=== PATIENT | female | born 1960 | race Caucasian/White ===

== ENCOUNTER 2019-04-12 11:59 | Emergency (ER) | payer OTHER, SELFPAY ==
[2019-04-12 13:04] VITALS: BP 133/75; PULSE 109; RESP 20; TEMP 37.8; O2SAT 96
--- NOTE | 2019-04-12 13:27 | ED.GENADULT ---
HPI - General Adult General Chief complaint: Upper Respiratory Infection Stated complaint: Sore throat/Sinus/Wheezing/Cough Time Seen by Provider: 04/12/19 13:27 Source: patient and RN notes reviewed Mode of arrival: ambulatory Limitations: no limitations History of Present Illness HPI narrative: This patient said a 2-day history of purulent rhinorrhea with postnasal drip and a cough productive of white phlegm. She has not been aware of had any fever at home. She has not had any chest pain or shortness of breath but has had a faint wheezing where she lies down at night. She does have a history of asthma. She is currently on Symbicort and on 80 mg of prednisone per day. 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 She is going to be taking a 6-week course of the prednisone. She has not had any vision changes now. She has had no new symptoms except as noted above. Has had a slight sore throat not severe. She not had any ear pain or drainage from the ears. She has not had any rashes. There is been no nausea, no vomiting, no diarrhea. She has had no hematuria, no dysuria, no pyuria. She has not been traveling. She said no known exposure to anyone with strep throat, mono, influenza, bronchitis, pneumonia that she is aware of. Related Data Home Medications Medication Instructions Recorded Confirmed budesonide-formoterol [Symbicort] 2 puff INHALATION Q12H 01/12/19 04/12/19 prednisone 80 mg PO DAILY 04/12/19 04/12/19 Allergies Allergy/AdvReac Type Severity Reaction Status Date / Time clavulanic acid Allergy Intermediate hives Verified 04/12/19 13:11 amoxicillin Allergy Unknown Hives Verified 04/12/19 13:11 Review of Systems Review of Systems: Narrative: CONSTITUTIONAL: Denies fever, chills, or sweats. Noncontributory except as pertains to the past medical history and the history of present illness. EYES: Denies visual changes, redness, or discharge. ENT: Denies rhinorrhea, congestion, sore throat, or otalgia. CARDIOVASCULAR: Denies chest pain, palpitations, or edema. RESPIRATORY: Denies cough or dyspnea. GASTROINTESTINAL: Denies abdominal pain, nausea, vomiting, or diarrhea. GENITOURINARY: Denies dysuria or hematuria. SKIN: Denies rash or itching. MUSCULOSKELETAL: Denies back pain, joint pain, or myalgia. NEUROLOGIC: Denies headache, numbness, or weakness. PSYCHIATRIC: Denies anxiety or depression. [facility] Past Medical History Medical History (Updated 04/12/19 @ 13:31 by Noman Davis MD) Retinal artery branch occlusion Sinus abscess Vasculitis Surgical History Surgical History H/O section History of lumpectomy of left breast History of Aguila fundoplication History of tonsillectomy Social History Social History Smoking status: Current every day smoker Second hand tobacco smoke exposure: Yes Alcohol intake: current Comments At time of signature, I have reviewed and agree with nursing past medical, surgical, social, and family history.Please see nursing chart for further information. There is no relevant family history pertinent to the presenting complaint. Exam Narrative: Exam Narrative: GENERAL: Well-appearing, well-nourished, and in no acute distress. HEAD: Normocephalic, atraumatic. There is no palpation tenderness over the frontal, maxillary, mastoid sinus areas. EYES: PERRLA and EOMI. EARS: TM's clear bilaterally and the canals are clear. NOSE: Nares have edematous nasal mucosa with purulent rhinorrhea postnasal drip. THROAT:Mucous membranes moist.Oropharynx Normal NECK: Supple. No adenopathy of the neck, supraclavicular, axillary, or inguinal areas. RESPIRATORY: No respiratory distress. Airway patent. Respirations non-labored. The patient has a loose wet cough during the exam. She has rhonch
== END 2019-04-12 13:39 | disposition home or self-care (01) ==
PROVIDERS: Emergency Provider Family Medicine; PCP Family Medicine
DX: J40 Bronchitis, not specified as acute or chronic (principal); J01.10 Acute frontal sinusitis, unspecified; F17.200 Nicotine dependence, unspecified, uncomplicated; J45.909 Unspecified asthma, uncomplicated; E78.00 Pure hypercholesterolemia, unspecified; I10 Essential (primary) hypertension; K21.9 Gastro-esophageal reflux disease without esophagitis; E03.9 Hypothyroidism, unspecified; F41.9 Anxiety disorder, unspecified; Z85.3 Personal history of malignant neoplasm of breast
CPT/HCPCS: 99213; G0463

== ENCOUNTER 2019-04-23 10:22 | Outpatient (CLI) | payer OTHER, SELFPAY ==
--- NOTE | ~2019-04-23 | XR_ITS ---
EXAMINATION: XR chest 2V EXAM DATE: 04/23/2019 10:32 INDICATION: Shortness of breath. TECHNIQUE: Frontal and lateral projections of the chest obtained and reviewed. Comparison is made to prior examination from 01/17/2019. FINDINGS: The lungs are clear. There are no pleural effusions. The cardiomediastinal silhouette is within normal limits. There is no pneumothorax suspected. The bones and soft tissues are unremarkab le. IMPRESSION: No acute cardiopulmonary findings. Reviewed, dictated and finalized at location B. 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
== END 2019-04-23 10:23 | disposition home or self-care (01) ==
PROVIDERS: PCP Family Medicine; Visit Provider Nurse Practitioner Family
DX: R06.02 Shortness of breath (principal)
CPT/HCPCS: 71046

== ENCOUNTER 2019-09-08 14:14 | Outpatient (CLI) | payer OTHER, SELFPAY ==
--- NOTE | ~2019-09-08 | CT_ITS ---
EXAMINATION: CT chest high resolution wo co DATE: 09/08/2019 16:04 INDICATION: R91.1 Solitary pulmonary nodule TECHNIQUE: Computed tomography (CT) of the chest was performed without intravenous contrast. Addition al 3D reconstructions utilizing coronal maximum intensity projection (MIP) were performed. Automated exposure control and iterative reconstruction technique were employed. The dose-length product was 20 8.98 mGy-cm. COMPARISON: 10/07/2018 FINDINGS: Mild emphysema. 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 Also without significant interval c hange are innumerable scattered 2-3 mm nodules throughout both lungs with upper lung predominance whe re a slightly larger 4 mm nodule in the right lower lobe. No pneumonia, pulmonary edema or pleural ef fusion. Heart size is normal. Atherosclerotic coronary artery calcifications. No pericardial effusion . No pathologically enlarged thoracic lymphadenopathy. Small calcified gallstone in the normal-appear ing decompressed gallbladder. Visual is upper abdomen is unremarkable. Mild thoracic spondylosis. IMPRESSION: 1. 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 2. Mild emphysema. 3. No interval change in innumerable clearly benign 4 mm or smaller pulmonary nodules which are likel y sequela of old granulomatous disease. Reviewed, dictated and finalized at location A. IMPRESSION: 1. No significant interval change in a 4.7 x 2.0 cm pleural-based nodule at the periphery of the right lower lobe with prior biopsy demonstrating solitary fib tang tumor of the visceral pleura. 2. Mild emphysema. 3. No interval change in innumerable clearly benign 4 mm or smaller pulmonary n odules which are likely sequela of old granulomatous disease.
== END 2019-09-08 14:15 | disposition home or self-care (01) ==
LOC: ANHIMG 14:18
PROVIDERS: PCP Family Medicine; Visit Provider Nurse Practitioner Family
DX: R91.1 Solitary pulmonary nodule (principal); J43.9 Emphysema, unspecified
CPT/HCPCS: 71250

== ENCOUNTER → 2019-10-22 08:23 | Outpatient (CLI) | payer OTHER, SELFPAY ==
--- NOTE | ~2019-10-22 | XR_ITS ---
EXAMINATION: XR foot LT 2V DATE: 10/22/2019 08:39 INDICATION: Left foot pain. TECHNIQUE: 2 views of left foot were obtained. COMPARISON: None. FINDINGS: Bone alignment is normal. No fracture. There is mild osteoarthritis of first metatarsophala ngeal joint. IMPRESSION: 1. Mild osteoarthritis of first metatarsophalangeal joint. Reviewed, dictated and finalized at location B.
== END ==
PROVIDERS: PCP Family Medicine; Visit Provider Family Medicine
DX: M19.072 Primary osteoarthritis, left ankle and foot (principal)
CPT/HCPCS: 73620

== ENCOUNTER 2020-02-19 11:21 | Outpatient (CLI) | payer OTHER, SELFPAY ==
[2020-02-19 17:16] LABS: Basophils Absolute Auto 0.1 K/mm3 (0.0-0.1); Basophils Percent Auto 0.5 % (0.2-1.2); Eosinophils Absolute Auto 0.2 K/mm3 (0-0.3); Eosinophils Percent Auto 1.5 % (0-4.4); Hematocrit 50.7 % (37.0-47.0); Hemoglobin 16.9 g/dL (12.0-15.0); Immature Granulocyte Absolute 0.06 K/mm3 (0.00-0.031); Immature Granulocyte Percent A 0.5 % (0-0.5); Lymphocytes Absolute Auto 3.57 K/mm3 (0.9-3.2); Lymphocytes Percent Auto 27.7 % (18.3-44.2); Mean Corpuscular HGB Conc 33.3 g/dl (32-36); Mean Corpuscular Hemoglobin 31.7 pg (26-34); Mean Corpuscular Volume 95.1 fl (80-100); Mean Platelet Volume 11.1 fl (7.4-10.4); Monocytes Absolute Auto 0.9 K/mm3 (0.1-0.6); Monocytes Percent Auto 7.3 % (2.6-8.5); Neutrophils Absolute Auto 8.1 K/mm3 (1.3-6.7); Neutrophils Percent Auto 62.5 % (45.5-73.1); Platelet Count Result 278 k/mm3 (150-375); Red Blood Count 5.33 M/mm3 (4.2-5.4); Red Cell Distribution Width 12.9 % (11.5-14.5); White Blood Count 12.9 K/mm3 (4.5-10.0)
[2020-02-19 17:17] LABS: Add Urine Microscopic? NO; Appearance Urine Clear (Clear); Bilirubin Urine Negative (Negative); Blood Urine Negative (Negative); Color Urine Yellow (Yellow); Glucose Urine UA Negative (Negative); Ketones Urine Negative (Negative); Leukocyte Esterase Ur Negative LEU/UL (Negative); Nitrate Urine Negative (Negative); Protein Urine Negative (Negative); Urobilinogen Urine Negative mg/dL (<2.0)
[2020-02-19 17:24] LABS: Alanine Aminotransferase 48 U/L (4-35); Albumin Level 4.4 g/dL (3.5-5.1); Alkaline Phosphatase 65 U/L (38-126); Anion Gap 8 mmol/L (8-16); Aspartate Amino Transferase 34 U/L (14-36); Bilirubin,Total 0.9 mg/dL (0.2-1.3); Blood Urea Nitrogen 16 mg/dL (7-17); CRP 0.7 mg/dL (<1.0); Calcium 9.7 mg/dL (8.4-10.2); Carbon Dioxide 27 mmol/L (22-30); Chloride 105 mmol/L (98-107); Estimated Glomerular Filt Rate > 60; Glucose 138 mg/dL (65-105); Potassium 4.3 mmol/L (3.4-5.0); Sodium 140 mmol/L (137-145)
[2020-02-19 17:38] LABS: Vitamin D 25 Hydroxy 56.8 ng/mL
[2020-02-19 17:41] LABS: Hemoglobin A1C 7.1 % (<5.7)
[2020-02-19 17:53] LABS: Thyroid Stimulating Hormone 0.811 uIU/mL (0.465-4.680)
[2020-02-19 18:27] LABS: Folic Acid 7.6 ng/mL (2.76->20)
== END 2020-02-19 11:22 | disposition home or self-care (01) ==
LOC: ANHBWCLAB 11:23
PROVIDERS: PCP Family Medicine; Visit Provider Family Medicine
DX: K52.1 Toxic gastroenteritis and colitis (principal); R53.83 Other fatigue; R79.89 Other specified abnormal findings of blood chemistry; Z79.899 Other long term (current) drug therapy; T36.95XA Adverse effect of unspecified systemic antibiotic, initial encounter
CPT/HCPCS: 36415; 80053; 81003; 82306; 82607; 82746; 83036; 84443; 85025; 86140

== ENCOUNTER 2020-04-11 11:46 | Emergency (ER) | payer OTHER, SELFPAY ==
[2020-04-11 12:05] VITALS: BP 182/95; PULSE 99; RESP 18; O2SAT 95
--- NOTE | 2020-04-11 12:21 | ED.SKABFB ---
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 She has an appointment at site Sunday for surgery on the right breast as this is recurrent problem of right nipple/milk duct obstruction. Patient states there is green drainage from nipple this morning and that the pain is 9 out of 10 , Related Data Home Medications Medication Instructions Recorded Confirmed budesonide-formoterol [Symbicort] 2 puff INHALATION Q12H 01/12/19 04/11/20 calcium carbonate-vitamin D3 600 1 tablet PO DAILY 04/23/19 04/11/20 mg (1,500 mg)-800 unit tablet clopidogrel 75 mg tablet 75 mg PO DAILY 04/23/19 04/11/20 vitamin B complex 1 tablet PO DAILY 04/23/19 04/11/20 tocilizumab 162 mg/0.9 mL 162 mg SUB-Q .q2w ml 06/27/19 04/11/20 subcutaneous pen injector prednisone 5 mg tablet 10 mg PO DAILY tablet 02/19/20 04/11/20 Allergies Allergy/AdvReac Type Severity Reaction Status Date / Time clavulanic acid Allergy Intermediate hives Verified 04/11/20 12:17 amoxicillin Allergy Unknown Hives Verified 04/11/20 12:17 Review of Systems Review of Systems: Narrative: CONSTITUTIONAL: Denies fever, chills, sweats. EYES: Denies visual changes, redness, discharge. ENT: Denies rhinorrhea, congestion, sore throat, otalgia. CARDIOVASCULAR: Denies chest pain, palpitations, edema. RESPIRATORY: Denies dyspnea, wheezing, cough GASTROINTESTINAL: Denies abdominal pain, nausea, vomiting, diarrhea. GENITOURINARY: Denies dysuria, hematuria, abnormal discharge SKIN: Denies rash or itching. Right nipple pain and swelling NEUROLOGIC: Denies numbness, or focal weakness. PSYCHIATRIC: Denies anxiety or depression. [facility] Past Medical History Medical History (Updated 04/11/20 @ 12:32 by Sheyla Lopez CNP) Bronchitis, not specified as acute or chronic Infection of right breast Retinal artery branch occlusion Sinus abscess Vasculitis Surgical History Surgical History H/O section History of lumpectomy of left breast History of Aguila fundoplication History of tonsillectomy Family History Family History Father Diabetes mellitus Family history of Alzheimer's disease Mother Diabetes mellitus Hypertension Family history of arthritis Family history of malignant neoplasm of breast in first degree relative Family history of chronic obstructive pulmonary disease Family history of malignant neoplasm of breast Grandparent Family history of lung cancer Sibling Family history of hypothyroidism Other Family history of cardiovascular disease Family history of malignant neoplasm Social History Social History Years smoked: 35 Smoking status: Current every day smoker Second hand tobacco smoke exposure: Yes Alcohol intake: current Comments At time of signature, I agree with nursing past medical, surgical, social and family history. There is no relevant family history pertinent to the presenting complaint. Exam Narrative: Exam Narrative: GENERAL: This is a well-nourished, well-developed patient, in moderate distress. HEAD: normocephalic, atraumatic. EYES: Sclera clear/white. Vision is grossly intact. EARS: External ears normal, Hearing grossly intact. NOSE: External nose normal without nasal discharge, nares without redness, no rhinorrhea. THROAT: Mucous membranes moist, NECK: Neck supple, CARDIOVASCULAR:Tachycardic rate an
== END 2020-04-11 12:50 | disposition home or self-care (01) ==
PROVIDERS: Emergency Provider Nurse Practitioner; PCP Family Medicine
DX: N61.0 Mastitis without abscess (principal); F17.200 Nicotine dependence, unspecified, uncomplicated; I10 Essential (primary) hypertension; J44.9 Chronic obstructive pulmonary disease, unspecified; E78.00 Pure hypercholesterolemia, unspecified; M81.0 Age-related osteoporosis without current pathological fracture
CPT/HCPCS: 99213; G0463

== ENCOUNTER 2020-04-29 08:25 | Emergency (ER) | payer OTHER, SELFPAY ==
--- NOTE | ~2020-04-29 | XR_ITS ---
XR lumbar spine 2-3V DATE: 04/29/2020 09:00 INDICATION: Low back pain since shoveling snow 2 days ago TECHNIQUE: AP, lateral and coned lateral lumbosacral views COMPARISON: None FINDINGS: No fracture or bone destruction. The lumbar pedicles are intact. Lumbar and lumbosacral int erspaces are relatively well preserved. There is minimal degenerative spurring of the lumbar spine. T he sacroiliac joints are normal. There is calcification of the abdominal aorta and common iliac arteries. IMPRESSION: Minimal degenerative change; no fracture Reviewed, dictated and finalized at location B. 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
[2020-04-29 08:40] VITALS: BP 178/78; PULSE 105; RESP 20; TEMP 36.6; O2SAT 98
--- NOTE | 2020-04-29 08:43 | ED.BACK ---
HPI - Back Pain/Injury General Chief Complaint: Back Pain/Injury Stated Complaint: Low Back Pain Source: patient Mode of arrival: ambulatory Limitations: no limitations History of Present Illness HPI Narrative: Patient is a 59-year-old female who presents with complaints of lower back pain x2 days. She reports she was shoveling snow on Sunday and reports feeling some pain, however, pain is increased over the past day since shoveling. She reports pain to right lower back that radiates to thoracic spine. She denies numbness and tingling. She denies urinary complaints. She denies chest pain. She reports using olco-cax-mhlfqal medications, heating pad and ice pack without relief. MD elicited complaint: back pain Related Data Home Medications Medication Instructions Recorded Confirmed budesonide-formoterol [Symbicort] 2 puff INHALATION Q12H 01/12/19 04/29/20 calcium carbonate-vitamin D3 600 1 tablet PO DAILY 04/23/19 04/29/20 mg (1,500 mg)-800 unit tablet clopidogrel 75 mg tablet 75 mg PO DAILY 04/23/19 04/29/20 vitamin B complex 1 tablet PO DAILY 04/23/19 04/29/20 tocilizumab 162 mg/0.9 mL 162 mg SUB-Q .q2w ml 06/27/19 04/29/20 subcutaneous pen injector prednisone 5 mg tablet 10 mg PO DAILY tablet 02/19/20 04/29/20 Allergies Allergy/AdvReac Type Severity Reaction Status Date / Time clavulanic acid Allergy Intermediate hives Verified 04/11/20 12:17 amoxicillin Allergy Unknown Hives Verified 04/11/20 12:17 Review of Systems Review of Systems: Narrative: CONSTITUTIONAL: Denies fever, chills, or sweats. EYES: Denies visual changes, redness, or discharge. ENT: Denies rhinorrhea, congestion, sore throat, or otalgia. CARDIOVASCULAR: Denies chest pain, palpitations, or edema. RESPIRATORY: Denies cough or dyspnea. GASTROINTESTINAL: Denies abdominal pain, nausea, vomiting, or diarrhea. GENITOURINARY: Denies dysuria or hematuria. SKIN: Denies rash or itching. MUSCULOSKELETAL: Reports lower back pain NEUROLOGIC: Denies headache, numbness, dizziness, or weakness. PSYCHIATRIC: Denies anxiety or depression. [facility] Past Medical History Medical History Bronchitis, not specified as acute or chronic Infection of right breast Retinal artery branch occlusion Sinus abscess Vasculitis Surgical History Surgical History H/O section History of lumpectomy of left breast History of Aguila fundoplication History of tonsillectomy Family History Family History Father Diabetes mellitus Family history of Alzheimer's disease Mother Diabetes mellitus Hypertension Family history of arthritis Family history of malignant neoplasm of breast in first degree relative Family history of chronic obstructive pulmonary disease Family history of malignant neoplasm of breast Grandparent Family history of lung cancer Sibling Family history of hypothyroidism Other Family history of cardiovascular disease Family history of malignant neoplasm Social History Social History Years smoked: 35 Smoking status: Current every day smoker Second hand tobacco smoke exposure: Yes Alcohol intake: current Comments At the time of signature, I have reviewed and agree with nursing past medical, surgical, social, and family history unless otherwise noted. Please see nursing chart for further information. There is no relevant family history pertinent to the presenting complaint. Exam Narrative: Exam Narrative: GENERAL: Well-appearing, well-nourished, and in no acute distress. HEAD: Normocephalic, atraumatic. EYES: No redness or drainage. ENT: Mucous membranes pink and moist. CHEST: No respiratory distress. Clear to auscultation. HEART: Regular rate and rhythm. GI: Soft, nontender without rebound, or guardin
[2020-04-29 08:52] VITALS: BP 178/78; PULSE 105; RESP 20; TEMP 36.6; O2SAT 98
== END 2020-04-29 09:30 | disposition home or self-care (01) ==
PROVIDERS: Emergency Provider Nurse Practitioner; PCP Family Medicine
DX: S39.012A Strain of muscle, fascia and tendon of lower back, initial encounter (principal); X50.3XXA Overexertion from repetitive movements, initial encounter; Y93.H1 Activity, digging, shoveling and raking; F17.200 Nicotine dependence, unspecified, uncomplicated
CPT/HCPCS: 72100; 81003; 99213; G0463

== ENCOUNTER 2020-05-28 10:47 | Outpatient (CLI) | payer OTHER, SELFPAY ==
[2020-05-28 19:13] LABS: CRP < 0.5 mg/dL (<1.0)
[2020-05-28 19:19] LABS: Erythrocyte Sedimentation Rate 4 mm/hr (0-20)
== END 2020-05-28 10:48 | disposition home or self-care (01) ==
LOC: ANHBWCLAB 10:49
PROVIDERS: PCP Family Medicine; Visit Provider Family Medicine
DX: K13.79 Other lesions of oral mucosa (principal); R51.9 Headache, unspecified
CPT/HCPCS: 36415; 85652; 86140; 86695; 86696

== ENCOUNTER 2020-06-07 15:18 | Outpatient (CLI) | payer OTHER, SELFPAY ==
--- NOTE | ~2020-06-07 | XR_ITS ---
EXAMINATION: XR elbow RT min 3V DATE: 06/07/2020 15:40 INDICATION: Right elbow pain. TECHNIQUE: 4 views of right elbow were obtained. COMPARISON: None. FINDINGS: Bone alignment is normal. No fracture. There is mild elbow joint osteoarthritis. No elbow j oint effusion. IMPRESSION: 1. Mild elbow joint osteoarthritis. Reviewed, dictated and finalized at location A.
== END 2020-06-07 15:19 | disposition home or self-care (01) ==
LOC: ANHBWCIMG 15:20
PROVIDERS: PCP Family Medicine; Visit Provider Family Medicine
DX: M19.021 Primary osteoarthritis, right elbow (principal)
CPT/HCPCS: 73080

== ENCOUNTER 2020-11-06 10:19 | Emergency (ER) | payer OTHER, SELFPAY ==
[2020-11-06 10:24] VITALS: BP 154/76; PULSE 102; RESP 16; TEMP 36.4; O2SAT 97
--- NOTE | 2020-11-06 10:53 | ED.SKABFB ---
HPI - Skin/Abscess/Foreign Bdy General Chief complaint: Skin/Abscess/Foreign Body Stated complaint: poison reagan or oak Time Seen by Provider: 11/06/20 10:55 Source: patient and RN notes reviewed Mode of arrival: ambulatory Limitations: no limitations History of Present Illness HPI narrative: 60-year-old female presents with concern for rash. She reports rash on bilateral legs that are spreading up to her legs. Reports rash on both arms. Reports she got this rash after pulling weeds last week. Reports she has tried several [id number]-hwbnlih remedies without relief. Reports the rash continues to spread. She denies any swollen lips, swollen tongue, trouble breathing, nausea, vomiting, diarrhea, fever. MD complaint: rash Related Data Home Medications Medication Instructions Recorded Confirmed calcium carbonate-vitamin D3 600 1 tablet PO DAILY 04/23/19 11/06/20 mg (1,500 mg)-800 unit tablet vitamin B complex 1 tablet PO DAILY 04/23/19 11/06/20 tocilizumab 162 mg/0.9 mL 162 mg SUB-Q .q2w ml 06/27/19 11/06/20 subcutaneous pen injector prednisone 5 mg tablet 3 mg PO DAILY tablet 07/20/20 11/06/20 Allergies Allergy/AdvReac Type Severity Reaction Status Date / Time clavulanic acid Allergy Intermediate hives Verified 11/06/20 10:38 amoxicillin Allergy Unknown Hives Verified 11/06/20 10:38 Review of Systems Review of Systems: CONSTITUTIONAL: Denies malaise, chills, sweats, or fever. EYES: Denies visual changes, rash to the eyes ENT: Denies swollen lips, swollen tongue CARDIOVASCULAR: Denies chest pain, palpitations, or edema. RESPIRATORY: Denies cough or dyspnea. GASTROINTESTINAL: Denies abdominal pain, nausea, vomiting, diarrhea SKIN: Reports itchy rash on bilateral arms and legs All systems reviewed & are unremarkable except as noted in HPI and below PMFSH Past Medical History Medical History Bronchitis, not specified as acute or chronic Diabetes type 2, controlled Essential hypertension HX: breast cancer Infection of right breast Retinal artery branch occlusion Sinus abscess Temporal arteritis Vasculitis Surgical History Surgical History H/O section History of lumpectomy of left breast History of Aguila fundoplication History of tonsillectomy Family History Family History Father Diabetes mellitus Family history of Alzheimer's disease Mother Diabetes mellitus Hypertension Family history of arthritis Family history of malignant neoplasm of breast in first degree relative Family history of chronic obstructive pulmonary disease Family history of malignant neoplasm of breast Grandparent Family history of lung cancer Sibling Family history of hypothyroidism Other Family history of cardiovascular disease Family history of malignant neoplasm Social History Social History (Updated 08/19/20 @ 10:41 by Ashley Parsons [facility]) Smoking packs per day: 15 Smoking cigarettes per day: 300.0 Years smoked: 35 Smoking pack-years: 525.00 Smoking status: Current every day smoker Second hand tobacco smoke exposure: Yes Alcohol intake: current Substance use: never Comments At time of signature, agree with nursing past medical, surgical, social and family history. There is no relevant family history pertinent to the presenting complaint Exam Narrative: GENERAL: Well-appearing, well-nourished, and in no acute distress. HEAD: Normocephalic, atraumatic. EYES: PERRLA, conjunctivae clear, and EOMI. ENT: Mucous membranes moist. Oropharynx without edema, erythema or lesions. NECK: Supple. No lymphadenopathy CHEST: Clear to auscultation. No respiratory distress. HEART: Regular rate and rhythm. SKIN: Warm, dry. Papular vesicular rash noted in patches on the bilateral arms and legs consistent with poison reagan contact dermatiti
== END 2020-11-06 11:08 | disposition home or self-care (01) ==
PROVIDERS: Emergency Provider Nurse Practitioner; PCP Radiology Diagnostic Radiology
DX: L24.7 Irritant contact dermatitis due to plants, except food (principal); F17.210 Nicotine dependence, cigarettes, uncomplicated; E11.9 Type 2 diabetes mellitus without complications; Z85.3 Personal history of malignant neoplasm of breast
CPT/HCPCS: 99213; G0463

== ENCOUNTER 2021-01-03 10:17 | Outpatient (CLI) | payer OTHER, SELFPAY ==
--- NOTE | ~2021-01-03 | US_ITS ---
EXAMINATION: US venous doppler [facility] DATE: 01/03/2021 10:58 INDICATION: Left lower limb pain. TECHNIQUE: Grayscale ultrasound images without and with compression and Doppler ultrasound images of the left lower extremity veins were obtained. COMPARISON: None. FINDINGS: The visualized portions of left common femoral vein, profunda (deep) femoral vein, femoral vein, popl iteal vein, peroneal veins, posterior tibial veins, and greater saphenous vein outflow are patent. IMPRESSION: 1. No deep venous thrombosis. Reviewed, dictated and finalized at location A.
== END 2021-01-03 10:18 | disposition home or self-care (01) ==
LOC: ANHIMG 10:19
PROVIDERS: PCP Family Medicine; Visit Provider Family Medicine
DX: M79.662 Pain in left lower leg (principal)
CPT/HCPCS: 93971

== ENCOUNTER 2021-03-25 13:24 | Emergency (ER) | payer OTHER, SELFPAY ==
[2021-03-25 13:33] VITALS: BP 130/83; PULSE 88; RESP 16; TEMP 36.8; O2SAT 98
--- NOTE | 2021-03-25 13:37 | ED.URI ---
HPI - URI/Sore Throat General Chief Complaint: Ear Stated Complaint: Ear pain Time Seen by Provider: 03/25/21 13:37 Source: patient, RN notes reviewed and old records reviewed Mode of arrival: ambulatory Limitations: no limitations History of Present Illness HPI Narrative: 60-year-old female presents to the [facility] with complaints of sinus issues, sinus pain and pressure along with ear fullness. States it started at the end of February when she was diagnosed with COVID. Appointment had a cough that was productive, green spoke with her doctor who prescribed an antibiotic Feb tested positive for covid 2 Mar was prescribed a zpac. Related Data Home Medications Medication Instructions Recorded Confirmed calcium carbonate 600 mg-vitamin 1 tablet PO DAILY 04/23/19 03/25/21 D3 20 mcg (800 unit) tablet vitamin B complex 1 tablet PO DAILY 04/23/19 03/25/21 tocilizumab 162 mg/0.9 mL 162 mg SUB-Q .q2w ml 06/27/19 03/25/21 subcutaneous pen injector prednisone 35 mg PO DAILY 03/25/21 03/25/21 Allergies Allergy/AdvReac Type Severity Reaction Status Date / Time clavulanic acid Allergy Intermediate hives Verified 03/25/21 13:38 amoxicillin Allergy Unknown Hives Verified 03/25/21 13:38 Review of Systems Review of Systems: All systems reviewed & are unremarkable except as noted in HPI and below Constitutional: Constitutional: Reports no additional constitutional complaints, Denies chills and Denies fever(s) Eyes: Eyes: Reports no additional eye complaints ENT: Reports as per HPI and Reports nasal congestion Cardiovascular: Cardiovascular: Reports no additional cardiovascular complaints and Denies chest pain Respiratory: Respiratory: Reports no additional respiratory complaints, Denies cough, Denies dyspnea and Denies wheezing Gastrointestinal: Gastrointestinal: Reports no additional gastrointestinal complaints, Denies abdominal pain, Denies diarrhea, Denies nausea and Denies vomiting Musculoskeletal: Musculoskeletal: Reports no additional musculoskeletal complaints and Denies back pain Integumentary/Breasts: Skin/Breast: Reports system reviewed and no additional complaints, except as docu Neurologic: Reports as per HPI and Reports headache(s) (Frontal) Psychiatric: Psychiatric: Reports no additional psychiatric complaints Allergic/Immunologic: Allergic/Immunologic: Reports no additional allergic/immunologic complaints PMFSH Past Medical History Medical History Bronchitis, not specified as acute or chronic Diabetes type 2, controlled Essential hypertension HX: breast cancer Infection of right breast Mastitis Retinal artery branch occlusion Sinus abscess Temporal arteritis Vasculitis Surgical History Surgical History H/O section History of incision and drainage History of lumpectomy of left breast History of Aguila fundoplication History of tonsillectomy Family History Family History Father Diabetes mellitus Family history of Alzheimer's disease Mother Diabetes mellitus Hypertension Family history of arthritis Family history of malignant neoplasm of breast in first degree relative Family history of chronic obstructive pulmonary disease Family history of malignant neoplasm of breast Grandparent Family history of lung cancer Sibling Family history of hypothyroidism Other Family history of cardiovascular disease Family history of malignant neoplasm Social History Social History Smoking packs per day: 15 Smoking cigarettes per day: 300.0 Years smoked: 35 Smoking pack-years: 525.00 Smoking status: Current every day smoker Second hand tobacco smoke exposure: Yes Alcohol intake: current Substance use: never Comments At the time of my signature, I reviewed and
== END 2021-03-25 13:56 | disposition home or self-care (01) ==
PROVIDERS: Emergency Provider Nurse Practitioner; PCP Family Medicine
DX: J32.9 Chronic sinusitis, unspecified (principal); H65.03 Acute serous otitis media, bilateral; F17.210 Nicotine dependence, cigarettes, uncomplicated; E11.9 Type 2 diabetes mellitus without complications; I10 Essential (primary) hypertension; Z85.3 Personal history of malignant neoplasm of breast
CPT/HCPCS: 99213; G0463

== ENCOUNTER 2021-05-25 16:28 | Outpatient (CLI) | payer OTHER, SELFPAY ==
--- NOTE | ~2021-05-25 | CT_ITS ---
EXAMINATION:CT diagnostic chest wo con DATE: 05/25/2021 17:04 INDICATION: Solitary pulmonary nodule. TECHNIQUE: Computed tomography (CT) of the chest was performed without intravenous contrast. Automate d exposure control and iterative reconstruction technique were employed. The dose-length product (DLP ) was 69.23 mGy-cm. COMPARISON: Chest CT 09/08/2019 FINDINGS: There is mild emphysema. Again seen are innumerable scattered nodules in the lungs measurin g up to 4 mm, likely benign. There is a 5.2 x 2.0 x 3.8 cm pleural-based mass in posterior right lowe r lobe that measured 4.8 x 2.1 x 3.0 cm on 09/08/19. No pleural effusion. The heart size is normal. Th ere are coronary artery calcifications. No pericardial effusion. There is mild thoracic spondylosis. There is mild chronic anterior wedging of multiple vertebral bodies. IMPRESSION: 1. Stable pleural-based mass in right lung lower lobe. 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 2. Mild emphysema. Reviewed, dictated and finalized at location A. IMPRESSION: 1. Stable pleural-based mass in right lung lower lobe. Biopsy on 04/01/2018 demo nstrated solitary fibrous tumor. 2. Mild emphysema.
== END 2021-05-25 16:29 | disposition home or self-care (01) ==
LOC: ANHIMG 16:31
PROVIDERS: PCP Family Medicine; Visit Provider Nurse Practitioner Family
DX: R91.1 Solitary pulmonary nodule (principal); J43.9 Emphysema, unspecified
CPT/HCPCS: 71250

== ENCOUNTER 2021-05-27 10:33 | Outpatient (CLI) | payer OTHER, SELFPAY ==
[2021-05-27 18:53] LABS: Cholesterol 246 mg/dL (0-200); HDL Direct 66 mg/dL; Triglycerides 243 mg/dL (<150)
[2021-05-27 18:57] LABS: Hemoglobin A1C 7.1 % (<5.7)
[2021-05-27 19:05] LABS: LDL Cholesterol Direct 140 mg/dL
== END 2021-05-27 10:34 | disposition home or self-care (01) ==
PROVIDERS: PCP Family Medicine; Visit Provider Family Medicine
DX: R53.83 Other fatigue (principal); M25.521 Pain in right elbow; J44.9 Chronic obstructive pulmonary disease, unspecified; E78.5 Hyperlipidemia, unspecified; F17.210 Nicotine dependence, cigarettes, uncomplicated; Z00.00 Encounter for general adult medical examination without abnormal findings; E11.9 Type 2 diabetes mellitus without complications; I10 Essential (primary) hypertension; M31.6 Other giant cell arteritis
CPT/HCPCS: 36415; 80061; 83036; 84443

== ENCOUNTER 2021-08-03 11:59 | Outpatient (CLI) | payer OTHER, SELFPAY ==
[2021-08-03 19:01] LABS: Basophils Absolute Auto 0.1 K/mm3 (0.0-0.1); Basophils Percent Auto 0.4 % (0.2-1.2); Eosinophils Absolute Auto 0.1 K/mm3 (0-0.3); Eosinophils Percent Auto 0.7 % (0-4.4); Hematocrit 48.3 % (37.0-47.0); Hemoglobin 16.1 g/dL (12.0-15.0); Immature Granulocyte Absolute 0.09 K/mm3 (0.00-0.031); Immature Granulocyte Percent A 0.7 % (0-0.5); Lymphocytes Absolute Auto 1.43 K/mm3 (0.9-3.2); Lymphocytes Percent Auto 10.6 % (18.3-44.2); Mean Corpuscular HGB Conc 33.3 g/dl (32-36); Mean Corpuscular Hemoglobin 32.6 pg (26-34); Mean Corpuscular Volume 97.8 fl (80-100); Mean Platelet Volume 10.8 fl (7.4-10.4); Monocytes Absolute Auto 0.4 K/mm3 (0.1-0.6); Neutrophils Absolute Auto 11.4 K/mm3 (1.3-6.7); Neutrophils Percent Auto 84.6 % (45.5-73.1); Platelet Count Result 310 k/mm3 (150-375); Red Blood Count 4.94 M/mm3 (4.2-5.4); Red Cell Distribution Width 12.6 % (11.5-14.5); White Blood Count 13.5 K/mm3 (4.5-10.0)
[2021-08-03 19:25] LABS: Alanine Aminotransferase 19 U/L (6-35); Albumin Level 4.3 g/dL (3.5-5.1); Alkaline Phosphatase 65 U/L (38-126); Anion Gap 9 mmol/L (8-16); Aspartate Amino Transferase 20 U/L (14-36); Bilirubin,Total 0.9 mg/dL (0.2-1.3); Blood Urea Nitrogen 17 mg/dL (7-17); Calcium 10.1 mg/dL (8.4-10.2); Carbon Dioxide 22 mmol/L (22-30); Chloride 107 mmol/L (98-107); Estimated Glomerular Filt Rate > 60; Glucose 139 mg/dL (65-110); Potassium 4.4 mmol/L (3.4-5.0); Sodium 138 mmol/L (137-145)
[2021-08-03 19:27] LABS: Cholesterol 221 mg/dL (0-200); HDL Direct 67 mg/dL; Triglycerides 224 mg/dL (<150)
[2021-08-03 19:33] LABS: Troponin I < 0.012 ng/mL (0.000-0.034)
[2021-08-03 19:38] LABS: LDL Cholesterol Direct 111 mg/dL
[2021-08-03 19:52] LABS: Thyroid Stimulating Hormone 0.489 uIU/mL (0.465-4.680)
[2021-08-03 20:19] LABS: Hemoglobin A1C 6.6 % (<5.7)
== END 2021-08-03 12:00 | disposition home or self-care (01) ==
PROVIDERS: PCP Family Medicine; Visit Provider Family Medicine
DX: R53.83 Other fatigue (principal); M79.662 Pain in left lower leg; R07.9 Chest pain, unspecified; E11.9 Type 2 diabetes mellitus without complications; E78.5 Hyperlipidemia, unspecified
CPT/HCPCS: 36415; 80053; 80061; 83036; 84443; 84484; 85025

== ENCOUNTER 2021-12-30 08:19 | Outpatient (CLI) | payer OTHER, SELFPAY ==
[2021-12-30 19:37] LABS: Alanine Aminotransferase 22 U/L (6-35); Albumin Level 4.4 g/dL (3.5-5.1); Alkaline Phosphatase 62 U/L (38-126); Anion Gap 11 mmol/L (8-16); Aspartate Amino Transferase 99 U/L (14-36); Blood Urea Nitrogen 21 mg/dL (7-17); Calcium 8.9 mg/dL (8.4-10.2); Carbon Dioxide 24 mmol/L (22-30); Chloride 102 mmol/L (98-107); Cholesterol 257 mg/dL (0-200); Estimated Glomerular Filt Rate > 60; Glucose 104 mg/dL (65-110); HDL Direct 53 mg/dL; Potassium 3.8 mmol/L (3.4-5.0); Sodium 137 mmol/L (137-145); Triglycerides 224 mg/dL (<150)
[2021-12-30 19:48] LABS: LDL Cholesterol Direct 155 mg/dL
[2021-12-30 20:21] LABS: Creatinine Urine 109.4 mg/dL
[2021-12-30 20:24] LABS: Hemoglobin A1C 7.9 % (<5.7)
[2021-12-30 20:25] LABS: MALB Creatinine Ratio 6.7 mg/g (0-30); Microalbumin Urine Random 7.3 mg/L (0-16.7)
== END 2021-12-30 08:20 | disposition home or self-care (01) ==
LOC: ANHBWCLAB 08:19
PROVIDERS: PCP Family Medicine; Visit Provider Family Medicine
DX: M79.10 Myalgia, unspecified site (principal); E03.9 Hypothyroidism, unspecified; E11.9 Type 2 diabetes mellitus without complications
CPT/HCPCS: 36415; 80053; 80061; 82043; 83036; 84443

== ENCOUNTER 2022-05-01 07:26 | Outpatient (CLI) | payer OTHER, SELFPAY ==
[2022-05-01 18:34] LABS: Basophils Absolute Auto 0.1 K/mm3 (0.0-0.1); Basophils Percent Auto 0.6 % (0.2-1.2); Eosinophils Absolute Auto 0.2 K/mm3 (0-0.3); Hematocrit 52.9 % (37.0-47.0); Hemoglobin 17.2 g/dL (12.0-15.0); Immature Granulocyte Absolute 0.13 K/mm3 (0.00-0.031); Immature Granulocyte Percent A 0.8 % (0-0.5); Lymphocytes Absolute Auto 4.23 K/mm3 (0.9-3.2); Lymphocytes Percent Auto 27.3 % (18.3-44.2); Mean Corpuscular HGB Conc 32.5 g/dl (32-36); Mean Corpuscular Volume 98.3 fl (80-100); Monocytes Absolute Auto 1.1 K/mm3 (0.1-0.6); Monocytes Percent Auto 7.3 % (2.6-8.5); Neutrophils Absolute Auto 9.7 K/mm3 (1.3-6.7); Platelet Count Result 313 k/mm3 (150-375); Red Blood Count 5.38 M/mm3 (4.2-5.4); Red Cell Distribution Width 14.2 % (11.5-14.5); White Blood Count 15.5 K/mm3 (4.5-10.0)
[2022-05-01 19:11] LABS: MALB Creatinine Ratio 8.1 mg/g (0-30); Microalbumin Urine Random 6.8 mg/L (0-16.7)
[2022-05-01 19:44] LABS: Alanine Aminotransferase 23 U/L (6-35); Albumin Level 4.7 g/dL (3.5-5.1); Alkaline Phosphatase 61 U/L (38-126); Anion Gap 4 mmol/L (8-16); Aspartate Amino Transferase 81 U/L (14-36); Bilirubin,Total 0.9 mg/dL (0.2-1.3); Blood Urea Nitrogen 23 mg/dL (7-17); Calcium 9.1 mg/dL (8.4-10.2); Carbon Dioxide 29 mmol/L (22-30); Chloride 101 mmol/L (98-107); Cholesterol 201 mg/dL (0-200); Estimated Glomerular Filt Rate > 60; Glucose 79 mg/dL (65-110); HDL Direct 55 mg/dL; Potassium 3.4 mmol/L (3.4-5.0); Sodium 134 mmol/L (137-145); Triglycerides 230 mg/dL (<150)
[2022-05-01 19:55] LABS: LDL Cholesterol Direct 94 mg/dL
[2022-05-01 19:57] LABS: Anion Gap 6 mmol/L (8-16); Blood Urea Nitrogen 23 mg/dL (7-17); Carbon Dioxide 28 mmol/L (22-30); Chloride 101 mmol/L (98-107); Estimated Glomerular Filt Rate > 60; Glucose 82 mg/dL (65-110); Potassium 3.4 mmol/L (3.4-5.0); Sodium 135 mmol/L (137-145)
[2022-05-01 21:44] LABS: Hemoglobin A1C 7.1 % (<5.7)
[2022-05-08 00:17] LABS: ALT 14 U/L (6-29); Alpha-2-Macroglobulin 230 mg/dL (106-279); Apolipoprotein A1 196 mg/dL (101-198); Fibrosis Score 0.18; Fibrosis Stage F0; GGT 47 U/L (3-65); Haptoglobin 268 mg/dL (43-212); Necroinflammat Act Grade A0; Total Bilirubin 0.7 mg/dL (0.2-1.2)
== END 2022-05-01 07:27 | disposition home or self-care (01) ==
PROVIDERS: PCP Family Medicine; Visit Provider Internal Medicine Rheumatology
DX: Z51.81 Encounter for therapeutic drug level monitoring (principal); E03.9 Hypothyroidism, unspecified; D89.89 Other specified disorders involving the immune mechanism, not elsewhere classified; E11.9 Type 2 diabetes mellitus without complications; R53.83 Other fatigue
CPT/HCPCS: 36415; 80048; 80053; 80061; 81596; 82043; 83036; 84443; 85025

== ENCOUNTER 2022-05-29 12:29 | Outpatient (CLI) | payer OTHER, SELFPAY ==
--- NOTE | ~2022-05-29 | CT_ITS ---
CT Scan of the Chest without Contrast: Clinical Indication: Lung cancer screening, current smoker Technique: Contiguous sections were acquired throughout the chest without intravenous contrast. Dose reduction technique was used on this scan by utilizing automated exposure control and iterative recon struction technique. The dose-length product (DLP) was 81.31 mGy-cm. COMPARISON: 05/25/2021, 09/08/2019, 10/07/2018 Findings: There is no evidence of any significant mediastinal, hilar or axillary lymphadenopathy. Coronary linsey ry calcium cages are present. There are atherosclerotic calcifications of the aorta. . There is no evidence of pleural or pericardial effusion. Numerous scattered tiny subcentimeter, predominantly peripheral pulmonary nodules are stable from winnie or exam. Pleural-based lentiform soft tissue mass at the posterior right lung base is unchanged from prior exam, measuring approximately 4.7 x 1.8 cm (axial image 94). Images through the upper abdomen reveal no abnormalities. Impression: Lung-RADS 2: Benign appearance. [address] advised. Stable pleural-based mass at the posterior right lung base. This has reportedly previously been biops ied and shown to be solitary fibrous tumor. Additional numerous scattered tiny subcentimeter pulmonary nodules, predominantly peripherally, are s table from prior exams, benign. Reviewed, dictated and finalized at location M. Impression: Lung-RADS 2: Benign appearance. [address] advised. Stable pleural-based mass at the posterior right lung base. This has reportedly previously been biopsied and shown to be solitary fibrous tumor. Additional numerous scattered tiny subcentimeter pulmonary nodules, predominant ly peripherally, are stable from prior exams, benign.
== END 2022-05-29 12:30 | disposition home or self-care (01) ==
LOC: ANHIMG 12:32
PROVIDERS: PCP Family Medicine; Visit Provider Physician Assistant
DX: Z12.2 Encounter for screening for malignant neoplasm of respiratory organs (principal); F17.210 Nicotine dependence, cigarettes, uncomplicated
CPT/HCPCS: 71271

== ENCOUNTER 2022-07-31 08:30 | Outpatient (CLI) | payer OTHER, SELFPAY ==
[2022-07-31 18:36] LABS: Alanine Aminotransferase 37 U/L (6-35); Albumin Level 4.2 g/dL (3.5-5.1); Alkaline Phosphatase 64 U/L (38-126); Anion Gap 1 mmol/L (8-16); Aspartate Amino Transferase 87 U/L (14-36); Bilirubin,Total 0.6 mg/dL (0.2-1.3); Blood Urea Nitrogen 14 mg/dL (7-17); Calcium 8.7 mg/dL (8.4-10.2); Carbon Dioxide 33 mmol/L (22-30); Chloride 104 mmol/L (98-107); Estimated Glomerular Filt Rate > 60; Glucose 96 mg/dL (65-110); Potassium 3.9 mmol/L (3.4-5.0); Sodium 138 mmol/L (137-145)
[2022-07-31 18:44] LABS: Basophils Absolute Auto 0.1 K/mm3 (0.0-0.1); Basophils Percent Auto 0.5 % (0.2-1.2); Eosinophils Absolute Auto 0.2 K/mm3 (0-0.3); Eosinophils Percent Auto 1.7 % (0-4.4); Hematocrit 48.9 % (37.0-47.0); Hemoglobin 15.8 g/dL (12.0-15.0); Immature Granulocyte Absolute 0.11 K/mm3 (0.00-0.031); Lymphocytes Absolute Auto 3.63 K/mm3 (0.9-3.2); Mean Corpuscular HGB Conc 32.3 g/dl (32-36); Mean Corpuscular Hemoglobin 32.3 pg (26-34); Mean Platelet Volume 9.9 fl (7.4-10.4); Monocytes Absolute Auto 0.9 K/mm3 (0.1-0.6); Monocytes Percent Auto 7.8 % (2.6-8.5); Neutrophils Absolute Auto 6.5 K/mm3 (1.3-6.7); Platelet Count Result 284 k/mm3 (150-375); Red Blood Count 4.89 M/mm3 (4.2-5.4); Red Cell Distribution Width 15.6 % (11.5-14.5); White Blood Count 11.3 K/mm3 (4.5-10.0)
[2022-07-31 18:54] LABS: Alanine Aminotransferase 36 U/L (6-35); Albumin Level 4.1 g/dL (3.5-5.1); Alkaline Phosphatase 58 U/L (38-126); Aspartate Amino Transferase 85 U/L (14-36); Bilirubin,Total 0.6 mg/dL (0.2-1.3)
[2022-07-31 20:06] LABS: Creatinine Urine 62.8 mg/dL
[2022-07-31 20:18] LABS: MALB Creatinine Ratio < 9.6 mg/g (0-30); Microalbumin Urine Random < 6.0 mg/L (0-16.7)
[2022-07-31 20:19] LABS: Hemoglobin A1C 6.6 % (<5.7)
== END 2022-07-31 08:31 | disposition home or self-care (01) ==
PROVIDERS: PCP Family Medicine; Visit Provider Internal Medicine Rheumatology
DX: Z51.81 Encounter for therapeutic drug level monitoring (principal); E11.9 Type 2 diabetes mellitus without complications; D75.1 Secondary polycythemia
CPT/HCPCS: 36415; 80053; 80076; 82043; 83036; 85025

== ENCOUNTER 2022-08-31 12:49 | Outpatient (CLI) | payer OTHER, SELFPAY ==
[2022-08-31 13:31] LABS: Basophils Absolute Auto 0.1 K/mm3 (0.0-0.1); Basophils Percent Auto 0.4 % (0.2-1.2); Hematocrit 49.3 % (37.0-47.0); Hemoglobin 16.5 g/dL (12.0-15.0); Immature Granulocyte Absolute 0.12 K/mm3 (0.00-0.031); Immature Granulocyte Percent A 0.9 % (0-0.5); Lymphocytes Absolute Auto 1.25 K/mm3 (0.9-3.2); Lymphocytes Percent Auto 9.3 % (18.3-44.2); Mean Corpuscular HGB Conc 33.5 g/dl (32-36); Mean Corpuscular Hemoglobin 31.9 pg (26-34); Mean Corpuscular Volume 95.2 fl (80-100); Mean Platelet Volume 10.4 fl (7.4-10.4); Monocytes Absolute Auto 0.3 K/mm3 (0.1-0.6); Monocytes Percent Auto 1.9 % (2.6-8.5); Neutrophils Absolute Auto 11.7 K/mm3 (1.3-6.7); Neutrophils Percent Auto 87.5 % (45.5-73.1); Platelet Count Result 296 k/mm3 (150-375); Red Blood Count 5.18 M/mm3 (4.2-5.4); Red Cell Distribution Width 13.8 % (11.5-14.5); White Blood Count 13.4 K/mm3 (4.5-10.0)
[2022-08-31 13:43] LABS: Alanine Aminotransferase 33 U/L (6-35); Albumin Level 4.4 g/dL (3.5-5.1); Alkaline Phosphatase 59 U/L (38-126); Anion Gap 9 mmol/L (8-16); Aspartate Amino Transferase 31 U/L (14-36); Bilirubin,Total 0.7 mg/dL (0.2-1.3); Blood Urea Nitrogen 20 mg/dL (7-17); Calcium 9.6 mg/dL (8.4-10.2); Carbon Dioxide 24 mmol/L (22-30); Chloride 104 mmol/L (98-107); Estimated Glomerular Filt Rate > 60; Glucose 140 mg/dL (65-110); Potassium 4.7 mmol/L (3.4-5.0); Sodium 137 mmol/L (137-145)
== END 2022-08-31 12:50 | disposition home or self-care (01) ==
PROVIDERS: PCP Family Medicine; Visit Provider Internal Medicine Rheumatology
DX: Z51.81 Encounter for therapeutic drug level monitoring (principal); Z79.899 Other long term (current) drug therapy
CPT/HCPCS: 36415; 80048; 80076; 85025

== ENCOUNTER 2022-08-31 13:51 | Outpatient (CLI) | payer OTHER, SELFPAY ==
--- NOTE | ~2022-08-31 | US_ITS ---
US abdomen limited INDICATION: Epigastric pain PROCEDURE: Realtime right upper abdominal ultrasound. COMPARISON: No prior studies for comparison. FINDINGS: The pancreas is normal without focal mass or pancreatic ductal dilation. Liver echotexture is diffusely increased, consistent with fatty infiltration. There is normal directional flow in the portal vein. There is gallbladder sludge. No definite shadowing stones are seen. Common bile duct measures 8 mm. No sonographic Truong's sign. IMPRESSION: 1: Gallbladder sludge. Mildly dilated common bile duct measuring 8 mm. 2: Hepatic steatosis. Reviewed, dictated and finalized at location L.
== END 2022-08-31 13:52 | disposition home or self-care (01) ==
PROVIDERS: PCP Family Medicine; Visit Provider Nurse Practitioner
DX: R10.13 Epigastric pain (principal); K76.0 Fatty (change of) liver, not elsewhere classified
CPT/HCPCS: 76705

== ENCOUNTER 2022-10-09 07:59 | Outpatient (CLI) | payer OTHER, SELFPAY ==
[2022-10-09 19:08] LABS: Basophils Absolute Auto 0.1 K/mm3 (0.0-0.1); Basophils Percent Auto 0.4 % (0.2-1.2); Eosinophils Absolute Auto 0.2 K/mm3 (0-0.3); Eosinophils Percent Auto 1.5 % (0-4.4); Hematocrit 52.6 % (37.0-47.0); Hemoglobin 17.2 g/dL (12.0-15.0); Immature Granulocyte Absolute 0.14 K/mm3 (0.00-0.031); Immature Granulocyte Percent A 1.2 % (0-0.5); Lymphocytes Absolute Auto 3.56 K/mm3 (0.9-3.2); Lymphocytes Percent Auto 29.3 % (18.3-44.2); Mean Corpuscular HGB Conc 32.7 g/dl (32-36); Mean Corpuscular Hemoglobin 31.7 pg (26-34); Mean Corpuscular Volume 96.9 fl (80-100); Mean Platelet Volume 10.5 fl (7.4-10.4); Monocytes Absolute Auto 0.9 K/mm3 (0.1-0.6); Monocytes Percent Auto 7.4 % (2.6-8.5); Neutrophils Absolute Auto 7.3 K/mm3 (1.3-6.7); Neutrophils Percent Auto 60.2 % (45.5-73.1); Platelet Count Result 289 k/mm3 (150-375); Red Blood Count 5.43 M/mm3 (4.2-5.4); Red Cell Distribution Width 13.5 % (11.5-14.5); White Blood Count 12.2 K/mm3 (4.5-10.0)
[2022-10-09 19:28] LABS: Cholesterol 237 mg/dL (0-200); HDL Direct 53 mg/dL; Triglycerides 240 mg/dL (<150)
[2022-10-09 19:29] LABS: Alanine Aminotransferase 37 U/L (6-35); Albumin Level 4.2 g/dL (3.5-5.1); Alkaline Phosphatase 59 U/L (38-126); Anion Gap 2 mmol/L (8-16); Aspartate Amino Transferase 71 U/L (14-36); Bilirubin,Total 0.8 mg/dL (0.2-1.3); Blood Urea Nitrogen 18 mg/dL (7-17); Calcium 9.3 mg/dL (8.4-10.2); Carbon Dioxide 31 mmol/L (22-30); Chloride 102 mmol/L (98-107); Estimated Glomerular Filt Rate > 60; Glucose 106 mg/dL (65-110); Potassium 3.7 mmol/L (3.4-5.0); Sodium 135 mmol/L (137-145)
[2022-10-09 19:39] LABS: LDL Cholesterol Direct 137 mg/dL
== END 2022-10-09 08:00 | disposition home or self-care (01) ==
PROVIDERS: PCP Family Medicine; Visit Provider Internal Medicine Rheumatology
DX: E78.5 Hyperlipidemia, unspecified (principal)
CPT/HCPCS: 36415; 80048; 80061; 80076; 85025

== ENCOUNTER 2022-10-19 08:02 | Outpatient (CLI) | payer OTHER, SELFPAY ==
--- NOTE | ~2022-10-19 | NM_ITS ---
EXAMINATION: NM hepatobiliary wo pharm DATE: 10/19/2022 11:16 INDICATION: Abnormal findings on diagnostic imaging. Dilated common duct. COMPARISON: Ultrasound 08/31/2022 TECHNIQUE: 4.8 mCi Tc-99m mebrofenin (Choletec) was administered intravenously. Scintigraphic images of the abdomen were obtained for one hour. Then, the patient drank 8 oz Ensure, and imaging was cont inued for 60 minutes. FINDINGS: There is normal clearance of radiotracer from the blood pool. There is homogeneous tracer u ptake by the liver. Activity progresses to the bowel and gallbladder. Gallbladder ejection fraction (GBEF) was 44%. Note that with this technique, normal GBEF >= 33%. IMPRESSION: 1. Normal hepatobiliary scintigraphy. Reviewed, dictated and finalized at location A.
== END 2022-10-19 08:03 | disposition home or self-care (01) ==
PROVIDERS: PCP Family Medicine; Visit Provider Nurse Practitioner Adult Health
DX: R93.89 Abnormal findings on diagnostic imaging of other specified body structures (principal)
CPT/HCPCS: 78226; A9537

== ENCOUNTER 2022-10-27 09:54 | Outpatient (CLI) | payer OTHER, SELFPAY ==
[2022-10-27 19:02] LABS: Appearance Urine Clear (Clear); Bacteria Urine None Seen /hpf; Bilirubin Urine Negative (Negative); Blood Urine Negative (Negative); Color Urine Yellow (Yellow); Glucose Urine UA 3+ mg/dL (Negative); Ketones Urine Negative (Negative); Leukocyte Esterase Ur Trace LEU/UL (NEGATIVE); Nitrate Urine Negative (Negative); Non Pathogenic Casts 0-2; Protein Urine Negative (Negative); RBC Urine 0-2 /hpf (0-2); Specific Grav Ur 1.014 (1.001-1.035); Squamous Epithelial Cell Urine None seen /hpf (Few); Urobilinogen Urine 0.2 mg/dL (<2.0); WBC Urine 0-5 /hpf (0-3); pH Urine 6.5 (5.0-9.0)
[2022-10-27 19:06] LABS: Add Urine Microscopic? YES
== END 2022-10-27 09:55 | disposition home or self-care (01) ==
PROVIDERS: PCP Family Medicine; Visit Provider Family Medicine
DX: R30.0 Dysuria (principal)
CPT/HCPCS: 81001; 87086; 87088

== ENCOUNTER 2022-10-31 07:26 | Outpatient (RCR) | payer OTHER, SELFPAY ==
[2022-10-31 19:05] LABS: Basophils Percent Auto 0.3 % (0.2-1.2); Eosinophils Absolute Auto 0.1 K/mm3 (0-0.3); Eosinophils Percent Auto 0.9 % (0-4.4); Hemoglobin 15.7 g/dL (12.0-15.0); Immature Granulocyte Absolute 0.18 K/mm3 (0.00-0.031); Immature Granulocyte Percent A 1.5 % (0-0.5); Lymphocytes Absolute Auto 3.16 K/mm3 (0.9-3.2); Lymphocytes Percent Auto 25.8 % (18.3-44.2); Mean Corpuscular HGB Conc 31.4 g/dl (32-36); Mean Corpuscular Volume 98.6 fl (80-100); Mean Platelet Volume 10.8 fl (7.4-10.4); Monocytes Absolute Auto 0.9 K/mm3 (0.1-0.6); Neutrophils Absolute Auto 7.9 K/mm3 (1.3-6.7); Neutrophils Percent Auto 64.5 % (45.5-73.1); Platelet Count Result 276 k/mm3 (150-375); Red Blood Count 5.07 M/mm3 (4.2-5.4); White Blood Count 12.2 K/mm3 (4.5-10.0)
[2022-10-31 19:41] LABS: Alanine Aminotransferase 48 U/L (6-35); Albumin Level 3.9 g/dL (3.5-5.1); Alkaline Phosphatase 62 U/L (38-126); Anion Gap 4 mmol/L (8-16); Aspartate Amino Transferase 70 U/L (14-36); Bilirubin,Total 1.1 mg/dL (0.2-1.3); Blood Urea Nitrogen 19 mg/dL (7-17); Carbon Dioxide 24 mmol/L (22-30); Chloride 102 mmol/L (98-107); Estimated Glomerular Filt Rate > 60; Glucose 125 mg/dL (65-110); Potassium 3.5 mmol/L (3.4-5.0); Sodium 130 mmol/L (137-145)
== END 2023-01-29 23:59 | disposition home or self-care (01) ==
LOC: ANHBWCLAB 07:26
PROVIDERS: PCP Family Medicine; Visit Provider Internal Medicine Rheumatology
DX: Z51.81 Encounter for therapeutic drug level monitoring (principal); Z79.899 Other long term (current) drug therapy
CPT/HCPCS: 36415; 80048; 80076; 85025

== ENCOUNTER 2022-12-12 08:47 | Outpatient (CLI) | payer OTHER, SELFPAY ==
[2022-12-12 18:19] LABS: Basophils Absolute Auto 0.1 K/mm3 (0.0-0.1); Basophils Percent Auto 0.5 % (0.2-1.2); Eosinophils Absolute Auto 0.1 K/mm3 (0-0.3); Eosinophils Percent Auto 0.5 % (0-4.4); Hematocrit 47.5 % (37.0-47.0); Hemoglobin 15.5 g/dL (12.0-15.0); Immature Granulocyte Absolute 0.12 K/mm3 (0.00-0.031); Immature Granulocyte Percent A 0.9 % (0-0.5); Lymphocytes Absolute Auto 3.08 K/mm3 (0.9-3.2); Lymphocytes Percent Auto 23.9 % (18.3-44.2); Mean Corpuscular HGB Conc 32.6 g/dl (32-36); Mean Corpuscular Hemoglobin 30.9 pg (26-34); Mean Corpuscular Volume 94.6 fl (80-100); Mean Platelet Volume 11.1 fl (7.4-10.4); Monocytes Percent Auto 8.1 % (2.6-8.5); Neutrophils Absolute Auto 8.5 K/mm3 (1.3-6.7); Neutrophils Percent Auto 66.1 % (45.5-73.1); Platelet Count Result 259 k/mm3 (150-375); Red Blood Count 5.02 M/mm3 (4.2-5.4); Red Cell Distribution Width 13.9 % (11.5-14.5); White Blood Count 12.9 K/mm3 (4.5-10.0)
[2022-12-12 19:01] LABS: Free T4 Free Thyroxine 1.12 ng/mL (0.78-2.19)
[2022-12-12 19:38] LABS: Alanine Aminotransferase 40 U/L (6-35); Albumin Level 4.2 g/dL (3.5-5.1); Alkaline Phosphatase 56 U/L (38-126); Anion Gap 5 mmol/L (8-16); Aspartate Amino Transferase 68 U/L (14-36); Blood Urea Nitrogen 17 mg/dL (7-17); Calcium 9.7 mg/dL (8.4-10.2); Carbon Dioxide 33 mmol/L (22-30); Chloride 102 mmol/L (98-107); Cholesterol 125 mg/dL (0-200); Estimated Glomerular Filt Rate > 60; Glucose 121 mg/dL (65-110); HDL Direct 49 mg/dL; Potassium 3.9 mmol/L (3.4-5.0); Sodium 140 mmol/L (137-145); Triglycerides 179 mg/dL (<150)
[2022-12-12 19:49] LABS: LDL Cholesterol Direct 54 mg/dL
[2022-12-12 20:03] LABS: Thyroid Stimulating Hormone 0.087 uIU/mL (0.465-4.680)
[2022-12-16 07:50] LABS: Triiodothyronine T3 Free 3.6 pg/mL (2.3-4.2)
[2022-12-19 21:19] LABS: ALT 30 U/L (6-29); Alpha-2-Macroglobulin 239 mg/dL (106-279); Apolipoprotein A1 152 mg/dL (101-198); Fibrosis Score 0.31; Fibrosis Stage F1-F2; GGT 126 U/L (3-65); Haptoglobin 367 mg/dL (43-212); Necroinflammat Act Grade A0; Total Bilirubin 0.6 mg/dL (0.2-1.2)
== END 2022-12-12 08:48 | disposition home or self-care (01) ==
PROVIDERS: PCP Family Medicine; Referring Provider Internal Medicine Rheumatology; Visit Provider Internal Medicine Cardiovascular Disease
DX: E03.9 Hypothyroidism, unspecified (principal); E11.9 Type 2 diabetes mellitus without complications; F17.210 Nicotine dependence, cigarettes, uncomplicated; G47.33 Obstructive sleep apnea (adult) (pediatric); I10 Essential (primary) hypertension; I77.6 Arteritis, unspecified; J44.9 Chronic obstructive pulmonary disease, unspecified; R53.83 Other fatigue; E78.5 Hyperlipidemia, unspecified; M54.50 Low back pain, unspecified
CPT/HCPCS: 36415; 80053; 80061; 81596; 84439; 84443; 84481; 85025

== ENCOUNTER 2023-01-23 08:40 | Outpatient (CLI) | payer OTHER, SELFPAY ==
[2023-01-23 21:28] LABS: Thyroid Stimulating Hormone 0.168 uIU/mL (0.465-4.680)
== END 2023-01-23 08:41 | disposition home or self-care (01) ==
LOC: ANHBWCLAB 08:41
PROVIDERS: PCP Nurse Practitioner Adult Health; Visit Provider Family Medicine
DX: E03.9 Hypothyroidism, unspecified (principal)
CPT/HCPCS: 36415; 84443

== ENCOUNTER 2023-01-24 11:01 | Outpatient (CLI) | payer OTHER, SELFPAY ==
[2023-02-07 19:01] LABS: TPMT Activity 8
== END 2023-01-24 11:02 | disposition home or self-care (01) ==
PROVIDERS: PCP Nurse Practitioner Adult Health; Visit Provider Internal Medicine
DX: M31.6 Other giant cell arteritis (principal); L40.59 Other psoriatic arthropathy; Z79.899 Other long term (current) drug therapy
CPT/HCPCS: 36415; 82657

== ENCOUNTER 2023-03-21 07:38 | Outpatient (CLI) | payer OTHER, SELFPAY | END 2023-03-21 07:39 | disposition home or self-care (01) | LOC: ANHBWCLAB 07:39 | PROVIDERS: PCP Nurse Practitioner Adult Health; Visit Provider Nurse Practitioner Adult Health | DX: E03.9 Hypothyroidism, unspecified (principal) | CPT/HCPCS: 36415; 84443 ==

== ENCOUNTER 2023-04-03 08:34 | Outpatient (CLI) | payer OTHER, SELFPAY ==
--- NOTE | 2023-04-03 08:42 | ECHO_ITS ---
Patient Info Name: Ivonne Bacon Age: 62 years : 1960 Gender: Female Ht: 67 in Wt: 182 lbs BSA: 2.00 m2 HR: 71 bpm BP: 123 / 92 mmHg Technical Quality: Good Exam Date: 04/03/2023 8:57 AM Exam Location: Echo Lab Patient Status: Outpatient Admit Date: 04/03/2023 Staff Ordering Physician: Brielle Mendoza PA-C Attending Provider: Brielle Mendoza PA-C Exam Type: CA echo doppler color flow Study Info Indications R60.9 - Edema, unspecified Complete two-dimensional, color flow and Doppler transthoracic echocardiogram is performed. Summary 1. Complete two-dimensional, color flow and Doppler transthoracic echocardiogram is performed. 2. Left ventricular chamber dimension is normal. 3. Left ventricular systolic function is normal, estimated at 60-65%. 4. There is mild concentric increased left ventricular wall thickness. 5. The left ventricular diastolic function is grade I diastolic dysfunction. 6. E/e' 11 is mildly elevated. 7. There is mild aortic valve sclerosis. 8. The mitral valve has mildly calcified annulus. 9. There is trace mitral valve regurgitation. 10. There is trace pulmonic regurgitation. Left Ventricle E/e' 11 is mildly elevated. Left ventricular chamber dimension is normal. Left ventricular systolic function is normal, estimated at 60-65%. There is mild concentric increased left ventricular wall thickness. The left ventricular diastolic function is grade I diastolic dysfunction. Right Ventricle Right ventricular systolic function is normal and with normal TAPSE 2.1 cm. Right ventricular chamber dimension is normal. Left Atria Left atrial chamber dimension is normal. Right Atria Right atrial chamber dimension is normal. Aortic Valve The aortic valve is trileaflet. There is mild aortic valve sclerosis. There is no aortic valve stenosis. There is no aortic valve regurgitation. Pulmonic Valve There is trace pulmonic regurgitation. Mitral Valve The mitral valve has mildly calcified annulus. There is no mitral valve stenosis. There is trace mitral valve regurgitation. Tricuspid Valve There is no tricuspid valve regurgitation. Pericardium/Pleural There is no pericardial effusion. Inferior Vena Cava Normal inferior vena cava with >50% collapse upon inspiration consistent with normal right atrial pressure, 5 mmHg. Aorta The aortic root size at the sinus of Valsalva is normal. Left Ventricular Outflow Tract Name Value Normal LVOT 2D LVOT Diameter 2.1 cm LVOT Doppler LVOT Peak Gradient 4 mmHg LVOT Mean Gradient 2 mmHg LVOT VTI 20 cm LVOT VTI/AV VTI Ratio 0.6 LVOT Stroke Volume 66 ml LVOT CO 4.6 l/min LVOT CI 2.3 l/min/m2 Pulmonic Valve Name Value Normal PV Doppler PV Peak Gradient
== END 2023-04-03 08:35 | disposition home or self-care (01) ==
PROVIDERS: PCP Nurse Practitioner Adult Health; Visit Provider Physician Assistant
DX: R60.9 Edema, unspecified (principal)
CPT/HCPCS: 93306

== ENCOUNTER 2023-04-09 10:56 | Outpatient (CLI) | payer OTHER, SELFPAY ==
[2023-04-14 20:17] LABS: G-6-PD, RBC 13.6 U/g Hgb (7.0-20.5)
== END 2023-04-09 10:57 | disposition home or self-care (01) ==
LOC: ANHBWCLAB 10:57
PROVIDERS: PCP Nurse Practitioner Adult Health; Visit Provider Internal Medicine
DX: M05.89 Other rheumatoid arthritis with rheumatoid factor of multiple sites (principal); Z79.899 Other long term (current) drug therapy
CPT/HCPCS: 36415; 82955

== ENCOUNTER 2023-06-11 08:16 | Outpatient (CLI) | payer OTHER, SELFPAY ==
--- NOTE | ~2023-06-11 | US_ITS ---
EXAMINATION: US carotid duplex BI DATE: 06/11/2023 09:41 INDICATION: Right-sided pulsatile tinnitus. TECHNIQUE: Grayscale, color Doppler, and pulsed Doppler images of the cervical carotid arteries were obtained. The degree of vessel stenosis is placed in one of the following categories: normal, <50%, 5 0-69%, >=70% but less than near-occlusion, near-occlusion, or total occlusion. Note that percent sten osis relative to normal distal artery lumen diameter is indirectly measured from velocity measurement s as described by Viraj, et al. Radiology 2003; 229:340-346. COMPARISON: None. FINDINGS: RIGHT: The right common carotid artery (CCA) peak systolic velocity (PSV) is 63 cm/s. The right internal car otid artery (ICA) PSV is 76 cm/s. The right ICA end-diastolic velocity (EDV) is 31 cm/s. The right IC A/CCA PSV ratio is 1.2. Grayscale and color Doppler images yield an estimate of <50% diameter reducti on from plaque in the ICA. There is antegrade flow in the right vertebral artery. LEFT: The left CCA PSV is 81 cm/s. The left ICA PSV is 82 cm/s. The left ICA EDV is 33 cm/s. The left ICA/C CA PSV ratio is 1.0. Grayscale and color Doppler images yield an estimate of <50% diameter reduction from plaque in the ICA. There is antegrade flow in the left vertebral artery. IMPRESSION: 1. <50% stenosis in the right internal carotid artery. 2. <50% stenosis in the left internal carotid artery. Reviewed, dictated and finalized at location A.
== END 2023-06-11 08:17 ==
PROVIDERS: PCP Nurse Practitioner Adult Health; Visit Provider Nurse Practitioner Adult Health
DX: H93.A1 Pulsatile tinnitus, right ear (principal); I65.23 Occlusion and stenosis of bilateral carotid arteries
CPT/HCPCS: 93880

== ENCOUNTER 2023-07-09 15:59 | Outpatient (CLI) | payer OTHER, SELFPAY ==
--- NOTE | ~2023-07-09 | CT_ITS ---
EXAMINATION: CT IAC/mastoids BI wo con DATE: 07/09/2023 16:14 INDICATION: Chronic maxillary sinusitis. Tinnitus. Right ear pressure and fullness. TECHNIQUE: Computed tomography (CT) of the temporal bones was performed without intravenous contrast. Automated exposure control and iterative reconstruction technique were employed. The dose-length pro duct was 403.39 mGy-cm. COMPARISON: None FINDINGS: RIGHT TEMPORAL BONE: The internal auditory canal, cochlea, vestibule, semicircular canals, vestibular aqueduct, carotid ca nal, jugular bulb, facial nerve course, ossicles, tympanic membrane, Prussak space, scutum, mastoid a ir cells, and external auditory canal are normal. LEFT TEMPORAL BONE: The internal auditory canal, cochlea, vestibule, semicircular canals, vestibular aqueduct, facial ner ve course, carotid canal, jugular bulb, ossicles, tympanic membrane, Prussak space, scutum, mastoid a ir cells, and external artery canal are normal. IMPRESSION: 1. Normal temporal bones. Reviewed, dictated and finalized at location A. IMPRESSION: 1. Normal temporal bones.
== END 2023-07-09 16:00 ==
PROVIDERS: PCP Nurse Practitioner Adult Health; Visit Provider Otolaryngology
DX: J32.0 Chronic maxillary sinusitis (principal); H70.11 Chronic mastoiditis, right ear; H93.A1 Pulsatile tinnitus, right ear
CPT/HCPCS: 70480

== ENCOUNTER 2023-07-17 07:54 | Outpatient (CLI) | payer OTHER, SELFPAY | END 2023-07-17 07:55 | disposition home or self-care (01) | LOC: ANHBWCAUD 07:55 | PROVIDERS: PCP Nurse Practitioner Adult Health; Visit Provider Otolaryngology | DX: H70.11 Chronic mastoiditis, right ear (principal); H93.A1 Pulsatile tinnitus, right ear; J32.0 Chronic maxillary sinusitis | CPT/HCPCS: 92557; 92567 ==

== ENCOUNTER 2023-07-30 10:29 | Outpatient (CLI) | payer OTHER, SELFPAY ==
--- NOTE | ~2023-07-30 | XR_ITS ---
XR lumbar spine 2-3V DATE: 07/30/2023 10:40 INDICATION: Low back pain TECHNIQUE: AP, lateral, cone-down lateral lumbosacral views COMPARISON: None FINDINGS: There is diffuse osteopenia. Normal alignment of the lumbar vertebrae. The included lower thoracic and lumbar pedicles are intact. No fracture or bone destruction or spondylolisthesis. There is minimal degenerative spurring of the lumbar spine. Lumbar and lumbosacral screws appear relatively well preserved. Sacroiliac joints are intact. There is extensive calcification of abdominal aorta and common iliac arteries, no evidence of abdomin al aortic aneurysm. IMPRESSION: Osteopenia Reviewed, dictated and finalized at location B. IMPRESSION: Osteopenia
== END 2023-07-30 10:30 | disposition home or self-care (01) ==
LOC: ANHBWCIMG 10:30
PROVIDERS: PCP Nurse Practitioner Adult Health; Visit Provider Nurse Practitioner Adult Health
DX: M85.88 Other specified disorders of bone density and structure, other site (principal)
CPT/HCPCS: 72100

== ENCOUNTER 2023-11-08 10:33 | Outpatient (CLI) | payer OTHER, SELFPAY ==
[2023-11-08 19:33] LABS: Cholesterol 219 mg/dL (0-200); Estimated Glomerular Filt Rate > 60; HDL Direct 38 mg/dL; Triglycerides 195 mg/dL (<150)
[2023-11-08 19:42] LABS: Creatinine Urine 160.5 mg/dL; Hemoglobin A1C 8.4 % (<5.7)
[2023-11-08 19:44] LABS: LDL Cholesterol Direct 144 mg/dL; Microalbumin Urine Random 9.6 mg/L (0-16.7)
[2023-11-08 20:01] LABS: Thyroid Stimulating Hormone 0.158 uIU/mL (0.465-4.680)
== END 2023-11-08 10:34 | disposition home or self-care (01) ==
LOC: ANHBWCLAB 10:34
PROVIDERS: PCP Nurse Practitioner Adult Health; Visit Provider Nurse Practitioner Adult Health
DX: E53.8 Deficiency of other specified B group vitamins (principal); E78.5 Hyperlipidemia, unspecified; E03.9 Hypothyroidism, unspecified; E11.9 Type 2 diabetes mellitus without complications
CPT/HCPCS: 36415; 80061; 82043; 82565; 82607; 83036; 84439; 84443

== ENCOUNTER 2023-11-15 08:22 | Outpatient (CLI) | payer OTHER, SELFPAY ==
--- NOTE | ~2023-11-15 | US_ITS ---
Abdominal Sonogram: Real-time sonographic imaging of the abdomen was performed. Clinical History: Atherosclerosis of aorta Findings: The liver appears echogenic, with no evidence of mass lesion or bile duct dilatation. Main portal vein demonstrates normal direction of flow. The spleen is normal in size without evidence of focal lesion. The gallbladder is well distended, and contains small gallstones. No gallbladder wall thickening. The common bile duct measures 8 mm, questionable tiny echogenic focus within it. The vis ualized pancreas, aorta, and IVC are unremarkable. The right kidney measures 12.9 cm in length and t he left kidney measures 11.8 cm. There is no hydronephrosis or renal calculus. Impression: Diffuse fatty infiltration of the liver. Cholelithiasis. Mildly dilated common bile duct, with questionable tiny common duct stone. Consider MRCP as indicated . Reviewed, dictated and finalized at [facility]. Impression: Diffuse fatty infiltration of the liver. Cholelithiasis. Mildly dilated common bile duct, with questionable tiny common duct stone. Cons ider MRCP as indicated.
== END 2023-11-15 08:23 | disposition home or self-care (01) ==
LOC: MICIMG 08:23
PROVIDERS: PCP Nurse Practitioner Adult Health; Visit Provider Nurse Practitioner Adult Health
DX: I70.0 Atherosclerosis of aorta (principal); K80.20 Calculus of gallbladder without cholecystitis without obstruction; K76.0 Fatty (change of) liver, not elsewhere classified
CPT/HCPCS: 76700

== ENCOUNTER 2023-11-21 09:20 | Outpatient (CLI) | payer OTHER, SELFPAY ==
--- NOTE | ~2023-11-21 | US_ITS ---
EXAMINATION: US art doppler w press LE BI DATE: 11/21/2023 10:34 INDICATION: Claudication lower limb pain TECHNIQUE: Segmental pressures and plethysmographic and Doppler waveforms of the brachial and lower e xtremity arteries were obtained. COMPARISON: None. FINDINGS: Right and left brachial artery pressures of 137 mm Hg and 144 mm Hg, respectively, are concordant (no rmal difference <= 30 mmHg). The right and left high-thigh pressure indices are unable to be obtained due to inability to occlude the vessels at either high thigh (normal > 1.2). The right ankle-brachial index (JOSEPH) is 1.09 (normal >= 0.9-1). The right great toe-brachial index (T BI) is 1.26 (normal >= 0.6-0.8). The right lower extremity segmental pressure gradients are increased between the right [id number] popliteal artery and the right dorsalis pedis artery (normal gradie nts <= 20-30 mmHg between adjacent levels on the same leg or the same levels on the two legs). Arteri al waveforms are biphasic with brisk systolic upstrokes throughout the arteries of the right lower li mb. The left JOSEPH is 1.07. The left TBI is 0.95. The left lower extremity segmental pressure gradients are increased between the left [id number] popliteal artery and the left dorsalis pedis artery. Arter ial waveforms are biphasic with brisk systolic upstrokes arteries of the left lower limb. IMPRESSION: 1. No significant arterial occlusive disease to either lower limb with normal bilateral ABIs and TBIs . Reviewed, dictated and finalized at location B. IMPRESSION: 1. No significant arterial occlusive disease to either lower limb with normal b ilateral ABIs and TBIs.
== END 2023-11-21 09:21 | disposition home or self-care (01) ==
LOC: ANHIMG 09:21
PROVIDERS: PCP Nurse Practitioner Adult Health; Visit Provider Internal Medicine Cardiovascular Disease
DX: M79.606 Pain in leg, unspecified (principal)
CPT/HCPCS: 93923

== ENCOUNTER 2023-12-07 12:59 | Outpatient (CLI) | payer OTHER, SELFPAY ==
--- NOTE | 2023-12-07 12:30 | ECG_ITS ---
Test Date: 2023-12-07 13:06:55 Measurements Intervals [place] Rate: 77 P: 17 WA: 148 QRS: 34 QRSD: 111 T: 53 QT: 358 QTc: 407 Interpretive Statements SINUS RHYTHM INCOMPLETE LEFT BUNDLE BRANCH BLOCK BASELINE ARTIFACT- II, III, V1-V6 ABNORMAL ECG No previous ECG available for comparison Electronically Signed On 12-07-2023 13:28:12 CDT by Adan Hernandez D.O.
== END 2023-12-07 13:00 | disposition home or self-care (01) ==
LOC: ANHSURGERY 13:02
PROVIDERS: PCP Nurse Practitioner Adult Health; Visit Provider Surgery
DX: Z01.818 Encounter for other preprocedural examination (principal); I10 Essential (primary) hypertension; I45.10 Unspecified right bundle-branch block; R94.31 Abnormal electrocardiogram [ECG] [EKG]
CPT/HCPCS: 93005

== ENCOUNTER 2023-12-08 15:55 | Inpatient (IN) | payer OTHER, SELFPAY ==
[2023-12-08 16:17] VITALS: BP 125/55; PULSE 89; RESP 18; TEMP 36.8; O2SAT 100
[2023-12-08 18:26] VITALS: BP 143/68; PULSE 93; RESP 18; TEMP 36.7; O2SAT 95
[2023-12-08 20:30] VITALS: BP 144/72; PULSE 75; RESP 16; TEMP 37.2; O2SAT 98
--- NOTE | 2023-12-08 21:34 | ED.SKABFB ---
HPI - Skin/Abscess/Foreign Bdy General Chief complaint: Skin/Abscess/Foreign Body Stated complaint: INCREASED PAIN AND REDNESS R/T MASTITIS Time Seen by Provider: 12/08/23 20:58 History of Present Illness HPI narrative: 63-year-old female with a past medical history significant for mastitis recurrent on the right breast as well as a history of left-sided breast cancer status post multiple surgeries. She was seen by her breast surgeon several days prior and has completed 9 days of clindamycin, switched to Bactrim for last several days with only worsening redness, irritation, but new pustule formation around the right areola but no drainage or weepage. Endorses significant pain. Is scheduled for an operation with an incision and drainage under anesthesia in the operating room on Sunday this week which is in 2 days. States that the pain got worse today and she had a high fever of 101? F at home prompting her to seek evaluation. She has been taking [place] at home without any symptom control. Denies any chills, rigors, nausea, vomiting, diaphoresis, abdominal pain, back pain. No chest pain shortness a breath. Related Data Home Medications Medication Instructions Recorded Confirmed calcium carbonate 600 mg-vitamin 1 tablet PO DAILY 04/23/19 12/09/23 D3 20 mcg (800 unit) tablet (Caltrate with Vitamin D3) alendronate 70 mg tablet 70 mg PO WEEKLY 09/08/22 12/09/23 prednisone 10 mg tablet 20 mg PO DAILY 10/03/23 12/09/23 vonoprazan 10 mg tablet (Voquezna) 10 mg PO DAILY 10/03/23 12/09/23 secukinumab 150 mg/mL subcutaneous 150 mg subcut MONTHLY 12/07/23 12/09/23 pen injector (Cosentyx Pen) clopidogrel 75 mg tablet 75 mg PO DAILY 12/09/23 12/09/23 levothyroxine 100 mcg tablet 100 mcg PO QAM 12/09/23 12/09/23 liothyronine 5 mcg tablet 5 mcg PO BID 12/09/23 12/09/23 lisinopril 20 mg tablet 20 mg PO DAILY 12/09/23 12/09/23 montelukast 10 mg tablet 10 mg PO QPM 12/09/23 12/09/23 Allergies Allergy/AdvReac Type Severity Reaction Status Date / Time clavulanic acid Allergy Intermediate hives Verified 12/09/23 07:08 amoxicillin Allergy Unknown Hives Verified 12/09/23 07:08 Review of Systems Review of Systems: As reviewed above in [facility] Past Medical History Medical History Bronchitis, not specified as acute or chronic Diabetes type 2, controlled Essential hypertension HX: breast cancer Infection of right breast Lung tumor (benign) Mastitis Retinal artery branch occlusion Sinus abscess Temporal arteritis Vasculitis Surgical History Surgical History H/O section History of incision and drainage History of lumpectomy of left breast History of [place] fundoplication History of tonsillectomy Family History Family History Father Diabetes mellitus Family history of Alzheimer's disease Mother Diabetes mellitus Hypertension Family history of arthritis Family history of malignant neoplasm of breast in first degree relative Family history of chronic obstructive pulmonary disease Family history of malignant neoplasm of breast Grandparent Family history of lung cancer Sibling Family history of hypothyroidism Other Family history of cardiovascular disease Family history of malignant neoplasm Social History Social History Smoking packs per day: 0.75 Smoking cigarettes per day: 15.0 Years smoked: 46 Smoking pack-years: 34.50 Smoking status: Current every day smoker Tobacco type: cigarettes Second hand tobacco smoke exposure: Yes Alcohol intake: never Substance use: never Substance use type: does not use Do You Feel Safe in your Home?: Yes Lack of Transportation: No Lack of Food: Never True Current Housing: I Have Housing Concerned About F
[2023-12-08 22:25] LABS: Basophils Absolute Auto 0.1 K/mm3 (0.0-0.1); Basophils Percent Auto 0.4 % (0.2-1.2); Eosinophils Percent Auto 0.1 % (0-4.4); Hematocrit 46.3 % (37.0-47.0); Hemoglobin 15.7 g/dL (12.0-15.0); Immature Granulocyte Absolute 0.15 K/mm3 (0.00-0.031); Immature Granulocyte Percent A 1.3 % (0-0.5); Lymphocytes Absolute Auto 1.13 K/mm3 (0.9-3.2); Lymphocytes Percent Auto 9.5 % (18.3-44.2); Mean Corpuscular HGB Conc 33.9 g/dl (32-36); Mean Corpuscular Hemoglobin 30.4 pg (26-34); Mean Corpuscular Volume 89.6 fl (80-100); Mean Platelet Volume 10.2 fl (7.4-10.4); Monocytes Absolute Auto 0.4 K/mm3 (0.1-0.6); Monocytes Percent Auto 3.3 % (2.6-8.5); Neutrophils Absolute Auto 10.2 K/mm3 (1.3-6.7); Neutrophils Percent Auto 85.4 % (45.5-73.1); Platelet Count Result 338 k/mm3 (150-375); Red Blood Count 5.17 M/mm3 (4.2-5.4); Red Cell Distribution Width 13.7 % (11.5-14.5); White Blood Count 11.9 K/mm3 (4.5-10.0)
[2023-12-08] MEDS: MORPHINE SULFATE (*CRX) 4 MG/ML INJ IV PUSH (22:28)
[2023-12-08] MEDS: LACTATED RINGERS 1,000 ML 999 ML IV CONT (22:32)
[2023-12-08 22:35] LABS: Anion Gap 9 mmol/L (4-12); Blood Urea Nitrogen 11 mg/dL (7-17); Calcium 9.4 mg/dL (8.4-10.2); Carbon Dioxide 21 mmol/L (22-30); Chloride 104 mmol/L (98-107); Estimated CRCL calculation 64 ml/min; Estimated Glomerular Filt Rate > 60; Glucose 185 mg/dL (65-110); Magnesium 2.2 mg/dL (1.6-2.3); Potassium 4.8 mmol/L (3.4-5.0); Sodium 134 mmol/L (137-145)
[2023-12-08 22:38] LABS: Prothrombin Time 13.3 Seconds (11.1-14.7)
[2023-12-08 22:39] LABS: Partial Thromboplastin Time 24.9 Seconds (22.3-36.8)
[2023-12-08] MEDS: VANCOMYCIN 1,500 MG/NS 500 ML 1,500 MG/500 ML BAG 250 MG IVPB (23:16)
[2023-12-08 23:28] VITALS: BP 141/65; PULSE 77; RESP 18; TEMP 37.1; O2SAT 96
[2023-12-09] VITALS (26 sets, daily range): BP systolic 118–174; BP diastolic 56–79; PULSE 66–84; RESP 11–74; TEMP 36.1–36.4; O2SAT 92–100; BMI 28.8
--- NOTE | 2023-12-09 01:24 | PC.NURSE ---
This RN assumed care of pt @[id number] 12/07
[2023-12-09] MEDS: HYDROmorphone HCL INJ (*CRX) 1 MG/ML SYR 0.5 MG IV PUSH ×6 (01:26→09:39)
--- NOTE | 2023-12-09 07:07 | ADMGEN ---
This patient, Ivonne Bacon, was admitted to [facility] Surg Room 309-01. Patient/family oriented to hospital policies and general routines including ID bracelet, bed and alarms, visiting hours, pain management, procedures, bathroom and other care routines, personal items, smoking policy, room service/diet, and visiting hours. Information on how to activate the Rapid Response Team has been discussed. Patient/Family are encouraged to report perceived risks to care and to ask questions if they do not understand what they are told or what they should do.
[2023-12-09] MEDS: PIPERACILLIN/TAZ 4.5G/NS 100ML 4.5 GM/100 ML BAG IVPB (07:31)
[2023-12-09] MEDS: LACTATED RINGERS 1,000 ML 125 ML IV CONT (07:32)
--- NOTE | 2023-12-09 07:47 | PM.IMHP ---
H&P: HPI History of Present Illness Date/Time: 12/09/23 07:47 Chief Complaint: Skin/Abscess/Foreign Body Narrative: 63-year-old female with a past medical history significant for mastitis recurrent on the right breast as well as a history of left-sided breast cancer status post multiple surgeries. She was seen by her breast surgeon several days prior and has completed 9 days of clindamycin, switched to Bactrim for last several days with only worsening redness, irritation, but new pustule formation around the right areola but no drainage or weepage. Endorses significant pain. Is scheduled for an operation with an incision and drainage under anesthesia in the operating room on Sunday this week which is in 2 days. States that the pain got worse today and she had a high fever of 101? F at home prompting her to seek evaluation. She has been taking [place] at home without any symptom control. Denies any chills, rigors, nausea, vomiting, diaphoresis, abdominal pain, back pain. No chest pain shortness a breath. WBC shows 11.9, sodium 134, creatinine 0.8, glucose 185, TSH 0.158, free T4 0.9, no significant findings in urinalysis, blood culture and urine culture pending. Patient was started on vancomycin. Dr. Roa is her surgeon a performed incision and drainage today and added Zosyn for the broad coverage. Tomorrow likely deescalate antibiotic with regards to her hemodynamic status. Patient has a remote history of GCA for which she is taking prednisone 22.5 mg p.o. q.d. 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 Mastitis started from the year of 2012, 2020, 11/23/2023. In all 3 occasions patient required incision and drainage PMFSH Past Medical History Medical History Bronchitis, not specified as acute or chronic Diabetes type 2, controlled Essential hypertension HX: breast cancer Infection of right breast Lung tumor (benign) Mastitis Retinal artery branch occlusion Sinus abscess Temporal arteritis Vasculitis Surgical History Surgical History H/O section History of incision and drainage History of lumpectomy of left breast History of [place] fundoplication History of tonsillectomy Family History Family History Father Diabetes mellitus Family history of Alzheimer's disease Mother Diabetes mellitus Hypertension Family history of arthritis Family history of malignant neoplasm of breast in first degree relative Family history of chronic obstructive pulmonary disease Family history of malignant neoplasm of breast Grandparent Family history of lung cancer Sibling Family history of hypothyroidism Other Family history of cardiovascular disease Family history of malignant neoplasm Social History Social History Smoking packs per day: 0.75 Smoking cigarettes per day: 15.0 Years smoked: 46 Smoking pack-years: 34.50 Smoking status: Current every day smoker Tobacco type: cigarettes Second hand tobacco smoke exposure: Yes Alcohol intake: never Substance use: never Substance use type: does not use Do You Feel Safe in your Home?: Yes Lack of Transportation: No Lack of Food: Never True Current Housing: I Have Housing Concerned About Future Housing: No Difficulty Paying Gas/Electric Bills: No Difficulty Paying for Meds: No Currently Unemployed: No Education: Don't Know Difficulty w/ Childcare or Family Care: No Living arrangements: with family Spiritual care concerns: No Meds Home Medications and Allergies Home Medications Medication Instructions Recorded Confirmed Type calcium carbonate 600 mg-vitamin 1 tablet PO DAILY 04/23/19 12/09/23 History D3 20 mcg (800 unit) tablet (
[2023-12-09 07:51] LABS: Estimated CRCL calculation 95 ml/min; Estimated Glomerular Filt Rate > 60
--- NOTE | 2023-12-09 08:06 | PM.IMHP ---
H&P: HPI History of Present Illness Date/Time: 12/09/23 08:06 Chief Complaint: 63 year old female with previous history history of recurrent right breast abscesses, who was seen in clinic and was supposed to go to OR tomorrow for I&D, pending insurance pre-authorization. Patient started spiking fevers overnight, and came to ER for further evaluation. Reports pain worsened since , despite broad spectrum antibiotics. Fever of 101 yesterday. Has been NPO since midnight. Please refer to previous office note for further details below. Previous HPI: Details: 63 y/o female eval abscess of the right breast and nipple. Referred by Dr. Soco Shrestha. 63-year-old female with a previous history of left breast invasive lobular carcinoma in 2013 status post a left lumpectomy with adjuvant radiation and endocrine therapy who now presents with recurrent right breast subareolar abscess. Patient 1st underwent a right breast total duct excision in 2013 at the same time of the left breast biopsy for a right subareolar breast abscess. She then had a recurrence in 2020 and underwent an incision and drainage of right subareolar abscess at site min. She now reports 1st noticing this episode starting 2 weeks ago. She was initially started on clindamycin which did not seem to improve her symptoms. The pain continued to progress and she was referred here for further evaluation. She denies any fevers or chills currently but reports significant pain and swelling over the right nipple-areolar complex area. Denies noticing any drainage from the previous incision site or nipple discharge. Age of menarche was 15 years old, age of menopause was 53 and patient did not receive any hormone replacement therapy. Age of 1st live was 27 and patient did not breastfeed for longer than 6 months. As previously noted her breast surgeries or biopsies notable for multiple right breast subareolar abscess incision and drainage as well as duct excision. The left breast lumpectomy in 2013 for invasive lobular carcinoma. She does have a history of radiation to the chest for the adjuvant treatment for the left breast cancer. She currently smokes 3/4 of a pack per day for the past 50 years. She does also have a strong family history of breast cancer her mother had bilateral breast cancer 1st age 68 and then a 72 and shortly after. She was also diagnosed with ovarian cancer in her 40s. She had a maternal aunt who had left breast cancer in her 60s. Patient has never been tested for genetic predisposition to breast cancer. Family history is otherwise noncontributory. Off note, patient states she had a screening mammogram performed in [place] in July 2023. Review of Systems Review of Systems: All systems reviewed & are unremarkable except as noted in HPI and below PMFSH Past Medical History Medical History Bronchitis, not specified as acute or chronic Diabetes type 2, controlled Essential hypertension HX: breast cancer Infection of right breast Lung tumor (benign) Mastitis Retinal artery branch occlusion Sinus abscess Temporal arteritis Vasculitis Surgical History Surgical History H/O section History of incision and drainage History of lumpectomy of left breast History of Aguila fundoplication History of tonsillectomy Family History Family History Father Diabetes mellitus Family history of Alzheimer's disease Mother Diabetes mellitus Hypertension Family history of arthritis Family history of malignant neoplasm of breast in first degree relative Family history of chronic obstructive pulmonary disease Family history of malignant neoplasm of breast Grandparent Family history of lung cancer Sibling Family history of hypothyroidism Other Family his
--- NOTE | 2023-12-09 08:22 | WPDANESEPPF ---
Anes - Initial Pre Proc Eval Procedure: Operation Date: 12/09/23 08:30 Proposed Procedures p I&D Breast Hematoma(Right) - Kate Roa MD Date/Time: 12/09/23 08:22 Surgeon: Kate Roa MD Pre Op Diagnosis: Right Sided Breast Abscess Patient Data Age: 63 Gender: F Height: 1.73 m Weight: 86.1 kg Last Vital Signs Temp 36.3 C L 12/09/23 07:13 Pulse 75 12/09/23 07:13 Resp 19 12/09/23 07:13 BP 134/56 L 12/09/23 07:13 Pulse Ox 98 12/09/23 07:13 O2 Del Method Room Air 12/08/23 16:17 Allergies Allergy/AdvReac Type Severity Reaction Status Date / Time clavulanic acid Allergy Intermediate hives Verified 12/09/23 07:08 amoxicillin Allergy Unknown Hives Verified 12/09/23 07:08 Home Medications Medication Instructions Recorded Confirmed Type calcium carbonate 600 mg-vitamin 1 tablet PO DAILY 04/23/19 12/09/23 History D3 20 mcg (800 unit) tablet (Caltrate with Vitamin D3) albuterol sulfate 90 mcg/actuation 1 - 2 puff inhalation Q4-6H PRN 07/20/21 12/09/23 Rx aerosol inhaler shortness of breath or wheezing #8.5 grams alendronate 70 mg tablet 70 mg PO WEEKLY 09/08/22 12/09/23 History insulin glargine 100 unit/mL (3 12 unit (0.12 mL) subcut QPM #15 mL 02/19/23 12/09/23 Rx mL) subcutaneous pen (Lantus Solostar U-100 Insulin) trazodone 50 mg tablet 50 mg PO QHS PRN insomnia #30 tabs 03/14/23 12/09/23 Rx fluticasone 250 mcg-salmeterol 50 1 inh inhalation BID #60 ea 03/23/23 12/09/23 Rx mcg/dose blistr powdr for inhalation (Wixela Inhub) metformin 1,000 mg tablet 1,000 mg PO BID #180 tabs 07/05/23 12/09/23 Rx semaglutide 0.25 mg or 0.5 mg (2 0.5 mg (0.736 mL) subcut WEEKLY #3 07/16/23 12/09/23 Rx mg/3 mL) subcutaneous pen injector mL (Ozempic) metoprolol succinate 50 mg 50 mg PO DAILY #90 tabs 07/18/23 12/09/23 Rx tablet,extended release 24 hr prednisone 10 mg tablet 20 mg PO DAILY 10/03/23 12/09/23 History vonoprazan 10 mg tablet (Voquezna) 10 mg PO DAILY 10/03/23 12/09/23 History sulfamethoxazole 800 1 tablet PO Q12H #20 tabs 12/06/23 12/09/23 Rx mg-trimethoprim 160 mg tablet hydrocodone 5 mg-acetaminophen 325 1 tablet PO Q6H PRN pain #12 tabs 12/07/23 12/09/23 Rx mg tablet secukinumab 150 mg/mL subcutaneous 150 mg subcut MONTHLY 12/07/23 12/09/23 History pen injector (Cosentyx Pen) clopidogrel 75 mg tablet 75 mg PO DAILY 12/09/23 12/09/23 History levothyroxine 100 mcg tablet 100 mcg PO QAM 12/09/23 12/09/23 History liothyronine 5 mcg tablet 5 mcg PO BID 12/09/23 12/09/23 History lisinopril 20 mg tablet 20 mg PO DAILY 12/09/23 12/09/23 History montelukast 10 mg tablet 10 mg PO QPM 12/09/23 12/09/23 History Laboratory Tests 12/08/23 12/09/23 22:17 07:37 WBC 11.9 H K/mm3 (4.5-10.0) RBC 5.17 M/mm3 (4.2-5.4) Hgb 15.7 H g/dL (12.0-15.0) Hct 46.3 % (37.0-47.0) MCV 89.6 fl (80-100) MCH 30.4 pg (26-34) MCHC 33.9 g/dl (32-36) RDW 13.7 % (11.5-14.5) Plt Count 338 k/mm3 (150-375) MPV 10.2 fl (7.4-10.4) Immature Gran % (Auto) 1.3 H % (0-0.5) Neut % (Auto) 85.4 H % (45.5-73.1) Lymph % (Auto) 9.5 L % (18.3-44.2) Isabela % (Auto) 3.3 % (2.6-8.5) Eos % (Auto) 0.1 % (0-4.4) Baso % (Auto) 0.4 % (0.2-1.2) Lymph # (Auto) 1.13 K/mm3 (0.9-3.2) Isabela # (Auto) 0.4 K/mm3 (0.1-0.6) Eos # (Auto) 0.0 K/mm3 (0-0.3) Baso # (Auto) 0.1 K/mm3 (0.0-0.1) Abs Immat Gran (auto) 0.15 H K/mm3 (0.00-0.031) Absolute Neuts (auto) 10.2 H K/mm3 (1.3-6.7) Absolute Nucleated RBC 0.000 K/mm3 (0.0-0.012) Nucleated RBC % 0.0 % (0.0-0.2) PT 13.3 Seconds (11.1-14.7) INR 1.0 APTT 24.9 Seconds (22.3-36.8) Sodium 134 L mmol/L (137-145) Potassium 4.8 mmol/L (3.4-5.0) Chloride 104 mmol/L (98-107) Carbon Dioxide 21
--- NOTE | 2023-12-09 08:45 | SUR.OPER ---
30cm of 1 Iodoform packed into Right Breast
[2023-12-09] MEDS: LACTATED RINGERS 1,000 ML 30 ML IV CONT (08:54)
--- NOTE | 2023-12-09 09:01 | W.PM.PROC2 ---
Procedure Note - Detailed Date of Procedure 12/09/23 Pre-op Diagnosis Right Sided Breast Abscess Post-op Diagnosis Same Procedure Performed Incision and drainage of right breast subareolar abscess (5cm x 4cm) Surgeon Kate Roa MD Anesthesia General Description of Procedure Patient was identified in the pre-op area and brought to the OR suite. She was laid supine in the OR table, and sequential compression devices were applied. General anesthesia was induced without difficulty. The right chest area was prepped and draped in a sterile fashion. A superior periareolar incision was made at the site of greatest fluctuance with immediate evacuation of significant amount of purulent fluid which was sent for culture and Gram stain. The cavity was explored and loculations were broken up with blunt dissection. The abscess cavity measured approximately 5 cm x 4 cm. This was irrigated with saline hemostasis was assured. One inch iodoform packing tape was used to pack the abscess cavity followed by gauze and ABD pads. Patient was awoken from anesthesia and taken to the recovery area in stable condition. All needles, instruments, and sponge counts were correct as reported by the operating room staff. Patient tolerated procedure well with no immediate complications. Estimated Blood Loss 5 Packing Yes (1 iodoform packing tape) Pathology None sent Condition Stable Disposition PACU [facility] Billing Surgery - Charge Forward: Surgery Billing (CPT 82045)
[2023-12-09 09:15] LABS: Glucose Point of Care 139 mg/dl (65-105)
--- NOTE | 2023-12-09 10:15 | PC.NURSE ---
Returned from OR per bed. Report received from August.
[2023-12-09] MEDS: PIPERACILLN/TAZ 3.375GM/NS50ML 3.375 GM/50 ML BAG IVPB ×3 (10:54→22:06)
[2023-12-09] MEDS: LIOTHYRONINE SODIUM 5 MCG TABLET PO (10:54)
[2023-12-09] MEDS: NICOTINE (*PBKC) 7 MG PATCH 1 PATCH TRANSDERM (10:54)
[2023-12-09] MEDS: METOPROLOL SUCCINATE EXT REL 50 MG TABCR PO (10:55)
[2023-12-09] MEDS: lisinopriL 20 MG TABLET PO (10:55)
[2023-12-09] MEDS: CALCIUM/VITAMIN D 500 MG/5 MCG (200 I.U.) TABLET PO (10:55)
[2023-12-09] MEDS: LEVOTHYROXINE SODIUM 100 MCG TABLET PO (10:55)
[2023-12-09] MEDS: DOCUSATE SODIUM 100 MG CAPSULE PO ×2 (10:55→16:00)
[2023-12-09] MEDS: VANCOMYCIN 1,500 MG/NS 500 ML 1,500 MG/500 ML BAG 250 MG IVPB ×2 (11:37→22:36)
[2023-12-09 11:48] LABS: Glucose Point of Care 218 mg/dl (65-105)
[2023-12-09] MEDS: INSULIN ASPART (*BKC) 100 UNITS/ML SUB-Q ×2 (12:23→16:55)
[2023-12-09] MEDS: predniSONE 2.5 MG TABLET PO (12:26)
[2023-12-09] MEDS: predniSONE 20 MG TABLET PO (12:26)
[2023-12-09 16:39] LABS: Glucose Point of Care 305 mg/dl (65-105)
[2023-12-09] MEDS: HYDROcodone/acetaminophen (*CRX) 5-325 MG TABLET 1 TAB PO (16:53)
[2023-12-09] MEDS: INSULIN GLARGINE (*BKC) 100 UNITS/ML 12 UNITS SUB-Q (17:00)
[2023-12-09] MEDS: MONTELUKAST SODIUM 10 MG TABLET PO (17:02)
[2023-12-09] MEDS: LIOTHYRONINE SODIUM 5 MCG TABLET 10 MCG PO (17:04)
--- NOTE | 2023-12-09 19:01 | PC.NURSE ---
I have personally reviewed all documentation and med administration performed by Kayce Garrido LPN
[2023-12-09] MEDS: HYDROmorphone HCL INJ (*CRX) 1 MG/ML SYR IV PUSH (20:10)
[2023-12-09] MEDS: FLUTICASONE/SALMETEROL 115-21 MCG INHALER 1 PUFF 2 PUFF INHALATION (20:13)
[2023-12-09 21:02] LABS: Glucose Point of Care 211 mg/dl (65-105)
[2023-12-10] VITALS: BP 124/69; PULSE 69; RESP 18; TEMP 36.2; O2SAT 98
[2023-12-10 03:15] VITALS: BP 129/61; PULSE 76; RESP 18; TEMP 36.3; O2SAT 98
[2023-12-10] MEDS: PIPERACILLN/TAZ 3.375GM/NS50ML 3.375 GM/50 ML BAG IVPB ×2 (04:22→09:34)
[2023-12-10] MEDS: HYDROcodone/acetaminophen (*CRX) 5-325 MG TABLET 1 TAB PO (05:21)
[2023-12-10 06:25] VITALS: PULSE 73; RESP 17
[2023-12-10] MEDS: LEVOTHYROXINE SODIUM 100 MCG TABLET PO (06:25)
[2023-12-10] MEDS: FLUTICASONE/SALMETEROL 115-21 MCG INHALER 1 PUFF 2 PUFF INHALATION (06:26)
[2023-12-10 06:27] LABS: Hematocrit 40.2 % (37.0-47.0); Hemoglobin 13.2 g/dL (12.0-15.0); Mean Corpuscular HGB Conc 32.8 g/dl (32-36); Mean Corpuscular Hemoglobin 29.6 pg (26-34); Mean Corpuscular Volume 90.1 fl (80-100); Mean Platelet Volume 10.5 fl (7.4-10.4); Platelet Count Result 322 k/mm3 (150-375); Red Blood Count 4.46 M/mm3 (4.2-5.4); Red Cell Distribution Width 13.6 % (11.5-14.5); White Blood Count 13.6 K/mm3 (4.5-10.0)
[2023-12-10 06:39] LABS: Alanine Aminotransferase 21 U/L (6-35); Albumin Level 3.8 g/dL (3.5-5.1); Alkaline Phosphatase 55 U/L (38-126); Anion Gap 4 mmol/L (4-12); Aspartate Amino Transferase 19 U/L (14-36); Bilirubin,Total 0.7 mg/dL (0.2-1.3); Blood Urea Nitrogen 14 mg/dL (7-17); Calcium 8.6 mg/dL (8.4-10.2); Carbon Dioxide 24 mmol/L (22-30); Chloride 107 mmol/L (98-107); Estimated CRCL calculation 82 ml/min; Estimated Glomerular Filt Rate > 60; Glucose 147 mg/dL (65-110); Potassium 3.9 mmol/L (3.4-5.0); Sodium 135 mmol/L (137-145)
--- NOTE | 2023-12-10 07:29 | WPDANESPN ---
Anes - Prog Note Post-Op Date/Time: 12/10/23 07:29 Cardiovascular status: normal Respiratory status: normal Airway patency: baseline Mental status: baseline Post-Op hydration status: normal Vital Signs: Last Vital Signs Temp 97.4 F L 12/10/23 03:15 Pulse 73 12/10/23 06:25 Resp 17 12/10/23 06:25 BP 129/61 12/10/23 03:15 Pulse Ox 98 12/10/23 03:15 O2 Del Method Room Air 12/09/23 20:00 O2 Flow Rate 8 12/09/23 09:20 Pain Score (VAS): 0/10 I/O: Intake & Output 12/09/23 12/09/23 12/10/23 15:59 23:59 07:59 Intake Total 187 038 5435 Balance 121 479 2401 Laboratory Tests 12/10/23 05:58 12/10/23 05:58 12/09/23 12/09/23 12/09/23 07:37 08:58 11:44 WBC RBC Hgb Hct MCV MCH MCHC RDW Plt Count MPV Sodium Potassium Chloride Carbon Dioxide Anion Gap BUN Creatinine 0.60 L Estim Creat Clear Calc 95 Estimated GFR > 60 Glucose POC Capillary Glucose 139 H 218 H Calcium Total Bilirubin AST ALT Alkaline Phosphatase Total Protein Albumin 12/09/23 12/09/23 12/10/23 16:35 20:42 05:58 WBC 13.6 H RBC 4.46 Hgb 13.2 Hct 40.2 MCV 90.1 MCH 29.6 MCHC 32.8 RDW 13.6 Plt Count 322 MPV 10.5 H Sodium 135 L Potassium 3.9 Chloride 107 Carbon Dioxide 24 Anion Gap 4 BUN 14 Creatinine 0.70 Estim Creat Clear Calc 82 Estimated GFR > 60 Glucose 147 H POC Capillary Glucose 305 H 211 H Calcium 8.6 Total Bilirubin 0.7 AST 19 ALT 21 Alkaline Phosphatase 55 Total Protein 6.0 L Albumin 3.8 Microbiology 12/08/23 22:44 Blood Blood Culture - Preliminary 12/08/23 22:44 Blood Blood Culture - Preliminary Post-procedural complaints: none Patient Feedback: Patient satisfied with anesthetic care.
[2023-12-10 07:39] LABS: Glucose Point of Care 126 mg/dl (65-105)
[2023-12-10] MEDS: HYDROcodone/acetaminophen (*CRX) 7.5-325 MG TABLET 1 TAB PO (07:49)
[2023-12-10 08:00] VITALS: BP 151/72; PULSE 70; RESP 18; TEMP 35.8; O2SAT 99
--- NOTE | 2023-12-10 08:51 | PM.DS ---
DS: Admitting Diagnosis Discharge Date 12/10/2023 Admitting Diagnosis Right breast abscess DS: Discharge Diagnosis Discharge Diagnosis Plan Right breast abscess: Incision and drainage on 12/09/2023 DS: Summary Hospital Course Reason for hospitalization: observation after I&D of right breast asbcess and IV antibiotics after patient failed outpatient PO antibiotics Hospital Course: She was admitted after presenting to ER on Sunday morning for worsening right breast pain, swelling, fevers and chills. Patient had failed outpatient PO antibiotics, and she was taken to OR on 12/08 for incision and drainage of right breast abscess. Post-op she was admitted for IV antibiotics. She underwent a dressing change at bedside today, and tolerated it well. Her wound was clean and she has been afebrile overnight. She was deemed ready for discharge on POD1. Time spent discussing smoking cessation with patient: 3 to 10 minutes Status at Discharge Functional status at discharge: independent ambulation Overall status at discharge: patient is back to baseline Time Spent with Patient Time attestation: Total time spent providing and/or coordinating discharge services: Time spent: Less than 30 minutes Exam Const: General: comfortable and no acute distress HENMT: Mouth: Yes moist mucous membranes Eyes: General: appearance normal, both eyes and all related structures Resp: Effort & Inspection: normal respiratory effort Cardio: Rate: regular rate Skin: General skin exam: normal color Other: right breast wound packing changed today. Wound was clean, with no foul odor or purulent fluid noted. Repacked with 1/4 inch iodoform packing take. Erythema and induration significantly improved from yesterday. Extrem: General: normal to inspection Psych: Mental Status: mental status grossly normal DS: Data Data Completed and Pending Labs on day of discharge: Labs from last 24 hours 12/10/23 12/10/23 12/09/23 07:36 05:58 20:42 WBC 13.6 H RBC 4.46 Hgb 13.2 Hct 40.2 MCV 90.1 MCH 29.6 MCHC 32.8 RDW 13.6 Plt Count 322 MPV 10.5 H Sodium 135 L Potassium 3.9 Chloride 107 Carbon Dioxide 24 Anion Gap 4 BUN 14 Creatinine 0.70 Estim Creat Clear Calc 82 Estimated GFR > 60 Glucose 147 H POC Capillary Glucose 126 H 211 H Calcium 8.6 Total Bilirubin 0.7 AST 19 ALT 21 Alkaline Phosphatase 55 Total Protein 6.0 L Albumin 3.8 12/09/23 12/09/23 12/09/23 16:35 11:44 08:58 WBC RBC Hgb Hct MCV MCH MCHC RDW Plt Count MPV Sodium Potassium Chloride Carbon Dioxide Anion Gap BUN Creatinine Estim Creat Clear Calc Estimated GFR Glucose POC Capillary Glucose 305 H 218 H 139 H Calcium Total Bilirubin AST ALT Alkaline Phosphatase Total Protein Albumin Preliminary micro results at discharge 12/08/23 22:44 Blood Culture - Preliminary Blood 12/08/23 22:44 Blood Culture - Preliminary Blood Discharge Plan Discharge Attending physician on discharge: Kate Roa Consulting providers: Yi Givens Discharging Clinician: Kate Roa Patient Disposition: Home, Self-Care Activity: may shower and other - see discharge instructions Diet: as tolerated and diabetic Discharge Instructions: daily dressing changes to right breast wound: Remove outer dressing and in the shower, let the water run over the packing strip. Once moist, remove packing strip and repack wound after shower. No need to pack wound tight, just enough packing strip to keep wound open until it fully heals. Patient Instructions: Antibiotic Form Stand Alone Forms: General Discharge Information Follow-up/Referrals: Kate Roa MD [Physician] - (in 1 week for wound follow up) Discharge Medications: Continued albuterol sulfate 90 mcg/actuat
[2023-12-10] MEDS: DOCUSATE SODIUM 100 MG CAPSULE PO (09:32)
[2023-12-10] MEDS: LIOTHYRONINE SODIUM 5 MCG TABLET 10 MCG PO (09:32)
[2023-12-10 09:33] VITALS: PULSE 80
[2023-12-10] MEDS: METOPROLOL SUCCINATE EXT REL 50 MG TABCR PO (09:33)
[2023-12-10] MEDS: CALCIUM/VITAMIN D 500 MG/5 MCG (200 I.U.) TABLET PO (09:33)
[2023-12-10] MEDS: predniSONE 20 MG TABLET PO (09:33)
[2023-12-10] MEDS: lisinopriL 20 MG TABLET PO (09:33)
[2023-12-10] MEDS: predniSONE 2.5 MG TABLET PO (09:33)
[2023-12-10] MEDS: NICOTINE (*PBKC) 7 MG PATCH 1 PATCH TRANSDERM (09:34)
--- NOTE | 2023-12-10 09:51 | PM.IMPN ---
Progress Note: A&P Assessment and Plan (1) Abscess of breast, right: Code(s): N61.1 - Abscess of the breast and nipple Status: Acute Assessment and Plan: #Suppurative Cellulitis S/P incision and drainage for definitive source control Continue vancomycin and Zosyn treatment failure with clindamycin and Bactrim Mastitis started from the year of 2012, 2020, 11/23/2023. In all 3 occasions patient required incision and drainage (2) Giant cell arteritis: Code(s): M31.6 - Other giant cell arteritis Status: Acute Assessment and Plan: Continue prednisone 22.5 mg p.o. q.d. 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 (3) COPD with asthma: Code(s): J44.9 - Chronic obstructive pulmonary disease, unspecified Status: Acute Assessment and Plan: Continue albuterol Continue montelukast (4) Diabetes type 2, controlled: Code(s): E11.9 - Type 2 diabetes mellitus without complications Status: Acute Assessment and Plan: Continue Lantus 12 units Insulin sliding scale Hypoglycemic protocol Subjective Date/time seen: 12/10/23 09:51 Interval history: Patient has been cleared to discharge by breast surgeon. The patient will continue with cephalexin as an outpatient Review of Systems Review of Systems: As reviewed above in HPI All systems reviewed & are unremarkable except as noted in HPI and below Exam Narrative: GENERAL: [Well-appearing, well-nourished, and in no acute distress.] HEAD: [Normocephalic, atraumatic.] EYES: [PERRLA and EOMI.] ENT: Nares clear, no rhinorrhea or epistaxis. Mucous membranes moist. NECK: Supple. CHEST: [Clear to auscultation. No respiratory distress.] The right breast appears indurated with some dimpling of the areola. There is several pinpoint pustule like lesions without any purulent drainage. Significant tenderness to palpation, erythema is localized around the areola, does not go underneath the breast tissue or spread to the axilla. HEART: [Regular rate and rhythm]. No murmur heard. [Normal peripheral pulses.] ABDOMEN: [Soft, nondistended], [nontender], [No rigidity or guarding] EXTREMITIES: Normal range of motion. [No edema.] SKIN: Warm, dry, no rash. NEURO: [No focal deficits]. Alert and oriented [x3.] PSYCH: [Normal mood and affect.] Const: General: comfortable and no acute distress HENMT: Mouth: Yes moist mucous membranes Eyes: General: appearance normal, both eyes and all related structures Neck: Neck: supple Resp: Effort & Inspection: normal respiratory effort Cardio: Rate: regular rate Skin: General skin exam: normal color Other: right breast wound packing changed today. Wound was clean, with no foul odor or purulent fluid noted. Repacked with 1/4 inch iodoform packing take. Erythema and induration significantly improved from yesterday. Neuro: General: gait normal Extrem: General: normal to inspection Psych: Mental Status: mental status grossly normal Objective Data Vital Signs Vital Signs: Vital Signs - 24 hr 12/09/23 10:05 12/09/23 10:55 12/09/23 10:25 Temperature 97.1 F L Pulse Rate 71 70 77 Respiratory Rate 14 18 Blood Pressure 169/71 H 158/79 H Pulse Oximetry 94 92 Oxygen Delivery Room Air 12/09/23 10:40 12/09/23 11:10 12/09/23 12:10 Temperature 97.3 F L 97.4 F L 97.1 F L Pulse Rate 69 74 71 Respiratory Rate 16 14 16 Blood Pressure 146/79 H 134/72 125/67 Pulse Oximetry 93 93 96 Oxygen Delivery 12/09/23 16:00 12/09/23 20:14 12/09/23 20:00 Temperature 96.9 F L Pulse Rate 74 84 Respiratory Rate 16 17 Blood Pressure 140/64 Pulse Oximetry 97 Oxygen Delivery Room Air 12/09/23 20:00 12/10/23 00:00 12/10/23 03:15 Temperature 97.0 F L 97.1 F L 97.4 F L Pulse Rate 70 69 76 Respiratory Rate 18 18 18 Blood Pressure 133/59 L 124/69 129/61 Pulse Oximetry 96 98 98 Oxygen Delivery
== END 2023-12-10 11:05 | disposition home or self-care (01) | DRG 585 ==
LOC: ANHED 21:03 → ANH3MEDSUR 12-09 07:15
PROVIDERS: General Practice; Admitting Provider Surgery; Emergency Provider Student in an Organized Health Care Education/Training Program; PCP Nurse Practitioner Adult Health; Visit Provider Surgery
PROC: 0H9T0ZZ Drainage of Right Breast, Open Approach (ICD-10-PCS; principal; 2023-12-09 08:30)
DX: N61.1 Abscess of the breast and nipple (principal); M31.6 Other giant cell arteritis; E11.9 Type 2 diabetes mellitus without complications; F17.210 Nicotine dependence, cigarettes, uncomplicated; I10 Essential (primary) hypertension; Z85.3 Personal history of malignant neoplasm of breast; Z79.85 Long-term (current) use of injectable non-insulin antidiabetic drugs; Z79.02 Long term (current) use of antithrombotics/antiplatelets; Z79.4 Long term (current) use of insulin; Z79.84 Long term (current) use of oral hypoglycemic drugs; Z92.3 Personal history of irradiation
CPT/HCPCS: 36415; 80048; 80053; 82565; 82948; 83735; 85025; 85027; 85610; 85730; 86850; 86900; 86901; 87040; 87070; 87075; 87205; 94640; 96365; 96374; 96375; 99285; A9270; J1100; J1170; J1815; J2250; J2270; J2405; J2543; J2704; J3010; J3370; J7120; J7512

== ENCOUNTER 2024-01-03 08:57 | Outpatient (CLI) | payer OTHER, SELFPAY ==
[2024-01-03 20:29] LABS: Thyroid Stimulating Hormone 0.276 uIU/mL (0.465-4.680)
== END 2024-01-03 08:58 | disposition home or self-care (01) ==
LOC: ANHBWCLAB 08:58
PROVIDERS: PCP Nurse Practitioner Adult Health; Visit Provider Nurse Practitioner Adult Health
DX: E03.9 Hypothyroidism, unspecified (principal)
CPT/HCPCS: 36415; 84443

== ENCOUNTER 2024-02-26 09:11 | Outpatient (CLI) | payer OTHER, SELFPAY | END 2024-02-26 09:12 | disposition home or self-care (01) | LOC: ANHBWCLAB 09:12 | PROVIDERS: PCP Nurse Practitioner Adult Health; Visit Provider Nurse Practitioner Adult Health | DX: E03.9 Hypothyroidism, unspecified (principal) | CPT/HCPCS: 36415; 84443 ==

== ENCOUNTER 2024-04-10 09:13 | Outpatient (CLI) | payer OTHER, SELFPAY ==
--- OUTSIDE RECORDS SUMMARY | 2024-04-10 09:35 | XMS_ITS | Encounter Summary ---
Author Organization [facility] Address [address] [place] [address] Phone Care Team Providers Care [employer] Consulting Architect Name Role Phone Aft, Suzie Dumont MD PhD Unavailable [phone] Tarik Escalera MD Primary Care Provider [phone] Araceli Pagan MD Unavailable [phone] Soco Shrestha NP Primary Care Provider [phone] Encounter Details Date Type Department Care Team (Late st Contact Info) Description 09/14/2018 Ophth Exam [facility] [address] [place] [address] [address] [place] [address] Mame Venegas MD [address] [place] [address] Social History Tobacco Use Types Packs/Day Years Used Date Smoking Tobacco: Every Day Cigarettes Smokeless Tobacco: Never Comments:Trying to quit Alcohol Use Standard Drinks/Week Comments Yes 0 (1 standard drink = 0.6 oz pur e alcohol) Comments No Sex and Gender Information Value Date Recorded Sex Assigned at Not on file Legal Sex Female 1:45 AM JACKAROO Gender Identity Female 11/16/2018 3:35 PM CDT Sexual Orientation Straight 11/16/2018 3: 35 PM CDT Occupation Industry Job Start Date Job End Date [employer] Not on file Not on file Not on file documented as of this encounter Plan of Treatment Upcoming Encounters Date Type Department Care Team (Late st Contact Info) Description 08/26/2024 9:45 AM CDT Hospital Encounter [facility] [address] [place] [address] [place] [address] [id number] 08/26/2024 9:45 AM CDT - 08/26/2024 10:45 AM CDT Surgery [facility] [address] [place] [address] [place] [address] [address] COLONOSCOPY Scheduled Procedures Name Priority Associated Diagnoses Date/Ti me COLONOSCOPY Personal history of colon polyps, unspecified 08/26/2024 9:45 AM CDT documented as of this encounter Visit Diagnoses Not on filedocumented in this encounter Additional Health Concerns Infection Onset Date Last Indicated Resolved Time COVID: Suspected 09/12/2021 09/12/2021 09/12/2021 3:23 PM CDT documented as of this encounter Eye Exam Visual Acuity (Near Card) Right eye Left eye Near cc 20/20-1 NLP Tonometry (Tonopen) Right eye Left eye Pressure 11 17 Pupils Dark Light Shape React APD Right eye 5 3 Round Brisk None Left eye 5 +3 Visual Espinoza Right eye Left eye Restrictions Total superior nasal deficiency Total superior temporal, inferior temporal, superior nasal, inferior nasal deficiencies Extraocular Movement Right eye Left eye Full Full Neuro/Psych Oriented x3: Yes Mood/Affect: Normal Dilation Both eyes: 1.0% Mydriacyl, 1 .0% Cyclogyl External Exam Right eye Left eye External Normal Normal Slit Lamp Exam Right eye Left eye Lids/Lashes Small marginal cyst on lateral u pper lid Normal Conjunctiva/Sclera White and quiet White and ale et Cornea Clear Clear Anterior Chamber Deep and quiet Deep and quiet Iris Round and reactive Round and luis ctive Lens Clear Clear Vitreous Normal Normal Fundus Exam Right eye Left eye Disc Normal, no edema Nerve pallor C/D Ratio 0.7 0.8 Macula Normal, no heme or NV Flat, no h maryanne or NV Vessels Normal, no plaques or emboli Att enuated, no plaques or emboli Periphery Normal Far peripheral p igmentary changes inferotemporally Care Teams [employer] Architect Relationship Specialty Start Date End Date Tarik Escalera MD [address] [place] [address] PCP - General Family Practice 07/28/21 01/23/24 Soco Shrestha NP [address] [place] [id number] PCP - General Nurse Practitioner 01/24/24 Aft, Suzie Dumont MD PhD [address] [place] [address] Surgeon Surgical Oncology 04/23/20 Araceli Pagan MD [address] [place] [address] Rescue Instructor Obstetrics and Gynecology 07/31/22 Troy Rico MD Consulting Physician Rheumatology 08/12/19 documented as of this encounter
--- OUTSIDE RECORDS SUMMARY | 2024-04-10 09:35 | XMS_ITS | Encounter Summary ---
Author Organization [facility] Address [address] [place] [address] Phone Care Team Providers Care Neurosurgery Physician Name Role Phone Carlyle Hurtado DO Primary Care Provider Unavail Kin Lawton DO Primary Care Provider [phone] Tarik Escalera MD Primary Care Provider [phone] Soco Shrestha APRN Primary Care Provider [phone] Reason for Visit * Reason Comments Medication Refill Encounter Details Date Type Department Care Team (Late st Contact Info) Description 05/17/2019 Refill [facility] - Family Medicine [facility] [address] [place] [address] Huber Fatima MD [address] [place] [id number] Medication Refill Social History Tobacco Use Types Packs/Day Years Used Date Smoking Tobacco: Every Day Cigarettes Smokeless Tobacco: Never Alcohol Use Standard Drinks/Week Comments Yes 0 (1 standard drink = 0.6 oz pur e alcohol) Comments No Sex and Gender Information Value Date Recorded Sex Assigned at Female 02/19/2023 9:38 AM DIRECTOR OF PEOPLE Legal Sex Female 11:27 PM CDT Gender Identity Female 02/19/2023 9:38 AM DIRECTOR OF PEOPLE Sexual Orientation Straight 02/19/2023 9: 38 AM DIRECTOR OF PEOPLE documented as of this encounter Plan of Treatment Not on file documented as of this encounter Visit Diagnoses Not on filedocumented in this encounter Additional Health Concerns Infection Onset Date Last Indicated Resolved Time COVID - 19 03/13/2021 03/13/2021 04/02/2021 12:1 6 AM DIRECTOR OF PEOPLE COVID - 19 Confirmed 03/13/2021 03/13/2021 022 12:16 AM DIRECTOR OF PEOPLE COVID - 19 08/16/2021 08/16/2021 08/26/2021 12:1 6 AM CDT Assessment Noted Time PHQ-9 Depression Total Score: 0 01/05/20 17 1:00 PM CDT documented as of this encounter Care Teams Neurosurgery Physician Relationship Specialty Start Date End Date Carlyle Hurtado DO PCP - General Family Medicine 12/19/14 10/28/19 Kin Jason DO [address] [place] [address] PCP - General Family Medicine 10/29/19 12/19/20 Tarik Escalera MD [address] [place] [address] PCP - General Family Medicine 12/20/20 05/16/23 Soco Shrestha APRN [address] [place] [address] PCP - General Advanced Practice Nurse 05/17/23 documented as of this encounter
--- OUTSIDE RECORDS SUMMARY | 2024-04-10 09:35 | XMS_ITS | Referral Summary ---
Author Organization [facility] Address [address] [place] [address] Care Team Providers Care Production Analyst Name Role Phone ToddtriceKin aguirre Primary Care Provider Source Comments [facility],non-owned Affiliates and Associated Physician Practices is amultiple site organization consisting of ambulatory clinics and hospital sitesin [place], [place]. This disclosure is being madepursuant to the Care Everywhere program and may not contain all information available regarding this patient. Last updated 17.[facility] Allergies Active Allergy Reactions Criticality Noted Date Comments Amoxicillin-Pot Clavulanate Rash Medium 05/22/19 Medications * Be aware that medications may not be up to date on this document. Alwaysverify current medications with the patient. Medication Sig Dispensed Refills Start Date End Date Status amLODIPine (NORVASC) 5 MG tablet Take 5 mg by mouth 03/16/2017 Active atorvastatin (LIPITOR) 40 MG tablet Take 40 mg by mouth once daily 2 06/20/2017 Active aspirin (ASPIRIN) 81 MG tablet Take 81 mg by mouth once daily 05/23/2017 Active Cholecalciferol (VITAMIN D-3) 1000 UNITS Take 4,000 Units by mouth once daily Active clopidogrel (PLAVIX) 75 MG tablet Take 75 mg by mouth once daily 1 06/20/2017 Active fenofibrate (FENOGLIDE) 120 MG Take 120 mg by mouth once daily 1 05/23/2017 Active levothyroxine (SYNTHROID) 150 MCG tablet Take 150 mcg by mouth once daily 2 06/12/2017 Active liothyronine (CYTOMEL) 5 MCG tablet Take 5 mcg by mouth once daily 2 06/12/2017 Active predniSONE (DELTASONE) 20 MG tablet Take 40 mg by mouth once daily 0 05/27/2017 Active cyanocobalamin (VITAMIN B-12) 1000 MCG tablet Take 1 tablet by mouth once daily 0 06/25/2017 Active levothyroxine (SYNTHROID) 200 MCG tablet Take 200 mcg by mouth Active citalopram (CELEXA) 20 MG tablet Take 20 mg by mouth Active buPROPion SR 12hr (ZYBAN) 150 MG tablet 1 06/25/2017 Act tristan cyclobenzaprine (FLEXERIL) 10 MG tablet 05/26/2017 Active HYDROcodone-acetaminop hen (NORCO) 5-325 MG tablet 06/22/2017 Active olopatadine (PATANOL) 0.1 % ophthalmic solution INT ONE DROP AEY BID PRF ALLERGIES. 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 (AF LURIA, FLUZONE TRIVALENT; 6MO+) (IIV3) 12/10/2014 INFLUENZA VACCINE 01/04/2017 PNEUMOCOCCAL PPSV23 03/20/2016 TDAP (7yrs+) 08/11/2015 TETANUS 03/12/2011 Social History Tobacco Use Types Packs/Day Years Used Date Smoking Tobacco: Every Day Cigarettes 0.8 30 Smokeless Tobacco: Never Tobacco Cessation:Ready to Q uit: Yes; Counseling Given: Yes Alcohol Use Standard Drinks/Week Comments No 0 (1 standard drink = 0.6 oz pur e alcohol) Sex and Gender Information Value Date Recorded Sex Assigned at Not on file Gender Identity Not on file Sexual Orientation Not on file Plan of Treatment Not on file Procedures Procedure Name Priority Date/Time Associated Diagnosis Comments CYTOLOGY SMEAR PAP TIMOTHY 05/05/1998 10 :56 AM ENTRY LEVEL BUYER from Last 3 Months or Most Recently Relevant to Health Maintenance Results * CYTOLOGY SMEAR PAP (05/05/1998 10:56 AM ENTRY LEVEL BUYER) Result CASE NUMBER [id number] Comment: ORDERING PHYSICIAN ??MARK ANDRADE SPECIMEN TYPE ?PAP Smear Date ? 05/05/1998 Procedure ?Cervical/Endocervical, 1 smear received Specimen Adequacy ?Satisfactory for Evaluation Categorization ? Benign Cellular Changes Comment ?Predominance of Coccobacilli Consistent with Shift in Vaginal Ree. Snomed. ?05/13/1998 1434 <1> Transit Vehicle Inspector ? Lindsey Ayala(ASCP) PAP Footnote ? The PAP smear is only a screening procedure to aid in the detection of cervical cancer and its precursors. ??It is not a diagnostic procedure and should not be used as the sole means to detect cervical cancer. ??Both false negative and false positive results have been experienced. MISCELLANEOUS SAMPLES / Unknown 05/05/1998 10:56 AM ENTRY LEVEL BUYER 05/11/1998 10:56 AM ENTRY LEVEL BUYER Historical Provider LAB - PATHOLOGY/C YTOLOGY ORDERABLES from Last 3 Months or Most Recently Relevant to Health Maintenance Care Teams Production Analyst Relationship Specialty Start Date End Date Kin Jason DO [address] [place] [address] PCP - General 06/25/17
--- OUTSIDE RECORDS SUMMARY | 2024-04-10 09:35 | XMS_ITS | Encounter Summary ---
Author Organization [facility] Address [address] [place] [address] Phone Care Team Providers Care Director Of Assessment Name Role Phone Aft, Suzie Dumont MD PhD Unavailable [phone] Tarik Escalera MD Primary Care Provider [phone] Araceli Pagan MD Unavailable Soco Shrestha NP Primary Care Provider [phone] Encounter Details Date Type Department Care Team (Late st Contact Info) Description 09/14/2018 Ophth Exam [facility] Ophthalmology [address] [place] [address] [address] [place] [address] Aiyana Mendoza MD PhD [address] [place] [address] Social History Tobacco Use Types Packs/Day Years Used Date Smoking Tobacco: Every Day Cigarettes Smokeless Tobacco: Never Comments:Trying to quit Alcohol Use Standard Drinks/Week Comments Yes 0 (1 standard drink = 0.6 oz pur e alcohol) Comments No Sex and Gender Information Value Date Recorded Sex Assigned at Not on file 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 Gender Identity Female 11/16/2018 3:35 PM CDT Sexual Orientation Straight 11/16/2018 3: 35 PM CDT 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 Not on file Not on file documented as of this encounter Plan of Treatment Upcoming Encounters Date Type Department Care Team (Late st Contact Info) Description 08/26/2024 9:45 AM CDT Hospital Encounter [facility] [address] [place] [address] [place] [id number] [address] 08/26/2024 9:45 AM CDT - 08/26/2024 10:45 AM CDT Surgery [facility] [address] [place], [place] [id number] [place] [address] [address] COLONOSCOPY Scheduled Procedures Name Priority Associated Diagnoses Date/Ti me COLONOSCOPY Personal history of colon polyps, unspecified 08/26/2024 9:45 AM CDT documented as of this encounter Visit Diagnoses Not on filedocumented in this encounter Additional Health Concerns Infection Onset Date Last Indicated Resolved Time COVID: Suspected 09/12/2021 09/12/2021 09/12/2021 3:23 PM CDT documented as of this encounter Eye Exam Visual Acuity (near card) Right eye Left eye Near sc 20/20- NLP Tonometry (Tonopen, 2:03 PM) Right eye Left eye Pressure 11 17 Pupils Dark Light Shape React APD Right eye 5 3 Round Brisk Left eye 5 NR +++ Visual Espinoza Right eye Left eye Restrictions Total superior nasal deficiency Total superior temporal, inferior temporal, superior nasal, inferior nasal deficiencies Extraocular Movement Right eye Left eye Full Full Neuro/Psych Oriented x3: Yes Mood/Affect: Normal Dilation Both eyes: 2.5% Phenylephrin e, 1% Tropicamide @ 2:00 PM External Exam Right eye Left eye External Normal Normal Slit Lamp Exam Right eye Left eye Lids/Lashes Normal Normal Conjunctiva/Sclera White and quiet White and ale et Cornea Clear Clear Anterior Chamber Deep and quiet Deep and quiet Iris Round and reactive Round and luis ctive Lens Clear Clear Vitreous Normal Normal Care Teams Director Of Assessment Relationship Specialty Start Date End Date Tarik Escalera MD [address] [place] [address] PCP - General Family Practice 07/28/21 01/23/24 Soco Shrestha NP [address] [place] [address] PCP - General Nurse Practitioner 01/24/24 Aft, Suzie Dumont MD PhD [address] [place] [address] Surgeon Surgical Oncology 04/23/20 Araceli Pagan MD [address] [place] [address] Therapy Aide Obstetrics and Gynecology 07/31/22 Troy Rico MD Consulting Physician Rheumatology 08/12/19 documented as of this encounter
--- OUTSIDE RECORDS SUMMARY | 2024-04-10 09:35 | XMS_ITS | Encounter Summary ---
Author Organization [facility] Address [address] [place] [address] Phone Care Team Providers Care Human Services Assistant Name Role Phone Aft, Suzie Dumont MD PhD Unavailable [phone] Tarik Escalera MD Primary Care Provider [phone] Araceli Pagan MD Unavailable [phone] Soco Shrestha NP Primary Care Provider [phone] Encounter Details Date Type Department Care Team (Late st Contact Info) Description 07/10/2023 Orders Only [facility] Scanning, Provider Social History Tobacco Use Types Packs/Day Years Used Date Smoking Tobacco: Every Day Cigarettes Smokeless Tobacco: Never Comments:Trying to quit Alcohol Use Standard Drinks/Week Comments Not Currently 0 (1 standard drink = 0.6 oz pur e alcohol) PHQ-2 Answer Date Recorded PHQ-2 Score 0 11/02/2018 Personal Safety Answer Date Recorded Have you ever been in or are you currently in a harmful physical or emotional relationship or is someone making you feel afraid or unsafe? 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 [address] [place] [address] [place] [address] [address] 08/26/2024 9:45 AM CDT - 08/26/2024 10:45 AM CDT Surgery [facility] [address] [place] [address] [place] [address] [id number] COLONOSCOPY Scheduled Procedures Name Priority Associated Diagnoses Date/Ti me COLONOSCOPY Personal history of colon polyps, unspecified 08/26/2024 9:45 AM CDT documented as of this encounter Procedures Procedure Name Priority Date/Time Associated Diagnosis Comments SCAN - LABS 07/10/2023 documented in this encounter Results * SCAN - LABS (07/10/2023) Provider Scanning Final Result documented in this encounter Visit Diagnoses Not on filedocumented in this encounter Care Teams Human Services Assistant Relationship Specialty Start Date End Date Tarik Escalera MD [address] [place] [address] PCP - General Family Practice 07/28/21 01/23/24 Soco Shrestha NP [address] [place] [address] PCP - General Nurse Practitioner 01/24/24 Suzie Evans MD PhD [address] [place] [address] Surgeon Surgical Oncology 04/23/20 Araceli Pagan MD [address] [place] [address] Tank Truck Operator Obstetrics and Gynecology 07/31/22 Troy Rico MD Consulting Physician Rheumatology 08/12/19 documented as of this encounter
--- OUTSIDE RECORDS SUMMARY | 2024-04-10 09:35 | XMS_ITS | Referral Summary ---
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 Lot Number and Expiration Date 120 11/09/2026. Notes Consented patient for FA OU, transit OD - MW No macular edema. No disc hyperfluorescence. No NV.. us Franc Ulloa MD OPHTH PHOTOGRAPHY Final Re sult * [place] Visual Field - OD - Right Eye (02/21/2024 11:53 AM GRAPHITE GRINDER) Anatomical Region Laterality Modality Head Other Narrative 02/21/2024 12:31 PM GRAPHITE GRINDER Fixation was good. Cooperation was good. Reliability was good. Progression has been stable. Foveal threshold was normal. Notes Superior altitudinal defect OD, stable.- no changes from 10/2022 Franc Ulloa MD OPHTH VISUAL FIELD Final R esult * Fluorescein Angiography, OU Transit OD (02/20/2024 11:05 AM GRAPHITE GRINDER) Anatomical Region Laterality Modality Head Fundus Photograp hy Narrative 02/20/2024 11:05 AM GRAPHITE GRINDER Time Out Informed consent was obtained after all risks, benefits and alternatives were explained to the patient. The patient understood, agreed and wished to proceed. Timeout was completed verifying the patient, procedure, laterality and allergies. Right Eye Quality was good. Progression has been stable. Left Eye Quality was good. Progression has been stable. FA - Lot Number and Expiration Date 12m10 11/09/2026. Notes Consented patient for FA OU, transit ??OD - MW A few microaneurysms seen in the far periphery in both eyes, fortunately there was no evidence for vascular occlusion or vasculitis in either eye. ?? There was no evidence for choroidal non perfusion either. Franc Ulloa MD OPH PHOTOGRAPHY Final Re sult * OCT, Retina - OU - Both Eyes (02/20/2024 11:04 AM GRAPHITE GRINDER) Anatomical Region Laterality Modality Head Optical Coherenc e Tomography Narrative 02/20/2024 11:04 AM GRAPHITE GRINDER Right Eye Quality was good. Scan locations included subfoveal. Progression has been stable. Findings include normal foveal contour. Left Eye Quality was good. Scan locations included subfoveal. Progression has been stable. Findings include abnormal foveal contour. Notes Normal macular thickness OD, stable. ?? Severe inner retinal thinning OS, stable. Franc Ulloa MD OPHTH TOMOGRAPHY Final Res ult * MRI Abdomen MRCP W WO Contrast (02/04/2024 12:48 PM GRAPHITE GRINDER) Anatomical Region Laterality Modality Body N/A Magnetic Resonan ce 02/04/2024 1:33 PM GRAPHITE GRINDER Impressions 02/04/2024 1:33 PM GRAPHITE GRINDER 1. ??No suspicious liver lesions. 2. 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 3. 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 Electronically signed by: Madhav Chavez M.D. Narrative 02/04/2024 1:33 PM GRAPHITE GRINDER EXAMINATION: 1. MAGNETIC RESONANCE IMAGING OF THE ABDOMEN WITH AND WITHOUT CONTRAST 2. 2. THREE DIMENSIONAL RECONSTRUCTION OF THE BILIARY TREE AND PANCREATIC DUCT HISTORY: Left breast cancer, right lower lobe pleural mass, evaluate pancreas and liver lesions TECHNIQUE: Magnetic resonance imaging of the abdomen was performed prior to and following the uneventful administration of intravenous Gadolinium contrast. The raw data was processed on the scanner by the technologist for 3 dimensional reconstructions of the intrahepatic ducts, extrahepatics ducts, and pancreatic duct. Protocol: Liver MRCP Contrast: Contrast: gadoterate 17 mL COMPARISON: No prior magnetic resonance imaging is available for comparison. FINDINGS: Liver: No steatosis. ??No cirrhosis. - Bile ducts: No intrahepatic or extrahepatic bile duct dilatation. - Focal liver lesions: T2 hyperintense lesions in segment 6 and segment 2/3 (series 26, image 17, image 20) in keeping with hemangiomas. ??No suspicious liver lesions. - Vasculature: Hepatic veins portal veins and superior mesenteric vein are patent. ??Conventional hepatic arterial anatomy. Gallbladder: No stones without evidence of cholecystitis. Pancreas: Pancreatic duct is normal. ??No pancreatic parenchymal lesions. ??Unchanged tiny sidebranch cystic lesions measuring up to 5 mm in the tail (series 26 image 20), likely IPMNs. Spleen: Normal Adrenals: Normal Kidneys: Normal Other Findings: Unchanged right lower lobe pleural associated lesion measuring 1 cm (series 43 image 15). ??This was seen in 2015 and has been slowly growing in size. Procedure Note Madhav Chavez MD PhD - 02/04/2024 EXAMINATION: 1. MAGNETIC RESONANCE IMAGING OF THE ABDOMEN WITH AND WITHOUT CONTRAST 2. 2. THREE DIMENSIONAL RECONSTRUCTION OF THE BILIARY TREE AND PANCREATIC DUCT HISTORY: Left breast cancer, right lower lobe pleural mass, evaluate pancreas and liver lesions TECHNIQUE: Magnetic resonance imaging of the abdomen was performed prior to and following the uneventful administration of intravenous Gadolinium contrast. The raw data was processed on the scanner by the technologist for 3 dimensional reconstructions of the intrahepatic ducts, extrahepatics ducts, and pancreatic duct. Protocol: Liver MRCP Contrast: Contrast: gadoterate 17 mL COMPARISON: No prior magnetic resonance imaging is available for comparison. FINDINGS: Liver: No steatosis. No cirrhosis. - Bile ducts: No intrahepatic or extrahepatic bile duct dilatation. - Focal liver lesions: T2 hyperintense lesions in segment 6 and segment 2/3 (series 26, image 17, image 20) in keeping with hemangiomas. No suspicious liver lesions. - Vasculature: Hepatic veins portal veins and superior mesenteric vein are patent. Conventional hepatic arterial anatomy. Gallbladder: No stones without evidence of cholecystitis. Pancreas: Pancreatic duct is normal. No pancreatic parenchymal lesions. Unchanged tiny sidebranch cystic lesions measuring up to 5 mm in the tail (series 26 image 20), likely IPMNs. Spleen: Normal Adrenals: Normal Kidneys: Normal Other Findings: Unchanged right lower lobe pleural associated lesion measuring 1 cm (series 43 image 15). This was seen in 2015 and has been slowly growing in size. IMPRESSION: 1. No suspicious liver lesions. 2. 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 3. 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 Electronically signed by: Madhav Chavez M.D. us Zena Gonzalez MD IMG MRI PROCEDURES Final Re sult * eGFR (10/22/2023 2:11 PM CDT) eGFR >90 >=60 mL/min/1. 73 m2 Comment: Interpretive Data Reference Interval Normal ?>/= 90 mL/min/1.73m2 Mildly decreased* ? 60 - 89 mL/min/1.73m2 Mildly to moderately decreased ?45 - 59 mL/min/1.73m2 Moderately to severely decreased ??30 - 44 mL/min/1.73m2 Severely decreased ?15 - 29 mL/min/1.73m2 Kidney Failure ?< 15 ??mL/min/1.73m2 *Relative to young adult level Estimated glomerular filtration rate is determined by the 2020 CKD-EPI equation recommended by the National Kidney Foundation (A Unifying Approach to GFR Estimation: Recommendations of the NKF-ASK Task Force on Reassessing the Inclusion of Race in Diagnosing Kidney Disease, JASN 202). The CKD-EPI equation should not be used for patients with unstable renal function and has not been validated in children and those over 70. Current interpretive data was last reviewed 2021. Blood 10/22/2023 2:11 PM CDT 10/22/2023 2:28 PM CDT us Noman Salgado MD PhD LAB BLOOD ORDERABLES Fin al Result [facility] [id number] [facility] Department of Laboratories [place] [id number] * Colonoscopy (08/21/2023 10:10 AM CDT) Anatomical Region Laterality Modality Other Narrative Procedure Note Zena Gonzalez MD - 08/21/2023 10:10 AM CDT [facility] Patient Name: Ivonne Bacon Procedure Date: 08/21/2023 10:10 AM Date of : 1960 Admit Type: Outpatient Age: 63 Gender: Female Note Status: Finalized Attending MD: Zena oGnzalez M.D. Procedure Date: 08/21/2023 Procedure: Colonoscopy Indications: High risk colon cancer surveillance: Personalhistory of colonic polyps Providers: Zena Gonzalez M.D., Ana Maria Rutherford CRNA (Anesthesia Staff), Izzy Pete RN, Justin Salamanca, Welfare Administrator Referring MD: Tarik Escalera M.D. Medicines: Monitored Anesthesia Care Complications: No immediate complications. Estimated Blood Loss: Estimated blood loss was minimal. Procedure: Pre-Anesthesia Assessment: - Prior to the procedure, a History and Physicalwas performed, and patient medications and allergieswere reviewed. The patient's tolerance of previous anesthesia was also reviewed. The risks andbenefits of the procedure and the sedation options and risks were discussed with the patient. All questions were answered, and informed consent was obtained. Prior Anticoagulants: The patient has taken noanticoagulant or antiplatelet agents. ASA Grade Assessment: III -A patient with severe systemic disease. Afterreviewing the risks and benefits, the patient was deemed in satisfactory condition to undergo the procedure. - Prior to the procedure, a History and Physicalwas performed, and patient medications, allergies and sensitivities were reviewed. The patient'stolerance of previous anesthesia was reviewed. - The risks and benefits of the procedure and the sedation options and risks were discussed with the patient. All questions were answered and informed consent was obtained. After I obtained informed consent, the scope was passed under direct vision. Throughout theprocedure, the patient's blood pressure, pulse, and oxygen saturations were monitored continuously. The scopewas passed under direct vision. The Colonoscope was introduced through the anus and advanced to the the terminal ileum - first 2 cm of. The patienttolerated the procedure well. The quality of the bowel preparation was evaluated using the BBPS (BostonBowel Preparation Scale) with scores of: Right Colon = 2 (minor amount of residual staining, small fragmentsof stool and/or opaque liquid, but mucosa seen well), Transverse Colon = 2 (minor amount of residual staining, small fragments of stool and/or opaque liquid, but mucosa seen well) and Left Colon = 2 (minor amount of residual staining, small fragmentsof stool and/or opaque liquid, but mucosa seen well).The total BBPS score equals 6. The colonoscopy was performed with difficulty due to colon spasms and residual stool. The terminal ileum, ileocecalvalve, appendiceal orifice, and rectum were photographed.The quality of the bowel preparation was adequate to identify polyps 6 mm and larger in size. The bowel preparation used was GoLYTELY via extended prepwith split dose instruction. Findings: The terminal ileum appeared normal. Only 2 cm examined. A moderate amount of liquid semi-solid stool was found in the entire colon, interfering with visualization. Lavage of the area wasperformed using greater than 500 mL, resulting in clearance with fair visualization. A 4 mm polyp was found in the transverse colon. The polyp wassessile. The polyp was removed with a cold snare. Resection was complete, butthe polyp tissue was not retrieved. Two sessile polyps were found in the descending colon. The polypswere 2 to 3 mm in size. These polyps were removed with a cold biopsyforceps. Resection and retrieval were complete. Many hyperplastic polyps were found in the recto-sigmoid colon and sigmoid colon. The polyps were 1 to 10 mm in size. The largest ofthese polyps were removed with a cold snare. Resection and retrieval of the largest polyps were complete. Non-bleeding external and internal hemorrhoids were found during retroflexion and during perianal exam. The hemorrhoids weremoderate. The perianal exam findings include skin lesions. Impression: - The examined portion of the ileum was normal. - Stool was found in the entire colon, interfering with visualization. Lavage of the area wasperformed using greater than 500 mL, resulting in clearancewith fair visualization. - One 4 mm polyp in the transverse colon, removedwith a cold snare. Complete resection. Polyp tissue not retrieved. - Two 2 to 3 mm polyps in the descending colon, removed with a cold biopsy forceps. Resected and retrieved. - Many 1 to 10 mm polyps at the recto-sigmoid colon and in the sigmoid colon. The largest were removed with a cold snare. These were resected andretrieved. - Non-bleeding external and internal hemorrhoids. - Skin lesions found on perianal exam. Recommendation: - Patient has a contact number available for emergencies. The signs and symptoms of potential delayed complications were discussed with thepatient. Return to normal activities tomorrow. Written discharge instructions were provided to thepatient. - Resume previous diet. - Continue present medications. - Await pathology results. - Repeat colonoscopy date to be determined after pending pathology results are reviewed for surveillance. - Concern for underlying serrated polyposissyndrome. Likely will recommend colonoscopy in 1-2 years - Refer to golf ball molder to evaluate perianal skin lesions. Procedure Code(s): --- Professional --- 14107, Colonoscopy, flexible; with removal of tumor(s), polyp(s), or other lesion(s) by snare technique [id number], 59, Colonoscopy, flexible; with biopsy,single or multiple Diagnosis Code(s): --- Professional --- Z86.010, Personal history of colonic polyps K64.8, Other hemorrhoids D12.3, Benign neoplasm of transverse colon (hepatic flexure or splenic flexure) D12.4, Benign neoplasm of descending colon D12.7, Benign neoplasm of rectosigmoid junction D12.5, Benign neoplasm of sigmoid colon CPT copyright 2020 [employer]. All rights reserved. The codes documented in this report are preliminary and upon chief communications officer reviewmay be revised to meet current compliance requirements. Dr. Zena Gonzalez MD [facility] Zena Gonzalez M.D. 08/21/2023 12:14:49 PM Number of Addenda: 0 Note Initiated On: 08/21/2023 10:10 AM us Zena Gonzalez MD ENDOSCOPY PROCEDURES Final Result * Screening Mammogram Bilateral W Fred (07/24/2023 9:16 AM CDT) Anatomical Region Laterality Modality Breast Bilateral Mammography 07/25/2023 8:05 AM CDT Impressions 07/25/2023 8:05 AM CDT There is no mammographic evidence of malignancy. A 1 year screening mammogram is recommended. BI-RADS: 1 - Negative. The patient has been or will be contacted. The patient will be entered into a reminder system with a target due date of 1 year for her next mammogram. Electronically signed by: Tasha Hyde M.D. Narrative 07/25/2023 8:05 AM CDT EXAMINATION: SCREENING MAMMOGRAM BILATERAL W FRED ORDERING HEALTHCARE PROVIDER: YELITZA GAITAN HISTORY: Routine screening mammography. COMPARISON: ??07/13/2022, 06/23/2020, 01/27/2020 TECHNIQUE: CC and MLO views of the bilateral breasts were obtained with digital technique using breast tomosynthesis with C view. Computer aided detection was utilized. FINDINGS: DENSITY: There are scattered fibroglandular elements in the bilateral breasts. BREASTS: There are no suspicious masses, suspicious calcifications, or other suspicious findings in either breast. There has been no suspicious interval change. Yelitza Gaitan MD IMG MAMMO PROCEDURES Final Result * Hepatitis C antibody Blood (04/23/2023 12:50 PM GRAPHITE GRINDER) Hep C Ab Nonreactive Nonreactive [facility] Comment: Interpretive Data Nonreactive: Antibodies to HCV not detected. Does NOT exclude the possibility of recent exposure to HCV. Equivocal: Equivocal for HCV antibodies. Supplemental molecular testing will be automatically performed to determine infection status in accordance with current CDC screening recommendations. ?? Reactive: Positive for HCV antibodies. ??This may represent current or past HCV infection. Supplemental molecular testing will be automatically performed to determine ??current infection status in accordance with current CDC screening recommendations. Interpretive data was last revised on 2019. Blood 04/23/2023 12:5 0 PM GRAPHITE GRINDER 04/23/2023 6:15 PM GRAPHITE GRINDER Zena Gonzalez MD LAB MICROBIOLOGY - GENERAL ORDERABLES Final Result [facility] [address] [address] Department [place] [address] * Pap with reflex to High Risk HPV (03/19/2020 9:32 AM GRAPHITE GRINDER) 03/19/2020 9:32 AM GRAPHITE GRINDER 03/19/2020 9:32 AM GRAPHITE GRINDER Narrative [facility] PATHOLOGY LAB - 03/23/2020 2:40 PM GRAPHITE GRINDER [facility] Department of Pathology [address] [place], [place] [id number] Final Report with Addendum Patient Name: ??IVONNE BACON Address: ??[address] [place] [address], ?? [place], [place] ??[address] Gender: ??F : ??1960 (Age: 59) Service: ??Laboratory Location: ??Lab Hospital #: ??[id number] Patient Type: ?? Ref Lab Taken: ??03/19/2020 Received: ??03/19/2020 Accessioned:: ??03/22/2020 Reported: ??03/23/2020 Physician(s): MD Yelitza Lee MD Diagnosis: Source of Specimen: ? Imaged Thinprep Pap Test plus HPV - Shirring Machine Operator Automatic Cytologic Material Specimen Adequacy: ?- Specimen satisfactory for interpretation; endocervical/transformation zone component absent or ?insufficient General Category: ?- Negative for intraepithelial lesion or malignancy ?? ELAYNE Wilson(ASCP) Report Electronically Reviewed and Signed Out By ??ELAYNE Wilson(ASCP) ??03/23/2020 14:40:29 ??Addenda: HPV Test Interpretation NEGATIVE for types 16, 18, 31, 33, 35, 39, 45, 51, 52, 56, 58, 59, 66 and 68. Test performed utilizing Gen-Probe Aptima assay. ?? ELAYNE Mitchell(ASCP) ??Report Electronically Reviewed and Signed Out By ??ELAYNE Mitchell(ASCP) ??03/22/2020 14:54:10 ? Specimen(s) Received: A: Imaged Thinprep Pap Test plus HPV - Shirring Machine Operator Automatic Cytologic Material Clinical History: Menstrual History: Post-menopausal Previous Negative Pap The Pap test is a screening test used to aid in the detection of cervical cancer and its precursors. ??It should not be the sole means by which malignant and premalignant lesions are diagnosed. ??Both false negative and false positive results may occur. ?? It also has poor sensitivity for the detection of endometrial lesions and should not be used to evaluate suspected endometrial abnormalities. ??For these reasons it is most important to obtain Pap tests at regular intervals. The performance characteristics of some immunohistochemical stains, fluorescence in-situ hybridization tests and immunophenotyping by flow cytometry cited in this report (if any) were determined by the Surgical Pathology Department at [facility] as part of an ongoing quality improvement consultant program and in compliance with federally mandated regulations drawn from the Clinical Laboratory Improvement Act of 1988 (CLIA '88). ??Some of these tests rely on the use of analyte specific reagents and are subject to specific labeling requirements by the US Food and Drug Administration. ??Such diagnostic tests may only be performed in a facility that is certified by the Department of Health and Human Services as a high complexity laboratory under CLIA '88. The FDA has determined that such clearance or approval is not necessary. ??This test is used for clinical purposes. ??It should not be regarded as investigational or for research. ??Nevertheless, federal rules concerning the medical use of analyte specific reagents require that the following disclaimer be attached to the report: This test was developed and its performance characteristics determined by the Surgical Pathology Department [facility]. ??It has not been cleared or approved by the U. S. Food and Drug Administration. Yelitza Gaitan MD LAB CYTOLOGY ORDERABL ES Final Result [facility] LAB [address] [facility] [address] [place] [address] * (ABNORMAL) Hemoglobin A1c (09/15/2018 3:35 AM CDT) Hgb A1C 8.4(H) 4.0 - 5.6 % [facility] Estimated Average Glucose 194 mg/dL [facility] Comment: The ADA recommends reporting an estimated Average Glucose (eAG) with all Hemoglobin A1c results using the equation derived from a study of 507 normal and diabetic adults. ??Minority populations were underrepresented and children were not included. ?? (Diabetes Care 31:8757-4797, 2008). ??The eAG is not equivalent to a fasting glucose. Blood specimen (specimen) 09/15/2018 3:35 AM CDT 09/15/2018 4:09 AM CDT us Jairo Red MD LAB BLOOD ORDERABLES Final Result [facility] Department [place] [address] * (ABNORMAL) Lipid panel (09/15/2018 3:35 AM CDT) Cholesterol 197 30 - 199 mg/dL [facility] Comment: Interpretive Data Ages < or = 19 years ??Acceptable: ? <170 mg/dL ??Borderline high: ??170-199 mg/dL ??High: ? >or= 200 mg/dL Ages > or = 20 years ??Desirable: ?<200 mg/dL ??Borderline high: ??200-239 mg/dL ??High: ? >or= 240 mg/dL Literature References: 1. Expert Panel on Integrated Guidelines for Cardiovascular Health and Risk Reduction in Children and Adolescents. Pediatrics 2011;128:S213 2. NCEP Expert Panel. Circulation 2004;110:227 Current Interpretive Data was last revised on 2017. Triglycerides 275(H) <=149 mg/dL [facility] Comment: Interpretive Data Ages < or = 9 years ??Acceptable: ? <75 mg/dL ??Borderline high: ??75-99 mg/dL ??High: ? >or= 100 mg/dL Ages 10 to 20 years ??Acceptable: ? <90 mg/dL ??Borderline high: ??90-129 mg/dL ??High: ? >or= 130 mg/dL Ages > or = 20 years ??Desirable: ?<150 mg/dL ??Borderline high: ??150-199 mg/dL ??High: ? 200-499 mg/dL ?Very high: ?? >or= 499 mg/dL Literature References: 1. Expert Panel on Integrated Guidelines for Cardiovascular Health and Risk Reduction in Children and Adolescents. Pediatrics 2011;128:S213 2. NCEP Expert Panel. Circulation 2004;110:227 Current Interpretive Data was last revised on 2017. HDL 33(L) >=40 mg/dL [facility] Comment: Interpretive Data Ages < or = 19 years ??Acceptable: ? >45 mg/dL ??Borderline low: ?? 40-45 mg/dL ??Low: ? <40 mg/dL Ages > or = 20 years ??Desirable: ?>or= 60 mg/dL ??Low: ? <40 mg/dL Literature References: 1. Expert Panel on Integrated Guidelines for Cardiovascular Health and Risk Reduction in Children and Adolescents. Pediatrics 2011;128:S213 2. NCEP Expert Panel. Circulation 2004;110:227 Current Interpretive Data was last revised on 2017. LDL, calculated 109 <=129 mg/dL [facility] Comment: Interpretive Data Ages < or = 19 years ??Acceptable: ? <110 mg/dL ??Borderline high: ??110-129 mg/dL ??High: ?>or= 130 mg/dL Ages > or = 20 years ??Optimal: ? <100 mg/dL ??Near optimal: ?100-129 mg/dL ??Borderline high: ?? 130-159 mg/dL ??High: ?>160 mg/dL Literature References: 1. Expert Panel on Integrated Guidelines for Cardiovascular Health and Risk Reduction in Children and Adolescents. Pediatrics 2011;128:S213 2. NCEP Expert Panel. Circulation 2004;110:227 Current Interpretive Data was last revised on 2017. Non-HDL Cholesterol 164 mg/dL [facility] Comment: Interpretive Data Ages < or = 19 years ??Acceptable: ?<120 mg/dL ??Borderline high: ??120-144 mg/dL ??High: ?>145 mg/dL Ages > or = 20 years ??When triglycerides are >200 mg/dL, Non-HDL cholesterol is a secondary target of ? therapy with treatment goals that are 30 mg/dL greater than the LDL cholesterol target. ? Literature References: 1. Expert Panel on Integrated Guidelines for Cardiovascular Health and Risk Reduction in Children and Adolescents. Pediatrics 2011;128:S213 2. NCEP Expert Panel. Circulation 2004;110:227 Current Interpretive Data was last revised on 2017. Chol/HDL ratio 6 NITA ARRIAGA Blood specimen (specimen) 09/15/2018 3:35 AM CDT 09/15/2018 4:07 AM CDT us Jairo Red MD LAB BLOOD ORDERABLES Final Result Performing Organization Address City/State/[facility] Co de Phone Number [facility] Department [place] [address] from Last 3 Months or Most Recently Relevant to Health Maintenance Insurance [employer] [facility] [id number] [facility] [id number] Advance Directives For more information, please contact: [phone] * Full Code (Latest Code Status on File) Date Activated Date Inactivated Comments 09/14/2018 10:08 PM 09/15/2018 9:15 PM Care Teams Doll Wig Maker Rooted Hair Relationship Specialty Start Date End Date Soco Shrestha NP [address] [place] [address] PCP - General Nurse Practitioner 01/24/24 Aft, Suzie Dumont MD PhD [address] [place] [address] Surgeon Surgical Oncology 04/23/20 Yelitza Gaitan MD [address] [place] [address] Brokerage Office Manager Obstetrics and Gynecology 07/31/22 Troy Rico MD Consulting Physician Rheumatology 08/12/19
--- OUTSIDE RECORDS SUMMARY | 2024-04-10 09:35 | XMS_ITS | Patient Health Summary ---
Author Organization [facility] [employer] Address [address] 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 This disclosure is being madepursuant to the Care Everywhere program and may not contain all information available regarding this patient. Last updated 17.[facility] [employer] Allergies * Amoxicillin-Pot Clavulanate(Rash) -Medium Criticality Medications * Be aware that medications may not be up to date on this document. Alwaysverify current medications with the patient. * amLODIPine (NORVASC) 5 MG tablet(Started 03/16/2017) Take 5 mg by mouth * atorvastatin (LIPITOR) 40 MG tablet(Started 06/20/2017) Take 40 mg by mouth once daily 2 refills left * aspirin (ASPIRIN) 81 MG tablet(Started 05/23/2017) Take 81 mg by mouth once daily * Cholecalciferol (VITAMIN D-3) 1000 UNITS Take 4,000 Units by mouth once daily * clopidogrel (PLAVIX) 75 MG tablet(Started 06/20/2017) Take 75 mg by mouth once daily 1 refill left * fenofibrate (FENOGLIDE) 120 MG(Started 05/23/2017) Take 120 mg by mouth once daily 1 refill left * levothyroxine (SYNTHROID) 150 MCG tablet(Started 06/12/2017) Take 150 mcg by mouth once daily 2 refills left * liothyronine (CYTOMEL) 5 MCG tablet(Started 06/12/2017) Take 5 mcg by mouth once daily 2 refills left * predniSONE (DELTASONE) 20 MG tablet(Started 05/27/2017) Take 40 mg by mouth once daily * cyanocobalamin (VITAMIN B-12) 1000 MCG tablet(Started 06/25/2017) Take 1 tablet by mouth once daily * levothyroxine (SYNTHROID) 200 MCG tablet Take 200 mcg by mouth * citalopram (CELEXA) 20 MG tablet Take 20 mg by mouth * buPROPion SR 12hr (ZYBAN) 150 MG tablet(Started 06/25/2017) 1 refill left * cyclobenzaprine (FLEXERIL) 10 MG tablet(Started 05/26/2017) * HYDROcodone-acetaminophen (NORCO) 5-325 MG tablet(Started 06/22/2017) * olopatadine (PATANOL) 0.1 % ophthalmic solution(Started 01/29/2017) INT ONE DROP AEY BID PRF ALLERGIES. 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 (AFLURIA, FLUZONE TRIVALENT; 6MO+) (IIV3)(Given 12/10/2014) * INFLUENZA VACCINE(Given 01/04/2017) * PNEUMOCOCCAL PPSV23(Given 03/20/2016) * TDAP (7yrs+)(Given 08/11/2015) * TETANUS(Given 03/12/2011) Social History Tobacco Use Types Packs/Day Years [...] on file Sexual Orientation Not on file Procedures * PROTEIN C FUNCTIONAL(Performed 06/29/2017) Performed for Branch retinal artery occlusion of right eye * LUPUS ANTICOAGULANT PANEL(Performed 06/29/2017) Performed for Branch retinal artery occlusion of right eye * PROTEIN S ANTIGEN(Performed 06/29/2017) Performed for Branch retinal artery occlusion of right eye * CARDIOLIPIN ANTIBODY IGM(Performed 06/29/2017) Performed for Branch retinal artery occlusion of right eye * CARDIOLIPIN ANTIBODY IGG(Performed 06/29/2017) Performed for Branch retinal artery occlusion of right eye * FACTOR V LEIDEN MUTATION PANEL(Performed 06/29/2017) Performed for Branch retinal artery occlusion of right eye * MTHFR MUTATION ANALYSIS(Performed 06/29/2017) Performed for Branch retinal artery occlusion of right eye * HOMOCYSTEINE BLOOD QUANTITATIVE(Performed 06/29/2017) Performed for Branch retinal artery occlusion of right eye * OPH COLOR FUNDUS PHOTOGRAPHY SLU(Performed 06/25/2017) Performed for Change in vision * OPH OCT TEST SLU(Performed 06/25/2017) Performed for Change in vision * OPH VISUAL FIELD TEST SLU(Performed 06/25/2017) Performed for Change in vision * CYTOLOGY SMEAR PAP(Performed 05/05/1998) Results * (ABNORMAL) PROTEIN C FUNCTIONAL (06/29/2017 2:58 PM CDT) [facility] APTT 24.8 23.0 - 38.4 Seconds 07/03/2017 10:59 AM CDT [facility] LABORATORY [facility] PT 12.9 12.1 - 14.8 Seconds 07/03/2017 10:59 AM CDT [facility] Protein C Activity 149(H) 70 - 130 U/dL 07/03/2017 10:59 AM CDT [facility] INR 1.0 07/03/2017 10:59 AM CDT [facility] Blood BLOOD SPECIMEN / Unknown Lab Venipuncture / Unknown 06/29/2017 2:58 PM CDT 06/29/2017 2:59 PM CDT Lupe Hansen MD LAB - CHEMISTRY NATHAN JURADO [address] [phone] * LUPUS ANTICOAGULANT PANEL (06/29/2017 1:04 PM CDT) Pathologist [facility] Buffer 36.7 Seconds 018 11:14 AM CDT [facility] Phospholipid 36.1 Seconds 07/03/2017 11:14 AM CDT [facility]-LA Delta 0.6 <8.0 Seconds 07/03/2017 11:14 AM CDT [facility] Interpretation [facility] Negative Negative 07/03/2017 11:14 AM CDT [facility] Comment:Up to 15-20% of ilene ents with lupus anticoagulant associated with antiphospholipid antibody syndrome (APAS) will have negative STACLOT-LA results. For these patients we recommend additional testing to include the Dilute Paresh Viper Venom Time (DRVVT) test. Immunoassay measurements of anti-cardiolipin and anti-beta-2 glycoprotein 1 are recommended if the DRVVT, and STACLOT-LA tests are negative and there is clinical suspicion of APAS. Blood BLOOD SPECIMEN / Unknown Lab Venipuncture / Unknown 06/29/2017 1:04 PM CDT 06/29/2017 1:32 PM CDT Lupe Hansen MD LAB - HEMATOLOGY ORD ERABLES [address] [phone] * (ABNORMAL) MTHFR MUTATION ANALYSIS (06/29/2017 1:04 PM CDT) Specimen MTHFR PCR Whole Blood 07/06/2017 5:[address] [facility]) C677T Mutation Heteroz ygous(A ) 07/06/2017 5:[address] [facility]) MTHFR [id number] Mutation Heteroz ygous(A ) 07/06/2017 5:45 AM CDT [facility] ([facility]) Interpretation MTHFR See Note 07/06/2017 5:45 AM CDT [facility] ([facility]) Comment: ? Indication for testing: Determine genetic contribution to early-onset arteriosclerotic vascular disease or venous thrombosis and/or assess tolerance to antifolate medications. ? Compound Heterozygous MTHFR c.665C>T/c.1286A>C: One copy of each of the two MTHFR gene variants tested c.665C>T (previously designated C677T) and c.1286A>C (previously designated Y3964X) were detected. Although this genotype has been associated with a reduction in enzyme activity, it is not causative for an increase in plasma homocysteine levels, or an increased risk for arteriosclerotic coronary disease or venous thrombosis. Dose requirements for medications affecting folate metabolism may be lower. This result has been reviewed and approved by Nancy Becerra M.D. Background Information: Methylenetetrahydrofolate ?Reductase (MTHFR) 2 Variants Characteristics: Variants in the MTHFR gene (c.665C>T and c.1286A>C) correlate with reduced enzyme activity; however, only homozygotes for the c.665C>T variant have been significantly associated with elevated plasma homocysteine levels and with an increased risk for premature cardiovascular disease. These individuals may also show toxicity from medications (ie, methotrexate) that affect folate metabolism. ?? Incidence: The allele frequency of c.665C>T is 0.35 in Caucasians and 0.12 in Americans. The allele frequency of c.1286A>C is 0.31 in Caucasians and 0.15 in Americans. Inheritance: Autosomal recessive. Cause: Homozygosity for MTHFR gene mutation c.665C>T. Mutations Tested: c.665C>T (previously designated C677T); p.Vzh181Ftz and c.1286A>C (previously designated J3444N); p.Cza074Gjp. Clinical Sensitivity: Undefined. Sensitivity is dependent upon multiple contributing factors. Methodology: Polymerase chain reaction followed by high resolution melt analysis. Analytical Sensitivity and Specificity: 99 percent. Limitations: Only the two MTHFR gene mutations (c.665C>T and c.1286A>C) will be targeted. Diagnostic errors can occur due to rare sequence variations. See Compliance Statement C: [email or web address] Performed by [email or web address], [address] [place] [id number] [email or web address], Jm Hurley MD, Lab. Director Blood BLOOD SPECIMEN / Unknown Lab Venipuncture / Unknown 06/29/2017 1:04 PM CDT 06/29/2017 1:33 PM CDT Lupe Hansen MD LAB - CHEMISTRY NATHAN JURADO [employer] ([facility]) [address] * PROTEIN S ANTIGEN (06/29/2017 1:04 PM CDT) Pathologist [facility] Protein S Antigen Total 80 60 - 150 % 07/01/2017 12:07 PM CDT [facility] ([facility]) Comment: This test was developed and its performance characteristics determined by [facility]. It has not been cleared or approved by the Food and Drug Administration. Protein S Free 93 57 - 157 % 07/01/2017 12:07 PM CDT [facility] ([facility]) Comment: This test was developed and its performance characteristics determined by [facility]. It has not been cleared or approved by the Food and Drug Administration. Blood BLOOD SPECIMEN / Unknown Lab Venipuncture / Unknown 06/29/2017 1:04 PM CDT 06/29/2017 1:31 PM CDT Narrative [facility] ([facility]) - 07/01/2017 12:07 PM CDT Performed at: ??[address] - [address] ??[id number] Elevator Operator Freight: Perry Saha MD, Phone: ??[phone] Lupe Hansen MD LAB - COAGULATION OR DERABLES [facility] ([facility]) [address] [place] [address], [facility] * FACTOR V LEIDEN MUTATION PANEL (06/29/2017 1:04 PM CDT) [facility] Factor V Genotype -/- (Normal) -/- (Normal) 07/04/2017 3:26 PM CDT [facility] Factor V Interpretation 07/04/2017 3:26 PM CDT [facility] Comment: From this analysis, the patient has only wild-type (-) alleles of Factor V at U3914G. ??The patient lacks the J7531X mutation of Facor V; and is, therefore homozygous wild-type (negative). DNA was isolated from the specimen and analyzed by real-time PCR in an allele specific amplification protocol to detect the thrombophilia associated Y4172J mutation of Factor V (Factor V Leiden) that confers resistance to proteolytic cleavage by Activated Protein C (Brody Cisse et all (1994) Nature 369, 644- 647; Tmi Mariano, et jerald (1997) Hemostasis Thrombosis 78, 960-961; Hya Farias et al, (2001) Clin Chem 47:333-335). ??Only wild type (normal) sequences were detected. This test was developed and its performance characteristics determined by the [facility]. ??It has not been cleared or approved by the U.S. Food and Drug Administration. ??The FDA has determined that such clearance or approval is not necessary. ??This test is used for clinical purposes. ??It should not be regarded as investigational or for research. ??This laboratory is certified under the Clinical Laboratory Improvement Amendments of 1988(CLIA-88) as qualified to perform high complexity clinical laboratory testing. Blood BLOOD SPECIMEN / Unknown Lab Venipuncture / Unknown 06/29/2017 1:04 PM CDT 06/29/2017 1:32 PM CDT Lupe Hansen MD LAB - COAGULATION OR DERABLES Performing Organization Address City/[facility]/ZIP Co de Phone Number [facility] [address] [phone] * CARDIOLIPIN ANTIBODY IGM (06/29/2017 1:04 PM CDT) Anticardiolipin Antibody IgM <15.0 <15.0 MPL 07/03/2017 11:51 AM CDT [facility] Blood BLOOD SPECIMEN / Unknown Lab Venipuncture / Unknown 06/29/2017 1:04 PM CDT 06/29/2017 1:32 PM CDT Lupe Hansen MD LAB - SEROLOGY ORDER DARY Performing Organization Address City/[facility]/ZIP Co de Phone Number [facility] [address] [phone] * CARDIOLIPIN ANTIBODY IGG (06/29/2017 1:04 PM CDT) Anticardiolipin Antibody IgG <15.0 <15.0 GPL 07/03/2017 11:50 AM CDT [facility] Blood BLOOD SPECIMEN / Unknown Lab Venipuncture / Unknown 06/29/2017 1:04 PM CDT 06/29/2017 1:32 PM CDT Lupe Hansen MD LAB - SEROLOGY ORDER DARY [address] [phone] * HOMOCYSTEINE BLOOD QUANTITATIVE (06/29/2017 1:04 PM CDT) Homocysteine 10.5 4.4 - 16.2 umol/L 06/29/2017 2:26 PM CDT [facility] Blood BLOOD SPECIMEN / Unknown Lab Venipuncture / Unknown 06/29/2017 1:04 PM CDT 06/29/2017 1:33 PM CDT Lupe Hansen MD LAB - CHEMISTRY ORDE RABLES [address] [phone] * OPH COLOR FUNDUS PHOTOGRAPHY U (06/25/2017 4:00 PM CDT) Anatomical Region Laterality Modality Other 06/25/2017 4:00 PM CDT Lupe Hansen MD OPHTHALMOLOGY SERVIC ES ORDERABLES * OCT (06/25/2017 10:58 AM CDT) Anatomical Region Laterality Modality Other 06/25/2017 10:5 8 AM CDT Aron Odom MD OPHTHALMOLOGY SERVIC ES ORDERABLES * Visual Espinoza (06/25/2017 7:52 AM CDT) Anatomical Region Laterality Modality Other 06/25/2017 7:52 AM CDT Aron Odom MD OPHTHALMOLOGY SERVIC ES ORDERABLES * CYTOLOGY SMEAR PAP (05/05/1998 10:56 AM QUALITY IMPROVEMENT SPECIALIST) Result CASE NUMBER [id number] Comment: ORDERING PHYSICIAN ??MARK ANDRADE SPECIMEN TYPE ?PAP Smear Date ? 05/05/1998 Procedure ?Cervical/Endocervical, 1 smear received Specimen Adequacy ?Satisfactory for Evaluation Categorization ? Benign Cellular Changes Comment ?Predominance of Coccobacilli Consistent with Shift in Vaginal Ree. Snomed. ?05/13/1998 1434 <1> Lay Out Carpenter ? Lindsey Ayala(ASCP) PAP Footnote ? The PAP smear is only a screening procedure to aid in the detection of cervical cancer and its precursors. ??It is not a diagnostic procedure and should not be used as the sole means to detect cervical cancer. ??Both false negative and false positive results have been experienced. 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
--- OUTSIDE RECORDS SUMMARY | 2024-04-10 09:35 | XMS_ITS | Continuity of Care Document ---
Author Organization [facility] Address [address] [place] [address] Phone Care Team Providers Care Alarm Field Technician Name Role Phone Noman Allen MD, MD Unavailable Unavailab le Allergies, Adverse Reactions, Alerts Substance Reaction Status Criticality No Known Allergies Active No Inform ation Medications Medication Instructions Dosage Effective Dates (start - stop) Status Comments Norvasc 5 mg tablet take 1 tablet by oral route every day 5 MG - Active AUGMENTIN (unknown strength) take 20 milliliter by oral route every 8 hours Not Available - Active Tessalon Perles 100 mg capsule take 1 capsule by oral route 3 times every day - Active levothyroxine (unknown strength) Not Available - Active Celexa (unknown strength) Not Available - Active Vitamin D (unknown strength) Not Available - Active Procedures Procedure Date OFFICE/OUTPATIENT VISIT, EST OFFICE/OUTPATIENT VISIT, EST SUBSEQUENT HOSPITAL CARE DILATED EXAM RIGHT EYE DILATED EXAM LEFT EYE Advance Directives Directive Yes / No Effective Date File Name No Information Encounters Encounter Description Practice Location Reason(s) For Visit Diagnoses Date Provider Providers Copied on Encounter OFFICE/OUTPA TIENT VISIT, EST [facility], [address], [place], [place], [id number], [place] tel:[phone] OPH CONSULT [facility] 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 [address], [address], [place], [place], [id number] , . tel:[phone] Referring Provider: Noman Moise, [address], [place], [place], [id number]. tel:[phone] OFFICE/OUTPA TIENT VISIT, [facility], [address] [place] [address], [id number], tel:[phone] OPH CONSULT [facility] (chief complaint) Cortical age-related cataract, bilateralIrid ocyclitisOpti c atrophy 8 Tiffany Tineo. [address], [id number] , [place]. tel:[phone] Referring Provider: Noman Moise, [address], [id number]. tel:[phone] [facility], [address] [place] [address], [id number], tel:[phone] Oph Consult [facility] Office blurry vision (chief complaint) Cortical age-related cataract, bilateralOpti c atrophyMigrai ne w/ aura, not intractable, w/o status migrainosus 7 Tiffany Tineo. [address], [id number] , [place]. [phone] Referring Provider: Noman Moise, [address], [place], [place], [id number]. tel:[phone] Family History Family Member Type Diagnosis Age At Onset No Information Payers Payer name Insurance type Covered alliance party ID Yasir vaz(s) [employer] PPO CI [id number] Social History Type Description Quantity Date Captured Comments Alcohol Use Details Unknown Caffeine Use Details Unknown Tobacco Use Status No Information Smoking Status Never smoker Non-Smoking Tobacco Use Details : No Details Available : No Details Available Sex Female Chief Complaint And Reason For Visit From encounter dated '04/18/2017 07:15'. iridocyclitis follow up (chief complaint). Description: The 56 year old female presents for evaluation of iridocyclitis follow up in the right eye. It started about 1 month(s) ago. The symptom is constant. The condition is improving. Pt reports OD was improving while taking Prednisolone, but OD started to get painful again 2 days ago. Pt stopped prednisolone 9 days ago. Plan Of Treatment Date Type Action Status No Information History Of Present Illness Encounter Date Complaint History Of Prese nt Illness iridocyclitis follow up The 56 y ear old female presents for evaluation of iridocyclitis follow up in the right eye. It started about 1 month(s) ago. The symptom is constant. The condition is improving. Pt reports OD was improving while taking Prednisolone, but OD started to get painful again 2 days ago. Pt stopped prednisolone 9 days ago. pain The 56 year old female presents for evaluation of pain in the right eye. It started about 7 week(s) ago. The symptom is constant. The condition is significant. Pt states pain intensity worsens as the day goes on. Eye gets very red. Photophobia has improved. Vision unaffected per pt. Takes Ibuprofen for some relief. When pt turns OD to the right or down there's extreme pain. Pt took Ciprofloxacin starting Jan 17 QID x10 days with mild improvement. Pt took Olopatadine with NI. blurry vision The 56 year old female presents for evaluation of blurry vision in the right eye. It started about 1.5 month(s) ago. Started with working on computer - saw 3 shooting starts followed by L boot shape that was greyed out and lasted 30-45 min then gone. Since then, describes VA as isabelle splatter and bright metallic color in vision. Symptoms only in OD. Patient had stroke 2003. CRVO/BRVO? OS - cannot see out of OS. Patient is followed by Doc in [place]. Patient saw an Charge Entry at [place] 2 weeks ago and states does not believe it was stroke related, states was migraine related. Instructions Date Instruction Additional Infor carolina Impression/Plan - Di scussed diagnosis in detail with patient. Discussed treatment options with patient. Advised patient of condition. No cell or flare seen upon exam today. Do not recommend restarting steroid. Advised patient to use rtifical tears TID-QID OD. Explained to the patient if she develops any pain/light sensitivity to call the office. Related to Iridocyclitis Impression/Plan - Stable Related to Optic atrophy Follow up - RTO 1 year annual MP D Impression/Plan - No treatment at this time. 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 Discussed treatment options with patient. 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 The patient will monitor vision changes and contact us with any decrease in vision. 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 Related to Optic atrophy Impression/Plan - Di scussed diagnosis in detail with patient. No treatment is required at this time. Advised patient of condition. 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 If MRI scan of brain is normal it strongly supports Dx. RTO 1 yr Complete Exam with MPD Related to Migraine w/ aura, not intractable, w/o status migrainosus Assessments Type Assessment Date assessment Iridocyclitis impression Iridocyclitis: H20.9. OD. Quiet. impression Optic atrophy: H47.20 OS. assessment Optic atrophy
--- OUTSIDE RECORDS SUMMARY | 2024-04-10 09:35 | XMS_ITS | Encounter Summary ---
Author Organization [facility] Address [address] [place] [address] Phone Care Team Providers Care Economics Department Chair Name Role Phone Aft, Suzie Dumont MD PhD Unavailable [phone] Tarik Escalera MD Primary Care Provider [phone] Araceli Pagan MD Unavailable [phone] Soco Shrestha NP Primary Care Provider [phone] Encounter Details Date Type Department Care Team (Late Contact Info) Description 04/22/2018 Ophth Exam [facility] Ophthalmology [address] [place] [address] 1st [place] [address] Aby Vera MD [address] [place] [address] Social History Tobacco Use Types Packs/Day Years Used Date Smoking Tobacco: Every Day Cigarettes Smokeless Tobacco: Never Comments:Trying to quit Alcohol Use Standard Drinks/Week Comments Yes 0 (1 standard drink = 0.6 oz pur e alcohol) Comments No Sex and Gender Information Value Date Recorded Sex Assigned at Not on file Legal Sex Female 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 Gender Identity Female 11/16/2018 3:35 PM CDT Sexual Orientation Straight 11/16/2018 3: 35 PM CDT documented as of this encounter Plan of Treatment Upcoming Encounters Date Type Department Care Team (Late st Contact Info) Description 08/26/2024 9:45 AM CDT Hospital Encounter [facility] GI Lab [address] [place] [address] [place] [address] [address] 08/26/2024 9:45 AM CDT - 08/26/2024 10:45 AM CDT Surgery [facility] [address] [place] [address] [place] [address] [address] COLONOSCOPY Scheduled Procedures Name Priority Associated Diagnoses Date/Ti me COLONOSCOPY Personal history of colon polyps, unspecified 08/26/2024 9:45 AM CDT documented as of this encounter Visit Diagnoses Not on filedocumented in this encounter Additional Health Concerns Infection Onset Date Last Indicated Resolved Time COVID: Suspected 09/12/2021 09/12/2021 09/12/2021 3:23 PM CDT documented as of this encounter Eye Exam Visual Acuity Right eye Left eye Near sc 20/30 ph 20/20 NLP Tonometry (Tonopen, 12:05 PM) Right eye Left eye Pressure 15 23 Pupils Dark Light Shape React APD Right eye 5 3 Round Brisk None Left eye 5 5 Round NR 3+ Visual Espinoza Right eye Left eye Restrictions Total superior nasal deficiency Total superior temporal, inferior temporal, superior nasal, inferior nasal deficiencies Extraocular Movement Right eye Left eye Full Hypotropia, XT Dilation Both eyes: 1.0% Mydriacyl, 2 .5% Phenylephrine @ 12:10 PM External Exam Right eye Left eye External Normal Normal Slit Lamp Exam Right eye Left eye Lids/Lashes Normal Ptosis, hypoglob us Conjunctiva/Sclera White and quiet White and ale et Cornea Clear Clear Anterior Chamber Deep and quiet Deep and quiet Iris Round and reactive Round and luis ctive Lens 1+ NS 1+ NS Vitreous Normal Normal Fundus Exam Right eye Left eye Disc Normal Pallor C/D Ratio 0.4 0.95 Macula Normal Normal Vessels Normal Normal Periphery Normal Normal Care Teams Economics Department Chair Relationship Specialty Start Date End Date Tarik Escalera MD [address] [place] [address] PCP - General Family Practice 07/28/21 01/23/24 Soco Shrestha NP [address] [place] [address] PCP - General Nurse Practitioner 01/24/24 Aft, Suzie Dumont MD PhD [address] [place] [address] Surgeon Surgical Oncology 04/23/20 Araceli Pagan MD [address] [place] [address] Run Lead Obstetrics and Gynecology 07/31/22 Troy Rico MD Consulting Physician Rheumatology 08/12/19 documented as of this encounter
--- OUTSIDE RECORDS SUMMARY | 2024-04-10 09:35 | XMS_ITS | Clinical Summary ---
Author Organization [facility] Address [address] [address] Phone Care Team Providers Care Preparation Supervisor Canning Name Role Phone Soco Shrestha Kelsey ABBASI Primary Care Provider [phone] Allergies Active Allergy Reactions Criticality Noted Date Comments Amoxicillin-Pot Clavulanate Rash 12/21/19 21 Medications citalopram (CELEXA) 20 MG Tablet Take 20 mg by mouth daily. 6 5 Active vitamin D (CHOLECALCIFERO L) 1000 UNIT Tablet Take 2,000 Units by mouth daily. Active metoprolol tartrate (LOPRESSOR) 100 MG Tablet TAKE 1 TABLET BY MOUTH TWICE DAILY 60 Tab 11 7 Active clopidogrel (PLAVIX) 75 MG Tablet Take 1 Tab by mouth daily. 90 Tab 3 7 Active apixaban (ELIQUIS) 2.5 MG Tablet Take 1 Tab by mouth 2 times daily. 60 Tab 1 7 Active Additional Information Patient not taking.Reported on 01/29/2017 amLODIPine (NORVASC) 5 MG Tablet TK 1 T PO QD 1 7 Active olopatadine (PATANOL) 0.1 % Solution Place 1 Drop in affected eye(s) 2 times daily as needed for Allergies. 5 mL 3 7 Active levothyroxine (SYNTHROID) 200 MCG Tablet TAKE 1 TABLET BY MOUTH EVERY NIGHT AT BEDTIME 90 Tab 3 7 Active clopidogrel (PLAVIX) 75 MG Tablet TAKE 1 TABLET BY MOUTH DAILY 90 Tab 3 0 Active naproxen (NAPROSYN) 500 MG Tablet Take 1 Tablet by mouth 2 times daily (with meals). 30 Tablet 1 Active Additional Information Patient not taking.Reported on 12/18/2021 albuterol 108 (90 Base) MCG/ACT Aerosol Solution INHALE 1 TO 2 PUFFS BY MOUTH EVERY 4 TO 6 HOURS NEEDED FOR SHORTNESS OF BREATH OR WHEEZING 2 Active albuterol (ACCUNEB) 0.63 MG/3ML Nebulizer Soln VVN Q 4 TO 6 H PRF BRONCHOSPASM 0 Active alendronate (FOSAMAX) 70 MG Tablet TAKE ONE TABLET BY MOUTH ONCE WEEKLY 2 Active atorvastatin (LIPITOR) 80 MG Tablet Take 80 mg by mouth. 9 Active Empagliflozin (JARDIANCE) 10 MG Tablet TK 1 T PO D 0 Active liothyronine (CYTOMEL) 5 MCG Tablet TAKE 2 TABLETS BY MOUTH TWICE DAILY 2 Active predniSONE (DELTASONE) 10 MG Tablet TAKE 3 TABLETS BY MOUTH EVERY MORNING 2 Active metFORMIN (GLUCOPHAGE-XR) 500 MG TABLET SR 24 HR 1,000 mg. 0 Active levothyroxine (SYNTHROID) 125 MCG Tablet TK 1 T PO QD 9 Active Cholecalciferol 2000 UNIT Capsule Take 2,000 Units by mouth. 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 12/04/2016 Thrush 12/10/2015 Hypothyroid CVA (cerebral infarction) Immunizations Immunization Administration Dates Next Due Influenza Vaccine greater than 3 yrs 12/10/2014 Influenza Vaccine, Quadrivalent, PF 01/04/2017 PNEUMONIA ADULT IM PPSV23 03/20/2016 TD VACCINE 08/11/2015 Tetanus Toxoid, Unspecified Formulation 03/12/19 12 Family History Medical History Relation Name Comments Diabetes Father Congestive Heart Failure Mother Diabetes Mother Osteoporosis Mother Relation Name Status Comments Father Mother Social History Tobacco Use Types Packs/Day Years Used Date Smoking Tobacco: Every Day Cigarettes Smokeless Tobacco: Never Tobacco Cessation:Ready to Q uit: No; Counseling Given: Yes Comments:less than a pack a day Alcohol Use Standard Drinks/Week Comments Yes 0 (1 standard drink = 0.6 oz pur e alcohol) once every few weeks Comments No Sex and Gender Information Value Date Recorded Sex Assigned at Female 02/19/2023 9:38 AM CERTIFIED PHARMACIST ASSISTANT Legal Sex Female 11:27 PM CDT Gender Identity Female 02/19/2023 9:38 AM CERTIFIED PHARMACIST ASSISTANT Sexual Orientation Straight 02/19/2023 9: 38 AM CERTIFIED PHARMACIST ASSISTANT Last Filed Vital Signs Vital Sign Reading Time Taken Comments Blood Pressure 116/69 05/17/2023 4:30 PM CERTIFIED PHARMACIST ASSISTANT Pulse 104 05/17/2023 4:30 PM CERTIFIED PHARMACIST ASSISTANT Temperature 36.3 ??C (97.3 ??F) 05/17/2023 1:04 PM CS T Respiratory Rate 17 05/17/2023 1:04 PM CERTIFIED PHARMACIST ASSISTANT Oxygen Saturation 92% 05/17/2023 4:30 PM CERTIFIED PHARMACIST ASSISTANT Inhaled Oxygen Concentration - - Weight 80.7 kg (178 lb) 05/17/2023 1:04 PM CERTIFIED PHARMACIST ASSISTANT Height 172.7 cm (5' 8 ) 05/17/2023 1:04 PM CERTIFIED PHARMACIST ASSISTANT Body Mass Index 27.06 05/17/2023 1:04 PM CERTIFIED PHARMACIST ASSISTANT Plan of Treatment Health Maintenance Due Date Last Done Comments HPV/Cotest 1991 Cologuard 2011 Immunochemical Fecal Occult Blood 2011 Zoster Immunization (1 of 2) 2011 Pneumococcal Immunization (50+ years) (2 of 2 - PCV) 03/20/2017 03/20/2016 Cervical Cancer Screening (CCS) 12/13/2018 Pap Smear 12/13/2018 12/14/2015 Respiratory Syncytial Virus (RSV) Immunization (Adult) (1 - Risk 60-74 years 1-dose series) 2021 Influenza Immunization (#1) 2023 11/0 11/2022, 02/07/2022, 12/27/2019, Additional history exists SARS-COV-2 Immunization ( season) 2023 11/10/2022, 12/05/2021, 12/07/2020, Additional history exists Mammogram 07/13/2024 07/13/2022, 01/10, 06/18/2017, Additional history exists Colonoscopy 06/06/2033 06/07/2023, 01/18/2016 Colorectal Cancer Screening 06/06/2033 06/07/2023, 01/18/2016 TdaP Immunization Completed 12/13/2015, 08/11/2015 Pneumococcal Immunization Combined Discontinued 03/20/2016 Hepatitis C Virus (HCV) Screening Completed 03/25/2019, 03/25/2019 Hepatitis B Immunization Aged Out No longer eligible based on patient's age to complete this topic Meningococcal Immunization (ACWY) Aged Out No longer eligible based on patient's age to complete this topic Rotavirus Immunization Aged Out No lo nger eligible based on patient's age to complete this topic Procedures Procedure Name Priority Date/Time Associated Diagnosis Comments FLAQUITA MRI BREAST W/WO CONTRAST,BILATERAL Routine 03/09/2016 HM COLONOSCOPY Routine 01/18/2016 PATHOLOGY CYTOLOGY FIRESTOPPER INSTALLER Routine 12/14/2015 from Last 3 Months or Most Recently Relevant to Health Maintenance Results * FLAQUITA MRI BREAST W/WO CONTRAST,BILATERAL (03/09/2016) Anatomical Region Laterality Modality breast Bilateral Other Historical Provider IMHay MR ORDERABLES Final R esult * HM COLONOSCOPY (01/18/2016) Kin Yeboah MD PROCEDURE/MINOR SURGICAL ORDER DARY Final Result * PATHOLOGY CYTOLOGY FIRESTOPPER INSTALLER (12/14/2015) Specimen of unknown material (specimen) Unknown Provider PATHOLOGY/CYTOLOGY ORDERABLES F inal Result from Last 3 Months or Most Recently Relevant to Health Maintenance Insurance [facility] OAP Care Teams Preparation Supervisor Canning Relationship Specialty Start Date End Date Soco Shrestha APRN PCP - General Advanced Practice Nurse 05/17/23
--- OUTSIDE RECORDS SUMMARY | 2024-04-10 09:35 | XMS_ITS | Clinical Summary ---
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 Active Cholecalciferol , Vitamin D3, (VITAMIN D3) 2,000 unit Capsule Take by mouth. Active citalopram (CeleXA) 20 mg tablet Take 20 mg by mouth daily at bedtime. Active clopidogrel (PLAVIX) 75 mg Tablet Take 1 Tablet (75 mg) by mouth daily. 30 Tablet 1 01/10/2017 Active olopatadine (PATANOL) 0.1 % solution INT ONE DROP AEY BID PRF ALLERGIES. 3 01/29/2017 Active amLODIPine (NORVASC) 5 mg tabletIndicatio ns:HTN (hypertension), benign Take 1 Tablet (5 mg) by mouth daily. 30 Tablet 2 03/16/2017 Active aspirin (ECOTRIN EC) 81 mg Tablet, Delayed Release (E.C.) Take 1 Tablet (81 mg) by mouth daily. 05/23/2017 Active atorvastatin (LIPITOR) 40 mg tablet Take 1 tablet by mouth daily. 30 Tablet 2 05/22/2017 4:44 PM CDT 05/23/2017 Active fenofibrate (FENOGLIDE) 120 mg Tablet Take 1 Tablet (120 mg) by mouth daily. 60 Tablet 1 05/22/2017 Active predniSONE (DELTASONE) 20 mg tablet Take 3 Tablets (60 mg) by mouth daily with breakfast. 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 12/04/2016 Amaurosis fugax of right eye Vision loss of right eye Resolved Problems Problem Noted Date Diagnosed Date Resolved Date Major depression 01/08/2017 01/08/2017 Immunizations Immunization Administration Dates Next Due Adacel Vaccine > 7 Yo IM 08/11/2015 INFLUENZA VACCINE QUADRIVALENT 6 MOS UP PF IM Influenza Vaccine Tri Split 4+ Im 12/10/2014 Pneumococcal Polysaccharide Vacc 23-tristan IM SCHIP 03/20/2016 Tetanus Vaccine IM 03/12/2011 Family History Medical History Relation Name Comments Diabetes Father Breast Cancer Mother Diabetes Mother Heart Disease Mother Other Mother migraines Relation Name Status Comments Father Mother Social History Tobacco Use Types Packs/Day Years Used Date Smoking Tobacco: Every Day Cigarettes 0.8 35 Smokeless Tobacco: Never Alcohol Use Standard Drinks/Week Comments Yes 0 (1 standard drink = 0.6 oz pur e alcohol) Comments No Sex and Gender Information Value Date Recorded Sex Assigned at Not on file Legal Sex Female 5:28 PM CDT Gender Identity Not on file Sexual Orientation Not on file Last Filed Vital Signs Vital Sign Reading Time Taken Comments Blood Pressure 163/81 05/22/2017 4:37 PM CDT Pulse 81 05/22/2017 4:37 PM CDT Temperature 36.6 ??C (97.8 ??F) 05/22/2017 4:37 PM CD T Respiratory Rate 16 05/22/2017 4:37 PM CDT Oxygen Saturation 96% 05/22/2017 4:37 PM CDT Inhaled Oxygen Concentration - - Weight 92.9 kg (204 lb 12.9 oz) 018 12:06 AM CDT Height 172.7 cm (5' 8 ) 05/22/2017 12:0 6 AM CDT Body Mass Index 31.14 05/22/2017 12:06 AM CDT Plan of Treatment Health Maintenance Due Date Last Done Comments CERVICAL CANCER SCREENING 1991 COLORECTAL SCREENING 2006 Colorectal Cancer Screening 2006 FIT-DNA Q 3 years 2006 FIT/FOBT Q 1 year 2006 Flex Sig/CT Colonography Q 5 years 2006 ZOSTER VACCINE (1 of 2) 2011 BREAST CANCER SCREENING 03/09/2017 03/09/20 16 (Previously completed), 11/04/2015 (Previously completed) INFLUENZA VACCINE (#1) 2023 3, 01/04/2017, 01/18/2015, Additional history exists DTAP/TDAP/TD VACCINES (2 - T d or Tdap) 08/10/2025 08/11/2015 RSV VACCINE (60+ or ) (1 - 1-dose 75+ series) 2036 Insurance besomebody. O OPEN ACCESS RX [facility] [employer] Advance Directives For more information, please contact: [phone] * Full Code (Latest Code Status on File) Date Activated Date Inactivated Comments 05/21/2017 12:25 PM 05/22/2017 11:07 PM * Full Code Date Activated Date Inactivated Comments 01/08/2017 10:41 PM 01/10/2017 5:35 PM Care Teams Tunnel Form Placing Supervisor Relationship Specialty Start Date End Date Kin Jason DO NO ADDRESS ON FILE PCP - General Family Practice 05/21/17
--- OUTSIDE RECORDS SUMMARY | 2024-04-10 09:35 | XMS_ITS | Encounter Summary ---
Author Organization [facility] Address [address] [facility] [address] [place] [address] Phone Care Team Providers Care City Bailiff Name Role Phone Aft, Suzie Dumont MD PhD Unavailable [phone] Tarik Escalera MD Primary Care Provider [phone] Araceli Pagan MD Unavailable [phone] Soco Shrestha NP Primary Care Provider [phone] Reason for Referral * Diagnostic Imaging (Routine) - Closed Specialty Diagnoses / Procedures Referred By Mar t Referred To Contact Diagnoses Optic atrophy of both eyes Central retinal artery occlusion, left Lesion of right eyelid Ischemic optic neuropathy, right Pseudopapilledema of optic disc, 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 Branch retinal artery occlusion, right eye Vasculitis (CMS/HCC) (HCC) Procedures OCT, Retina - OU - Both Eyes Nicholas Orellana MD [address] [facility] [address] [place] [address] Phone: tel: fax: [facility] (All Locations) Referral ID Status Reason Start Date Expiration Date Visits Re quested Visits Authorized [id number] Closed 04/18/2023 05/17/2024 1 1 P SHOOTER * Diagnostic Imaging (Routine) - Closed Specialty Diagnoses / Procedures Referred By Contac t Referred To Contact Diagnoses Optic atrophy of both eyes Central retinal artery occlusion, left Lesion of right eyelid Ischemic optic neuropathy, right Pseudopapilledema of optic disc, 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 Branch retinal artery occlusion, right eye Vasculitis (CMS/HCC) (HCC) Procedures OCT, Optic Nerve - [place] [address] [place] [address] Phone: tel: fax: [facility] (All Locations) Referral ID Status Reason Start Date Expiration Date Visits Re quested Visits Authorized [id number] Closed 04/18/2023 05/17/2024 1 1 P SHOOTER * Diagnostic Imaging (Routine) - Closed Specialty Diagnoses / Procedures Referred By Mar mooney Referred To Contact Diagnoses Optic atrophy of both eyes Central retinal artery occlusion, left Lesion of right eyelid Ischemic optic neuropathy, right Pseudopapilledema of optic disc, 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 Branch retinal artery occlusion, right eye Vasculitis (CMS/HCC) ([facility]) Procedures Zuluaga Visual Field - OU - Both Eyes Nicholas Orellana MD [address] [place] [address] Phone: tel: fax: [facility] (All Locations) Referral ID Status Reason Start Date Expiration Date Visits Re quested Visits Authorized [id number] Closed 04/18/2023 05/17/2024 1 1 P SHOOTER Encounter Details Date Type Department Care Team (Late st Contact Info) Description 04/18/2023 Orders Only [facility] Ophthalmology [address] [place] [address] Health 6th [place] [id number] Nicholas Orellana MD [address] [place] [address] Optic atrophy of both eyes (Primary Dx); Central retinal artery occlusion, left; Lesion of right eyelid; Ischemic optic neuropathy, right; Pseudopapilledema of optic disc, unspecified laterality; Blindness of left eye with low vision in contralateral eye; Branch retinal artery occlusion, right eye; Vasculitis (CMS/HCC) (HCC) Social History Tobacco Use Types Packs/Day Years Used Date Smoking Tobacco: Every Day Cigarettes Smokeless Tobacco: Never Comments:Trying to quit Alcohol Use Standard Drinks/Week Comments Not Currently 0 (1 standard drink = 0.6 oz pur e alcohol) PHQ-2 Answer Date Recorded PHQ-2 Score 0 11/02/2018 Personal Safety Answer Date Recorded Getting School Help Needed Denies 04/18 Comments No Sex and Gender Information Value Date Recorded Sex Assigned at Not on file Legal Sex Female 1:45 AM STUMP SHOOTER Gender Identity Female 11/16/2018 3:35 PM CDT [...] [facility] [address] [place] [address] [place] [address] [address] 08/26/2024 9:45 AM CDT - 08/26/2024 10:45 AM CDT Surgery [facility] [address] [place] [address] [place] [address] [address] COLONOSCOPY Scheduled Procedures Name Priority Associated Diagnoses Date/Ti me COLONOSCOPY Personal history of colon polyps, unspecified 08/26/2024 9:45 AM CDT documented as of this encounter Procedures Procedure Name Priority Date/Time Associated Diagnosis Comments ZULUAGA VISUAL FIELD - OU - BOTH EYES Routine 08/13/2023 1:55 PM CDT Optic atrophy of both eyes Central retinal artery occlusion, left Lesion of right eyelid Ischemic optic neuropathy, right Pseudopapilledema of optic disc, 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 Branch retinal artery occlusion, right eye Vasculitis (CMS/HCC) (HCC) documented in this encounter Results * OCT, Retina - OU - Both Eyes (08/13/2023 1:57 PM CDT) Central Macular Thickness OD 255 micrometers CONTINUUM Anatomical Region Laterality Modality Head Other Narrative 08/14/2023 10:09 AM CDT Right Eye Quality was good. Scan locations included subfoveal. Findings include normal foveal contour. Macular thickness was 255 micrometers. Left Eye Quality was poor. Scan locations included subfoveal. Findings include normal foveal contour. Notes OD: 72 OS: Normal macular and ganglion cell layer (GCL) thickness OD with focal inferior ganglion cell layer thinning OD. ??Stable. ?? No reliable images for the left eye. Nicholas Orellana MD OPHTH TOMOGRAPHY Fin al Result * OCT, Optic Nerve - OU - Both Eyes (08/13/2023 1:56 PM CDT) RNFL OD 72 micrometers CONTINUUM Anatomical Region Laterality Modality Head Other Narrative 08/14/2023 10:08 AM CDT Right Eye Reliability was good. Average RNFL thickness 72 micrometers. Left Eye Reliability was poor. Notes Mild, diffuse retinal nerve fiber layer thinning OD with focal inferior thinning. ??Stable. ?? No reliable images for the left eye. Nicholas Orellana MD OPHTH TOMOGRAPHY Fin al Result * Zuluaga Visual Field - OU - Both Eyes (08/13/2023 1:55 PM CDT) Pattern Deviation OD 16.80 db CONTINUUM Mean Deviation OD -11.11 db CONTINUUM Anatomical Region Laterality Modality Head Other Narrative 08/14/2023 10:07 AM CDT Right Eye Fixation was good. Cooperation was good. Reliability was good. Progression has been stable. Foveal threshold was normal. Mean Deviation was -11.11 db. Pattern Deviation was 16.80 db. Notes Dense superior altitudinal defect OD. ??Mildly worsened compared to prior visual field but unchanged compared to Zuluaga visual field performed 09/2022. Nicholas Orellana MD OPHTH VISUAL FIELD F inal Result documented in this encounter Visit Diagnoses Diagnosis Optic atrophy of both eyes- Primary Unspecified optic atrophy Central retinal artery occlusion, left Lesion of right eyelid Ischemic optic neuropathy, right Pseudopapilledema of optic disc, 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 Branch retinal artery occlusion, right eye Arterial branch occlusion of retina Vasculitis (CMS/HCC) (HCC) Unspecified arteritis Optic atrophy of both eyes Unspecified optic atrophy Central retinal artery occlusion, left Ischemic optic neuropathy, 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 Branch retinal artery occlusion, right eye Arterial branch occlusion of retina Vasculitis (CMS/HCC) (HCC) Unspecified arteritis Personal history of colon polyps, unspecified documented in this encounter Care Teams City Bailiff Relationship Specialty Start Date End Date Tarik Escalera MD [address] [place] [address] PCP - General Family Practice 07/28/21 01/23/24 Soco Shrestha NP [address] [place] [address] PCP - General Nurse Practitioner 01/24/24 MedardotSuzie MD PhD [address] [place] [address] Surgeon Surgical Oncology 04/23/20 Araceli Pagan MD [address] [place] [address] Compressor Mechanic Bus Obstetrics and Gynecology 07/31/22 Troy Rico MD Consulting Physician Rheumatology 08/12/19 documented as of this encounter
--- OUTSIDE RECORDS SUMMARY | 2024-04-10 09:35 | XMS_ITS | Encounter Summary ---
Author Organization [facility] - [facility] Address [address] [place] [address] [place] [address] Care Team Providers Care New Car Make Ready Worker Name Role Phone Kin Jason DO Primary Care Provider [phone] Non-Staff, Provider Primary Care Provider Aviva Koenig MD Primary Care Provider [phone] Encounter Details Date Type Department Care Team (Late st Contact Info) Description 08/17/2018 Abstract [facility] CONVERSION [address] [place] [address] , Generic Conversion, Social History Tobacco Use Types Packs/Day Years Used Date Smoking Tobacco: Every Day Cigarettes 0.3 30 Smokeless Tobacco: Never Alcohol Use Standard Drinks/Week Comments No 0 (1 standard drink = 0.6 oz pur e alcohol) Comments No Sex and Gender Information Value Date Recorded Sex Assigned at Female 09/03/2023 3:10 PM CDT Legal Sex Female 11:22 AM CDT Gender Identity Female 05/01/2022 8:57 AM [employer]ORD MAKER Sexual Orientation Straight 05/01/2022 8: 57 AM [employer]ORD MAKER documented as of this encounter Plan of Treatment Not on file documented as of this encounter Visit Diagnoses Not on filedocumented in this encounter Care Teams New Car Make Ready Worker Relationship Specialty Start Date End Date Kin Jason DO PCP - General FAMILY PRACTICE 4/1/18 3/8/22 Non-Staff, Provider PCP - General 05/18/21 10/10/22 Aviva Rico MD [address] [place] [id number] PCP - General RHEUMATOLOGY 10/11/22 documented as of this encounter
--- OUTSIDE RECORDS SUMMARY | 2024-04-10 09:35 | XMS_ITS | Clinical Summary ---
Author Organization [facility] Address [address] [place] [address] Care Team Providers Care Software Test Engineer Name Role Phone ToddtriceKin aguirre Primary Care Provider [phone] Source Comments [facility],non-owned Affiliates and Associated Physician Practices is amultiple site organization consisting of ambulatory clinics and hospital sitesin [place], [place], [place] and [place]. This disclosure is being madepursuant to the Care Everywhere program and may not contain all information available regarding this patient. Last updated 17.[facility] Allergies Active Allergy Reactions Criticality Noted Date [...] PPSV23 03/20/2016 TDAP (7yrs+) 08/11/2015 TETANUS 03/12/2011 Family History Medical History Relation Name Comments Alzheimer's Disease Father Diabetes - Type 2 Father CAD (Coronary Artery Disease) Mother Diabetes - Type 2 Mother Hypertension Mother Migraine Mother Migraine Sister Thyroid Disease Sister Hypothyroid Relation Name Status Comments Father Mother Sister Social History Tobacco Use Types Packs/Day Years [...] Orientation Not on file Plan of Treatment Health Maintenance Due Date Last Done Comments LEXIE (AGES 45-75) - COLON CA SCREENING [address] COLONOGRAPHY - COLON CA SCREENING 1961 FIT - COLON CA SCREENING 1961 FLEX SIG - COLON CA SCREENING 1961 HIV SCREENING 1976 HEPATITIS C SCREENING 05/03/1979 PAP SMEAR 05/05/2001 05/05/1998 ZOSTER VACCINE (1 of 2) 2011 PNEUMOCOCCAL VACCINE 50+ (2 of 2 - PCV) 03/20/2017 03/20/2016 PNEUMOCOCCAL VACCINE (2 of 2 - PCV) 03/20/2017 03/20/2016 COVID-19 VACCINE (1 - 2023- season) 2023 INFLUENZA VACCINE (#1) 2023 2, 12/27/2019, 02/10/2018, Additional history exists DEPRESSION SCREENING 03/12/2024 MAMMOGRAM 07/23/2025 07/24/2023, 07/24/2023 DTAP/TDAP/TD VACCINES (3 - Td or Tdap) 08/10/2025 08/11/2015, 03/12/2011 COLONOSCOPY - COLON CA SCREENING 06/06/2033 06/07/2023 Colorectal Cancer Screening 06/06/2033 Respiratory Syncytial Virus (RSV) Vaccine Pt: or over 60 yrs (1 - 1-dose 75+ series) 2036 HEPATITIS B VACCINE Aged Out No longe r eligible based on patient's age to complete this topic HIB VACCINE Aged Out No longer eligi ble based on patient's age to complete this topic HPV VACCINE Aged Out No longer eligi ble based on patient's age to complete this topic MENINGOCOCCAL (Group B) VACCINE Aged Out No longer eligible based on patient's age to complete this topic MENINGOCOCCAL VACCINE Aged Out No cindy erica eligible based on patient's age to complete this topic Procedures Procedure Name Priority Date/Time Associated Diagnosis Comments CYTOLOGY SMEAR PAP TIMOTHY 05/05/1998 10 :56 AM HOB GRINDER from Last 3 Months or Most Recently Relevant to Health Maintenance Results * CYTOLOGY SMEAR PAP (05/05/1998 10:56 AM HOB GRINDER) Result CASE NUMBER [id number] Comment: ORDERING PHYSICIAN ??MARK ANDRADE SPECIMEN TYPE ?PAP Smear Date ? 05/05/1998 Procedure ?Cervical/Endocervical, 1 smear received Specimen Adequacy ?Satisfactory for Evaluation Categorization ? Benign Cellular Changes Comment ?Predominance of Coccobacilli Consistent with Shift in Vaginal Ree. Snomed. ?05/13/1998 1434 <1> Salvage Winder ? Lindsey Ayala(ASCP) PAP Footnote ? The PAP smear is only a screening procedure to aid in the detection of cervical cancer and its precursors. ??It is not a diagnostic procedure and should not be used as the sole means to detect cervical cancer. ??Both false negative and false positive results have been experienced. MISCELLANEOUS SAMPLES / Unknown 05/05/1998 10:56 AM HOB GRINDER 05/11/1998 10:56 AM HOB GRINDER Historical Provider LAB - PATHOLOGY/C YTOLOGY ORDERABLES from Last 3 Months or Most Recently Relevant to Health Maintenance Care Teams Software Test Engineer Relationship Specialty Start Date End Date Kin Jason DO [address] [place] [address] PCP - General 06/25/17
--- OUTSIDE RECORDS SUMMARY | 2024-04-10 09:35 | XMS_ITS | Clinical Summary ---
Author Organization [facility] Address [address] [place] [address] Care Team Providers Care Advanced Practice Professional Name Role Phone Aft, Suzie Dumont MD PhD Unavailable [phone] Yelitza Gaitan MD Unavailable Soco Shrestha NP Primary Care Provider Allergies Active Allergy Reactions Criticality Noted Date [...] MOUTH AND SPIT AFTER EACH USE 04/05/19 Active insulin glargine (LANTUS) 100 unit/mL (3 mL) pen for injection Inject 12 Units under the skin 03/12/19 Active BD Ultra-Fine Mini Pen Needle 31 gauge x 3/16 needle USE DIRECTED PABLO ESPINOSA IN THE EVENING 03/02/20 23 Active traZODone (DESYREL) 50 mg tablet TAKE 1 TABLET BY MOUTH EVERY DAY AT BEDTIME NEEDED FOR INSOMNIA 03/14/19 24 Active levothyroxine (SYNTHROID) 112 mcg tablet Take 1 tablet (112 mcg total) by mouth rehabilitation services counselor before breakfast 04/17/19 24 Active lisinopriL (PRINIVIL,ZESTR [...] predniSONE (DELTASONE) 10 mg tabletIndicatio ns:Vasculitis (CMS/HCC) (HCC) Take 2 tabs daily with one 5mg [...] 30 tablet 3 12/04/19 24 025 Discontinued(R eoemirer) secukinumab (Cosentyx Pen) pen injectorIndicat ions:Vasculitis (CMS/HCC) [...] 08/16/2023 Assessment & Plan (04/03/2024 10:59 AM BUTTON TUFTING MACHINE OPERATOR): FA repeated today. No signs of macular edema or NV. No vasculitis. Is coming off of p.o. prednisone for her giant cell arteritis. As I see no evidence for recurrent vasculitis, I think it is safe to continue weaning her from this medication. I have asked her to return to see us in roughly 8 weeks' time Assessment & Plan (03/19/2024 9:02 AM BUTTON TUFTING MACHINE OPERATOR): Follows w/ Dr. Ulloa Keep appt 04/03 Assessment & Plan (02/21/2024 12:32 PM BUTTON TUFTING MACHINE OPERATOR): Vitreal field was performed today, it is [...] time. Assessment & Plan (02/20/2024 11:10 AM BUTTON TUFTING MACHINE OPERATOR): History of giant cell arteritis, is using [...] - she is seeing the doctors at [facility]. Personal history of colonic polyps 06/14/2023 Esophagitis [...] - Monitor; repeat examination 4 months Vasculitis (CMS/HCC) 07/31/2019 Overview (07/31/2019): See detailed ophthalmic history in Dr. Santy Verma's [facility] notes dated 03/14/19 and 05/14/19, viewable in [facility] under Encounters and scanned under Media Assessment & Plan (11/18/2019 1:28 PM CDT): Patient was seen at [facility] by neuro-purchasing department clerk Dr. Santy Verma on 03/14/19 and 05/14/19. Per review of these notes (viewable in Encounters in [facility] and scanned into Media ), Dr. Verma [...] taper schedule and followed up with her braider operator Dr. Rico, who started Actemra on 06/20/19. [...] PM CDT): - Patient was seen at [facility] by neuro-purchasing department clerk Dr. Santy Verma on 03/14/19 and 05/14/19. Per review of these notes (viewable in Encounters in [facility] and scanned into Media ), Dr. Verma [...] (see HPI) and followed up with her braider operator Dr. Rico, who started Actemra on 06/20/19. [...] recommend that the patient establish with Neuro- purchasing department clerk Dr. Nicolette Mcnally for long-term follow-up. She wishes to transition care back here to [place], since it is impractical for her to follow regularly with Dr. Verma at [place]. - Discussed strict return precautions, including worsening vision, TVOs, pain. Gave patient near card and Amsler grid so that she can check her vision at home. 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 BCVA 20/30 [...] up. Assessment & Plan (05/08/2018 10:20 AM BUTTON TUFTING MACHINE OPERATOR): Degree of vision loss and optic nerve [...] Hypothyroidism Hypercholesterolemia Overview (08/21/2019): High cholesterol Hypertension Encounters Date Type Department Care Team Description 04/03/2024 10:00 AM BUTTON TUFTING MACHINE OPERATOR Office Visit [facility] Ophthalmology [address] [place] [phone] Franc Ulloa MD Type 2 diabetes mellitus with right eye affected by mild nonproliferative retinopathy without macular edema, with long-term current use of insulin (HCC) (Primary Dx) 03/24/2024 Telephone [facility] Gastroenterology at [address] [place] [address] Zena Gonzalez MD 03/19/2024 8:30 AM BUTTON TUFTING MACHINE OPERATOR Office Visit [facility] Ophthalmology [address] [place] [address], [address] [place] [address] Kaylee Clement, OD Mixed type age-related cataract, both eyes (Primary Dx); Type 2 diabetes mellitus with right eye affected by mild nonproliferative retinopathy without macular edema, with long-term current use of insulin (HCC) 02/29/2024 Telephone [facility] Ophthalmology [address] [place] [phone] Nicholas Orellana MD 02/21/2024 3:30 PM BUTTON TUFTING MACHINE OPERATOR Office Visit [facility] Ophthalmology [address] [place] [phone] Franc Ulloa MD Type 2 diabetes mellitus with right eye affected by mild nonproliferative retinopathy without macular edema, with long-term current use of insulin (HCC) (Primary Dx) 02/21/2024 12:00 PM BUTTON TUFTING MACHINE OPERATOR Imaging Exam [facility] Ophthalmology [address] [place] [phone] 02/21/2024 11:00 AM BUTTON TUFTING MACHINE OPERATOR Office Visit [facility] [address] [facility] Advanced Medicine 11th [place] [address] [place] [phone] Craig Arroyo MD Dysphonia (Primary Dx); Chronic fungal laryngitis; Sicca laryngitis 02/20/2024 9:00 AM BUTTON TUFTING MACHINE OPERATOR Office Visit [facility] Internal Medicine [address] [place] [phone] Noman Salgado MD PhD Type 2 diabetes mellitus with other specified complication, with long-term current use of insulin (HCC) (Primary Dx) 02/20/2024 8:40 AM BUTTON TUFTING MACHINE OPERATOR Office Visit [facility] Ophthalmology [address] [facility] 6th [place] [phone] Franc Ulloa MD Type 2 diabetes mellitus with right eye affected by mild nonproliferative retinopathy without macular edema, with long-term current use of insulin (HCC) (Primary Dx) 02/12/2024 Telephone [facility] Ophthalmology [address] [place] [address] Nicholas Orellana MD Return Call/Update 02/12/2024 Telephone [facility] Gastroenterology at [facility] [address] [facility] [address] [place] [address] Zena Gonzalez MD 02/04/2024 11:07 AM BUTTON TUFTING MACHINE OPERATOR - 02/04/2024 11:59 PM BUTTON TUFTING MACHINE OPERATOR Hospital Encounter [facility] Imaging and Radiology [address] [place], [place] [phone] Zena Gonzalez MD Liver lesion; Lesion of pancreas Discharge Disposition: Discharge to home or self care 01/31/2024 11:20 AM BUTTON TUFTING MACHINE OPERATOR Office Visit [facility] ([facility]) - [facility] ENT [address] [facility] Advanced Medicine [address]th [place] [address] [place] [phone] Craig Arroyo MD Dysphonia (Primary Dx); Laryngeal edema; Laryngitis; Chronic fungal laryngitis from Last 3 Months Immunizations Name Administration Dates Next Due Influenza, Quadrivalent, Kristen l Culture-based MDCK, Antibiotic Free, Intramuscular 02/10/2018 Influenza, Quadrivalent, Rec ombinant, Egg Free, Preservative Free, Intramuscular 02/07/2022 Influenza, Quadrivalent, Spl it, Preservative Free, Intramuscular 12/27/2019,01/04/2017 Influenza, Trivalent, IM (MDV) 12/10/2014,2012 Influenza, Trivalent, Preser vative Free, Intramuscular 01/18/2015 Pneumococcal Polysaccharide PPV23 03/20/2016 Td, adsorbed 08/11/2015,03/12/2011,03/12/2011 Tdap 12/13/2015,08/11/2015 Tetanus Toxoid, Unspecified 03/12/2011 Surgical History Surgery Date Site/Laterality Comments OTHER SURGICAL HISTORY 03/12/1997 - 03/11/1998 Hiatal hernia: Aguila fundoplication OTHER SURGICAL HISTORY 03/12/1971 - 03/11/1972 Tonsillitis: T&A OTHER SURGICAL HISTORY 03/12/2001 - 03/11/2002 Sterilization and miscarriage: BTL and D&C OTHER SURGICAL HISTORY 03/12/2009 - 03/11/2010 Menorrhagia: endometrial ablation: NovaSure OTHER SURGICAL HISTORY 03/12/1995 - 03/11/1996 Miscarriage: D&C OTHER SURGICAL HISTORY 03/12/2012 - 03/11/2013 Atypical lobular breast hyperplasia, and ruptured cysts: excision; followed by Dr. Angulo OTHER SURGICAL HISTORY 03/12/2010 - 03/11/2011 KRIS I on biopsy: HPV (-) pap 2010 OTHER SURGICAL HISTORY KRIS I on biopsy: following paps closely OTHER SURGICAL HISTORY 03/12/2014 - 03/11/2015 Breast cancer: lumpectomy,and other f/u surgeries US UNLISTED PROCEDURE LYMPH SYSTEM 02/20/2014 N/A SECTION Medical History Medical History Date Comments Cerebrovascular accident (CVA) (HCC) 2004 Stroke Hypercholesterolemia High choles terol Hx Other Medical 1997 Hiatal hernia Tonsillitis 1972 Tonsillitis Hx Other Medical 2011 Hypothyroidism, primary Hx Other Medical 2001 Sterilization a nd miscarriage Hx Other Medical 2009 Menorrhagia; Ou tcome: successful Hx Other Medical 1995 Miscarriage Hx Other Medical 2012 Atypical lobula r breast hyperplasia, and ruptured Hx Other Medical 2009 KRIS I on biopsy ; Outcome: normal paps since then Hx Other Medical 2012 KRIS I on biopsy Hx Other Medical 2013 Breast cancer Central retinal artery occlusion, left 8 Branch retinal artery occlus ion, right eye 08/15/2017 Amaurosis fugax of right eye 06/05/2018 Blindness of left eye 01/08/2017 Conjunctivitis of both eyes 01/19/2017 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 12/04/2016 Visual disturbance 01/08/2017 Hypertension Thyroid disease 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 Hypothyroidism 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 Cancer (CMS/HCC) (HCC) breast ca ncer with lumpectomy L side Family History Medical History Relation Name Comments Diabetes Father Diabetes; Hyperlipidemia Father Hyperlipidemi a; Breast cancer Mother Cancer, breast ; COPD Mother COPD; Coronary artery disease Mother Marylou nary artery disease; Diabetes Mother Heart failure Mother Osteoporosis Mother Hypertension Mother's Brother Hypertensio n; Hypertension Mother's Sister 1 Hypertensi on; Heart attack Mother's Sister 2 Myocardial infarction; Breast cancer Mother's Sister 3 Cancer, b reast; Heart attack Sister Myocardial infa rction; Relation Name Status Comments Father Mother Mother's Brother Mother's Sister 1 Mother's Sister 2 Mother's Sister 3 Sister Social History Tobacco Use Types Packs/Day [...] on file Legal Sex Female 1:45 AM BUTTON TUFTING MACHINE OPERATOR Gender Identity Female 11/16/2018 3:35 PM CDT Sexual Orientation Straight 11/16/2018 3: 35 PM CDT Occupation Industry Job Start Date Job End Date Not on file Not on file Not on file Not on file Obstetrics History Para Term AB IAB SAB Ectopic Multiple Livin g Live Births 4 1 1 0 3 1 Date Outcome GA Total Labor Labor/2nd/3rd Weight Sex Type Anes PTL Nakita A1 A5 Name Clin Term AB AB AB Last Filed Vital Signs Vital Sign Reading Time Taken Comments Blood Pressure 142/67 02/20/2024 8:25 AM BUTTON TUFTING MACHINE OPERATOR Pulse 86 02/20/2024 8:25 AM BUTTON TUFTING MACHINE OPERATOR Temperature 36.7 ??C (98 ??F) 10/07/2023 1:41 PM CDT Respiratory Rate 17 10/07/2023 4:48 PM CDT Oxygen Saturation 98% 10/07/2023 6:30 PM CDT Inhaled Oxygen Concentration - - Weight 83.5 kg (184 lb) 02/21/2024 10:58 AM BUTTON TUFTING MACHINE OPERATOR Height 170.2 cm (5' 7 ) 02/21/2024 10:58 AM BUTTON TUFTING MACHINE OPERATOR Body Mass Index 28.82 02/21/2024 10:58 AM BUTTON TUFTING MACHINE OPERATOR Plan of Treatment Upcoming Encounters Date Type Department Care Team (Late st Contact Info) Description 08/26/2024 9:45 AM CDT Hospital Encounter [facility] GI Lab [address] [place] [address] [place] [id number] [phone] 08/26/2024 9:45 AM CDT - 08/26/2024 10:45 AM CDT Surgery [facility] [address] [place] [address] [place] [id number] [address] COLONOSCOPY Scheduled Procedures Name Priority Associated Diagnoses Date/Ti me COLONOSCOPY Personal history of colon polyps, unspecified 08/26/2024 9:45 AM CDT Health Maintenance Due Date Last Done Comments Albumin Creatinine Ratio, Urine 1960 Foot Exam 1960 Zoster Vaccine (1 of 2) 2011 Pneumococcal vaccine <65 (2 of 2 - PCV) 03/20/2017 03/20/2016 Hemoglobin A1C 03/18/2019 09/15/2018 Depression Screening 09/15/2019 09/14/2018, 09/15/19 19 Lipid Panel 09/16/2019 09/15/2018, 05/10, 01/09/2017 Cervical Cancer Screening 03/19/20212020, 12/14/2015, 12/14/2015, Additional history exists Covid-19 Vaccine (2023-2 5 season) 2023 11/10/2022, 12/05/2021, 12/07/2020, Additional history exists Influenza Vaccine (#1) 2023 , 12/27/2019, 02/10/2018, Additional history exists Regular Well Visit/Exam 18-64 07/18/2024, 07/13/2022, 03/18/2020, Additional history exists Breast Cancer Screening-Mammogram 07/23/2024 07/24/2023, 07/13/2022, 07/13/2022, Additional history exists eGFR 10/21/2024 10/22/2023, 0308/2023, 04/23/2023, Additional history exists Dilated Eye Exam 04/03/2025 04/03/2024, 01/2024, 08/16/2023, Additional history exists DTaP/Tdap/Td Vaccine (3 - Td or Tdap) 12/12/2025 12/13/2015, 08/11/2015, 08/11/2015, Additional history exists Colon Cancer Screening-Colonoscopy 08/20/2033 08/21/2023, 06/07/2023, 01/18/2016, Additional history exists Hepatitis B Screening Completed 04/23/2023 Hepatitis C Screening Completed 04/23/2023 Colon Cancer Screening-CT Colonography Discontinued 08/21/2023, 06/07/2023, 01/18/2016, Additional history exists Colon Cancer Screening-DNA Stool Discontinued 08/21/2023, 06/07/2023, 01/18/2016, Additional history exists Colon Cancer Screening-FIT Discontinued 08/20, 06/07/2023, 01/18/2016, Additional history exists Colon Cancer Screening-Sigmoidoscopy Discontinued 08/21/2023, 06/07/2023, 01/18/2016, Additional history exists Procedures Procedure Name Priority Date/Time Associated Diagnosis Comments FLUORESCEIN ANGIOGRAPHY, OU TRANSIT OD - OU - BOTH EYES Routine 04/03/2024 10:59 AM BUTTON TUFTING MACHINE OPERATOR Type 2 diabetes mellitus with right eye affected by mild nonproliferative retinopathy without macular edema, with long-term current use of insulin (HCC) ZULUAGA VISUAL FIELD - OD - RIGHT EYE Routine 02/21/2024 11:53 AM BUTTON TUFTING MACHINE OPERATOR Optic atrophy of both eyes FLUORESCEIN ANGIOGRAPHY, OU TRANSIT OD - OU - BOTH EYES Routine 02/20/2024 11:05 AM BUTTON TUFTING MACHINE OPERATOR Type 2 diabetes mellitus with right eye affected by mild nonproliferative retinopathy without macular edema, with long-term current use of insulin (HCC) OCT, RETINA - OU - BOTH EYES Routine 02/20/2024 11:04 AM BUTTON TUFTING MACHINE OPERATOR Type 2 diabetes mellitus with right eye affected by mild nonproliferative retinopathy without macular edema, with long-term current use of insulin (HCC) MRI ABDOMEN MRCP W WO CONTRAST Routine 02/04/2024 12:48 PM BUTTON TUFTING MACHINE OPERATOR Liver lesion Lesion of pancreas EGFR Routine 10/22/2023 2:11 PM CDT Vasculitis (CMS/HCC) (HCC) Psoriatic arthritis (HCC) COLONOSCOPY 08/21/2023 10:10 AM CDT SCREENING MAMMOGRAM BILATERAL W FRED Schedule Routine, Read Routine (OP Routine) 07/24/2023 9:16 AM CDT History of breast cancer Encounter for screening mammogram for breast cancer HEPATITIS C ANTIBODY Routine 04/23/2023 12:50 PM BUTTON TUFTING MACHINE OPERATOR Elevated liver enzymes PAP WITH REFLEX TO HIGH RISK HPV Routine 03/19/2020 9:32 AM BUTTON TUFTING MACHINE OPERATOR HEMOGLOBIN A1C Routine 09/15/2018 3:35 AM CDT LIPID PANEL Routine 09/15/2018 3:35 AM CDT from Last 3 Months or Most Recently Relevant to Health Maintenance Results * Fluorescein Angiography, OU Transit OD (04/03/2024 10:59 AM BUTTON TUFTING MACHINE OPERATOR) Anatomical Region Laterality Modality Head Fundus Photograp hy Narrative 04/03/2024 10:59 AM BUTTON TUFTING MACHINE OPERATOR Time Out Informed consent was obtained after [...] macular edema. No disc hyperfluorescence. No NV.. Result [facility] Franc Ulloa MD OPH PHOTOGRAPHY Final Re sult * Zuluaga Visual Field - OD - Right Eye (02/21/2024 11:53 AM BUTTON TUFTING MACHINE OPERATOR) Anatomical Region Laterality Modality Head Other Narrative 02/21/2024 12:31 PM BUTTON TUFTING MACHINE OPERATOR Fixation was good. Cooperation was good. Reliability was good. Progression has been stable. Foveal threshold was normal. Notes Superior altitudinal defect OD, stable.- no changes from 10/2022 Result [facility] Franc Ulloa MD OPH VISUAL FIELD Final R esult * Fluorescein Angiography, OU Transit OD (02/20/2024 11:05 AM BUTTON TUFTING MACHINE OPERATOR) Anatomical Region Laterality Modality Head Fundus Photograp hy Narrative 02/20/2024 11:05 AM BUTTON TUFTING MACHINE OPERATOR Time Out Informed consent was obtained after [...] choroidal non perfusion either. Franc Ulloa MD OPHTH PHOTOGRAPHY Final Re sult * OCT, Retina - OU - Both Eyes (02/20/2024 11:04 AM BUTTON TUFTING MACHINE OPERATOR) Anatomical Region Laterality Modality Head Optical Coherenc e Tomography Narrative 02/20/2024 11:04 AM BUTTON TUFTING MACHINE OPERATOR Right Eye Quality was good. Scan locations included subfoveal. Progression has been stable. Findings include normal foveal contour. Left Eye Quality was good. Scan locations included subfoveal. Progression has been stable. Findings include abnormal foveal contour. Notes Normal macular thickness OD, stable. ?? Severe inner retinal thinning OS, stable. us Franc Ulloa MD OPHTH TOMOGRAPHY Final Res ult * MRI Abdomen MRCP W WO Contrast (02/04/2024 12:48 PM BUTTON TUFTING MACHINE OPERATOR) Anatomical Region Laterality Modality Body N/A Magnetic Resonan ce 02/04/2024 1:33 PM BUTTON TUFTING MACHINE OPERATOR Impressions 02/04/2024 1:33 PM BUTTON TUFTING MACHINE OPERATOR 1. ??No suspicious liver lesions. 2. 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 3. 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 Electronically signed by: Madhav Chavez M.D. Narrative 02/04/2024 1:33 PM BUTTON TUFTING MACHINE OPERATOR EXAMINATION: 1. MAGNETIC RESONANCE IMAGING OF THE [...] 43 image 15). ??This was seen in 2014 and has been slowly growing in size. [...] 43 image 15). This was seen in 2014 and has been slowly growing in size. [...] of Race in Diagnosing Kidney Disease, JASN 2020). The CKD-EPI equation should not be used for patients with unstable renal function and has not been validated in children and those over 70. Current interpretive data was last reviewed 2021. Blood 10/22/2023 2:11 PM CDT 10/22/2023 2:28 PM CDT us Noman Salgado MD PhD LAB [place]LOOD [place] [address] [address]as Department [place] [address] * Colonoscopy (08/21/2023 10:10 AM CDT) Anatomical Region Laterality Modality Other Narrative Procedure Note Zena Gonzalez MD - 08/21/2023 10:10 AM CDT [facility] Endoscopy Lab Patient Name: Ivonne Bacon Procedure Date: 08/21/2023 10:10 AM Date of : 1960 Admit Type: Outpatient Age: 63 Gender: Female Note Status: Finalized Attending MD: Zena Gonzalez M.D. Procedure Date: 08/21/2023 Procedure: Colonoscopy Indications: High risk colon cancer surveillance: Personalhistory of colonic polyps Providers: Zena Gonzalez M.D., Ana Maria Rutherford, NELI (Anesthesia Staff), Izzy Pete RN, Justin Salamanca, Network And Threat Support Specialist Referring MD: Tarik Escalera M.D. Medicines: Monitored [...] colonoscopy in 1-2 years - Refer to emergency medcl emt to evaluate perianal skin lesions. Procedure Code(s): --- Professional --- 91035, Colonoscopy, flexible; with removal of tumor(s), polyp(s), or other lesion(s) by snare technique 95738, 59, Colonoscopy, flexible; with biopsy,single or multiple Diagnosis Code(s): --- Professional --- Z86.010, Personal history of colonic polyps K64.8, Other hemorrhoids D12.3, Benign neoplasm of transverse colon (hepatic flexure or splenic flexure) D12.4, Benign neoplasm of descending colon D12.7, Benign neoplasm of rectosigmoid junction D12.5, Benign neoplasm of sigmoid colon CPT copyright 2020 [employer]. All rights reserved. The codes documented in this report are preliminary and upon computer language coder reviewmay be revised to meet current compliance requirements. Dr. Zena Gonzalez MD MSC Zena Gonzalez M.D. 08/21/2023 12:14:49 PM Number of Addenda: 0 Note Initiated On: 08/21/2023 10:10 AM Zena Gonzalez MD ENDOSCOPY PROCEDURES Final Result [...] There has been no suspicious interval change. us Yelitza Gaitan MD IMG MAMMO PROCEDURES Final Result * Hepatitis C antibody Blood (04/23/2023 12:50 PM BUTTON TUFTING MACHINE OPERATOR) Hep C Ab Nonreactive Nonreactive [facility] [...] on 2019. Blood 04/23/2023 12:5 0 PM BUTTON TUFTING MACHINE OPERATOR 04/23/2023 6:15 PM BUTTON TUFTING MACHINE OPERATOR us Zena Gonzalez MD LAB MICROBIOLOGY - GENERAL ORDERABLES Final Result [facility] [address] [place] [address] * Pap with reflex to High Risk HPV (03/19/2020 9:32 AM BUTTON TUFTING MACHINE OPERATOR) 03/19/2020 9:32 AM BUTTON TUFTING MACHINE OPERATOR 03/19/2020 9:32 AM BUTTON TUFTING MACHINE OPERATOR Narrative [facility] - 03/23/2020 2:40 PM BUTTON TUFTING MACHINE OPERATOR [facility] Department of Pathology [address] [place] [address] Final Report with Addendum Patient Name: ??IVONNE BACON Address: ??[address] [place] [address], ?? [place], [place] ??[address] Gender: ??F : ??1960 (Age: 59) Service: ??Laboratory Location: ??Lab Hospital #: ??[id number] Patient Type: ?? Ref Lab Taken: ??03/19/2020 Received: ??03/19/2020 Accessioned:: ??03/22/2020 Reported: ??03/23/2020 Physician(s): MD Yelitza Lee MD Diagnosis: Source of Specimen: ? Imaged Thinprep Pap Test plus HPV - Fence Rider Cytologic Material Specimen Adequacy: ?- Specimen satisfactory for interpretation; endocervical/transformation zone component absent or ?insufficient General Category: ?- Negative for intraepithelial lesion or malignancy ?? ELAYNE Wislon(ASCP) Report Electronically Reviewed and Signed Out By ??ELAYNE Wilson(ASCP) ??03/23/2020 14:40:29 ??Addenda: HPV Test Interpretation NEGATIVE for types 16, 18, 31, 33, 35, 39, 45, 51, 52, 56, 58, 59, 66 and 68. Test performed utilizing Gen-Mersive Aptima assay. ?? ELAYNE Mitchell(ASCP) ??Report Electronically Reviewed and Signed Out By ??ELAYNE Mitchell(ASCP) ??03/22/2020 14:54:10 ? Specimen(s) Received: A: Imaged Thinprep Pap Test plus HPV - Fence Rider Cytologic Material Clinical History: Menstrual History: Post-menopausal [...] determined by the Surgical Pathology Department at [facility] as part of an ongoing quality control scientist program and in compliance with federally mandated [...] characteristics determined by the Surgical Pathology Department [facility]. ??It has not been cleared or approved by the U. S. Food and Drug Administration. Yelitza Gaitan MD LAB CYTOLOGY ORDERABL ES Final Result Performing Organization Address [facility] de Phone Number [facility] [address] [facility] [place] [address] [place] [address] * (ABNORMAL) Hemoglobin A1c (09/15/2018 3:35 AM CDT) Hgb A1C 8.4(H) 4.0 - 5.6 % [facility] Estimated Average Glucose 194 mg/dL [facility] Comment: The ADA recommends reporting an estimated Average Glucose (eAG) with all Hemoglobin A1c results using the equation derived from a study of 507 normal and diabetic adults. ??Minority populations were underrepresented and children were not included. ?? (Diabetes Care 31:6487-6795, 2008). ??The eAG is not equivalent to a fasting glucose. Blood specimen (specimen) 09/15/2018 3:35 AM CDT 09/15/2018 4:09 AM CDT us Jairo Red MD LAB BLOOD ORDERABLES Final Result Performing Organization Address [facility] de Phone Number [facility] Department [place] [address] * (ABNORMAL) Lipid panel (09/15/2018 3:35 AM CDT) Cholesterol 197 30 - 199 mg/dL [facility] Comment: Interpretive Data Ages < or = [...] on 2017. Triglycerides 275(H) <=149 mg/dL [facility] Comment: Interpretive Data Ages < or = [...] on 2017. HDL 33(L) >=40 mg/dL [facility] Comment: Interpretive Data Ages < or = [...] on 2017. LDL, calculated 109 <=129 mg/dL [facility] Comment: Interpretive Data Ages < or [...] revised on 2017. Non-HDL Cholesterol 164 mg/dL [facility] Comment: Interpretive Data Ages < or [...] last revised on 2017. Chol/HDL ratio 6 [facility] Blood specimen (specimen) 09/15/2018 3:35 AM CDT 09/15/2018 4:07 AM CDT us Jairo Red MD LAB BLOOD ORDERABLES Final Result Performing Organization Address City/State/[facility] Co de Phone Number [facility] Department [place] [address] from Last 3 Months or Most Recently Relevant to Health Maintenance Insurance [facility] [id number] [facility] [id number] Advance Directives For more information, please contact: [phone] * Full Code (Latest Code Status on File) Date Activated Date Inactivated Comments 09/14/2018 10:08 PM 09/15/2018 9:15 PM Care Teams Advanced Practice Professional Relationship Specialty Start Date End Date Soco Shrestha NP [address] [place] [id number] PCP - General Nurse Practitioner 01/24/24 MedardotSuzie MD PhD [address] [place] [address] Surgeon Surgical Oncology 04/23/20 Yelitza Gaitan MD [address] [place] [address] [employer] Hanger Obstetrics and Gynecology 07/31/22 Troy Rico MD Consulting Physician Rheumatology 08/12/19
--- OUTSIDE RECORDS SUMMARY | 2024-04-10 09:35 | XMS_ITS | Clinical Summary ---
Author Organization [facility] / [facility] Address [address] [place] [address] [place] [address] Care Team Providers Care Street Roller Engineer Name Role Phone Aviva Rico MD Primary Care Provider [phone] Allergies Active Allergy Reactions Criticality Noted Date Comments Amoxicillin-Pot Clavulanate Hives Low 05/22/19 18 Medications Cholecalciferol (VITAMIN D) 1000 UNIT tablet Take 1 tablet by mouth daily. Active clopidogrel 75 MG tablet Take 75 mg by mouth daily. 12/25/2016 Active amlodipine 5 MG tablet Take 1 tablet by mouth daily. 01/10/2017 Active aspirin EC 81 MG EC tablet Take 81 mg by mouth daily. 05/23/2017 Active Fenofibrate 120 MG Tab Take 120 mg by mouth daily. 05/22/2017 Active atorvastatin 40 MG tablet Take 40 mg by mouth daily. 05/23/2017 Active levothyroxine 150 MCG tablet Take 1 tablet by mouth daily. 2 06/12/2017 Active liothyronine 5 MCG Tab Take 1 tablet by mouth daily. 2 06/12/2017 Active predniSONE 20 MG tablet Take 40 mg by mouth daily. 0 05/27/2017 Active vitamin B-12 100 MCG tablet Take 50 mcg by mouth daily. Active hydrocodone-acet aminophen 5-325 MG tablet Take 1 tablet by mouth every 6 (six) hours as needed. 10 tablet 06/22/2017 Active Active Problems Problem Noted Date Diagnosed Date Carotid stenosis, bilateral 06/28/2017 Chronic headache 06/22/2017 Family History Medical History Relation Comments Diabetes Father alzheimer's Disease Father Breast Cancer Mother Diabetes Mother Hypertension Mother Relation Status Comments Father (Age 78) Mother Alive Social History Tobacco Use Types Packs/Day Years [...] CDT Gender Identity Female 05/01/2022 8:57 AM CERTIFIED GENETIC COUNSELOR Sexual Orientation Straight 05/01/2022 8: 57 AM CERTIFIED GENETIC COUNSELOR Last Filed Vital Signs Vital Sign Reading Time Taken Comments Blood Pressure 117/74 06/22/2017 4:25 PM CDT Pulse 86 06/22/2017 4:25 PM CDT Temperature 36.9 ??C (98.4 ??F) 06/22/2017 4:25 PM CD T Respiratory Rate 18 06/22/2017 4:25 PM CDT Oxygen Saturation 95% 06/22/2017 4:25 PM CDT Inhaled Oxygen Concentration - - Weight 91.1 kg (200 lb 13.4 oz) 018 11:33 AM CDT Height 172.7 cm (5' 8 ) 06/21/2017 12:0 1 AM CDT Body Mass Index 30.54 06/21/2017 12:01 AM CDT Plan of Treatment Health Maintenance Due Date Last Done Comments Cervical Cancer Screening Pap Smear (Age 30 to 64) Every 3 Years 1961 Colorectal Cancer Screening Colonoscopy (10 Years) 1961 Annual Physical 1964 Cervical Cancer Screening Pap with HPV Testing (Age 30 to 64) Every 5 Years 1991 Cervical Cancer Screening with HPV 1991 Mammogram Screening 2001 Zoster Vaccines (1 of 2) 2011 Pneumococcal Vaccine: Pediatrics (0 to 5 Years) and At-Risk Patients (6 to 64 Years) (2 of 2 - PCV) 03/20/2017 03/20/2016 COVID-19 Vaccine ( - season) 2023 Influenza Adult (#1) 2023 02/10/2018, 01/04/2017, 01/18/2015, Additional history exists DTaP, Tdap and Td Vaccines (4 - Td or Tdap) 12/12/2025 12/13/2015, 08/11/2015, 08/11/2015, Additional history exists RSV Immunization or 60+ Years (1 - 1-dose 75+ series) 2036 Hepatitis C Completed 03/25/2019 Meningococcal B Vaccine Aged Out No l onger eligible based on patient's age to complete this topic Meningococcal Vaccine Aged Out No cindy erica eligible based on patient's age to complete this topic RSV Immunizations Under 20 Months Aged Out No longer eligible based on patient's age to complete this topic Procedures Procedure Name Priority Date/Time Associated Diagnosis Comments HEPATITIS C ANTIBODY Routine 03/25/2019 3:36 PM CERTIFIED GENETIC COUNSELOR Avitaminosis D Vitamin D deficiency Vitamin B 12 deficiency Screening examination for poliomyelitis from Last 3 Months or Most Recently Relevant to Health Maintenance Results * HEPATITIS C ANTIBODY (03/25/2019 3:36 PM CERTIFIED GENETIC COUNSELOR) HEPATITIS C AB NON-REACTI VE NON-REACTI VE 03/25/2019 9:24 PM CERTIFIED GENETIC COUNSELOR [facility] 03/25/2019 3:36 PM CERTIFIED GENETIC COUNSELOR Aviva Rico MD LABORATORY Final Result [facility] [address] [place] [address], from Last 3 Months or Most Recently Relevant to Health Maintenance Insurance [employer] Care Teams Street Roller Engineer Relationship Specialty Start Date End Date Aviva Rico MD [address] [place] [address] PCP - General RHEUMATOLOGY 10/11/22
[2024-04-10 18:46] LABS: Hematocrit 45.6 % (37.0-47.0); Hemoglobin 14.4 g/dL (12.0-15.0); Mean Corpuscular HGB Conc 31.6 g/dl (32-36); Mean Corpuscular Hemoglobin 29.7 pg (26-34); Mean Platelet Volume 10.7 fl (7.4-10.4); Platelet Count Result 362 k/mm3 (150-375); Red Blood Count 4.85 M/mm3 (4.2-5.4); Red Cell Distribution Width 13.9 % (11.5-14.5); White Blood Count 9.9 K/mm3 (4.5-10.0)
[2024-04-10 19:07] LABS: Alanine Aminotransferase 31 U/L (6-35); Albumin Level 4.1 g/dL (3.5-5.1); Alkaline Phosphatase 79 U/L (38-126); Anion Gap 10 mmol/L (4-12); Aspartate Amino Transferase 53 U/L (14-36); Bilirubin,Total 0.8 mg/dL (0.2-1.3); Blood Urea Nitrogen 18 mg/dL (7-17); Calcium 9.7 mg/dL (8.4-10.2); Carbon Dioxide 26 mmol/L (22-30); Chloride 102 mmol/L (98-107); Cholesterol 266 mg/dL (0-200); Estimated Glomerular Filt Rate > 60; Glucose 121 mg/dL (65-110); HDL Direct 41 mg/dL; Potassium 4.4 mmol/L (3.4-5.0); Sodium 138 mmol/L (137-145); Triglycerides 241 mg/dL (<150)
[2024-04-10 19:19] LABS: LDL Cholesterol Direct 186 mg/dL
[2024-04-10 20:19] LABS: Creatinine Urine 83.4 mg/dL
[2024-04-10 20:24] LABS: MALB Creatinine Ratio < 7.2 mg/g (0-30); Microalbumin Urine Random < 6.0 mg/L (0-16.7)
[2024-04-10 20:55] LABS: Vitamin D 25 Hydroxy 37.5 ng/mL
[2024-04-10 20:57] LABS: Hemoglobin A1C 8.5 % (<5.7)
== END 2024-04-10 09:14 | disposition home or self-care (01) ==
LOC: ANHBWCLAB 09:14
PROVIDERS: PCP Nurse Practitioner Adult Health; Visit Provider Nurse Practitioner Adult Health
DX: E11.9 Type 2 diabetes mellitus without complications (principal); E03.9 Hypothyroidism, unspecified; R79.89 Other specified abnormal findings of blood chemistry; E53.8 Deficiency of other specified B group vitamins; D75.1 Secondary polycythemia
CPT/HCPCS: 36415; 80053; 80061; 82043; 82306; 82565; 82607; 83036; 84443; 85027

== ENCOUNTER 2024-04-21 19:32 | Emergency (ER) | payer OTHER, SELFPAY ==
--- OUTSIDE RECORDS SUMMARY | 2024-04-21 19:33 | XMS_ITS | Encounter Summary ---
Author Organization [facility] Address [address] [place] [address] Phone Care Team Providers Care Manufacturing Design Engineer Name Role Phone Carlyle Hurtado DO Primary Care Provider Unavail Kin Lawton DO Primary Care Provider [phone] Tarik Escalera MD Primary Care Provider [phone] Soco Shrestha APRN Primary Care Provider [phone] Reason for Visit * Reason Comments Medication Refill Encounter Details Date Type Department Care Team (Late st Contact Info) Description 05/17/2019 Refill [facility] - Family Medicine [facility] [address] [place] [address] Huber Fatima MD [address] [place] [id number] Medication Refill Social History Tobacco Use Types Packs/Day Years Used Date Smoking Tobacco: Every Day Cigarettes Smokeless Tobacco: Never Alcohol Use Standard Drinks/Week Comments Yes 0 (1 standard drink = 0.6 oz pur e alcohol) Comments No Sex and Gender Information Value Date Recorded Sex Assigned at Female 02/19/2023 9:38 AM COMPUTER OPERATIONS SUPERVISOR Legal Sex Female 11:27 PM CDT Gender Identity Female 02/19/2023 9:38 AM COMPUTER OPERATIONS SUPERVISOR Sexual Orientation Straight 02/19/2023 9: 38 AM COMPUTER OPERATIONS SUPERVISOR documented as of this encounter Plan of Treatment Not on file documented as of this encounter Visit Diagnoses Not on filedocumented in this encounter Additional Health Concerns Infection Onset Date Last Indicated Resolved Time COVID - 19 03/13/2021 03/13/2021 04/02/2021 12:1 6 AM COMPUTER OPERATIONS SUPERVISOR COVID - 19 Confirmed 03/13/2021 03/13/2021 022 12:16 AM COMPUTER OPERATIONS SUPERVISOR COVID - 19 08/16/2021 08/16/2021 08/26/2021 12:1 6 AM CDT Assessment Noted Time PHQ-9 Depression Total Score: 0 01/05/20 17 1:00 PM CDT documented as of this encounter Care Teams Manufacturing Design Engineer Relationship Specialty Start Date End Date Carlyle Hurtado DO PCP - General Family Medicine 12/19/14 10/28/19 Kin Jason DO [address] [place] [address] PCP - General Family Medicine 10/29/19 12/19/20 Tarik Escalera MD [address] [place] [address] PCP - General Family Medicine 12/20/20 05/16/23 Soco Shrestha APRN [address] [place] [address] PCP - General Advanced Practice Nurse 05/17/23 documented as of this encounter
--- OUTSIDE RECORDS SUMMARY | 2024-04-21 19:33 | XMS_ITS | Clinical Summary ---
Author Organization [facility] Address [address] [place] [address] Phone Care Team Providers Care Employment Coordinator Name Role Phone Kin Jason DO Primary Care Provider Deneen vailable Allergies Active Allergy Reactions Criticality Noted Date Comments Amoxicillin-Pot Clavulanate Rash Low 05/22/19 18 Medications levothyroxine 200 mcg tablet Take 200 mcg by mouth daily golf club facer. Active Cholecalciferol , Vitamin D3, (VITAMIN D3) [...] 81 05/22/2017 4:37 PM CDT Temperature 36.6 C (97.8 F) 05/22/2017 4:37 PM CDT Respiratory Rate 16 05/22/2017 4:37 PM CDT [...] 11/04/2015 (Previously completed) INFLUENZA VACCINE (#1) 2023 , 01/04/2017, 01/18/2015, Additional history exists DTAP/TDAP/TD VACCINES (2 - T d or Tdap) 08/10/2025 08/11/2015 RSV VACCINE (60+ or ) (1 - 1-dose 75+ series) 2036 Insurance [employer] O OPEN ACCESS RX [facility] Advance Directives For more information, please contact: [phone] * Full Code (Latest Code Status on File) Date Activated Date Inactivated Comments 05/21/2017 12:25 PM 05/22/2017 11:07 PM * Full Code Date Activated Date Inactivated Comments 01/08/2017 10:41 PM 01/10/2017 5:35 PM Care Teams Employment Coordinator Relationship Specialty Start Date End Date Kin Jason DO NO ADDRESS ON FILE PCP - General Family Practice 05/21/17
--- OUTSIDE RECORDS SUMMARY | 2024-04-21 19:33 | XMS_ITS | Clinical Summary ---
Author Organization [facility] Address [address] [address] Phone Care Team Providers Care Pouring Crane Operator Name Role Phone Soco Shrestha Kelsey ABBASI Primary Care Provider [phone] Allergies Active Allergy Reactions Criticality Noted Date [...] Sex Assigned at Female 02/19/2023 9:38 AM ORDNANCE ENGINEERING TECHNICIAN Legal Sex Female 11:27 PM CDT Gender Identity Female 02/19/2023 9:38 AM ORDNANCE ENGINEERING TECHNICIAN Sexual Orientation Straight 02/19/2023 9: 38 AM ORDNANCE ENGINEERING TECHNICIAN Last Filed Vital Signs Vital Sign Reading Time Taken Comments Blood Pressure 116/69 05/17/2023 4:30 PM ORDNANCE ENGINEERING TECHNICIAN Pulse 104 05/17/2023 4:30 PM ORDNANCE ENGINEERING TECHNICIAN Temperature 36.3 C (97.3 F) 05/17/2023 1:04 PM ORDNANCE ENGINEERING TECHNICIAN Respiratory Rate 17 05/17/2023 1:04 PM ORDNANCE ENGINEERING TECHNICIAN Oxygen Saturation 92% 05/17/2023 4:30 PM ORDNANCE ENGINEERING TECHNICIAN Inhaled Oxygen Concentration - - Weight 80.7 kg (178 lb) 05/17/2023 1:04 PM ORDNANCE ENGINEERING TECHNICIAN Height 172.7 cm (5' 8 ) 05/17/2023 1:04 PM ORDNANCE ENGINEERING TECHNICIAN Body Mass Index 27.06 05/17/2023 1:04 PM ORDNANCE ENGINEERING TECHNICIAN Plan of Treatment Health Maintenance Due Date [...] 03/09/2016 HM COLONOSCOPY Routine 01/18/2016 PATHOLOGY CYTOLOGY CDL DRIVER Routine 12/14/2015 from Last 3 Months or Most Recently Relevant to Health Maintenance Results * FLAQUITA MRI BREAST W/WO CONTRAST,BILATERAL (03/09/2016) Anatomical Region Laterality Modality breast Bilateral Other Historical Provider IMHay MR ORDERABLES Final R esult * HM COLONOSCOPY (01/18/2016) Kin Yeboah MD PROCEDURE/MINOR SURGICAL ORDER DARY Final Result * PATHOLOGY CYTOLOGY CDL DRIVER (12/14/2015) Specimen of unknown material (specimen) Unknown Provider PATHOLOGY/CYTOLOGY ORDERABLES F inal Result from Last 3 Months or Most Recently Relevant to Health Maintenance Insurance [facility] Care Teams Pouring Crane Operator Relationship Specialty Start Date End Date Soco Shrestha APRN PCP - General Advanced Practice Nurse 05/17/23
--- OUTSIDE RECORDS SUMMARY | 2024-04-21 19:33 | XMS_ITS | Clinical Summary ---
Author Organization [facility] / [facility] Address [address] [place] [address] Care Team Providers Care Technology Applications Teacher Name Role Phone Aviva Rico MD Primary Care Provider [phone] Allergies Active Allergy Reactions Criticality Noted Date [...] CDT Gender Identity Female 05/01/2022 8:57 AM LOADER Sexual Orientation Straight 05/01/2022 8: 57 AM LOADER Last Filed Vital Signs Vital Sign Reading Time Taken Comments Blood Pressure 117/74 06/22/2017 4:25 PM CDT Pulse 86 06/22/2017 4:25 PM CDT Temperature 36.9 C (98.4 F) 06/22/2017 4:25 PM CDT Respiratory Rate 18 06/22/2017 4:25 PM CDT [...] 2 - PCV) 03/20/2017 03/20/2016 COVID-19 Vaccine (1 - 2023- season) 2023 Influenza Adult (#1) 2023 02/10/2018, [...] HEPATITIS C ANTIBODY Routine 03/25/2019 3:36 PM LOADER Avitaminosis D Vitamin D deficiency Vitamin B 12 deficiency Screening examination for poliomyelitis from Last 3 Months or Most Recently Relevant to Health Maintenance Results * HEPATITIS C ANTIBODY (03/25/2019 3:36 PM LOADER) HEPATITIS C AB NON-REACTI VE NON-REACTI VE 03/25/2019 9:24 PM LOADER [facility] 03/25/2019 3:36 PM LOADER Aviva Rico MD LABORATORY Final Result [facility] [address] [place] [address], from Last 3 Months or Most Recently Relevant to Health Maintenance Insurance [employer] Care Teams Technology Applications Teacher Relationship Specialty Start Date End Date Aviva Rico MD [address] [place] [id number] PCP - General RHEUMATOLOGY 10/11/22
--- OUTSIDE RECORDS SUMMARY | 2024-04-21 19:33 | XMS_ITS | Encounter Summary ---
Author Organization [facility] Address [address] [place] [address] Care Team Providers Care Merchandising Manager Name Role Phone Kin Jason DO Primary Care Provider [phone] Non-Staff, Provider Primary Care Provider Aviva Koenig MD Primary Care Provider [phone] Encounter Details Date Type Department Care Team (Late st Contact Info) Description 08/17/2018 Abstract [facility] CONVERSION [address] [place] [id number] , Generic Conversion, Social History Tobacco Use [...] CDT Gender Identity Female 05/01/2022 8:57 AM SOAKER MEAT Sexual Orientation Straight 05/01/2022 8: 57 AM SOAKER MEAT documented as of this encounter Plan of Treatment Not on file documented as of this encounter Visit Diagnoses Not on filedocumented in this encounter Care Teams Merchandising Manager Relationship Specialty Start Date End Date Kin Jason DO PCP - General FAMILY PRACTICE 06/10/17 05/17/21 Non-Staff, Provider PCP - General 3/9/22 8/1/23 Aviva Rico MD [address] [place] [id number] PCP - General RHEUMATOLOGY 10/11/22 documented as of this encounter
--- OUTSIDE RECORDS SUMMARY | 2024-04-21 19:34 | XMS_ITS | Clinical Summary ---
Author Organization [facility] Address [address] [place] [address] Care Team Providers Care General Operations Agent Name Role Phone Aft, Suzie Dumont MD PhD Unavailable Yelitza Gaitan MD Unavailable [phone] Soco Shrestha NP Primary Care Provider [phone] Allergies Active Allergy Reactions Criticality Noted Date [...] 1 tablet (112 mcg total) by mouth information technology coordinator before breakfast 04/17/19 24 Active lisinopriL (PRINIVIL,ZESTR [...] 08/16/2023 Assessment & Plan (04/03/2024 10:59 AM MAILING SECTION CLERK): FA repeated today. No signs of macular edema or NV. No vasculitis. Is coming off of p.o. prednisone for her giant cell arteritis. As I see no evidence for recurrent vasculitis, I think it is safe to continue weaning her from this medication. I have asked her to return to see us in roughly 8 weeks' time Assessment & Plan (03/19/2024 9:02 AM MAILING SECTION CLERK): Follows w/ Dr. Artemio Brooke appt 04/03 Assessment & Plan (02/21/2024 12:32 PM MAILING SECTION CLERK): Vitreal field was performed today, it is [...] time. Assessment & Plan (02/20/2024 11:10 AM MAILING SECTION CLERK): History of giant cell arteritis, is using [...] - she is seeing the doctors at [facility]. Personal history of colonic polyps 06/14/2023 [...] detailed ophthalmic history in Dr. Santy Verma's [facility] notes dated 03/14/19 and 05/14/19, viewable in I-Pulse under Encounters and scanned under Media Assessment & Plan (11/18/2019 1:28 PM CDT): Patient was seen at [facility] by neuro-car seat maker Dr. Santy Verma on 03/14/19 and 05/14/19. Per review of these notes (viewable in Encounters in [facility] and scanned into Media ), Dr. Verma [...] taper schedule and followed up with her fixed capital clerk Dr. Rico, who started Actemra on 06/20/19. [...] PM CDT): - Patient was seen at [facility] by neuro-car seat maker Dr. Santy Verma on 03/14/19 and 05/14/19. Per review of these notes (viewable in Encounters in [facility] and scanned into Media ), Dr. Verma [...] (see HPI) and followed up with her fixed capital clerk Dr. Rico, who started Actemra on 06/20/19. [...] recommend that the patient establish with Neuro- car seat maker Dr. Nicolette Mcnally for long-term follow-up. She wishes to transition care back here to [place], since it is impractical for her to follow regularly with Dr. Verma at [place]. - Discussed strict return precautions, including worsening vision, TVOs, pain. Gave patient near card and Amsler grid so that she can check her vision at home. Mixed type age-related cataract, both eyes 07/30 Assessment & Plan (03/19/2024 9:07 AM MAILING SECTION CLERK): -Notes blurred vision and monocular diplopia right [...] up. Assessment & Plan (05/08/2018 10:20 AM MAILING SECTION CLERK): Degree of vision loss and optic nerve [...] Encounters Date Type Department Care Team Description 04/11/2024 Orders Only [facility] [address] [place] [address] Yelitza Gaitan MD Encounter for screening mammogram for malignant neoplasm of breast (Primary Dx) 04/03/2024 10:00 AM MAILING SECTION CLERK Office Visit [facility] Ophthal[facility] [address] [place] [phone] Franc Ulloa MD Type 2 diabetes mellitus with right eye affected by mild nonproliferative retinopathy without macular edema, with long-term current use of insulin (HCC) (Primary Dx) 03/24/2024 Telephone [facility] Gastroenterology at [address] [place] [address] Zena Gonzalez MD 03/19/2024 8:30 AM MAILING SECTION CLERK Office Visit [facility] Ophthalmology [address] [place] [address], [address] [place] [address] Kaylee Clement, OD Mixed type age-related cataract, both eyes (Primary Dx); Type 2 diabetes mellitus with right eye affected by mild nonproliferative retinopathy without macular edema, with long-term current use of insulin (HCC) 02/29/2024 Telephone [facility] [address] [place] [phone] Nicholas Orellana MD 02/21/2024 3:30 PM MAILING SECTION CLERK Office Visit [facility] Ophthal[facility] [address] [place] [phone] Franc Ulloa MD Type 2 diabetes mellitus with right eye affected by mild nonproliferative retinopathy without macular edema, with long-term current use of insulin (HCC) (Primary Dx) 02/21/2024 12:00 PM MAILING SECTION CLERK Imaging Exam [facility] [address] [place] [phone] 02/21/2024 11:00 AM MAILING SECTION CLERK Office Visit [facility] 11th [place] [address] [place] [phone] Craig Arroyo MD Dysphonia (Primary Dx); Chronic fungal laryngitis; Sicca laryngitis 02/20/2024 9:00 AM MAILING SECTION CLERK Office Visit [facility] Internal Medicine [address] [place] [phone] Noman Salgado MD PhD Type 2 diabetes mellitus with other specified complication, with long-term current use of insulin (HCC) (Primary Dx) 02/20/2024 8:40 AM MAILING SECTION CLERK Office Visit [facility] Ophthalmology [address] [facility] 6th [place] [phone] Franc Ulloa MD Type 2 diabetes mellitus with right eye affected by mild nonproliferative retinopathy without macular edema, with long-term current use of insulin (HCC) (Primary Dx) 02/12/2024 Telephone [facility] Ophthal[facility] [address] [place] [address] Nicholas Orellana MD Return Call/Update 02/12/2024 Telephone [facility] Gastroenterology at [facility] [address] [facility] [address] [place] [phone] Zena Gonzalez MD 02/04/2024 11:07 AM MAILING SECTION CLERK - 02/04/2024 11:59 PM MAILING SECTION CLERK Hospital Encounter [facility] [address] [place] [address] Zena Gonzalez MD Liver lesion; Lesion of pancreas Discharge Disposition: Discharge to home or self care 01/31/2024 11:20 AM MAILING SECTION CLERK Office Visit [facility] - [facility] ENT [address] [facility] 11th [place] [address] [place] [phone] Craig Arroyo MD Dysphonia (Primary Dx); Laryngeal [...] on file Legal Sex Female 1:45 AM MAILING SECTION CLERK Gender Identity Female 11/16/2018 3:35 PM CDT [...] Comments Blood Pressure 142/67 02/20/2024 8:25 AM MAILING SECTION CLERK Pulse 86 02/20/2024 8:25 AM MAILING SECTION CLERK Temperature 36.7 C (98 F) 10/07/2023 1:41 PM CDT Respiratory Rate 17 10/07/2023 4:48 PM CDT Oxygen Saturation 98% 10/07/2023 6:30 PM CDT Inhaled Oxygen Concentration - - Weight 83.5 kg (184 lb) 02/21/2024 10:58 AM MAILING SECTION CLERK Height 170.2 cm (5' 7 ) 02/21/2024 10:58 AM MAILING SECTION CLERK Body Mass Index 28.82 02/21/2024 10:58 AM MAILING SECTION CLERK Plan of Treatment Upcoming Encounters Date Type Department Care Team (Late st Contact Info) Description 08/26/2024 9:45 AM CDT Hospital Encounter [facility] [id number] [place] [address] [place] [address] [address] 08/26/2024 9:45 AM CDT - 08/26/2024 10:45 AM CDT Surgery [facility] [address] [place] [address] [place] [address] [address] COLONOSCOPY Scheduled Procedures Name Priority [...] 12/14/2015, 12/14/2015, Additional history exists Covid-19 Vaccine (5 - 2023-2 5 season) 2023 11/10/2022, 12/05/2021, 12/07/2020, Additional history exists Influenza Vaccine (#1) 2023 , 12/27/2019, 02/10/2018, Additional history exists Regular Well Visit/Exam 18-64 07/18/2024, 07/13/2022, 03/18/2020, Additional history exists Breast Cancer Screening-Mammogram 07/23/2024 07/24/2023, 07/13/2022, 07/13/2022, Additional history exists eGFR 10/21/2024 10/22/2023, 03/08/2023, 04/23/2023, Additional history exists Dilated Eye Exam [...] - BOTH EYES Routine 04/03/2024 10:59 AM MAILING SECTION CLERK Type 2 diabetes mellitus with right eye affected by mild nonproliferative retinopathy without macular edema, with long-term current use of insulin (HCC) ZULUAGA VISUAL FIELD - OD - RIGHT EYE Routine 02/21/2024 11:53 AM MAILING SECTION CLERK Optic atrophy of both eyes FLUORESCEIN ANGIOGRAPHY, OU TRANSIT OD - OU - BOTH EYES Routine 02/20/2024 11:05 AM MAILING SECTION CLERK Type 2 diabetes mellitus with right eye affected by mild nonproliferative retinopathy without macular edema, with long-term current use of insulin (HCC) OCT, RETINA - OU - BOTH EYES Routine 02/20/2024 11:04 AM MAILING SECTION CLERK Type 2 diabetes mellitus with right eye affected by mild nonproliferative retinopathy without macular edema, with long-term current use of insulin (HCC) MRI ABDOMEN MRCP W WO CONTRAST Routine 02/04/2024 12:48 PM MAILING SECTION CLERK Liver lesion Lesion of pancreas EGFR Routine 10/22/2023 2:11 PM CDT Vasculitis (CMS/HCC) (HCC) Psoriatic arthritis (HCC) COLONOSCOPY 08/21/2023 10:10 AM CDT SCREENING MAMMOGRAM BILATERAL W FRED Schedule Routine, Read Routine (OP Routine) 07/24/2023 9:16 AM CDT History of breast cancer Encounter for screening mammogram for breast cancer HEPATITIS C ANTIBODY Routine 04/23/2023 12:50 PM MAILING SECTION CLERK Elevated liver enzymes PAP WITH REFLEX TO HIGH RISK HPV Routine 03/19/2020 9:32 AM MAILING SECTION CLERK HEMOGLOBIN A1C Routine 09/15/2018 3:35 AM CDT LIPID PANEL Routine 09/15/2018 3:35 AM CDT from Last 3 Months or Most Recently Relevant to Health Maintenance Results * Fluorescein Angiography, OU Transit OD (04/03/2024 10:59 AM MAILING SECTION CLERK) Anatomical Region Laterality Modality Head Fundus Photograp hy Narrative 04/03/2024 10:59 AM MAILING SECTION CLERK Time Out Informed consent was obtained after [...] edema. No disc hyperfluorescence. No NV.. Result [facility] Franc Ulloa MD OPH PHOTOGRAPHY Final Re sult * Zuluaga Visual Field - OD - Right Eye (02/21/2024 11:53 AM MAILING SECTION CLERK) Anatomical Region Laterality Modality Head Other Narrative 02/21/2024 12:31 PM MAILING SECTION CLERK Fixation was good. Cooperation was good. Reliability was good. Progression has been stable. Foveal threshold was normal. Notes Superior altitudinal defect OD, stable.- no changes from 10/2022 Result [facility] Franc Ulloa MD [facility] VISUAL FIELD Final R esult * Fluorescein Angiography, OU Transit OD (02/20/2024 11:05 AM MAILING SECTION CLERK) Anatomical Region Laterality Modality Head Fundus Photograp hy Narrative 02/20/2024 11:05 AM MAILING SECTION CLERK Time Out Informed consent was obtained after [...] for FA OU, transit OD - MW A few microaneurysms seen in the far periphery in both eyes, fortunately there was no evidence for vascular occlusion or vasculitis in either eye. There was no evidence for choroidal non perfusion either. Franc Ulloa MD OPH PHOTOGRAPHY Final Re sult * OCT, Retina - OU - Both Eyes (02/20/2024 11:04 AM MAILING SECTION CLERK) Anatomical Region Laterality Modality Head Optical Coherenc e Tomography Narrative 02/20/2024 11:04 AM MAILING SECTION CLERK Right Eye Quality was good. Scan locations included subfoveal. Progression has been stable. Findings include normal foveal contour. Left Eye Quality was good. Scan locations included subfoveal. Progression has been stable. Findings include abnormal foveal contour. Notes Normal macular thickness OD, stable. Severe inner retinal thinning OS, stable. us Franc Ulloa MD OPHTH TOMOGRAPHY Final Res ult * MRI Abdomen MRCP W WO Contrast (02/04/2024 12:48 PM MAILING SECTION CLERK) Anatomical Region Laterality Modality Body N/A Magnetic Resonan ce 02/04/2024 1:33 PM MAILING SECTION CLERK Impressions 02/04/2024 1:33 PM MAILING SECTION CLERK 1. No suspicious liver lesions. 2. 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 3. 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 Electronically signed by: Madhav Chavez M.D. Narrative 02/04/2024 1:33 PM MAILING SECTION CLERK EXAMINATION: 1. MAGNETIC RESONANCE IMAGING OF THE [...] m2 Comment: Interpretive Data Reference Interval Normal >/= 90 mL/min/1.73m2 Mildly decreased* 60 - 89 mL/min/1.73m2 Mildly to moderately decreased 45 - 59 mL/min/1.73m2 Moderately to severely decreased 30 - 44 mL/min/1.73m2 Severely decreased 15 - 29 mL/min/1.73m2 Kidney Failure < 15 mL/min/1.73m2 *Relative to young adult level Estimated glomerular [...] PhD LAB BLOOD ORDERABLES Fin al Result [facility] [address] [facility] [place] [address] * Colonoscopy (08/21/2023 10:10 AM CDT) Anatomical Region Laterality Modality Other Narrative Procedure Note Zena Gonzalez MD - 08/21/2023 10:10 AM CDT - [facility] Patient Name: Ivonne Bacon Procedure Date: 08/21/2023 10:10 AM Date of : 1960 Admit Type: Outpatient Age: 63 Gender: Female Note Status: Finalized Attending MD: Zena Gonzalez M.D. Procedure Date: 08/21/2023 Procedure: Colonoscopy Indications: High risk colon cancer surveillance: Personalhistory of colonic polyps Providers: Zena Gonzalez M.D., Ana Maria Rutherford CRNA (Anesthesia Staff), Izzy Pete RN, Justin Salamanca, Drainage Engineer Referring MD: Tarik Escalera M.D. Medicines: Monitored [...] colonoscopy in 1-2 years - Refer to truck assembler to evaluate perianal skin lesions. Procedure Code(s): --- Professional --- 58345, Colonoscopy, flexible; with removal of tumor(s), polyp(s), or other lesion(s) by snare technique 99995, 59, Colonoscopy, flexible; with biopsy,single or multiple Diagnosis Code(s): --- Professional --- Z86.010, Personal history of colonic polyps K64.8, Other hemorrhoids D12.3, Benign neoplasm of transverse colon (hepatic flexure or splenic flexure) D12.4, Benign neoplasm of descending colon D12.7, Benign neoplasm of rectosigmoid junction D12.5, Benign neoplasm of sigmoid colon CPT copyright 2020 [employer]. All rights reserved. The codes documented in this report are preliminary and upon multi purpose machine operator reviewmay be revised to meet current compliance [...] YELITZA GAITAN HISTORY: Routine screening mammography. COMPARISON: 07/13/2022, 06/23/2020, 01/27/2020 TECHNIQUE: CC and MLO views [...] Hepatitis C antibody Blood (04/23/2023 12:50 PM MAILING SECTION CLERK) Hep C Ab Nonreactive Nonreactive [facility] Comment: Interpretive Data Nonreactive: Antibodies to HCV not detected. Does NOT exclude the possibility of recent exposure to HCV. Equivocal: Equivocal for HCV antibodies. Supplemental molecular testing will be automatically performed to determine infection status in accordance with current CDC screening recommendations. Reactive: Positive for HCV antibodies. This may represent current or past HCV infection. Supplemental molecular testing will be automatically performed to determine current infection status in accordance with current CDC screening recommendations. Interpretive data was last revised on 2019. Blood 04/23/2023 12:5 0 PM MAILING SECTION CLERK 04/23/2023 6:15 PM MAILING SECTION CLERK us Zena Gonzalez MD LAB MICROBIOLOGY - GENERAL ORDERABLES Final Result [facility] [address] Department of Laboratories [place] [phone] * Pap with reflex to High Risk HPV (03/19/2020 9:32 AM MAILING SECTION CLERK) 03/19/2020 9:32 AM MAILING SECTION CLERK 03/19/2020 9:32 AM MAILING SECTION CLERK Narrative [facility] - 03/23/2020 2:40 PM MAILING SECTION CLERK [facility] Department of Pathology [address] [place] [address] Final Report with Addendum Patient Name: IVONNE BACON Address: [address] [place] [address] Gender: F : 1960 (Age: 59) Service: Laboratory Location: Lab Hospital #: [id number] Patient Type: [facility] Lab Taken: 03/19/2020 Received: 03/19/2020 Accessioned:: 03/22/2020 Reported: 03/23/2020 Physician(s): MD Yelitza Lee MD Diagnosis: Source of Specimen: Imaged Thinprep Pap Test plus HPV - Telephone Engineer Cytologic Material Specimen Adequacy: - Specimen satisfactory for interpretation; endocervical/transformation zone component absent or insufficient General Category: - Negative for intraepithelial lesion or malignancy ELAYNE Wilson(ASCP) Report Electronically Reviewed and Signed Out By ELAYNE Wilson(ASCP) 03/23/2020 14:40:29 Addenda: HPV Test Interpretation NEGATIVE for types 16, 18, 31, 33, 35, 39, 45, 51, 52, 56, 58, 59, 66 and 68. Test performed utilizing Gen-Probe Aptima assay. ELAYNE Mitchell(ASCP) Report Electronically Reviewed and Signed Out By ELAYNE Mitchell(ASCP) 03/22/2020 14:54:10 Specimen(s) Received: A: Imaged Thinprep Pap Test plus HPV - Telephone Engineer Cytologic Material Clinical History: Menstrual History: Post-menopausal Previous Negative Pap The Pap test is a screening test used to aid in the detection of cervical cancer and its precursors. It should not be the sole means by which malignant and premalignant lesions are diagnosed. Both false negative and false positive results may occur. It also has poor sensitivity for the detection of endometrial lesions and should not be used to evaluate suspected endometrial abnormalities. For these reasons it is most important to obtain Pap tests at regular intervals. The performance characteristics of some immunohistochemical stains, fluorescence in-situ hybridization tests and immunophenotyping by flow cytometry cited in this report (if any) were determined by the Surgical Pathology Department at [facility] as part of an ongoing quality assurance supervisor chassis program and in compliance with federally mandated regulations drawn from the Clinical Laboratory Improvement Act of 1988 (CLIA '88). Some of these tests rely on the use of analyte specific reagents and are subject to specific labeling requirements by the US Food and Drug Administration. Such diagnostic tests may only be performed in a facility that is certified by the Department of Health and Human Services as a high complexity laboratory under CLIA '88. The FDA has determined that such clearance or approval is not necessary. This test is used for clinical purposes. It should not be regarded as investigational or for research. Nevertheless, federal rules concerning the medical use of analyte specific reagents require that the following disclaimer be attached to the report: This test was developed and its performance characteristics determined by the Surgical Pathology Department [facility]. It has not been cleared or approved by the U. S. Food and Drug Administration. Yelitza Gaitan MD LAB CYTOLOGY ORDERABL ES Final Result [facility] [address] [facility] [address] [place] [address] * (ABNORMAL) Hemoglobin A1c (09/15/2018 3:35 AM CDT) Hgb A1C 8.4(H) 4.0 - 5.6 % [facility] ARRIAGA Estimated Average Glucose 194 mg/dL [facility] Comment: The ADA recommends reporting an estimated Average Glucose (eAG) with all Hemoglobin A1c results using the equation derived from a study of 507 normal and diabetic adults. Minority populations were underrepresented and children were not included. (Diabetes Care 31:1639-1597, 2008). The eAG is not equivalent to a fasting glucose. Blood specimen (specimen) 09/15/2018 3:35 AM CDT 09/15/2018 4:09 AM CDT us Jairo Red MD LAB BLOOD ORDERABLES Final Result [facility] Department [place] [address] * (ABNORMAL) Lipid panel (09/15/2018 3:35 AM CDT) Cholesterol 197 30 - 199 mg/dL [facility] Comment: Interpretive Data Ages < or = 19 years Acceptable: <170 mg/dL Borderline high: 170-199 mg/dL High: >or= 200 mg/dL Ages > or = 20 years Desirable: <200 mg/dL Borderline high: 200-239 mg/dL High: >or= 240 mg/dL Literature References: 1. Expert Panel on Integrated Guidelines for Cardiovascular Health and Risk Reduction in Children and Adolescents. Pediatrics 2011;128:S213 2. NCEP Expert Panel. Circulation 2004;110:227 Current Interpretive Data was last revised on 2017. Triglycerides 275(H) <=149 mg/dL [facility] Comment: Interpretive Data Ages < or = 9 years Acceptable: <75 mg/dL Borderline high: 75-99 mg/dL High: >or= 100 mg/dL Ages 10 to 20 years Acceptable: <90 mg/dL Borderline high: 90-129 mg/dL High: >or= 130 mg/dL Ages > or = 20 years Desirable: <150 mg/dL Borderline high: 150-199 mg/dL High: 200-499 mg/dL Very high: >or= 499 mg/dL Literature References: 1. Expert Panel on Integrated Guidelines for Cardiovascular Health and Risk Reduction in Children and Adolescents. Pediatrics 2011;128:S213 2. NCEP Expert Panel. Circulation 2004;110:227 Current Interpretive Data was last revised on 2017. HDL 33(L) >=40 mg/dL [facility] Comment: Interpretive Data Ages < or = 19 years Acceptable: >45 mg/dL Borderline low: 40-45 mg/dL Low: <40 mg/dL Ages > or = 20 years Desirable: >or= 60 mg/dL Low: <40 mg/dL Literature References: 1. Expert Panel on Integrated Guidelines for Cardiovascular Health and Risk Reduction in Children and Adolescents. Pediatrics 2011;128:S213 2. NCEP Expert Panel. Circulation 2004;110:227 Current Interpretive Data was last revised on 2017. LDL, calculated 109 <=129 mg/dL [facility] Comment: Interpretive Data Ages < or = 19 years Acceptable: <110 mg/dL Borderline high: 110-129 mg/dL High: >or= 130 mg/dL Ages > or = 20 years Optimal: <100 mg/dL Near optimal: 100-129 mg/dL Borderline high: 130-159 mg/dL High: >160 mg/dL Literature References: 1. Expert Panel on Integrated Guidelines for Cardiovascular Health and Risk Reduction in Children and Adolescents. Pediatrics 2011;128:S213 2. NCEP Expert Panel. Circulation 2004;110:227 Current Interpretive Data was last revised on 2017. Non-HDL Cholesterol 164 mg/dL [facility] Comment: Interpretive Data Ages < or = 19 years Acceptable: <120 mg/dL Borderline high: 120-144 mg/dL High: >145 mg/dL Ages > or = 20 years When triglycerides are >200 mg/dL, Non-HDL cholesterol is a secondary target of therapy with treatment goals that are 30 mg/dL greater than the LDL cholesterol target. Literature References: 1. Expert Panel on Integrated Guidelines for Cardiovascular Health and Risk Reduction in Children and Adolescents. Pediatrics 2011;128:S213 2. NCEP Expert Panel. Circulation 2004;110:227 Current Interpretive Data was last revised on 2017. Chol/HDL ratio 6 [facility] Blood specimen (specimen) 09/15/2018 3:35 AM CDT 09/15/2018 4:07 AM CDT us Jairo Red MD LAB BLOOD ORDERABLES Final Result [facility] Department [place] [address] from Last 3 Months or Most Recently Relevant to Health Maintenance Insurance [facility] [id number] [facility] [id number] [facility] [id number] Advance Directives For more information, please contact: [phone] * Full Code (Latest Code Status on File) Date Activated Date Inactivated Comments 09/14/2018 10:08 PM 09/15/2018 9:15 PM Care Teams General Operations Agent Relationship Specialty Start Date End Date Soco Shrestha NP [address] [place] [id number] PCP - General Nurse Practitioner 01/24/24 AftSuzie MD PhD [address] [place] [address] Surgeon Surgical Oncology 04/23/20 Yelitza Gaitan MD [address] [place] [address] Laundry Clerk Obstetrics and Gynecology 07/31/22 Troy Rico MD Consulting Physician Rheumatology 08/12/19
--- OUTSIDE RECORDS SUMMARY | 2024-04-21 19:34 | XMS_ITS | Encounter Summary ---
Author Organization [facility] Address [address] [place] [address] Phone Care Team Providers Care Asset Coordinator Name Role Phone Aft, Suzie Dumont MD PhD Unavailable [phone] Tarik Escalera MD Primary Care Provider [phone] Araceli Pagan MD Unavailable Soco Shrestha NP Primary Care Provider [phone] Encounter Details Date Type Department Care Team (Late st Contact Info) Description 09/14/2018 Ophth Exam [facility] Ophthalmology [address] [place] [address] 1st [place] [address] Aiyana Mendoza MD PhD [address] [place] [address] Social History Tobacco Use Types Packs/Day Years Used Date Smoking Tobacco: Every Day Cigarettes Smokeless Tobacco: Never Comments:Trying to quit Alcohol Use Standard Drinks/Week Comments Yes 0 (1 standard drink = 0.6 oz pur e alcohol) Comments No Sex and Gender Information Value Date Recorded Sex Assigned at Not on file Legal Sex Female 1:45 AM QI SPECIALIST Gender Identity Female 11/16/2018 3:35 PM CDT Sexual Orientation Straight 11/16/2018 3: 35 PM CDT 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 file Not on file documented as of this encounter Plan of Treatment Upcoming Encounters Date Type Department Care Team (Late st Contact Info) Description 08/26/2024 9:45 AM CDT Hospital Encounter [facility] GI Lab [address] [place] [address] [place] [address] [address] 08/26/2024 9:45 AM CDT - 08/26/2024 10:45 AM CDT Surgery [facility] GI Lab [address] [place], [place] [address] [place] [address] [address] COLONOSCOPY Scheduled Procedures Name Priority [...] Clear Clear Vitreous Normal Normal Care Teams Asset Coordinator Relationship Specialty Start Date End Date Tarik Escalera MD [address] [place] [address] PCP - General Family Practice 07/28/21 01/23/24 Soco Shrestha NP [address] [place] [address] PCP - General Nurse Practitioner 01/24/24 Aft, Suzie Dumont MD PhD [address] [place] [address] Surgeon Surgical Oncology 04/23/20 Araceli Pagan MD [address] [place] [address] Milk Pickup Truck Driver Obstetrics and Gynecology 07/31/22 Troy Rico MD Consulting Physician Rheumatology 08/12/19 documented as of this encounter
--- OUTSIDE RECORDS SUMMARY | 2024-04-21 19:34 | XMS_ITS | Encounter Summary ---
Author Organization [facility] Address [address] [place] [address] Phone Care Team Providers Care Him Analyst Name Role Phone Aft, Suzie Dumont MD PhD Unavailable [phone] Tarik Escalera MD Primary Care Provider [phone] Araceli Pagan MD Unavailable Soco Shrestha NP Primary Care Provider Encounter Details Date Type Department Care Team (Late st Contact Info) Description 09/14/2018 Ophth Exam [facility] Ophthalmology [address] [place] [address] 1st [place] [address] Mame Venegas MD [address] [place] [address] Social History Tobacco Use Types Packs/Day Years Used Date Smoking Tobacco: Every Day Cigarettes Smokeless Tobacco: Never Comments:Trying to quit Alcohol Use Standard Drinks/Week Comments Yes 0 (1 standard drink = 0.6 oz pur e alcohol) Comments No Sex and Gender Information Value Date Recorded Sex Assigned at Not on file Legal Sex Female 1:45 AM TENON MACHINE OPERATOR Gender Identity Female 11/16/2018 3:35 PM CDT Sexual Orientation Straight 11/16/2018 3: 35 PM CDT 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 Not on file documented as of this encounter Plan of Treatment Upcoming Encounters Date Type Department Care Team (Late st Contact Info) Description 08/26/2024 9:45 AM CDT Hospital Encounter [facility] GI Lab [address] [place] [address] [place] [address] [id number] 08/26/2024 9:45 AM CDT - 08/26/2024 10:45 AM CDT Surgery [facility] GI Lab [address] [place] [address] [place] [address] [address] COLONOSCOPY Scheduled Procedures Name Priority [...] peripheral p igmentary changes inferotemporally Care Teams Him Analyst Relationship Specialty Start Date End Date Tarik Escalera MD [address] [place] [address] PCP - General Family Practice 07/28/21 01/23/24 Soco Shrestha NP [address] [place] [address] PCP - General Nurse Practitioner 01/24/24 Aft, Suzie Dumont MD PhD [address] [place] [address] Surgeon Surgical Oncology 04/23/20 Araceli Pagan MD [address] [place] [address] Advertising Sales Associate Obstetrics and Gynecology 07/31/22 Troy Rico MD Consulting Physician Rheumatology 08/12/19 documented as of this encounter
--- OUTSIDE RECORDS SUMMARY | 2024-04-21 19:34 | XMS_ITS | Encounter Summary ---
Author Organization [facility] Address [address] [place] [address] Phone Care Team Providers Care Loader Unloader Name Role Phone Aft, Suzie Dumont MD PhD Unavailable [phone] Tarik Escalera MD Primary Care Provider [phone] Araceli Pagan MD Unavailable [phone] Soco Shrestha NP Primary Care Provider [phone] Encounter Details Date Type Department Care Team (Late Contact Info) Description 04/22/2018 Ophth Exam [facility] Ophthalmology [address] [place] [address] 1st [place] [address] Aby Vera MD [address] [place] [address] Social History Tobacco Use Types Packs/Day Years Used Date Smoking Tobacco: Every Day Cigarettes Smokeless Tobacco: Never Comments:Trying to quit Alcohol Use Standard Drinks/Week Comments Yes 0 (1 standard drink = 0.6 oz pur e alcohol) Comments No Sex and Gender Information Value Date Recorded Sex Assigned at Not on file Legal Sex Female 1:45 AM ASSISTANT FOOD SERVICE MANAGER Gender Identity Female 11/16/2018 3:35 PM CDT Sexual Orientation Straight 11/16/2018 3: 35 PM CDT documented as of this encounter Plan of Treatment Upcoming Encounters Date Type Department Care Team (Late st Contact Info) Description 08/26/2024 9:45 AM CDT Hospital Encounter [facility] GI Lab [address] [place] [address] [place] [address] [address] 08/26/2024 9:45 AM CDT - 08/26/2024 10:45 AM CDT Surgery [facility] GI Lab [address] [place] [address] [place] [address] [address] COLONOSCOPY Scheduled Procedures Name Priority [...] Normal Normal Periphery Normal Normal Care Teams Loader Unloader Relationship Specialty Start Date End Date Tarik Escalera MD [address] [place] [address] PCP - General Family Practice 07/28/21 01/23/24 Soco Shrestha NP [address] [place] [address] PCP - General Nurse Practitioner 01/24/24 Aft, Suzie Dumont MD PhD [address] [place] [address] Surgeon Surgical Oncology 04/23/20 Araceli Pagan MD [address] [place] [address] Newspaper Illustrator Obstetrics and Gynecology 07/31/22 Troy Rico MD Consulting Physician Rheumatology 08/12/19 documented as of this encounter
--- OUTSIDE RECORDS SUMMARY | 2024-04-21 19:34 | XMS_ITS | Patient Health Summary ---
Author Organization [facility] [employer] Address [address] [place] [address] Care Team Providers Care Wedger And Gluer Name Role Phone JayKin aguirre Primary Care Provider [phone] Note from [facility],non-owned Affiliates and Associated Physician Practices is amultiple site organization consisting of ambulatory clinics and hospital sitesin [place], [place], [place] and [place]. This disclosure is being madepursuant to the Care Everywhere program and may not contain all information available regarding this patient. Last updated 17.[facility] [employer] Allergies * Amoxicillin-Pot Clavulanate(Rash) -Medium Criticality Medications [...] PROTEIN C FUNCTIONAL (06/29/2017 2:58 PM CDT) [facility] APTT 24.8 23.0 - 38.4 Seconds 07/03/2017 10:59 AM CDT [facility] PT 12.9 12.1 - 14.8 Seconds 07/03/2017 10:59 AM CDT [facility] Protein C Activity 149(H) 70 - 130 U/dL 07/03/2017 10:59 AM CDT [facility] INR 1.0 07/03/2017 10:59 AM CDT [facility] Blood BLOOD SPECIMEN / Unknown Lab Venipuncture / Unknown 06/29/2017 2:58 PM CDT 06/29/2017 2:59 PM CDT Lupe Hansen MD LAB - CHEMISTRY NATHAN JURADO [address] [phone] * LUPUS ANTICOAGULANT PANEL (06/29/2017 1:04 PM CDT) Pathologist [facility] Buffer 36.7 Seconds 018 11:14 AM CDT [facility] Phospholipid 36.1 Seconds 07/03/2017 11:14 AM CDT [facility] Delta 0.6 <8.0 Seconds 07/03/2017 11:14 AM CDT [facility] Interpretation [facility] Negative Negative 07/03/2017 11:14 AM CDT [facility] Comment:Up to 15-20% of ilene ents [...] Hansen MD LAB - HEMATOLOGY ORD ERABLES [address] [phone] * (ABNORMAL) MTHFR MUTATION ANALYSIS (06/29/2017 1:04 PM CDT) Specimen MTHFR PCR Whole Blood 07/06/2017 5:45 AM CDT [facility]) C677T Mutation Heteroz ygous(A ) 07/06/2017 5:45 AM CDT [facility]) MTHFR Q3028F Mutation Heteroz ygous(A ) 07/06/2017 5:45 AM CDT [facility] ([facility]) Interpretation MTHFR See Note 07/06/2017 5:45 AM CDT [facility] ([facility]) Comment: Indication for testing: Determine genetic contribution to early-onset arteriosclerotic vascular disease or venous thrombosis and/or assess tolerance to antifolate medications. Compound Heterozygous MTHFR c.665C>T/c.1286A>C: One copy of each of the two MTHFR gene variants tested c.665C>T (previously designated C677T) and c.1286A>C (previously designated K6527H) were detected. Although this genotype has been associated with a reduction in enzyme activity, it is not causative for an increase in plasma homocysteine levels, or an increased risk for arteriosclerotic coronary disease or venous thrombosis. Dose requirements for medications affecting folate metabolism may be lower. This result has been reviewed and approved by Nancy Becerra M.D. Background Information: Methylenetetrahydrofolate Reductase (MTHFR) 2 Variants Characteristics: Variants in the MTHFR gene (c.665C>T and c.1286A>C) correlate with reduced enzyme activity; however, only homozygotes for the c.665C>T variant have been significantly associated with elevated plasma homocysteine levels and with an increased risk for premature cardiovascular disease. These individuals may also show toxicity from medications (ie, methotrexate) that affect folate metabolism. Incidence: The allele frequency of c.665C>T is 0.35 in Caucasians and 0.12 in Americans. The allele frequency of c.1286A>C is 0.31 in Caucasians and 0.15 in Americans. Inheritance: Autosomal recessive. Cause: Homozygosity for MTHFR gene mutation c.665C>T. Mutations Tested: c.665C>T (previously designated C677T); p.Vzk830Etu and c.1286A>C (previously designated V3245P); p.Kry757Pqi. Clinical Sensitivity: Undefined. Sensitivity is dependent upon multiple contributing factors. Methodology: Polymerase chain reaction followed by high resolution melt analysis. Analytical Sensitivity and Specificity: 99 percent. Limitations: Only the two MTHFR gene mutations (c.665C>T and c.1286A>C) will be targeted. Diagnostic errors can occur due to rare sequence variations. See Compliance Statement C: [email or web address] Performed by [employer], [address] [place] [address] [email or web address], Jm Hurley MD, Lab. Director Blood BLOOD SPECIMEN / Unknown Lab Venipuncture / Unknown 06/29/2017 1:04 PM CDT 06/29/2017 1:33 PM CDT Lupe Hansen MD LAB - CHEMISTRY NATHAN JURADO [employer] ([facility]) [address] * PROTEIN S ANTIGEN (06/29/2017 1:04 PM CDT) Pathologist [facility] Protein S Antigen Total 80 60 - 150 % 07/01/2017 12:07 PM CDT [facility] ([facility]) Comment: This test was developed and its performance characteristics determined by [facility]. It has not been cleared or approved by the Food and Drug Administration. Protein S Free 93 57 - 157 % 07/01/2017 12:07 PM CDT [facility] ([facility]) Comment: This test was developed and its performance characteristics determined by [facility]. It has not been cleared or approved by the Food and Drug Administration. Blood BLOOD SPECIMEN / Unknown Lab Venipuncture / Unknown 06/29/2017 1:04 PM CDT 06/29/2017 1:31 PM CDT Narrative [facility] ([facility]) - 07/01/2017 12:07 PM CDT Performed at: [address] [id number] Motor Grader Operator: Perry Saha MD, Phone: [phone] Lupe Hansen MD LAB - COAGULATION OR DERABLES [facility] ([facility]) [address] [place] [address] * FACTOR V LEIDEN MUTATION PANEL (06/29/2017 1:04 PM CDT) [facility] Factor V Genotype -/- (Normal) -/- (Normal) 07/04/2017 3:26 PM CDT [facility] Factor V Interpretation 07/04/2017 3:26 PM CDT [facility] Comment: From this analysis, the patient has only wild-type (-) alleles of Factor V at K9458T. The patient lacks the L7710Z mutation of Facor V; and is, therefore homozygous wild-type (negative). DNA was isolated from the specimen and analyzed by real-time PCR in an allele specific amplification protocol to detect the thrombophilia associated C6122W mutation of Factor V (Factor V Leiden) that confers resistance to proteolytic cleavage by Activated Protein C (Brody Cisse et all (1994) Nature 369, 644- 647; Tim Mariano, et all (1997) Hemostasis Thrombosis 78, 960-961; Hay Farias et al, (2001) Clin Chem 47:333-335). Only wild type (normal) sequences were detected. This test was developed and its performance characteristics determined by the [facility]. It has not been cleared or approved by the U.S. Food and Drug Administration. The FDA has determined that such clearance or approval is not necessary. This test is used for clinical purposes. It should not be regarded as investigational or for research. This laboratory is certified under the Clinical Laboratory Improvement Amendments of 1988(CLIA-88) as qualified to perform high complexity clinical laboratory testing. Blood BLOOD SPECIMEN / Unknown Lab Venipuncture / Unknown 06/29/2017 1:04 PM CDT 06/29/2017 1:32 PM CDT Lupe Hansen MD LAB - COAGULATION OR DERABLES Performing Organization Address [facility]/ZIP Co de Phone Number [facility] [address] [place] [address] * CARDIOLIPIN ANTIBODY IGM (06/29/2017 1:04 PM CDT) Anticardiolipin Antibody IgM <15.0 <15.0 MPL 07/03/2017 11:51 AM CDT [facility] Blood BLOOD SPECIMEN / Unknown Lab Venipuncture / Unknown 06/29/2017 1:04 PM CDT 06/29/2017 1:32 PM CDT Lupe Hansen MD LAB - SEROLOGY ORDER DARY [facility] [address] [place] [address] * CARDIOLIPIN ANTIBODY IGG (06/29/2017 1:04 PM CDT) Anticardiolipin Antibody IgG <15.0 <15.0 GPL 07/03/2017 11:50 AM CDT [facility] Blood BLOOD SPECIMEN / Unknown Lab Venipuncture / Unknown 06/29/2017 1:04 PM CDT 06/29/2017 1:32 PM CDT Lupe Hansen MD LAB - SEROLOGY ORDER DARY [address] [phone] * HOMOCYSTEINE BLOOD QUANTITATIVE (06/29/2017 1:04 PM CDT) Homocysteine 10.5 4.4 - 16.2 umol/L 06/29/2017 2:26 PM CDT [facility] Blood BLOOD SPECIMEN / Unknown Lab Venipuncture / Unknown 06/29/2017 1:04 PM CDT 06/29/2017 1:33 PM CDT Lupe Hansen MD LAB - CHEMISTRY ORDE RABANICETO [address] [phone] * OPH COLOR FUNDUS PHOTOGRAPHY SLU (06/25/2017 4:00 PM CDT) Anatomical Region Laterality [...] * CYTOLOGY SMEAR PAP (05/05/1998 10:56 AM PIG FARMER) Result CASE NUMBER [id number] Comment: ORDERING PHYSICIAN MARK ANDRADE SPECIMEN TYPE PAP Smear Date 05/05/1998 Procedure Cervical/Endocervical, 1 smear received Specimen Adequacy Satisfactory for Evaluation Categorization Benign Cellular Changes Comment Predominance of Coccobacilli Consistent with Shift in Vaginal Ree. Snomed. 05/13/1998 2326 <1> Hand Rug Braider Lindsey Ayala(ASCP) PAP Footnote The PAP smear is only a screening procedure to aid in the detection of cervical cancer and its precursors. It is not a diagnostic procedure and should not be used as the sole means to detect cervical cancer. Both false negative and false positive results have been experienced. MISCELLANEOUS SAMPLES / Unknown 05/05/1998 10:56 AM PIG FARMER 05/11/1998 10:56 AM PIG FARMER Historical Provider LAB - PATHOLOGY/C YTOLOGY ORDERABLES Care Teams Wedger And Gluer Relationship Specialty Start Date End Date Kin Jason DO [address] [address] PCP - General 06/25/17
--- OUTSIDE RECORDS SUMMARY | 2024-04-21 19:34 | XMS_ITS | Referral Summary ---
Author Organization [facility] Address [address] [place] [address] Care Team Providers Care Director Of Coding Name Role Phone ToddtriceKin aguirre Primary Care Provider Source Comments [facility],non-owned Affiliates and Associated Physician Practices is amultiple site organization consisting of ambulatory clinics and hospital sitesin [place], [place], [place] and [place]. This disclosure is being madepursuant to the Care Everywhere program and may not contain all information available regarding this patient. Last updated 17.[facility] Allergies Active Allergy Reactions Criticality Noted Date [...] SMEAR PAP TIMOTHY 05/05/1998 10 :56 AM AMERICAN INDIAN POLICY SPECIALIST from Last 3 Months or Most Recently Relevant to Health Maintenance Results * CYTOLOGY SMEAR PAP (05/05/1998 10:56 AM AMERICAN INDIAN POLICY SPECIALIST) Result CASE NUMBER [id number] Comment: ORDERING PHYSICIAN MARK ANDRADE SPECIMEN TYPE PAP Smear Date 05/05/1998 Procedure Cervical/Endocervical, 1 smear received Specimen Adequacy Satisfactory for Evaluation Categorization Benign Cellular Changes Comment Predominance of Coccobacilli Consistent with Shift in Vaginal Ree. Snomed. 05/13/1998 1434 <1> Cops Lindsey Ayala(ASCP) PAP Footnote The PAP smear is only a screening procedure to aid in the detection of cervical cancer and its precursors. It is not a diagnostic procedure and should not be used as the sole means to detect cervical cancer. Both false negative and false positive results have been experienced. MISCELLANEOUS SAMPLES / Unknown 05/05/1998 10:56 AM AMERICAN INDIAN POLICY SPECIALIST 05/11/1998 10:56 AM AMERICAN INDIAN POLICY SPECIALIST Historical Provider LAB - PATHOLOGY/C YTOLOGY ORDERABLES from Last 3 Months or Most Recently Relevant to Health Maintenance Care Teams Director Of Coding Relationship Specialty Start Date End Date Kin Jason DO [address] [facility] [address] [place] [address] PCP - General 06/25/17
--- OUTSIDE RECORDS SUMMARY | 2024-04-21 19:34 | XMS_ITS | Encounter Summary ---
Author Organization [facility] Address [address] [facility] [facility] [address] [place] [address] Phone Care Team Providers Care Automation Test Developer Name Role Phone Aft, Suzie Dumont MD PhD Unavailable [phone] Tarik Escalera MD Primary Care Provider [phone] Araceli Pagan MD Unavailable [phone] Soco Shrestha NP Primary Care Provider [phone] Reason for Referral * Diagnostic Imaging (Routine) [...] - Both Eyes Nicholas Orellana MD [address] [facility] [address] [facility] [address] [place] [address] Phone: tel: fax: [facility] (All Locations) Referral ID Status Reason Start Date Expiration Date Visits Re quested Visits Authorized [id number] Closed 04/18/2023 05/17/2024 1 1 OPATHOLOGIST * Diagnostic Imaging (Routine) - Closed Specialty [...] [place] [address] [place] [address] Phone: tel: fax: [facility] (All Locations) Referral ID Status Reason Start Date Expiration Date Visits Re quested Visits Authorized [id number] Closed 04/18/2023 05/17/2024 1 1 OPATHOLOGIST * Diagnostic Imaging (Routine) - Closed Specialty Diagnoses / Procedures Referred By Mar mooney Referred To Contact Diagnoses Optic atrophy of both eyes Central retinal artery occlusion, left Lesion of right eyelid Ischemic optic neuropathy, right Pseudopapilledema of optic disc, 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 Branch retinal artery occlusion, right eye Vasculitis (CMS/HCC) ([facility]) Procedures [place] Visual Field - OU - Both Eyes Nicholas Orellana MD [address] [place] [address] Phone: tel: fax: [facility] (All Locations) Referral ID Status Reason Start Date Expiration Date Visits Re quested Visits Authorized [id number] Closed 04/18/2023 05/17/2024 1 1 OPATHOLOGIST Encounter Details Date Type Department Care Team (Late st Contact Info) Description 04/18/2023 Orders Only [facility] Ophthalmology [address] [place] [address] Health 6th [place] [id number] Nicholas Orellana MD [address] [place] [address] Optic atrophy of both eyes (Primary [...] on file Legal Sex Female 1:45 AM HISTOPATHOLOGIST Gender Identity Female 11/16/2018 3:35 PM CDT Sexual Orientation Straight 11/16/2018 3: 35 PM CDT Occupation Industry Job Start Date Job End Date Not on file Not on file Not on file Not on file documented as of this encounter Plan of Treatment Upcoming Encounters Date Type Department Care Team (Late st Contact Info) Description 08/26/2024 9:45 AM CDT Hospital Encounter [facility] GI Lab [address] [place] [address] [place] [address] [address] 08/26/2024 9:45 AM CDT - 08/26/2024 10:45 AM CDT Surgery [facility] GI Lab [address] [place] [address] [place] [address] [address] COLONOSCOPY Scheduled Procedures Name Priority Associated Diagnoses [...] focal inferior ganglion cell layer thinning OD. Stable. No reliable images for the left eye. [...] layer thinning OD with focal inferior thinning. Stable. No reliable images for the left eye. [...] db. Notes Dense superior altitudinal defect OD. Mildly worsened compared to prior visual field but [...] unspecified documented in this encounter Care Teams Automation Test Developer Relationship Specialty Start Date End Date Tarik Escalera MD [address] [place] [address] PCP - General Family Practice 07/28/21 01/23/24 Soco Shrestha NP [address] [place] [address] PCP - General Nurse Practitioner 01/24/24 AftSuzie MD PhD [address] [place] [address] Surgeon Surgical Oncology 04/23/20 Araceli Pagan MD [address] [place] [address] Zipper Measurer Obstetrics and Gynecology 07/31/22 Troy Rico MD Consulting Physician Rheumatology 08/12/19 documented as of this encounter
--- OUTSIDE RECORDS SUMMARY | 2024-04-21 19:34 | XMS_ITS | Referral Summary ---
Author Organization [facility] Address [address] [place] [address] Care Team Providers Care Mobile Home Lot Utility Worker Name Role Phone Aft, Suzie Dumont MD PhD Unavailable Yelitza Gaitan MD Unavailable Soco Shrestha NP Primary Care Provider Encounters Date Type Department Care Team Description 04/11/2024 Orders Only [facility] [address] [place] [address] Yelitza Gaitan MD Encounter for screening mammogram for malignant neoplasm of breast (Primary Dx) 04/03/2024 10:00 AM ELECTRICIAN ELEVATOR MAINTENANCE Office Visit [facility] Ophthalmology [address] [phone] Franc Ulloa MD Type 2 diabetes mellitus with right eye affected by mild nonproliferative retinopathy without macular edema, with long-term current use of insulin (HCC) (Primary Dx) 03/24/2024 Telephone [facility] Gastroenterology at [address] [place] [address] Zena Gonzalez MD 03/19/2024 8:30 AM ELECTRICIAN ELEVATOR MAINTENANCE Office Visit [facility] Ophthalmology [address] [facility] 6th Floor, [address] [facility] [place] [address] [place], Kaylee Marisol, OD Mixed type age-related cataract, both eyes (Primary Dx); Type 2 diabetes mellitus with right eye affected by mild nonproliferative retinopathy without macular edema, with long-term current use of insulin (HCC) 02/29/2024 Telephone [facility] Ophthalmology [address] [place] [phone] Nicholas Orellana MD 02/21/2024 12:00 PM ELECTRICIAN ELEVATOR MAINTENANCE Imaging Exam [facility] Ophthalmology [address] [place] [phone] 02/21/2024 3:30 PM ELECTRICIAN ELEVATOR MAINTENANCE Office Visit [facility] Ophthalmology [address] [place] [phone] Franc Ulloa MD Type 2 diabetes mellitus with right eye affected by mild nonproliferative retinopathy without macular edema, with long-term current use of insulin (HCC) (Primary Dx) 02/21/2024 11:00 AM ELECTRICIAN ELEVATOR MAINTENANCE Office Visit [facility] ENT [address] [place] [address] 11th [place] [address] [place] [address] Craig Arroyo MD Dysphonia (Primary Dx); Chronic fungal laryngitis; Sicca laryngitis 02/20/2024 8:40 AM ELECTRICIAN ELEVATOR MAINTENANCE Office Visit [facility] Ophthalmology [address] [place] [phone] Franc Ulloa MD Type 2 diabetes mellitus with right eye affected by mild nonproliferative retinopathy without macular edema, with long-term current use of insulin (HCC) (Primary Dx) 02/20/2024 9:00 AM ELECTRICIAN ELEVATOR MAINTENANCE Office Visit [facility] Internal Medicine [address] [place] [phone] Noman Salgado MD PhD Type 2 diabetes mellitus with other specified complication, with long-term current use of insulin (HCC) (Primary Dx) 02/12/2024 Telephone [facility] Ophthalmology [facility] [place] [address] Nicholas Orellana MD Return Call/Update 02/12/2024 Telephone [facility] Gastroenterology at [facility] [address] [facility] [address] [place] [phone] Zena Gonzalez MD 02/04/2024 11:07 AM ELECTRICIAN ELEVATOR MAINTENANCE - 02/04/2024 11:59 PM ELECTRICIAN ELEVATOR MAINTENANCE Hospital Encounter [facility] Imaging and Radiology [address] [place] [address] Zena Gonzalez MD Liver lesion; Lesion of pancreas Discharge Disposition: Discharge to home or self care 01/31/2024 11:20 AM ELECTRICIAN ELEVATOR MAINTENANCE Office Visit [facility] Advanced [facility] ([facility] ENT [address] [facility] 11th [place] [address] [place] [phone] Craig Arroyo MD Dysphonia (Primary Dx); Laryngeal [...] 19 Active ONETOUCH DELICA LANCETS 33 gauge [facility] USE TO TEST ONCE D 11 09/21/19 [...] 1 tablet (112 mcg total) by mouth legal specialist before breakfast 04/17/19 24 Active lisinopriL (PRINIVIL,ZESTR [...] 08/16/2023 Assessment & Plan (04/03/2024 10:59 AM ELECTRICIAN ELEVATOR MAINTENANCE): FA repeated today. No signs of macular edema or NV. No vasculitis. Is coming off of p.o. prednisone for her giant cell arteritis. As I see no evidence for recurrent vasculitis, I think it is safe to continue weaning her from this medication. I have asked her to return to see us in roughly 8 weeks' time Assessment & Plan (03/19/2024 9:02 AM ELECTRICIAN ELEVATOR MAINTENANCE): Follows w/ Dr. Artemio Brooke appt 04/03 Assessment & Plan (02/21/2024 12:32 PM ELECTRICIAN ELEVATOR MAINTENANCE): Vitreal field was performed today, it is [...] time. Assessment & Plan (02/20/2024 11:10 AM ELECTRICIAN ELEVATOR MAINTENANCE): History of giant cell arteritis, is using [...] - she is seeing the doctors at [facility]. Personal history of colonic polyps 06/14/2023 Esophagitis [...] - Monitor; repeat examination 4 months Vasculitis ([facility]) 07/31/2019 Overview (07/31/2019): See detailed ophthalmic history in Dr. Santy Verma's [facility] notes dated 03/14/19 and 05/14/19, viewable in [employer] under Encounters and scanned under Media Assessment & Plan (11/18/2019 1:28 PM CDT): Patient was seen at [facility] by neuro-scientific helper Dr. Santy Verma on 03/14/19 and 05/14/19. Per review of these notes (viewable in Encounters in [employer] and scanned into Media ), Dr. Verma [...] taper schedule and followed up with her line service person Dr. Rico, who started Actemra on 06/20/19. [...] PM CDT): - Patient was seen at [facility] by neuro-scientific helper Dr. Santy Veram on 03/14/19 and 05/14/19. Per review of these notes (viewable in Encounters in Epic and scanned into Media ), Dr. Verma [...] (see HPI) and followed up with her line service person Dr. Rico, who started Actemra on 06/20/19. [...] recommend that the patient establish with Neuro- scientific helper Dr. Nicolette Mcnally for long-term follow-up. She wishes to transition care back here to [place], since it is impractical for her to follow regularly with Dr. Verma at [place]. - Discussed strict return precautions, including worsening vision, TVOs, pain. Gave patient near card and Amsler grid so that she can check her vision at home. Mixed type age-related cataract, both eyes 07/30 Assessment & Plan (03/19/2024 9:07 AM ELECTRICIAN ELEVATOR MAINTENANCE): -Notes blurred vision and monocular diplopia right [...] up. Assessment & Plan (05/08/2018 10:20 AM ELECTRICIAN ELEVATOR MAINTENANCE): Degree of vision loss and optic nerve [...] on file Legal Sex Female 1:45 AM ELECTRICIAN ELEVATOR MAINTENANCE Gender Identity Female 11/16/2018 3:35 PM CDT Sexual Orientation Straight 11/16/2018 3: 35 PM CDT Occupation Industry Job Start Date Job End Date Not on file Not on file Not on file Not on file Last Filed Vital Signs Vital Sign Reading Time Taken Comments Blood Pressure 142/67 02/20/2024 8:25 AM ELECTRICIAN ELEVATOR MAINTENANCE Pulse 86 02/20/2024 8:25 AM ELECTRICIAN ELEVATOR MAINTENANCE Temperature 36.7 C (98 F) 10/07/2023 1:41 PM CDT Respiratory Rate 17 10/07/2023 4:48 PM CDT Oxygen Saturation 98% 10/07/2023 6:30 PM CDT Inhaled Oxygen Concentration - - Weight 83.5 kg (184 lb) 02/21/2024 10:58 AM ELECTRICIAN ELEVATOR MAINTENANCE Height 170.2 cm (5' 7 ) 02/21/2024 10:58 AM ELECTRICIAN ELEVATOR MAINTENANCE Body Mass Index 28.82 02/21/2024 10:58 AM ELECTRICIAN ELEVATOR MAINTENANCE Plan of Treatment Upcoming Encounters Date Type Department Care Team (Late st Contact Info) Description 08/26/2024 9:45 AM CDT Hospital Encounter [facility] GI Lab [address] [place] [address] [place] [address] [address] 08/26/2024 9:45 AM CDT - 08/26/2024 10:45 AM CDT Surgery [facility] GI Lab [address] [place] [address] [place] [address] [address] COLONOSCOPY Scheduled Procedures Name Priority Associated Diagnoses Date/Ti me COLONOSCOPY Personal history of colon polyps, unspecified 08/26/2024 9:45 AM CDT Procedures Procedure Name Priority Date/Time Associated Diagnosis Comments FLUORESCEIN ANGIOGRAPHY, OU TRANSIT OD - OU - BOTH EYES Routine 04/03/2024 10:59 AM ELECTRICIAN ELEVATOR MAINTENANCE Type 2 diabetes mellitus with right eye affected by mild nonproliferative retinopathy without macular edema, with long-term current use of insulin (HCC) ZULUAGA VISUAL FIELD - OD - RIGHT EYE Routine 02/21/2024 11:53 AM ELECTRICIAN ELEVATOR MAINTENANCE Optic atrophy of both eyes FLUORESCEIN ANGIOGRAPHY, OU TRANSIT OD - OU - BOTH EYES Routine 02/20/2024 11:05 AM ELECTRICIAN ELEVATOR MAINTENANCE Type 2 diabetes mellitus with right eye affected by mild nonproliferative retinopathy without macular edema, with long-term current use of insulin (HCC) OCT, RETINA - OU - BOTH EYES Routine 02/20/2024 11:04 AM ELECTRICIAN ELEVATOR MAINTENANCE Type 2 diabetes mellitus with right eye affected by mild nonproliferative retinopathy without macular edema, with long-term current use of insulin (HCC) MRI ABDOMEN MRCP W WO CONTRAST Routine 02/04/2024 12:48 PM ELECTRICIAN ELEVATOR MAINTENANCE Liver lesion Lesion of pancreas EGFR Routine 10/22/2023 2:11 PM CDT Vasculitis (CMS/HCC) (HCC) Psoriatic arthritis (HCC) COLONOSCOPY 08/21/2023 10:10 AM CDT SCREENING MAMMOGRAM BILATERAL W FRED Schedule Routine, Read Routine (OP Routine) 07/24/2023 9:16 AM CDT History of breast cancer Encounter for screening mammogram for breast cancer HEPATITIS C ANTIBODY Routine 04/23/2023 12:50 PM ELECTRICIAN ELEVATOR MAINTENANCE Elevated liver enzymes PAP WITH REFLEX TO HIGH RISK HPV Routine 03/19/2020 9:32 AM ELECTRICIAN ELEVATOR MAINTENANCE HEMOGLOBIN A1C Routine 09/15/2018 3:35 AM CDT LIPID PANEL Routine 09/15/2018 3:35 AM CDT from Last 3 Months or Most Recently Relevant to Health Maintenance Results * Fluorescein Angiography, OU Transit OD (04/03/2024 10:59 AM ELECTRICIAN ELEVATOR MAINTENANCE) Anatomical Region Laterality Modality Head Fundus Photograp hy Narrative 04/03/2024 10:59 AM ELECTRICIAN ELEVATOR MAINTENANCE Time Out Informed consent was obtained after [...] OD - Right Eye (02/21/2024 11:53 AM ELECTRICIAN ELEVATOR MAINTENANCE) Anatomical Region Laterality Modality Head Other Narrative 02/21/2024 12:31 PM ELECTRICIAN ELEVATOR MAINTENANCE Fixation was good. Cooperation was good. Reliability was good. Progression has been stable. Foveal threshold was normal. Notes Superior altitudinal defect OD, stable.- no changes from 10/2022 Franc Ulloa MD OPHTH VISUAL FIELD Final R esult * Fluorescein Angiography, OU Transit OD (02/20/2024 11:05 AM ELECTRICIAN ELEVATOR MAINTENANCE) Anatomical Region Laterality Modality Head Fundus Photograp hy Narrative 02/20/2024 11:05 AM ELECTRICIAN ELEVATOR MAINTENANCE Time Out Informed consent was obtained after [...] OU - Both Eyes (02/20/2024 11:04 AM ELECTRICIAN ELEVATOR MAINTENANCE) Anatomical Region Laterality Modality Head Optical Coherenc e Tomography Narrative 02/20/2024 11:04 AM ELECTRICIAN ELEVATOR MAINTENANCE Right Eye Quality was good. Scan locations included subfoveal. Progression has been stable. Findings include normal foveal contour. Left Eye Quality was good. Scan locations included subfoveal. Progression has been stable. Findings include abnormal foveal contour. Notes Normal macular thickness OD, stable. Severe inner retinal thinning OS, stable. Franc Ulloa MD OPHTH TOMOGRAPHY Final Res ult * MRI Abdomen MRCP W WO Contrast (02/04/2024 12:48 PM ELECTRICIAN ELEVATOR MAINTENANCE) Anatomical Region Laterality Modality Body N/A Magnetic Resonan ce 02/04/2024 1:33 PM ELECTRICIAN ELEVATOR MAINTENANCE Impressions 02/04/2024 1:33 PM ELECTRICIAN ELEVATOR MAINTENANCE 1. No suspicious liver lesions. 2. 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 3. 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 Electronically signed by: Madhav Chavez M.D. Narrative 02/04/2024 1:33 PM ELECTRICIAN ELEVATOR MAINTENANCE EXAMINATION: 1. MAGNETIC RESONANCE IMAGING OF THE [...] LAB BLOOD ORDERABLES Fin al Result NITA [address] [facility] Department of Laboratories [place] [id number] * Colonoscopy (08/21/2023 10:10 AM CDT) Anatomical Region Laterality Modality Other Narrative Procedure Note Zena Gonzalez MD - 08/21/2023 10:10 AM CDT [facility] Endoscopy Lab Patient Name: Ivonne Bacon Procedure Date: 08/21/2023 10:10 AM Date of : 1960 Admit Type: Outpatient Age: 63 Gender: Female Note Status: Finalized Attending MD: Zena Gonzalez M.D. Procedure Date: 08/21/2023 Procedure: Colonoscopy Indications: High risk colon cancer surveillance: Personalhistory of colonic polyps Providers: Zena Gonzalez M.D., Ana Maria Rutherford CRNA (Anesthesia Staff), Izzy Pete RN, Ineke Cheikh, Energy Efficiency Finance Manager Referring MD: Tarik Escalera M.D. Medicines: Monitored [...] colonoscopy in 1-2 years - Refer to wood last maker to evaluate perianal skin lesions. Procedure Code(s): --- Professional --- 09552, Colonoscopy, flexible; with removal of tumor(s), polyp(s), or other lesion(s) by snare technique 14113, 59, Colonoscopy, flexible; with biopsy,single or multiple Diagnosis Code(s): --- Professional --- Z86.010, Personal history of colonic polyps K64.8, Other hemorrhoids D12.3, Benign neoplasm of transverse colon (hepatic flexure or splenic flexure) D12.4, Benign neoplasm of descending colon D12.7, Benign neoplasm of rectosigmoid junction D12.5, Benign neoplasm of sigmoid colon CPT copyright 2020 [employer]. All rights reserved. The codes documented in this report are preliminary and upon heel nailing machine operator reviewmay be revised to meet current compliance requirements. Dr. Zena Gonzalez MD [facility] Zena Gonzalez M.D. 08/21/2023 12:14:49 PM Number [...] Hepatitis C antibody Blood (04/23/2023 12:50 PM ELECTRICIAN ELEVATOR MAINTENANCE) Hep C Ab Nonreactive Nonreactive NITA REDMAN [...] on 2019. Blood 04/23/2023 12:5 0 PM ELECTRICIAN ELEVATOR MAINTENANCE 04/23/2023 6:15 PM ELECTRICIAN ELEVATOR MAINTENANCE Zena Gonzalez MD LAB MICROBIOLOGY - GENERAL ORDERABLES Final Result Performing Organization Address City/State/[facility] Co de Phone Number NITA [address] Department [place] [address] * Pap with reflex to High Risk HPV (03/19/2020 9:32 AM ELECTRICIAN ELEVATOR MAINTENANCE) 03/19/2020 9:32 AM ELECTRICIAN ELEVATOR MAINTENANCE 03/19/2020 9:32 AM ELECTRICIAN ELEVATOR MAINTENANCE Narrative [facility] PATHOLOGY LAB - 03/23/2020 2:40 PM ELECTRICIAN ELEVATOR MAINTENANCE [facility] Department of Pathology [address] [place], [place] [id number] Final Report with Addendum Patient Name: IVONNE BACON Address: [address] [place] [address] Gender: F : 1960 (Age: 59) Service: Laboratory Location: Lab [facility] #: [id number] Patient Type: Joshua Lab Taken: 03/19/2020 Received: 03/19/2020 Accessioned:: 03/22/2020 Reported: 03/23/2020 Physician(s): MD Yelitza Lee MD Diagnosis: Source of Specimen: Imaged Thinprep Pap Test plus HPV - Education Instructor Cytologic Material Specimen Adequacy: - Specimen satisfactory for interpretation; endocervical/transformation zone component absent or insufficient General Category: - Negative for intraepithelial lesion or malignancy ELAYNE Wilson(ASCP) Report Electronically Reviewed and Signed Out By ELAYNE Wilsno(ASCP) 03/23/2020 14:40:29 Addenda: HPV Test Interpretation NEGATIVE for types 16, 18, 31, 33, 35, 39, 45, 51, 52, 56, 58, 59, 66 and 68. Test performed utilizing Gen-Probe Aptima assay. ELAYNE Mitchell(ASCP) Report Electronically Reviewed and Signed Out By ELAYNE Mitchell(ASCP) 03/22/2020 14:54:10 Specimen(s) Received: A: Imaged Thinprep Pap Test plus HPV - Education Instructor Cytologic Material Clinical History: Menstrual History: Post-menopausal [...] determined by the Surgical Pathology Department at [facility] as part of an ongoing quality compliance consultant program and in compliance with federally [...] characteristics determined by the Surgical Pathology Department [facility]. It has not been cleared or approved by the U. S. Food and Drug Administration. Yelitza Gaitan MD LAB CYTOLOGY ORDERABL ES Final Result Performing Organization Address City/[facility] Co de Phone Number [facility] PATHOLOGY LAB [address] [place] [address] * (ABNORMAL) Hemoglobin A1c (09/15/2018 3:35 AM CDT) Hgb A1C 8.4(H) 4.0 - 5.6 % [facility] Estimated Average Glucose 194 mg/dL [facility] Comment: The ADA recommends reporting an estimated Average Glucose (eAG) with all Hemoglobin A1c results using the equation derived from a study of 507 normal and diabetic adults. Minority populations were underrepresented and children were not included. (Diabetes Care 31:3545-7992, 2008). The eAG is not equivalent to a fasting glucose. Blood specimen (specimen) 09/15/2018 3:35 AM CDT 09/15/2018 4:09 AM CDT us Jairo Red MD LAB BLOOD ORDERABLES Final Result Performing Organization Address City/[facility]/ZIP Co de Phone Number [facility] [address] [facility] [place] [address] * (ABNORMAL) Lipid panel (09/15/2018 3:35 AM CDT) Cholesterol 197 30 - 199 mg/dL [facility] Comment: Interpretive Data Ages < or [...] revised on 2017. Triglycerides 275(H) <=149 mg/dL [facility] Comment: Interpretive Data Ages < or = [...] on 2017. HDL 33(L) >=40 mg/dL [facility] Comment: Interpretive Data Ages < or = [...] 2017. LDL, calculated 109 <=129 mg/dL [facility] Comment: Interpretive Data Ages < or = [...] Red MD LAB BLOOD ORDERABLES Final Result [facility] [address] [facility] [place] [address] from Last 3 Months or Most Recently Relevant to Health Maintenance Insurance Stylewhile [facility] [id number] [place] [id number] [facility] [phone] Advance Directives For more information, please contact: [phone] * Full Code (Latest Code Status on File) Date Activated Date Inactivated Comments 09/14/2018 10:08 PM 09/15/2018 9:15 PM Care Teams Mobile Home Lot Utility Worker Relationship Specialty Start Date End Date Soco Shrestha NP [address] [place] [address] PCP - General Nurse Practitioner 01/24/24 Aft, Suzie Dumont MD PhD [address] [place] [address] Surgeon Surgical Oncology 04/23/20 Yelitza Gaitan MD [address] [place] [address] [facility] 07/31/22 Troy Rico MD Consulting Physician Rheumatology 08/12/19
--- OUTSIDE RECORDS SUMMARY | 2024-04-21 19:34 | XMS_ITS | Continuity of Care Document ---
Author Organization [facility] Address [address] [facility] [address] [place] [address] Phone Care Team Providers Care Elementary Esl Teacher Name Role Phone Noman Allen MD, MD [...] OFFICE/OUTPA TIENT VISIT, EST [facility], [address] [facility] [address], [place], [place], [id number], [place] tel:[phone] OPH CONSULT [facility] 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 [address], [place], [place], [id number] , . tel:[phone] Referring Provider: Noman Moise, [address], [place], [place], [id number]. tel:[phone] OFFICE/OUTPA TIENT VISIT, [facility], [address] [place] [address], [id number], tel:[phone] OPH CONSULT [facility] (chief complaint) Cortical age-related cataract, bilateralIrid ocyclitisOpti c atrophy 8 Tiffany [address]o. [address], [address], [id number] , [place]. tel:[phone] Referring Provider: Noman Moise, [address], [id number]. tel:[phone] [facility], [address] [place] [address], [id number], tel:[phone] Oph Consult [facility] Office blurry vision (chief complaint) Cortical age-related cataract, bilateralOpti c atrophyMigrai ne w/ aura, not intractable, w/o status migrainosus 7 Tiffany Tineo. [address], [address], [id number] , [place]. [phone] Referring Provider: Noman Moise, [address], [place], [place], [id number]. tel:[phone] Family History Family Member Type Diagnosis Age At Onset No Information Payers Payer name Insurance type Covered green party ID Yasir vaz(s) [employer] PPO CI [id number] Social History Type Description Quantity Date Captured [...] OS. Patient is followed by Doc in [place]. Patient saw an Parts Room Assistant at [place] 2 weeks ago and states does not [...]
--- OUTSIDE RECORDS SUMMARY | 2024-04-21 19:34 | XMS_ITS | Clinical Summary ---
Author Organization [facility] Address [address] [place] [address] Care Team Providers Care Patient Assistant Name Role Phone ToddtriceKin aguirre Primary Care Provider Source Comments [facility],non-owned Affiliates and Associated Physician Practices is amultiple site organization consisting of ambulatory clinics and hospital sitesin [place], [place], [place] and [place]. This disclosure is being madepursuant to the Care Everywhere program and may not contain all information available regarding this patient. Last updated 17.[facility] Allergies Active Allergy Reactions Criticality Noted Date [...] SMEAR PAP TIMOTHY 05/05/1998 10 :56 AM WINDOWS APPLICATION DEVELOPER from Last 3 Months or Most Recently Relevant to Health Maintenance Results * CYTOLOGY SMEAR PAP (05/05/1998 10:56 AM WINDOWS APPLICATION DEVELOPER) Result CASE NUMBER [id number] Comment: ORDERING PHYSICIAN MARK ANDRADE SPECIMEN TYPE PAP Smear Date 05/05/1998 Procedure Cervical/Endocervical, 1 smear received Specimen Adequacy Satisfactory for Evaluation Categorization Benign Cellular Changes Comment Predominance of Coccobacilli Consistent with Shift in Vaginal Ree. Snomed. 05/13/1998 1434 <1> Clothing Pattern Preparer Lindsey Ayala(ASCP) PAP Footnote The PAP smear is only a screening procedure to aid in the detection of cervical cancer and its precursors. It is not a diagnostic procedure and should not be used as the sole means to detect cervical cancer. Both false negative and false positive results have been experienced. MISCELLANEOUS SAMPLES / Unknown 05/05/1998 10:56 AM WINDOWS APPLICATION DEVELOPER 05/11/1998 10:56 AM WINDOWS APPLICATION DEVELOPER Historical Provider LAB - PATHOLOGY/C YTOLOGY ORDERABLES from Last 3 Months or Most Recently Relevant to Health Maintenance Care Teams Patient Assistant Relationship Specialty Start Date End Date Kin Jason DO [address] [address] PCP - General 06/25/17
--- OUTSIDE RECORDS SUMMARY | 2024-04-21 19:34 | XMS_ITS | Encounter Summary ---
Author Organization [facility] Address [address] [place] [address] Phone Care Team Providers Care Software Lead Name Role Phone Aft, Suzie Dumont MD PhD Unavailable [phone] Tarik Escalera MD Primary Care Provider [phone] Araceli Pagan MD Unavailable Soco Shrestha NP Primary Care Provider [phone] Encounter Details Date Type Department Care Team [...] on file Legal Sex Female 1:45 AM SLIP MAKER Gender Identity Female 11/16/2018 3:35 PM CDT Sexual Orientation Straight 11/16/2018 3: 35 PM CDT Occupation Industry Job Start Date Job End Date Not on file Not on file Not on file Not on file documented as of this encounter Plan of Treatment Upcoming Encounters Date Type Department Care Team (Late st Contact Info) Description 08/26/2024 9:45 AM CDT Hospital Encounter [facility] [address] [place] [address] [place] [address] [address] 08/26/2024 9:45 AM CDT - 08/26/2024 10:45 AM CDT Surgery [facility] [address] [place] [address] [place] [address] [id number] COLONOSCOPY Scheduled Procedures Name Priority Associated Diagnoses [...] on filedocumented in this encounter Care Teams Software Lead Relationship Specialty Start Date End Date Tarik Escalera MD [address] [place] [address] PCP - General Family Practice 07/28/21 01/23/24 Soco Shrestha NP [address] [place] [address] PCP - General Nurse Practitioner 01/24/24 Suzie Evans MD PhD [address] [place] [address] Surgeon Surgical Oncology 04/23/20 Araceli Pagan MD [address] [place] [address] Dry Ice Maker Obstetrics and Gynecology 07/31/22 Troy Rico MD Consulting Physician Rheumatology 08/12/19 documented as of this encounter
--- OUTSIDE RECORDS SUMMARY | 2024-04-21 19:35 | XMS_ITS | Continuity of Care Document ---
Author Organization [facility] Address [address] [facility] [address] [place] [address] Phone Care Team Providers Care Data Processing Consultant Name Role Phone Noman Allen MD, MD [...] OFFICE/OUTPA TIENT VISIT, EST [facility], [address] [facility] [address], [place], [place], [id number], [place] tel:[phone] OPH CONSULT [facility] 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 [address], [address], [place], [place], [id number] , . tel:[phone] Referring Provider: Noman Moise, [address], [place], [place], [id number]. tel:[phone] OFFICE/OUTPA TIENT VISIT, [facility], [address] [place] [address], [id number], tel:[phone] OPH CONSULT [facility] (chief complaint) Cortical age-related cataract, bilateralIrid ocyclitisOpti c atrophy 8 Tiffany T[address]o. [address], [address], [place], [id number] , [place]. tel:[phone] Referring Provider: Noman Moise, [address], [place], [id number]. tel:[phone] [facility], [address] [place] [address], [id number], tel:[phone] Oph Consult [facility] Office blurry vision (chief complaint) Cortical age-related cataract, bilateralOpti c atrophyMigrai ne w/ aura, not intractable, w/o status migrainosus 7 Tiffany Tineo. [address], [address], [place], [id number] , [place]. [phone] Referring Provider: Noman Moise, [address], [place], [place], [id number]. tel:[phone] Family History Family Member Type Diagnosis Age At Onset No Information Payers Payer name Insurance type Covered alliance party ID Yasir vaz(s) [employer] PPO CI [id number] Social History Type Description Quantity Date Captured [...] OS. Patient is followed by Doc in [place]. Patient saw an Machine Quilt Stuffer at [place] 2 weeks ago and states does not [...]
--- NOTE | 2024-04-21 19:42 | ED_ITS ---
HPI - Female Genitourinary General Chief complaint: Urogenital-Female Stated complaint: Poss UTI Source: patient and RN notes reviewed Mode of arrival: ambulatory Limitations: no limitations History of Present Illness HPI Narrative: 63-year-old female presented for complaint of burning urination and and sudden onset of urinary accident today. onset one hour prior to arrival. States she has stress incontinence, but says this time she was just sitting. Endorses blood in urine. denies nausea, vomiting, abdominal pain, flank pain, constipation, diarrhea, fevers or chills. patient is currently applying RX triamcinolone cream to the [place] area for skin irritation and swelling, stating she is spilling glucose and it is irritating the skin. completed a course of Keflex 2 days ago for dental. Related Data Home Medications ?Medication ?Instructions ?Recorded ?Confirmed ?Last Taken ?Type calcium 600 mg (as 1 tablet PO DAILY 04/23/19 04/10/24 Unknown History carbonate)-vitamin D3 20 mcg (800 unit) tablet (Caltrate with Vitamin D3) alendronate 70 mg tablet 70 mg PO WEEKLY 09/08/22 04/10/24 Unknown History vonoprazan 10 mg tablet (Voquezna) 10 mg PO DAILY 10/03/23 04/10/24 Unknown History secukinumab 150 mg/mL subcutaneous 150 mg subcut MONTHLY 12/07/23 04/10/24 Unknown History pen injector (Cosentyx Pen) clopidogrel 75 mg tablet 75 mg PO DAILY 12/09/23 04/10/24 Unknown History lisinopril 20 mg tablet 20 mg PO DAILY 12/09/23 04/10/24 Unknown History prednisone 10 mg tablet 12.5 mg PO DAILY 04/09/24 04/10/24 Unknown History ondansetron 4 mg disintegrating mg 04/21/24 Unknown History tablet tiotropium bromide 2.5 2 inh inhalation DAILY 04/21/24 04/21/24 Unknown History mcg/actuation mist for inhalation (Spiriva Respimat) Allergies Allergy/AdvReac Type Severity Reaction Status Date / Time clavulanic acid Allergy Intermediate hives Verified 04/21/24 19:38 amoxicillin Allergy Unknown Hives Verified 04/21/24 19:38 Review of Systems Review of Systems: CONSTITUTIONAL: Denies body aches, fever, chills, or sweats. CARDIOVASCULAR: Denies chest pain, palpitations, or edema. RESPIRATORY: Denies cough or dyspnea. GASTROINTESTINAL: Denies abdominal pain, nausea, vomiting, or diarrhea. GENITOURINARY: Reports dysuria, hematuria, denies frequency, urgency, flank pain SKIN: Denies rash, itching, or wounds. MUSCULOSKELETAL: Denies back pain or myalgia. [facility] Past Medical History Medical History Lung tumor (benign) Mastitis Infection of right breast Bronchitis, not specified as acute or chronic Diabetes type 2, controlled Retinal artery branch occlusion Essential hypertension HX: breast cancer Temporal arteritis Vasculitis Sinus abscess Surgical History Surgical History History of incision and drainage History of lumpectomy of left breast History of Aguila fundoplication H/O section History of tonsillectomy Family History Family History Father Diabetes mellitus Family history of Alzheimer's disease Mother Diabetes mellitus Hypertension Family history of arthritis Family history of malignant neoplasm of breast in first degree relative Family history of chronic obstructive pulmonary disease Family history of malignant neoplasm of breast Grandparent Family history of lung cancer Sibling Family history of hypothyroidism Other Family history of cardiovascular disease Family history of malignant neoplasm Social History Social History Smoking packs per day: 0.75 Smoking cigarettes per day: 15.0 Years smoked: 46 Smoking pack-years: 34.50 Smoking status: Current every day smoker Tobacco type: cigarettes Second hand tobacco smoke exposure: Yes Alcohol intake: never Substance use: never Substance use type: does not use Do You Feel Safe in your Home?: Yes Lack of Transportation: No Lack of Food: Never True Current Housing: I Have Housing Concerned About Future Housing: No Difficulty Paying Gas/Electric Bills: No Difficulty Paying for Meds: No Currently Unemployed: No Education: Don't Know Difficulty w/ Childcare or Family Care: No Living arrangements: with family Spiritual care concerns: No Comments At time of signature, I have reviewed and agree with nursing past medical, surgical, social and family history unless otherwise noted. Please see nursing chart for further information. There is no relevant family history pertinent to the presenting complaint Exam Narrative: GENERAL: Well-appearing and in no acute distress. CHEST: No respiratory distress. Clear to auscultation. HEART: Regular rate and rhythm. ABDOMEN: Soft, nontender, nondistended, normal active bowel sounds. No CVA tenderness SKIN: Warm, dry, no rash. NEURO: No focal deficits. Alert and oriented x3. Gait steady. PSYCH: Normal affect. Course Course Emergency Course: Patient is aware of diagnosis, understands and agrees to treatment plan. Anticipatory guidance given. Patient agrees to follow-up as directed and is aware of reasons to seek care at the emergency department. Portions of this record may have been created with voice recognition software Level of Care: Express Care Visit Vital Signs Vital signs: Vital Signs Temperature 96.5 F L 04/21/24 19:46 Pulse Rate 99 04/21/24 19:46 Respiratory Rate 20 04/21/24 19:46 Blood Pressure 158/91 H 04/21/24 19:46 Pulse Oximetry 100 04/21/24 19:46 Oxygen Delivery Room Air 04/21/24 19:46 Temperature 96.5 F L 04/21/24 19:46 Pulse Rate 99 04/21/24 19:46 Respiratory Rate 20 04/21/24 19:46 Blood Pressure 158/91 H 04/21/24 19:46 Pulse Oximetry 100 04/21/24 19:46 Oxygen Delivery Room Air 04/21/24 19:46 Reviewed MDM - Female Genitourinary MDM Narrative Medical decision making narrative: Discussed physical exam findings and urine dip.will culture. Advised supportive measures and signs/symptoms to go to the ER. Pt is appropriate for outpt treatment and f/u. Differential Diagnosis Differential diagnosis: Likely urinary tract infection, bacterial vaginosis, cervicitis, vaginitis and cystitis Discharge Plan Discharge Clinical Impression: Urinary tract infection Patient Disposition: Home, Self-Care Condition: Stable Instructions: Antibiotic Form, Urinary Tract Infection in Women (ED) Additional Instructions: Take the antibiotic as prescribed The urine will be sent of for a culture to identify what type of bacteria is causing your infection. If the culture shows that the antibiotic will not get rid of your infection, you will be notified and a new antibiotic will be called in for you. Increase water intake you will need to follow up with your PCP, call to schedule an appointment. Go to the ER for any worsening symptoms or concerns Patient Language: Georgian Prescriptions: New nitrofurantoin monohyd/m-cryst [Macrobid] 100 mg capsule 100 mg PO Q12H 5 Days Qty: 10 0RF Rx Instructions: must administer with a meal/food No Action ondansetron 4 mg tablet,disintegrating Spiriva Respimat 2.5 mcg/actuation mist 2 inh inhalation DAILY alendronate 70 mg tablet 70 mg PO WEEKLY Rx Instructions: Sunday calcium carbonate-vitamin D3 [Caltrate with Vitamin D3] 600 mg(1,500mg) -800 unit tablet 1 tablet PO DAILY Voquezna 10 mg tablet 10 mg PO DAILY prednisone 10 mg tablet 12.5 mg PO DAILY Rx Instructions: Says is on 22.5mg daily Ozempic 1 mg/dose (4 mg/3 mL) pen injector 1 mg subcut WEEKLY Qty: 3 0RF insulin glargine [Lantus Solostar U-100 Insulin] 100 unit/mL (3 mL) insulin pen 10 unit subcut BID Qty: 15 3RF Cosentyx Pen 150 mg/mL pen injector 150 mg SUBCUT MONTHLY Rx Instructions: Currently on hold for antibitoic use. lisinopril 20 mg tablet 20 mg PO DAILY Rx Instructions: TAKE 1 TABLET BY MOUTH DAILY clopidogrel 75 mg tablet 75 mg PO DAILY Rx Instructions: TAKE 1 TABLET BY MOUTH DAILY trazodone 50 mg tablet 50 mg PO QHS PRN (Reason: insomnia) Qty: 30 2RF metformin 1,000 mg tablet 1,000 mg PO BID Qty: 180 3RF metoprolol succinate 50 mg tablet extended release 24 hr See Rx Instructions .ROUTE .COMPLEX Qty: 90 0RF Dose Instruction: TAKE 1 TABLET BY MOUTH DAILY Rx Instructions: TAKE 1 TABLET BY MOUTH DAILY montelukast 10 mg tablet 10 mg PO QHS Qty: 90 3RF Rx Instructions: TAKE 1 TABLET BY MOUTH DAILY liothyronine 5 mcg tablet See Rx Instructions .ROUTE .COMPLEX Qty: 360 2RF Dose Instruction: TAKE 2 TABLETS BY MOUTH TWICE DAILY Rx Instructions: TAKE 2 TABLETS BY MOUTH TWICE DAILY levothyroxine 75 mcg tablet 75 mcg PO DAILY Qty: 90 0RF Follow-up/Referrals: Soco Shrestha APRN [Primary Care Provider] - Time of Disposition: 20:03
[2024-04-21 19:46] VITALS: BP 158/91; PULSE 99; RESP 20; TEMP 35.8; O2SAT 100
[2024-04-21 19:58] LABS: EDUAAPPEAR Cloudy; EDUABILI Negative (Negative); EDUABLOOD 3+ (Negative); EDUACOLOR1 Pink; EDUAGLUCOSE 2+ (Negative); EDUAKETONE Negative (Negative); EDUALEUKO 1+ (Negative); EDUANITRATE Negative (Negative); EDUAPROTEIN 1+ (Negative); EDUASPGRAVITY 1.025; EDUAUROBILI 0.2
== END 2024-04-21 20:06 | disposition home or self-care (01) ==
PROVIDERS: Emergency Provider Nurse Practitioner Family; PCP Nurse Practitioner Adult Health
DX: N39.0 Urinary tract infection, site not specified (principal); E11.9 Type 2 diabetes mellitus without complications; I10 Essential (primary) hypertension; Z85.3 Personal history of malignant neoplasm of breast; Z87.891 Personal history of nicotine dependence
CPT/HCPCS: 81003; 87086; 87186; 99213; G0463

== ENCOUNTER 2024-04-29 10:15 | Outpatient (CLI) | payer OTHER, SELFPAY ==
--- OUTSIDE RECORDS SUMMARY | 2024-04-29 10:26 | XMS_ITS | Encounter Summary ---
Author Organization [facility] Address [address] [place] [address] Phone Care Team Providers Care Broiler Chef Or Cook Name Role Phone Aft, Suzie Dumont MD PhD Unavailable [phone] Tarik Escalera MD Primary Care Provider [phone] Araceli Pagan MD Unavailable Soco Shrestha NP Primary Care Provider [phone] Encounter Details Date Type Department Care Team (Late st Contact Info) Description 09/14/2018 Ophth Exam [facility] Ophthalmology [address] [place] [address] 1[address] [place] [address] Mame Venegas MD [address] [place] [address] Social History Tobacco Use Types Packs/Day Years Used Date Smoking Tobacco: Every Day Cigarettes Smokeless Tobacco: Never Comments:Trying to quit Alcohol Use Standard Drinks/Week Comments Yes 0 (1 standard drink = 0.6 oz pur e alcohol) Comments No Sex and Gender Information Value Date Recorded Sex Assigned at Not on file Legal Sex Female 1:45 AM HUMAN SERVICES PROGRAM SPECIALIST Gender Identity Female 11/16/2018 3:35 PM CDT Sexual Orientation Straight 11/16/2018 3: 35 PM CDT 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 Not on file Not on file documented as of this encounter Plan of Treatment Upcoming Encounters Date Type Department Care Team (Late st Contact Info) Description 08/26/2024 9:45 AM CDT Hospital Encounter [facility] [address] [place] [address] [place] [address] [id number] 08/26/2024 9:45 AM CDT - 08/26/2024 10:45 AM CDT Surgery [facility] [address] [place] [address] [place] [address] [address] COLONOSCOPY Scheduled Procedures Name Priority [...] peripheral p igmentary changes inferotemporally Care Teams Broiler Chef Or Cook Relationship Specialty Start Date End Date Tarik Escalera MD [address] [place] [address] PCP - General Family Practice 07/28/21 01/23/24 Soco Shrestha NP [address] [place] [address] PCP - General Nurse Practitioner 01/24/24 Aft, Suzie Dumont MD PhD [address] [place] [address] Surgeon Surgical Oncology 04/23/20 Araceli Pagan MD [address] [place] [address] Buncher Hand Obstetrics and Gynecology 07/31/22 Troy Rico MD Consulting Physician Rheumatology 08/12/19 documented as of this encounter
--- OUTSIDE RECORDS SUMMARY | 2024-04-29 10:26 | XMS_ITS | Clinical Summary ---
Author Organization [facility] Address [address] [place] [address] Phone Care Team Providers Care Steam Presser Name Role Phone Kin Jason DO Primary Care Provider Deneen vailable Allergies Active Allergy Reactions Criticality Noted Date Comments Amoxicillin-Pot Clavulanate Rash Low 05/22/19 18 Medications levothyroxine 200 mcg tablet Take 200 mcg by mouth daily hand driller. Active Cholecalciferol , Vitamin D3, (VITAMIN D3) [...] (1 - 1-dose 75+ series) 2036 Insurance [email or web address] O OPEN ACCESS RX [facility] [employer] Advance Directives For more information, please contact: [phone] * Full Code (Latest Code Status on File) Date Activated Date Inactivated Comments 05/21/2017 12:25 PM 05/22/2017 11:07 PM * Full Code Date Activated Date Inactivated Comments 01/08/2017 10:41 PM 01/10/2017 5:35 PM Care Teams Steam Presser Relationship Specialty Start Date End Date Kin Jason DO NO ADDRESS ON FILE PCP - General Family Practice 05/21/17
--- OUTSIDE RECORDS SUMMARY | 2024-04-29 10:26 | XMS_ITS | Clinical Summary ---
Author Organization [facility] Address [address] [address] Phone Care Team Providers Care Home Health Outreach Coordinator Name Role Phone Soco Shrestha Kelsey ABBASI Primary Care Provider [phone] Allergies Active Allergy Reactions Criticality Noted Date [...] Sex Assigned at Female 02/19/2023 9:38 AM COMPRESSOR STATION CHIEF ENGINEER Legal Sex Female 11:27 PM CDT Gender Identity Female 02/19/2023 9:38 AM COMPRESSOR STATION CHIEF ENGINEER Sexual Orientation Straight 02/19/2023 9: 38 AM COMPRESSOR STATION CHIEF ENGINEER Last Filed Vital Signs Vital Sign Reading Time Taken Comments Blood Pressure 116/69 05/17/2023 4:30 PM COMPRESSOR STATION CHIEF ENGINEER Pulse 104 05/17/2023 4:30 PM COMPRESSOR STATION CHIEF ENGINEER Temperature 36.3 C (97.3 F) 05/17/2023 1:04 PM COMPRESSOR STATION CHIEF ENGINEER Respiratory Rate 17 05/17/2023 1:04 PM COMPRESSOR STATION CHIEF ENGINEER Oxygen Saturation 92% 05/17/2023 4:30 PM COMPRESSOR STATION CHIEF ENGINEER Inhaled Oxygen Concentration - - Weight 80.7 kg (178 lb) 05/17/2023 1:04 PM COMPRESSOR STATION CHIEF ENGINEER Height 172.7 cm (5' 8 ) 05/17/2023 1:04 PM COMPRESSOR STATION CHIEF ENGINEER Body Mass Index 27.06 05/17/2023 1:04 PM COMPRESSOR STATION CHIEF ENGINEER Plan of Treatment Health Maintenance Due Date [...] 03/09/2016 HM COLONOSCOPY Routine 01/18/2016 PATHOLOGY CYTOLOGY SUPERVISOR TAN ROOM Routine 12/14/2015 from Last 3 Months or Most Recently Relevant to Health Maintenance Results * FLAQUITA MRI BREAST W/WO CONTRAST,BILATERAL (03/09/2016) Anatomical Region Laterality Modality breast Bilateral Other Historical Provider IMHay MR ORDERABLES Final R esult * HM COLONOSCOPY (01/18/2016) Kin Yeboah MD PROCEDURE/MINOR SURGICAL ORDER DARY Final Result * PATHOLOGY CYTOLOGY SUPERVISOR TAN ROOM (12/14/2015) Specimen of unknown material (specimen) Unknown Provider PATHOLOGY/CYTOLOGY ORDERABLES F inal Result from Last 3 Months or Most Recently Relevant to Health Maintenance Insurance [facility] OA Care Teams Home Health Outreach Coordinator Relationship Specialty Start Date End Date Soco Shrestha APRN PCP - General Advanced Practice Nurse 05/17/23
--- OUTSIDE RECORDS SUMMARY | 2024-04-29 10:26 | XMS_ITS | Encounter Summary ---
Author Organization [facility] Address [address] [place] [address] Care Team Providers Care Rabbet Operator Name Role Phone Kin Jason DO Primary Care Provider [phone] Non-Staff, Provider Primary Care Provider Aviva Koenig MD Primary Care Provider [phone] Encounter Details Date Type Department Care Team (Late st Contact Info) Description 08/17/2018 Abstract SFL CONVERSION [address] [place] [id number] , Generic Conversion, Social History Tobacco Use [...] CDT Gender Identity Female 05/01/2022 8:57 AM PSYCHOLOGICAL ASSISTANT Sexual Orientation Straight 05/01/2022 8: 57 AM PSYCHOLOGICAL ASSISTANT documented as of this encounter Plan of Treatment Not on file documented as of this encounter Visit Diagnoses Not on filedocumented in this encounter Care Teams Rabbet Operator Relationship Specialty Start Date End Date Kin Jason DO PCP - General FAMILY PRACTICE 06/10/17 05/17/21 Non-Staff, Provider PCP - General 3/9/22 8/1/23 Aviva Rico MD [address] [place] [address] PCP - General RHEUMATOLOGY 10/11/22 documented as of this encounter
--- OUTSIDE RECORDS SUMMARY | 2024-04-29 10:26 | XMS_ITS | Encounter Summary ---
Author Organization [facility] Address [address] [place] [address] Phone Care Team Providers Care Compounding And Finishing Supervisor Name Role Phone Aft, Suzie Dumont MD PhD Unavailable [phone] Tarik Escalera MD Primary Care Provider [phone] Araceli Pagan MD Unavailable Soco Shrestha NP Primary Care Provider [phone] Encounter Details Date Type Department Care Team (Late Contact Info) Description 04/22/2018 Ophth Exam [facility] [address] [place] [address] 1st [place] [address] Aby Vera MD [address] [place] [address] Social History Tobacco Use Types Packs/Day Years Used Date Smoking Tobacco: Every Day Cigarettes Smokeless Tobacco: Never Comments:Trying to quit Alcohol Use Standard Drinks/Week Comments Yes 0 (1 standard drink = 0.6 oz pur e alcohol) Comments No Sex and Gender Information Value Date Recorded Sex Assigned at Not on file Legal Sex Female 1:45 AM ADOLESCENT MEDICINE SPECIALIST Gender Identity Female 11/16/2018 3:35 PM CDT Sexual Orientation Straight 11/16/2018 3: 35 PM CDT documented as of this encounter Plan of Treatment Upcoming Encounters Date Type Department Care Team (Late st Contact Info) Description 08/26/2024 9:45 AM CDT Hospital Encounter [facility] [address] [place] [address] [place] [address] [address] 08/26/2024 9:45 AM CDT - 08/26/2024 10:45 AM CDT Surgery [facility] [address] [place] [address] [place] [address] [address] COLONOSCOPY Scheduled Procedures Name Priority [...] Normal Normal Periphery Normal Normal Care Teams Compounding And Finishing Supervisor Relationship Specialty Start Date End Date Tarik Escalera MD [address] [place] [address] PCP - General Family Practice 07/28/21 01/23/24 Soco Shrestha NP [address] [place] [address] PCP - General Nurse Practitioner 01/24/24 Aft, Suzie Dumont MD PhD [address] [place] [address] Surgeon Surgical Oncology 04/23/20 Araceli Pagan MD [address] [place] [address] Zmt Operator Obstetrics and Gynecology 07/31/22 Troy Rico MD Consulting Physician Rheumatology 08/12/19 documented as of this encounter
--- OUTSIDE RECORDS SUMMARY | 2024-04-29 10:26 | XMS_ITS | Referral Summary ---
Author Organization [facility] Address [address] [place] [address] Care Team Providers Care Film Producer Name Role Phone ToddtriceKin aguirre Primary Care Provider Source Comments [facility],non-owned Affiliates and Associated Physician Practices is amultiple site organization consisting of ambulatory clinics and hospital sitesin [place], [place], [place] and [place]. This disclosure is being madepursuant to the Care Everywhere program and may not contain all information available regarding this patient. Last updated 17.[facility] [employer] Allergies Active Allergy Reactions Criticality Noted Date [...] SMEAR PAP TIMOTHY 05/05/1998 10 :56 AM UNION CONTRACT REPRESENTATIVE from Last 3 Months or Most Recently Relevant to Health Maintenance Results * CYTOLOGY SMEAR PAP (05/05/1998 10:56 AM UNION CONTRACT REPRESENTATIVE) Result CASE NUMBER [id number] Comment: ORDERING PHYSICIAN MARK ANRDADE SPECIMEN TYPE PAP Smear Date 05/05/1998 Procedure Cervical/Endocervical, 1 smear received Specimen Adequacy Satisfactory for Evaluation Categorization Benign Cellular Changes Comment Predominance of Coccobacilli Consistent with Shift in Vaginal Ree. Snomed. 05/13/1998 1434 <1> Knife Changer Lindsey Ayala(ASCP) PAP Footnote The PAP smear is only a screening procedure to aid in the detection of cervical cancer and its precursors. It is not a diagnostic procedure and should not be used as the sole means to detect cervical cancer. Both false negative and false positive results have been experienced. MISCELLANEOUS SAMPLES / Unknown 05/05/1998 10:56 AM UNION CONTRACT REPRESENTATIVE 05/11/1998 10:56 AM UNION CONTRACT REPRESENTATIVE Historical Provider LAB - PATHOLOGY/C YTOLOGY ORDERABLES from Last 3 Months or Most Recently Relevant to Health Maintenance Care Teams Film Producer Relationship Specialty Start Date End Date Kin Jason DO [address] [place] [address] PCP - General 06/25/17
--- OUTSIDE RECORDS SUMMARY | 2024-04-29 10:26 | XMS_ITS | Encounter Summary ---
Author Organization [facility] Address [address] [place] [address] Phone Care Team Providers Care Chief Port Director Name Role Phone Aft, Suzie Dumont MD PhD Unavailable [phone] Tarik Escalera MD Primary Care Provider [phone] Araceli Pagan MD Unavailable Soco Shrestha NP Primary Care Provider [phone] Encounter Details Date Type Department Care Team [...] on file Legal Sex Female 1:45 AM SECONDARY SOC[employer]UDIES TEACHER Gender Identity Female 11/16/2018 3:35 PM CDT Sexual Orientation Straight 11/16/2018 3: 35 PM CDT Occupation Industry Job Start Date Job End Date Not on file Not on file Not on file Not on file documented as of this encounter Plan of Treatment Upcoming Encounters Date Type Department Care Team (Late st Contact Info) Description 08/26/2024 9:45 AM CDT Hospital Encounter [facility] [address] [place] [address] [place] [id number] [address] 08/26/2024 9:45 AM CDT - 08/26/2024 10:45 AM CDT Surgery [facility] [address] [place] [address] [place] [address] [id number] COLONOSCOPY Scheduled Procedures Name Priority Associated Diagnoses [...] on filedocumented in this encounter Care Teams Chief Port Director Relationship Specialty Start Date End Date Tarik Escalera MD [address] [place] [address] PCP - General Family Practice 07/28/21 01/23/24 Soco Shrestha NP [address] [place] [address] PCP - General Nurse Practitioner 01/24/24 Suzie Evans MD PhD [address] [place] [address] Surgeon Surgical Oncology 04/23/20 Araceli Pagan MD [address] [place] [address] [employer]ber Factory Worker Obstetrics and Gynecology 07/31/22 Troy Rico MD Consulting Physician Rheumatology 08/12/19 documented as of this encounter
--- OUTSIDE RECORDS SUMMARY | 2024-04-29 10:26 | XMS_ITS | Encounter Summary ---
Author Organization [facility] Address [address] [facility] [address] [place] [address] Phone Care Team Providers Care Undercollar Baster Name Role Phone Aft, Suzie Dumont MD PhD Unavailable [phone] Tarik Escalera MD Primary Care Provider [phone] Araceli Pagan MD Unavailable [phone] Soco Shrestha NP Primary Care Provider [phone] Reason for Referral * Diagnostic Imaging (Routine) [...] - Both Eyes Nicholas Orellana MD [address] [facility] [address] [place] [address] Phone: tel: fax: [facility] (All Locations) Referral ID Status Reason Start Date Expiration Date Visits Re quested Visits Authorized [id number] Closed 04/18/2023 05/17/2024 1 1 TAL AD TRAFFICKER * Diagnostic Imaging (Routine) - Closed Specialty [...] [place] [address] [place] [address] Phone: tel: fax: [facility] (All Locations) Referral ID Status Reason Start Date Expiration Date Visits Re quested Visits Authorized [id number] Closed 04/18/2023 05/17/2024 1 1 TAL AD TRAFFICKER * Diagnostic Imaging (Routine) - Closed Specialty Diagnoses / Procedures Referred By Mar mooney Referred To Contact Diagnoses Optic atrophy of both eyes Central retinal artery occlusion, left Lesion of right eyelid Ischemic optic neuropathy, right Pseudopapilledema of optic disc, 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 Branch retinal artery occlusion, right eye Vasculitis (CMS/HCC) ([facility]LY [facility]) Procedures [place] Visual Field - OU - Both Eyes Nicholas Orellana MD [address] [place] [address] Phone: tel: fax: [facility] (All Locations) Referral ID Status Reason Start Date Expiration Date Visits Re quested Visits Authorized [id number] Closed 04/18/2023 05/17/2024 1 1 TAL AD TRAFFICKER Encounter Details Date Type Department Care Team (Late st Contact Info) Description 04/18/2023 Orders Only [facility] Ophthalmology [address] [place] [address] Health 6th [place] [id number] Nicholas Orellana MD [address] [place] [address] Optic atrophy of both eyes (Primary [...] on file Legal Sex Female 1:45 AM DIGITAL AD TRAFFICKER Gender Identity Female 11/16/2018 3:35 PM CDT [...] Hospital Encounter [facility] [address] [place] [address] [place] [address] [address] 08/26/2024 9:45 AM CDT - 08/26/2024 10:45 AM CDT Surgery [facility] [address] [place] [address] [place] [address] [address] COLONOSCOPY Scheduled Procedures Name Priority Associated Diagnoses [...] unspecified documented in this encounter Care Teams Undercollar Baster Relationship Specialty Start Date End Date Tarik Escalera MD [address] [place] [address] PCP - General Family Practice 07/28/21 01/23/24 Soco Shrestha NP [address] [place] [address] PCP - General Nurse Practitioner 01/24/24 AftSuzie MD PhD [address] [place] [address] Surgeon Surgical Oncology 04/23/20 Araceli Pagan MD [address] [place] [address] Chemistry Physics Teacher Obstetrics and Gynecology 07/31/22 Troy Rico MD Consulting Physician Rheumatology 08/12/19 documented as of this encounter
--- OUTSIDE RECORDS SUMMARY | 2024-04-29 10:26 | XMS_ITS | Referral Summary ---
Author Organization [facility] Address [address] [place] [address] Care Team Providers Care Aquatics Manager Name Role Phone Aft, Suzie Dumont MD PhD Unavailable Yelitza Gaitan MD Unavailable [phone] Soco Shrestha NP Primary Care Provider Encounters Date Type Department Care Team Description 04/28/2024 Telephone [facility] ([facility] [address] [facility] Medicine 11th [place] [address] [place] [address] Sheyla Edward, 04/11/2024 Orders Only [facility] Medical [facility] [address] [place] [address] Yelitza Gaitan MD Encounter for screening mammogram for malignant neoplasm of breast (Primary Dx) 04/03/2024 10:00 AM SCHEDULING ANALYST Office Visit [facility] Ophthalmology [address] [facility] Outpatient Health 6th [place] [address] Franc Ulloa MD Type 2 diabetes mellitus with right eye affected by mild nonproliferative retinopathy without macular edema, with long-term current use of insulin (HCC) (Primary Dx) 03/24/2024 Telephone [facility] Group Gastroenterology at [address] [place] [address] Zena Degroot MD 03/19/2024 8:30 AM SCHEDULING ANALYST Office Visit [facility] Ophthalmology [address] [facility] [address] [facility], [address] [place] [address] Kaylee Clement, OD Mixed type age-related cataract, both eyes (Primary Dx); Type 2 diabetes mellitus with right eye affected by mild nonproliferative retinopathy without macular edema, with long-term current use of insulin (HCC) 02/29/2024 Telephone [facility]hthalmology [address] [place] [phone] Nicholas Orellana MD 02/21/2024 12:00 PM SCHEDULING ANALYST Imaging Exam [facility] [address] [place] [phone] 02/21/2024 3:30 PM SCHEDULING ANALYST Office Visit [facility] [address] [place] [phone] Franc Ulloa MD Type 2 diabetes mellitus with right eye affected by mild nonproliferative retinopathy without macular edema, with long-term current use of insulin (HCC) (Primary Dx) 02/21/2024 11:00 AM SCHEDULING ANALYST Office Visit [facility] 11th [place] [address] [place] [address] Craig Arroyo MD Dysphonia (Primary Dx); Chronic fungal laryngitis; Sicca laryngitis 02/20/2024 8:40 AM SCHEDULING ANALYST Office Visit [facility] Ophthalmology [address] [place] [phone] Franc Ulloa MD Type 2 diabetes mellitus with right eye affected by mild nonproliferative retinopathy without macular edema, with long-term current use of insulin (HCC) (Primary Dx) 02/20/2024 9:00 AM SCHEDULING ANALYST Office Visit [facility] Internal Medicine [address] [place] [phone] Noman Salgado MD PhD Type 2 diabetes mellitus with other specified complication, with long-term current use of insulin (HCC) (Primary Dx) 02/12/2024 Telephone [facility] Ophthalmology [address] [place] [address] Nicholas Orellana MD Return Call/Update 02/12/2024 Telephone [facility] Gastroenterology at [facility] [address] [facility] [address] [place] [phone] Zena Gonzalez MD 02/04/2024 11:07 AM SCHEDULING ANALYST - 02/04/2024 11:59 PM SCHEDULING ANALYST Hospital Encounter [facility] Radiology [address] [place] [address] Zena Gonzalez MD Liver lesion; Lesion of pancreas Discharge Disposition: Discharge to home or self care 01/31/2024 11:20 AM SCHEDULING ANALYST Office Visit [facility] [address] [facility] 11th [place] [address] [place] [phone] Craig Arroyo MD Dysphonia (Primary Dx); Laryngeal edema; Laryngitis; Chronic fungal laryngitis from Last 3 Months Allergies Active Allergy Reactions Criticality Noted Date Comments Amoxicillin-Pot Clavulanate Hives Medium 08/16/19 18 Medications clopidogrel (PLAVIX) 75 mg tablet take 1 tablet by oral route every day 0 0 5 Active liothyronine (CYTOMEL) 5 mcg tablet Take 2 tablets (10 mcg total) by mouth 2 (two) times a day 2 8 Active ONETOUCH ULTRA BLUE TEST STRIP strip USE 1 STRIP ONCE DAILY TO TEST BLOOD SUGAR 11 9 Active ONETOUCH DELICA LANCETS 33 gauge misc USE TO TEST ONCE D 11 9 Active triamcinolone (KENALOG) 0.5 % ointment Apply topically 2 (two) times a day Apply to affected area BID x 2 wks then BID prn as needed for irritation. 30 g 2 3 Active calcium carbonate/vitamin D3 (CALTRATE 600 PLUS D ORAL) 0 Active fluticasone propion-salmetero L (ADVAIR DISKUS) 250-50 mcg/dose diskus inhaler INHALE 1 PUFF BY MOUTH TWICE DAILY. RINSE MOUTH AND SPIT AFTER EACH USE 4 Active insulin glargine (LANTUS) 100 unit/mL (3 mL) pen for injection Inject 12 Units under the skin 4 Active BD Ultra-Fine Mini Pen Needle 31 gauge x 3/16 needle USE DIRECTED PABLO ESPINOSA IN THE EVENING 3 Active traZODone (DESYREL) 50 mg tablet TAKE 1 TABLET BY MOUTH EVERY DAY AT BEDTIME NEEDED FOR INSOMNIA 4 Active levothyroxine (SYNTHROID) 112 mcg tablet Take 1 tablet (112 mcg total) by mouth director account management before breakfast 4 Active lisinopriL (PRINIVIL,ZESTRIL ) 20 mg tablet 3 Active metFORMIN (GLUCOPHAGE) 1,000 mg tablet Take 1 tablet (1,000 mg total) by mouth 2 (two) times a day 4 Active metoprolol XL (TOPROL-XL) 50 mg extended release tablet Take 1 tablet (50 mg total) by mouth daily 4 Active Ozempic 0.25 mg or 0.5 mg (2 mg/3 mL) pen injector injection ADMINISTER 0.5 MG UNDER THE SKIN WEEKLY FOR 4 WEEKS 4 Active alendronate (FOSAMAX) 70 mg tabletIndications :Osteoporosis, unspecified osteoporosis type, unspecified pathological fracture presence Take 1 tablet (70 mg total) by mouth every 7 days Take in the morning with a full glass of water, on an empty stomach, and do not take anything else by mouth or lie down for the next 30 min. 12 tablet 3 4 11/07/19 25 Active predniSONE (DELTASONE) 10 mg tabletIndications :Vasculitis (CMS/HCC) (HCC) Take 2 tabs daily with one 5mg tab for a total dose of 25mg daily. 180 tablet 1 4 Active predniSONE (DELTASONE) 5 mg tabletIndications :Vasculitis (CMS/HCC) (HCC) Take 1 tab daily with two 10mg tabs to make a total daily dose of 25mg. 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 No signs of macular edema or NV. No vasculitis. Is coming off of p.o. prednisone for her giant cell arteritis. As I see no evidence for recurrent vasculitis, I think it is safe to continue weaning her from this medication. I have asked her to return to see us in roughly 8 weeks' time Assessment & Plan (03/19/2024 9:02 AM SCHEDULING ANALYST): Follows w/ Dr. Artemio Brooke appt 04/03 Assessment & Plan (02/21/2024 12:32 PM SCHEDULING ANALYST): Vitreal field was performed today, it is [...] time. Assessment & Plan (02/20/2024 11:10 AM SCHEDULING ANALYST): History of giant cell arteritis, is using [...] - she is seeing the doctors at [facility]. Personal history of colonic polyps 06/14/2023 [...] detailed ophthalmic history in Dr. Santy Verma's [facility] notes dated 03/14/19 and 05/14/19, viewable in [employer] under Encounters and scanned under Media Assessment & Plan (11/18/2019 1:28 PM CDT): Patient was seen at [facility] by neuro-senior network administrator Dr. Santy Verma on 03/14/19 and 05/14/19. [...] taper schedule and followed up with her porcelain enameler Dr. Rico, who started Actemra on 06/20/19. [...] PM CDT): - Patient was seen at [facility] by neuro-senior network administrator Dr. Santy Verma on 03/14/19 and 05/14/19. [...] (see HPI) and followed up with her porcelain enameler Dr. Rico, who started Actemra on 06/20/19. [...] recommend that the patient establish with Neuro- senior network administrator Dr. Nicolette Mcnally for long-term follow-up. She wishes to transition care back here to [facility] [place], since it is impractical for her to follow regularly with Dr. Verma at [facility]. - Discussed strict return precautions, including worsening vision, TVOs, pain. Gave patient near card and Amsler grid so that she can check her vision at home. 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 Assessment & Plan (05/08/2018 10:20 AM SCHEDULING ANALYST): Degree of vision loss and optic nerve [...] Hypercholesterolemia Overview (08/21/2019): High cholesterol Hypertension Immunizations Immunization Administration Dates Next Due Influenza, Quadrivalent, Kristen [...] on file Legal Sex Female 1:45 AM SCHEDULING ANALYST Gender Identity Female 11/16/2018 3:35 PM CDT Sexual Orientation Straight 11/16/2018 3: 35 PM CDT Occupation Industry Job Start Date Job End Date Not on file Not on file Not on file Not on file Last Filed Vital Signs Vital Sign Reading Time Taken Comments Blood Pressure 142/67 02/20/2024 8:25 AM SCHEDULING ANALYST Pulse 86 02/20/2024 8:25 AM SCHEDULING ANALYST Temperature 36.7 C (98 F) 10/07/2023 1:41 PM CDT Respiratory Rate 17 10/07/2023 4:48 PM CDT Oxygen Saturation 98% 10/07/2023 6:30 PM CDT Inhaled Oxygen Concentration - - Weight 83.5 kg (184 lb) 02/21/2024 10:58 AM SCHEDULING ANALYST Height 170.2 cm (5' 7 ) 02/21/2024 10:58 AM SCHEDULING ANALYST Body Mass Index 28.82 02/21/2024 10:58 AM SCHEDULING ANALYST Plan of Treatment Upcoming Encounters Date Type Department Care Team (Late st Contact Info) Description 08/26/2024 9:45 AM CDT Hospital Encounter [facility] GI Lab [address] [place] [address] [place] [address] [facility] [address] [place] [address] 08/26/2024 9:45 AM CDT - 08/26/2024 10:45 AM CDT Surgery [facility] [address] [place] [address] [place] [address] [facility] [address] [place] [address] COLONOSCOPY Scheduled Procedures Name Priority Associated Diagnoses Date/Ti me COLONOSCOPY Personal history of colon polyps, unspecified 08/26/2024 9:45 AM CDT Procedures Procedure Name Priority Date/Time Associated Diagnosis Comments FLUORESCEIN ANGIOGRAPHY, OU TRANSIT OD - OU - BOTH EYES Routine 04/03/2024 10:59 AM SCHEDULING ANALYST Type 2 diabetes mellitus with right eye affected by mild nonproliferative retinopathy without macular edema, with long-term current use of insulin (HCC) ZULUAGA VISUAL FIELD - OD - RIGHT EYE Routine 02/21/2024 11:53 AM SCHEDULING ANALYST Optic atrophy of both eyes FLUORESCEIN ANGIOGRAPHY, OU TRANSIT OD - OU - BOTH EYES Routine 02/20/2024 11:05 AM SCHEDULING ANALYST Type 2 diabetes mellitus with right eye affected by mild nonproliferative retinopathy without macular edema, with long-term current use of insulin (HCC) OCT, RETINA - OU - BOTH EYES Routine 02/20/2024 11:04 AM SCHEDULING ANALYST Type 2 diabetes mellitus with right eye affected by mild nonproliferative retinopathy without macular edema, with long-term current use of insulin (HCC) MRI ABDOMEN MRCP W WO CONTRAST Routine 02/04/2024 12:48 PM SCHEDULING ANALYST Liver lesion Lesion of pancreas EGFR Routine 10/22/2023 2:11 PM CDT Vasculitis (CMS/HCC) (HCC) Psoriatic arthritis (HCC) COLONOSCOPY 08/21/2023 10:10 AM CDT SCREENING MAMMOGRAM BILATERAL W FRED Schedule Routine, Read Routine (OP Routine) 07/24/2023 9:16 AM CDT History of breast cancer Encounter for screening mammogram for breast cancer HEPATITIS C ANTIBODY Routine 04/23/2023 12:50 PM SCHEDULING ANALYST Elevated liver enzymes PAP WITH REFLEX TO HIGH RISK HPV Routine 03/19/2020 9:32 AM SCHEDULING ANALYST HEMOGLOBIN A1C Routine 09/15/2018 3:35 AM CDT LIPID PANEL Routine 09/15/2018 3:35 AM CDT from Last 3 Months or Most Recently Relevant to Health Maintenance Results * Fluorescein Angiography, OU Transit OD (04/03/2024 10:59 AM SCHEDULING ANALYST) Anatomical Region Laterality Modality Head Fundus Photograp hy Narrative 04/03/2024 10:59 AM SCHEDULING ANALYST Time Out Informed consent was obtained after [...] macular edema. No disc hyperfluorescence. No NV.. Franc Ulloa MD OPH PHOTOGRAPHY Final Re sult * Zuluaga Visual Field - OD - Right Eye (02/21/2024 11:53 AM SCHEDULING ANALYST) Anatomical Region Laterality Modality Head Other Narrative 02/21/2024 12:31 PM SCHEDULING ANALYST Fixation was good. Cooperation was good. Reliability was good. Progression has been stable. Foveal threshold was normal. Notes Superior altitudinal defect OD, stable.- no changes from 10/2022 Franc Ulloa MD OPH VISUAL FIELD Final R esult * Fluorescein Angiography, OU Transit OD (02/20/2024 11:05 AM SCHEDULING ANALYST) Anatomical Region Laterality Modality Head Fundus Photograp hy Narrative 02/20/2024 11:05 AM SCHEDULING ANALYST Time Out Informed consent was obtained after [...] OU - Both Eyes (02/20/2024 11:04 AM SCHEDULING ANALYST) Anatomical Region Laterality Modality Head Optical Coherenc e Tomography Narrative 02/20/2024 11:04 AM SCHEDULING ANALYST Right Eye Quality was good. Scan locations [...] MRCP W WO Contrast (02/04/2024 12:48 PM SCHEDULING ANALYST) Anatomical Region Laterality Modality Body N/A Magnetic Resonan ce 02/04/2024 1:33 PM SCHEDULING ANALYST Impressions 02/04/2024 1:33 PM SCHEDULING ANALYST 1. No suspicious liver lesions. 2. 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 3. 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 Electronically signed by: Madhav Chavez M.D. Narrative 02/04/2024 1:33 PM SCHEDULING ANALYST EXAMINATION: 1. MAGNETIC RESONANCE IMAGING OF THE [...] LAB BLOOD ORDERABLES Fin al Result [facility] [address] [place] [address] * Colonoscopy (08/21/2023 10:10 AM CDT) Anatomical Region Laterality Modality Other Narrative Procedure Note Zena Gonzalez MD - 08/21/2023 10:10 AM CDT [facility] End[facility] Patient Name: Ivonne Bacon Procedure Date: 08/21/2023 10:10 AM Date of : 1960 Admit Type: Outpatient Age: 63 Gender: Female Note Status: Finalized Attending MD: Zena Gonzalez M.D. Procedure Date: 08/21/2023 Procedure: Colonoscopy Indications: High risk colon cancer surveillance: Personalhistory of colonic polyps Providers: Zena Gonzalez M.D., Ana Maria Rutherford, NELI (Anesthesia Staff), Izzy Pete RN, Justin Salamanca, Production Recorder Referring MD: Tarik Escalera M.D. Medicines: Monitored [...] colonoscopy in 1-2 years - Refer to pharmacy picking technician to evaluate perianal skin lesions. Procedure Code(s): --- Professional --- 08563, Colonoscopy, flexible; with removal of tumor(s), polyp(s), or other lesion(s) by snare technique 65336, 59, Colonoscopy, flexible; with biopsy,single or multiple Diagnosis Code(s): --- Professional --- Z86.010, Personal history of colonic polyps K64.8, Other hemorrhoids D12.3, Benign neoplasm of transverse colon (hepatic flexure or splenic flexure) D12.4, Benign neoplasm of descending colon D12.7, Benign neoplasm of rectosigmoid junction D12.5, Benign neoplasm of sigmoid colon CPT copyright 2020 [employer]. All rights reserved. The codes documented in this report are preliminary and upon tire recapping machine operator reviewmay be revised to meet [...] Hepatitis C antibody Blood (04/23/2023 12:50 PM SCHEDULING ANALYST) Hep C Ab Nonreactive Nonreactive [facility] [...] on 2019. Blood 04/23/2023 12:5 0 PM SCHEDULING ANALYST 04/23/2023 6:15 PM SCHEDULING ANALYST us Zena Gonzalez MD LAB MICROBIOLOGY - GENERAL ORDERABLES Final Result Performing Organization Address City/State/[facility] Co de Phone Number [facility] [address] [place] [address] * Pap with reflex to High Risk HPV (03/19/2020 9:32 AM SCHEDULING ANALYST) 03/19/2020 9:32 AM SCHEDULING ANALYST 03/19/2020 9:32 AM SCHEDULING ANALYST Narrative [facility] - 03/23/2020 2:40 PM SCHEDULING ANALYST [facility] Department of Pathology [address] [place] [address] Final Report with Addendum Patient Name: IVONNE BACON Address: [address] [place] [address] Gender: F : 1960 (Age: 59) Service: Laboratory Location: Lab [facility] #: [id number] Patient Type: Ref Lab Taken: 03/19/2020 Received: 03/19/2020 Accessioned:: 03/22/2020 Reported: 03/23/2020 Physician(s): MD Yelitza Lee MD Diagnosis: Source of Specimen: Imaged Thinprep Pap Test plus HPV - Shop Repairer Cytologic Material Specimen Adequacy: - Specimen satisfactory [...] Test performed utilizing Gen-Probe Aptima assay. ELAYNE Mitchell(ASC) Report Electronically Reviewed and Signed Out By ELAYNE Mitchell(ASC) 03/22/2020 14:54:10 Specimen(s) Received: A: Imaged Thinprep Pap Test plus HPV - Shop Repairer Cytologic Material Clinical History: Menstrual History: Post-menopausal [...] determined by the Surgical Pathology Department at [facility] as part of an ongoing water quality specialist program and in compliance with federally mandated [...] characteristics determined by the Surgical Pathology Department [facility]. It has not been cleared or approved by the U. S. Food and Drug Administration. Yelitza Gaitan MD LAB CYTOLOGY ORDERABL ES Final Result Performing Organization Address [facility] de Phone Number [facility] [address] [place] [address] * (ABNORMAL) Hemoglobin A1c (09/15/2018 3:35 AM CDT) Hgb A1C 8.4(H) 4.0 - 5.6 % [facility] Estimated Average Glucose 194 mg/dL [facility] Comment: The ADA recommends reporting an estimated Average Glucose (eAG) with all Hemoglobin A1c results using the equation derived from a study of 507 normal and diabetic adults. Minority populations were underrepresented and children were not included. (Diabetes Care 31:3928-9275, 2008). The eAG is not equivalent to a fasting glucose. Blood specimen (specimen) 09/15/2018 3:35 AM CDT 09/15/2018 4:09 AM CDT us Jairo Red MD LAB BLOOD ORDERABLES Final Result Performing Organization Address [facility] de Phone Number [facility] Department [place] [address] * (ABNORMAL) Lipid panel (09/15/2018 3:35 AM CDT) Cholesterol 197 30 - 199 mg/dL [facility] Comment: Interpretive Data Ages < [...] revised on 2017. Triglycerides 275(H) <=149 mg/dL [facility] Comment: Interpretive Data Ages < or [...] revised on 2017. HDL 33(L) >=40 mg/dL [facility] Comment: Interpretive Data Ages < [...] on 2017. LDL, calculated 109 <=129 mg/dL [facility] Comment: Interpretive Data Ages < [...] revised on 2017. Non-HDL Cholesterol 164 mg/dL [facility] Comment: Interpretive Data Ages < [...] MD LAB BLOOD ORDERABLES Final Result [facility] Department [place] [address] from Last 3 Months or Most Recently Relevant to Health Maintenance Insurance [employer] [facility] [id number] [place] [id number] [facility] [id number] Advance Directives For more information, please contact: [phone] * Full Code (Latest Code Status on File) Date Activated Date Inactivated Comments 09/14/2018 10:08 PM 09/15/2018 9:15 PM Care Teams Aquatics Manager Relationship Specialty Start Date End Date Soco Shrestha NP [address] [place] [address] PCP - General Nurse Practitioner 01/24/24 Nathan, Suzie Dumont MD PhD [address] [place] [address] Surgeon Surgical Oncology 04/23/20 Yelitza Gaitan MD [address] [place] [address] Chief Data Officer Obstetrics and Gynecology 07/31/22 Troy Rico MD Consulting Physician Rheumatology 08/12/19
--- OUTSIDE RECORDS SUMMARY | 2024-04-29 10:26 | XMS_ITS | Clinical Summary ---
Author Organization [facility] Address [address] [place] [address] Care Team Providers Care French Pastry Cook Name Role Phone Aviva Rico MD Primary Care Provider [phone] Allergies Active Allergy Reactions Criticality Noted Date [...] CDT Gender Identity Female 05/01/2022 8:57 AM MOTOR PATROL OPERATOR Sexual Orientation Straight 05/01/2022 8: 57 AM MOTOR PATROL OPERATOR Last Filed Vital Signs Vital Sign Reading [...] HEPATITIS C ANTIBODY Routine 03/25/2019 3:36 PM MOTOR PATROL OPERATOR Avitaminosis D Vitamin D deficiency Vitamin B 12 deficiency Screening examination for poliomyelitis from Last 3 Months or Most Recently Relevant to Health Maintenance Results * HEPATITIS C ANTIBODY (03/25/2019 3:36 PM MOTOR PATROL OPERATOR) HEPATITIS C AB NON-REACTI VE NON-REACTI VE 03/25/2019 9:24 PM MOTOR PATROL OPERATOR [facility] 03/25/2019 3:36 PM MOTOR PATROL OPERATOR Aviva Rico MD LABORATORY Final Result [facility] [address] [place] [address], from Last 3 Months or Most Recently Relevant to Health Maintenance Insurance [employer] Care Teams French Pastry Cook Relationship Specialty Start Date End Date Aviva Rico MD [address] [place] [id number] PCP - General RHEUMATOLOGY 10/11/22
--- OUTSIDE RECORDS SUMMARY | 2024-04-29 10:26 | XMS_ITS | Continuity of Care Document ---
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 [address], [address], [place], [place], [id number] , . tel:[phone] Referring Provider: Noman Moise, [address], [place], [place], [id number]. tel:[phone] OFFICE/OUTPA TIENT VISIT, [facility], [address] [place] [address], [id number], tel:[phone] OPH CONSULT [facility] (chief complaint) Cortical age-related cataract, bilateralIrid ocyclitisOpti c atrophy 8 Tiffany Tineo. [address], [address], [place], [id number] , [place]. tel:[phone] Referring Provider: Noman Moise, [address], [place], [id number]. tel:[phone] [facility], [address] [place] [address], [id number], tel:[phone] Oph Consult [facility] Office blurry vision (chief complaint) Cortical age-related cataract, bilateralOpti c atrophyMigrai ne w/ aura, not intractable, w/o status migrainosus 7 Tiffany Tineo. [address], [address], [place], [id number] , [place]. [phone] Referring Provider: Noman Moise, [address], [place], [place], [id number]. tel:[phone] Family History Family Member Type Diagnosis Age At Onset No Information Payers Payer name Insurance type Covered republican ID Yasir vaz(s) [employer] PPO CI [id number] Social History Type Description Quantity Date Captured [...] OS. Patient is followed by Doc in [place]. Patient saw an Draw Tender at [facility] 2 weeks ago and states does not [...]
--- OUTSIDE RECORDS SUMMARY | 2024-04-29 10:26 | XMS_ITS | Encounter Summary ---
Author Organization [facility] Address [address] [place] [address] Phone Care Team Providers Care Floor Inspector Name Role Phone Aft, Suzie Dumont MD PhD Unavailable [phone] Tarik Escalera MD Primary Care Provider [phone] Araceli Pagan MD Unavailable Soco Shrestha NP Primary Care Provider [phone] Encounter Details Date Type Department Care Team (Late st Contact Info) Description 09/14/[address] 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 Gender Identity Female 11/16/2018 3:35 PM CDT Sexual Orientation Straight 11/16/2018 3: 35 PM CDT 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 on 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 Not on file Not on file documented as of this encounter Plan of Treatment Upcoming Encounters Date Type Department Care Team (Late st Contact Info) Description 08/26/2024 9:45 AM CDT Hospital Encounter [facility] [address] [place] [address] [place] [address] [address] 08/26/2024 9:45 AM CDT - 08/26/2024 10:45 AM CDT Surgery [facility] [address] [place], [place] [id number] [place] [address] [address] COLONOSCOPY Scheduled Procedures Name Priority [...] Clear Clear Vitreous Normal Normal Care Teams Floor Inspector Relationship Specialty Start Date End Date Tarik Escalera MD [address] [place] [address] PCP - General Family Practice 07/28/21 01/23/24 Soco Shrestha NP [address] [place] [address] PCP - General Nurse Practitioner 01/24/24 Aft, Suzie Dumont MD PhD [address] [place] [address] Surgeon Surgical Oncology 04/23/20 Araceli Pagan MD [address] [place] [address] Shorts Sifter Obstetrics and Gynecology 07/31/22 Troy Rico MD Consulting Physician Rheumatology 08/12/19 documented as of this encounter
--- OUTSIDE RECORDS SUMMARY | 2024-04-29 10:26 | XMS_ITS | Patient Health Summary ---
Author Organization [facility] Address [address] [place] [address] Care Team Providers Care Labor Contractor Name Role Phone JayKin aguirre Primary Care Provider Note from [facility],non-owned Affiliates and Associated Physician Practices is amultiple site organization consisting of ambulatory clinics and hospital sitesin [place], [place], [place] and [place]. This disclosure is being madepursuant to the Care Everywhere program and may not contain all information available regarding this patient. Last updated 17.[facility] Allergies * Amoxicillin-Pot Clavulanate(Rash) -Medium Criticality Medications [...] PROTEIN C FUNCTIONAL (06/29/2017 2:58 PM CDT) [facility] APTT 24.8 23.0 - 38.4 Seconds 07/03/2017 10:59 AM CDT [facility] PT 12.9 12.1 - 14.8 Seconds 07/03/2017 10:59 AM CDT [facility] Protein C Activity 149(H) 70 - 130 U/dL 07/03/2017 10:59 AM CDT [facility] INR 1.0 07/03/2017 10:59 AM CDT [facility] Blood BLOOD SPECIMEN / Unknown Lab Venipuncture / Unknown 06/29/2017 2:58 PM CDT 06/29/2017 2:59 PM CDT Lupe Hasnen MD LAB - CHEMISTRY NATHAN JURADO [address] [phone] * LUPUS ANTICOAGULANT PANEL (06/29/2017 1:04 PM CDT) Pathologist [facility] Buffer 36.7 Seconds 018 11:14 AM CDT [facility] [place] Phospholipid 36.1 Seconds 07/03/2017 11:14 AM CDT [facility] [place] Delta 0.6 <8.0 Seconds 07/03/2017 11:14 AM CDT [facility] Interpretation [place] Negative Negative 07/03/2017 11:14 AM CDT [facility] Comment:Up to 15-20% of ilene ents [...] Hansen MD LAB - HEMATOLOGY ORD ERABLES [address] [phone] * (ABNORMAL) MTHFR MUTATION ANALYSIS (06/29/2017 1:04 PM CDT) Specimen MTHFR PCR Whole Blood 07/06/2017 5:45 AM CDT [facility]) C677T Mutation Heteroz ygous(A ) 07/06/2017 5:45 AM CDT [facility]) MTHFR U1507V Mutation Heteroz ygous(A ) 07/06/2017 5:45 AM CDT [facility] ([facility]) Interpretation MTHFR See Note 07/06/2017 5:45 AM CDT [facility] ([facility]) Comment: Indication for testing: Determine genetic contribution to early-onset arteriosclerotic vascular disease or venous thrombosis and/or assess tolerance to antifolate medications. Compound Heterozygous MTHFR c.665C>T/c.1286A>C: One copy of each of the two MTHFR gene variants tested c.665C>T (previously designated C677T) and c.1286A>C (previously designated E5321H) were detected. Although this genotype has been [...] c.665C>T. Mutations Tested: c.665C>T (previously designated C677T); p.Mte921Ipu and c.1286A>C (previously designated N9749U); p.[id number]. Clinical Sensitivity: Undefined. Sensitivity is dependent upon multiple contributing factors. Methodology: Polymerase chain reaction followed by high resolution melt analysis. Analytical Sensitivity and Specificity: 99 percent. Limitations: Only the two MTHFR gene mutations (c.665C>T and c.1286A>C) will be targeted. Diagnostic errors can occur due to rare sequence variations. See Compliance Statement C: [email or web address] Performed by [facility] [employer], [address] [place] [address] [email or web address], Jm Hurley MD, Lab. Director Blood BLOOD SPECIMEN / Unknown Lab Venipuncture / Unknown 06/29/2017 1:04 PM CDT 06/29/2017 1:33 PM CDT Lupe Hansen MD LAB - CHEMISTRY NATHAN JURADO [employer] [facility] ([facility]) [address] * PROTEIN S ANTIGEN (06/29/2017 1:04 PM CDT) Pathologist [facility] Protein S Antigen Total 80 60 - 150 % 07/01/2017 12:07 PM CDT [facility] ([facility]) Comment: This test was developed and its performance characteristics determined by [facility]. It has not been cleared or approved by the Food and Drug Administration. Protein S Free 93 57 - 157 % 07/01/2017 12:07 PM CDT [facility] ([facility]) Comment: This test was developed and its performance characteristics determined by [facility]. It has not been cleared or approved by the Food and Drug Administration. Blood BLOOD SPECIMEN / Unknown Lab Venipuncture / Unknown 06/29/2017 1:04 PM CDT 06/29/2017 1:31 PM CDT Narrative [facility] ([facility]) - 07/01/2017 12:07 PM CDT Performed at: [address] [id number] Marine Safety Officer: Perry Saha MD, Phone: [phone] Lupe Hansen MD LAB - COAGULATION OR DERABLES [facility] ([facility]) [address] [place] [address] * FACTOR V LEIDEN MUTATION PANEL (06/29/2017 1:04 PM CDT) [facility] Factor V Genotype -/- (Normal) -/- (Normal) 07/04/2017 3:26 PM CDT [facility] Factor V Interpretation 07/04/2017 3:26 PM CDT [facility] Comment: From this analysis, the patient has only wild-type (-) alleles of Factor V at C3278E. The patient lacks the [id number] mutation of Facor V; and is, therefore homozygous wild-type (negative). DNA was isolated from the specimen and analyzed by real-time PCR in an allele specific amplification protocol to detect the thrombophilia associated [id number] mutation of Factor V (Factor V Leiden) [...] determined by the [facility] of [facility]. It has not been cleared or approved [...] - COAGULATION OR DERABLES Performing Organization Address [facility]/ZIP Co de Phone Number [facility] [address] [place] [address] * CARDIOLIPIN ANTIBODY IGM (06/29/2017 1:04 PM CDT) Anticardiolipin Antibody IgM <15.0 <15.0 MPL 07/03/2017 11:51 AM CDT [facility] Blood BLOOD SPECIMEN / Unknown Lab Venipuncture / Unknown 06/29/2017 1:04 PM CDT 06/29/2017 1:32 PM CDT Lupe Hansen MD LAB - SEROLOGY ORDER DARY [facility] [address] [place] [address] * CARDIOLIPIN ANTIBODY IGG (06/29/2017 1:04 PM CDT) Anticardiolipin Antibody IgG <15.0 <15.0 GPL 07/03/2017 11:50 AM CDT [facility] Blood BLOOD SPECIMEN / Unknown Lab Venipuncture / Unknown 06/29/2017 1:04 PM CDT 06/29/2017 1:32 PM CDT Lupe Hansen MD LAB - SEROLOGY ORDER DARY [address] [phone] * HOMOCYSTEINE BLOOD QUANTITATIVE (06/29/2017 1:04 PM CDT) Homocysteine 10.5 4.4 - 16.2 umol/L 06/29/2017 2:26 PM CDT [facility] Blood BLOOD SPECIMEN / Unknown Lab Venipuncture / Unknown 06/29/2017 1:04 PM CDT 06/29/2017 1:33 PM CDT Lupe Hansen MD LAB - CHEMISTRY ORDE RABANICETO [address] [phone] * OPH COLOR FUNDUS PHOTOGRAPHY SLU (06/25/2017 [...] * CYTOLOGY SMEAR PAP (05/05/1998 10:56 AM GAS PLANT DISPATCHER) Result CASE NUMBER [id number] Comment: ORDERING PHYSICIAN MARK ANDRADE SPECIMEN TYPE PAP Smear Date 05/05/1998 Procedure Cervical/Endocervical, 1 smear received Specimen Adequacy Satisfactory for Evaluation Categorization Benign Cellular Changes Comment Predominance of Coccobacilli Consistent with Shift in Vaginal Ree. Snomed. 05/13/1998 7789 <1> Cardiograph Operator Lindsey Ayala(ASCP) PAP Footnote The PAP smear is only a screening procedure to aid in the detection of cervical cancer and its precursors. It is not a diagnostic procedure and should not be used as the sole means to detect cervical cancer. Both false negative and false positive results have been experienced. MISCELLANEOUS SAMPLES / Unknown 05/05/1998 10:56 AM GAS PLANT DISPATCHER 05/11/1998 10:56 AM GAS PLANT DISPATCHER Historical Provider LAB - PATHOLOGY/C YTOLOGY ORDERABLES Care Teams Labor Contractor Relationship Specialty Start Date End Date Kin Jason DO [address] [address] PCP - General 06/25/17
--- OUTSIDE RECORDS SUMMARY | 2024-04-29 10:26 | XMS_ITS | Encounter Summary ---
Author Organization [facility] Address [address] [place] [address] Phone Care Team Providers Care Brake Operator Heavy Duty Name Role Phone Aft, Suzie Dumont MD PhD Unavailable [phone] Araceli Pagan MD Unavailable Soco Shrestha NP Primary Care Provider Encounter Details Date Type Department Care Team (Late st Contact Info) Description 04/28/2024 Telephone [facility] ([facility]) - [facility] [address] [facility] 11th [place] [address] [place] [address] Sheyla Edward MS Social History Tobacco Use Types Packs/Day Years [...] on file 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 Gender Identity Female 11/16/2018 3:35 PM CDT Sexual Orientation Straight 11/16/2018 3: 35 PM CDT Occupation Industry Job Start Date Job End Date Not on file Not on file Not on file Not on file documented as of this encounter Miscellaneous Notes * Telephone Encounter - Michelle Vázquez - 04/28/2024 2:42 PM CST Patient called to reschedule an appt Y NUTRITION CONSULTANT documented in this encounter Plan of Treatment Upcoming Encounters Date Type Department Care Team (Late st Contact Info) Description 08/26/2024 9:45 AM CDT Hospital Encounter [facility] [address] [place] [address] [place] [address] [address] 08/26/2024 9:45 AM CDT - 08/26/2024 10:45 AM CDT Surgery [facility] [address] [place] [address] [place] [address] [address] COLONOSCOPY Scheduled Procedures Name Priority Associated Diagnoses Date/Ti me COLONOSCOPY Personal history of colon polyps, unspecified 08/26/2024 9:45 AM CDT documented as of this encounter Visit Diagnoses Not on filedocumented in this encounter Care Teams Brake Operator Heavy Duty Relationship Specialty Start Date End Date Soco Shrestha NP [address] [place] [address] PCP - General Nurse Practitioner 01/24/24 AftSuzie MD PhD [address] [place] [address] Surgeon Surgical Oncology 04/23/20 Araceli Pagan MD [address] [place] [address] Licensed Psychiatric Technician Obstetrics and Gynecology 07/31/22 Troy Rico MD Consulting Physician Rheumatology 08/12/19 documented as of this encounter
--- OUTSIDE RECORDS SUMMARY | 2024-04-29 10:26 | XMS_ITS | Encounter Summary ---
Author Organization [facility] Address [address] [place] [address] Phone Care Team Providers Care Irrigation Pump Installer Name Role Phone Carlyle Hurtado DO Primary Care Provider Unavail Kin Lawton DO Primary Care Provider [phone] Tarik Escalera MD Primary Care Provider [phone] Soco Shrestha APRN Primary Care Provider [phone] Reason for Visit * Reason Comments Medication Refill Encounter Details Date Type Department Care Team (Late st Contact Info) Description 05/17/2019 Refill [facility] - Family Medicine [facility] [address] [place] [address] Huber Fatima MD [address] [place] [id number] Medication Refill Social History Tobacco Use Types Packs/Day Years Used Date Smoking Tobacco: Every Day Cigarettes Smokeless Tobacco: Never Alcohol Use Standard Drinks/Week Comments Yes 0 (1 standard drink = 0.6 oz pur e alcohol) Comments No Sex and Gender Information Value Date Recorded Sex Assigned at Female 02/19/2023 9:38 AM DRESSAGE JUDGE Legal Sex Female 11:27 PM CDT Gender Identity Female 02/19/2023 9:38 AM DRESSAGE JUDGE Sexual Orientation Straight 02/19/2023 9: 38 AM DRESSAGE JUDGE documented as of this encounter Plan of Treatment Not on file documented as of this encounter Visit Diagnoses Not on filedocumented in this encounter Additional Health Concerns Infection Onset Date Last Indicated Resolved Time COVID - 19 03/13/2021 03/13/2021 04/02/2021 12:1 6 AM DRESSAGE JUDGE COVID - 19 Confirmed 03/13/2021 03/13/2021 022 12:16 AM DRESSAGE JUDGE COVID - 19 08/16/2021 08/16/2021 08/26/2021 12:1 6 AM CDT Assessment Noted Time PHQ-9 Depression Total Score: 0 01/05/20 17 1:00 PM CDT documented as of this encounter Care Teams Irrigation Pump Installer Relationship Specialty Start Date End Date Carlyle Hurtado DO PCP - General Family Medicine 12/19/14 10/28/19 Kin Jason DO [address] [place] [address] PCP - General Family Medicine 10/29/19 12/19/20 Tarik Escalera MD [address] [place] [address] PCP - General Family Medicine 12/20/20 05/16/23 Soco Shrestha APRN [address] [place] [address] PCP - General Advanced Practice Nurse 05/17/23 documented as of this encounter
--- OUTSIDE RECORDS SUMMARY | 2024-04-29 10:26 | XMS_ITS | Clinical Summary ---
Author Organization [facility] Address [address] [place] [address] Care Team Providers Care Screen Repairer Crusher Name Role Phone Aft, Suzie Dumont MD PhD Unavailable Yelitza Gaitan MD Unavailable [phone] Soco Shrestha NP Primary Care Provider [phone] Allergies Active Allergy Reactions Criticality Noted Date [...] 1 tablet (112 mcg total) by mouth supervisor stripping before breakfast 4 Active lisinopriL (PRINIVIL,ZESTRIL ) [...] 08/16/2023 Assessment & Plan (04/03/2024 10:59 AM SADDLE TREE STITCHER): FA repeated today. No signs of macular edema or NV. No vasculitis. Is coming off of p.o. prednisone for her giant cell arteritis. As I see no evidence for recurrent vasculitis, I think it is safe to continue weaning her from this medication. I have asked her to return to see us in roughly 8 weeks' time Assessment & Plan (03/19/2024 9:02 AM SADDLE TREE STITCHER): Follows w/ Dr. Artemio Brooke appt 04/03 Assessment & Plan (02/21/2024 12:32 PM SADDLE TREE STITCHER): Vitreal field was performed today, it is [...] time. Assessment & Plan (02/20/2024 11:10 AM SADDLE TREE STITCHER): History of giant cell arteritis, is using [...] - she is seeing the doctors at [facility]. Personal history of colonic polyps 06/14/2023 Esophagitis [...] detailed ophthalmic history in Dr. Santy Verma's [facility] notes dated 03/14/19 and 05/14/19, viewable in travelmob under Encounters and scanned under Media Assessment & Plan (11/18/2019 1:28 PM CDT): Patient was seen at [facility] by neuro-riveting machine operator tape control Dr. Santy Verma on 03/14/19 and 05/14/19. Per review of these notes (viewable in Encounters in travelmob and scanned into Media ), Dr. Verma [...] taper schedule and followed up with her top dyeing machine tender Dr. Rico, who started Actemra on 06/20/19. [...] PM CDT): - Patient was seen at [facility] by neuro-riveting machine operator tape control Dr. Santy Verma on 03/14/19 and 05/14/19. [...] (see HPI) and followed up with her top dyeing machine tender Dr. Rico, who started Actemra on 06/20/19. [...] recommend that the patient establish with Neuro- riveting machine operator tape control Dr. Nicolette Mcnally for long-term follow-up. She wishes to transition care back here to [place], since it is impractical for her to follow regularly with Dr. Verma at [facility]. - Discussed strict return precautions, including worsening vision, TVOs, pain. Gave patient near card and Amsler grid so that she can check her vision at home. Mixed type age-related cataract, both eyes 07/30 Assessment & Plan (03/19/2024 9:07 AM SADDLE TREE STITCHER): -Notes blurred vision and monocular diplopia right [...] vasculitis; see separate problem and Dr. Verma's [facility] notes from 03/14/19 and 05/14/19 - Follow [...] presumed vasculitis; see separate problem and Dr. Verma'liz [place] notes from 03/14/19 and 05/14/19 - [...] up. Assessment & Plan (05/08/2018 10:20 AM SADDLE TREE STITCHER): Degree of vision loss and optic nerve [...] Type Department Care Team Description 04/28/2024 Telephone [facility] Advanced Medicine ([facility]) - [facility] ENT [address] [facility] Advanced Medicine 11th [place] [address] [place] [address] Sheyla Edward MS 04/11/2024 Orders Only [facility] [address] [place] [phone] Yelitza Gaitan MD Encounter for screening mammogram for malignant neoplasm of breast (Primary Dx) 04/03/2024 10:00 AM SADDLE TREE STITCHER Office Visit [facility] [address] [facility] 6th [place] [address] Franc Ulloa MD Type 2 diabetes mellitus with right eye affected by mild nonproliferative retinopathy without macular edema, with long-term current use of insulin (HCC) (Primary Dx) 03/24/2024 Telephone [facility] Gastroenterology at [address] [place] [address] Zena Gonzalez MD 03/19/2024 8:30 AM SADDLE TREE STITCHER Office Visit [facility] [address], [address] [place] [address] Kaylee Clement, OD Mixed type age-related cataract, both eyes (Primary Dx); Type 2 diabetes mellitus with right eye affected by mild nonproliferative retinopathy without macular edema, with long-term current use of insulin (HCC) 02/29/2024 Telephone [facility] [address] [place] [phone] Nicholas Orellana MD 02/21/2024 3:30 PM SADDLE TREE STITCHER Office Visit [facility] [address] [place] [phone] Franc Ulloa MD Type 2 diabetes mellitus with right eye affected by mild nonproliferative retinopathy without macular edema, with long-term current use of insulin (HCC) (Primary Dx) 02/21/2024 12:00 PM SADDLE TREE STITCHER Imaging Exam [facility] [address] [place] [phone] 02/21/2024 11:00 AM SADDLE TREE STITCHER Office Visit [facility] Advanced Medicine ([facility]) - [facility] ENT [address] [facility] 11th [place] [address] [place] [phone] Craig Arroyo MD Dysphonia (Primary Dx); Chronic fungal laryngitis; Sicca laryngitis 02/20/2024 9:00 AM SADDLE TREE STITCHER Office Visit [facility] [address] [place] [phone] Noman Salgado MD PhD Type 2 diabetes mellitus with other specified complication, with long-term current use of insulin (HCC) (Primary Dx) 02/20/2024 8:40 AM SADDLE TREE STITCHER Office Visit [facility] [address] [place] [phone] Franc Ulloa MD Type 2 diabetes mellitus with right eye affected by mild nonproliferative retinopathy without macular edema, with long-term current use of insulin (HCC) (Primary Dx) 02/12/2024 Telephone [facility] [address] [place] [address] Nicholas Orellana MD Return Call/Update 02/12/2024 Telephone [facility] Gastroenterology at [facility] [address] [facility] [address] [place] [phone] Zena Gonzalez MD 02/04/2024 11:07 AM SADDLE TREE STITCHER - 02/04/2024 11:59 PM SADDLE TREE STITCHER Hospital Encounter [facility] Imaging and Radiology [address] [place] [address] Zena Gonzalez MD Liver lesion; Lesion of pancreas Discharge Disposition: Discharge to home or self care 01/31/2024 11:20 AM SADDLE TREE STITCHER Office Visit [facility] Advanced Medicine ([facility]) - [facility] ENT [address] [facility] 11th [place] [address] [place] [phone] Craig Arroyo MD Dysphonia (Primary Dx); Laryngeal edema; Laryngitis; Chronic fungal laryngitis from Last 3 Months Immunizations Immunization Administration Dates Next Due Influenza, [...] Medical History Date Comments Cerebrovascular accident (CVA) ([facility]) 2004 Stroke Hypercholesterolemia High choles terol Hx [...] on file Legal Sex Female 1:45 AM SADDLE TREE STITCHER Gender Identity Female 11/16/2018 3:35 PM CDT [...] Comments Blood Pressure 142/67 02/20/2024 8:25 AM SADDLE TREE STITCHER Pulse 86 02/20/2024 8:25 AM SADDLE TREE STITCHER Temperature 36.7 C (98 F) 10/07/2023 1:41 PM CDT Respiratory Rate 17 10/07/2023 4:48 PM CDT Oxygen Saturation 98% 10/07/2023 6:30 PM CDT Inhaled Oxygen Concentration - - Weight 83.5 kg (184 lb) 02/21/2024 10:58 AM SADDLE TREE STITCHER Height 170.2 cm (5' 7 ) 02/21/2024 10:58 AM SADDLE TREE STITCHER Body Mass Index 28.82 02/21/2024 10:58 AM SADDLE TREE STITCHER Plan of Treatment Upcoming Encounters Date Type Department Care Team (Late st Contact Info) Description 08/26/2024 9:45 AM CDT Hospital Encounter [facility] GI Lab [address] [place] [address] [place] [address] [address] 08/26/2024 9:45 AM CDT - 08/26/2024 10:45 AM CDT Surgery [facility] Lab [address] [place] [address] [place] [address] [address] COLONOSCOPY Scheduled Procedures Name Priority [...] 07/13/2022, Additional history exists eGFR 10/21/2024 10/22/2023, 03/0 08/2023, 04/23/2023, Additional history exists Dilated Eye Exam [...] - BOTH EYES Routine 04/03/2024 10:59 AM SADDLE TREE STITCHER Type 2 diabetes mellitus with right eye affected by mild nonproliferative retinopathy without macular edema, with long-term current use of insulin (HCC) ZULUAGA VISUAL FIELD - OD - RIGHT EYE Routine 02/21/2024 11:53 AM SADDLE TREE STITCHER Optic atrophy of both eyes FLUORESCEIN ANGIOGRAPHY, OU TRANSIT OD - OU - BOTH EYES Routine 02/20/2024 11:05 AM SADDLE TREE STITCHER Type 2 diabetes mellitus with right eye affected by mild nonproliferative retinopathy without macular edema, with long-term current use of insulin (HCC) OCT, RETINA - OU - BOTH EYES Routine 02/20/2024 11:04 AM SADDLE TREE STITCHER Type 2 diabetes mellitus with right eye affected by mild nonproliferative retinopathy without macular edema, with long-term current use of insulin (HCC) MRI ABDOMEN MRCP W WO CONTRAST Routine 02/04/2024 12:48 PM SADDLE TREE STITCHER Liver lesion Lesion of pancreas EGFR Routine 10/22/2023 2:11 PM CDT Vasculitis (CMS/HCC) (HCC) Psoriatic arthritis (HCC) COLONOSCOPY 08/21/2023 10:10 AM CDT SCREENING MAMMOGRAM BILATERAL W FRED Schedule Routine, Read Routine (OP Routine) 07/24/2023 9:16 AM CDT History of breast cancer Encounter for screening mammogram for breast cancer HEPATITIS C ANTIBODY Routine 04/23/2023 12:50 PM SADDLE TREE STITCHER Elevated liver enzymes PAP WITH REFLEX TO HIGH RISK HPV Routine 03/19/2020 9:32 AM SADDLE TREE STITCHER HEMOGLOBIN A1C Routine 09/15/2018 3:35 AM CDT LIPID PANEL Routine 09/15/2018 3:35 AM CDT from Last 3 Months or Most Recently Relevant to Health Maintenance Results * Fluorescein Angiography, OU Transit OD (04/03/2024 10:59 AM SADDLE TREE STITCHER) Anatomical Region Laterality Modality Head Fundus Photograp hy Narrative 04/03/2024 10:59 AM SADDLE TREE STITCHER Time Out Informed consent was obtained after [...] edema. No disc hyperfluorescence. No NV.. Result [facility] Franc Ulloa MD OPH PHOTOGRAPHY Final Re sult * Zuluaga Visual Field - OD - Right Eye (02/21/2024 11:53 AM SADDLE TREE STITCHER) Anatomical Region Laterality Modality Head Other Narrative 02/21/2024 12:31 PM SADDLE TREE STITCHER Fixation was good. Cooperation was good. Reliability was good. Progression has been stable. Foveal threshold was normal. Notes Superior altitudinal defect OD, stable.- no changes from 10/2022 Franc Ulloa MD OPH VISUAL FIELD Final R esult * Fluorescein Angiography, OU Transit OD (02/20/2024 11:05 AM SADDLE TREE STITCHER) Anatomical Region Laterality Modality Head Fundus Photograp hy Narrative 02/20/2024 11:05 AM SADDLE TREE STITCHER Time Out Informed consent was obtained after [...] OU - Both Eyes (02/20/2024 11:04 AM SADDLE TREE STITCHER) Anatomical Region Laterality Modality Head Optical Coherenc e Tomography Narrative 02/20/2024 11:04 AM SADDLE TREE STITCHER Right Eye Quality was good. Scan locations [...] MRCP W WO Contrast (02/04/2024 12:48 PM SADDLE TREE STITCHER) Anatomical Region Laterality Modality Body N/A Magnetic Resonan ce 02/04/2024 1:33 PM SADDLE TREE STITCHER Impressions 02/04/2024 1:33 PM SADDLE TREE STITCHER 1. No suspicious liver lesions. 2. 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 3. 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 Electronically signed by: Madhav Chavez M.D. Narrative 02/04/2024 1:33 PM SADDLE TREE STITCHER EXAMINATION: 1. MAGNETIC RESONANCE IMAGING OF THE [...] solitary fibrous tumor. Electronically signed by: Madhav Chvaez M.D. us Zena Gonzalez MD IM MRI PROCEDURES Final Re sult * eGFR [...] 2:11 PM CDT 10/22/2023 2:28 PM CDT Noman Salgado MD PhD LAB BLOOD ORDERABLES [facility] al Result [facility] [address] [facility] Department of Laboratories [place], [place] [id number] * Colonoscopy (08/21/2023 10:10 AM CDT) Anatomical Region Laterality Modality Other Narrative Procedure Note Zena Gonzalez MD - 08/21/2023 10:10 AM CDT [facility] Endoscopy Lab Patient Name: Ivonne Bacon Procedure Date: 08/21/2023 10:10 AM Date of : 1960 Admit Type: Outpatient Age: 63 Gender: Female Note Status: Finalized Attending MD: Zena Gonzalez M.D. Procedure Date: 08/21/2023 Procedure: Colonoscopy Indications: High risk colon cancer surveillance: Personalhistory of colonic polyps Providers: Zena Gonzalez M.D., Ana Maria Rutherford CRNA (Anesthesia Staff), Izzy Pete RN, Justin Salamanca, Mathematics Teacher Referring MD: Tarik Escalera M.D. Medicines: Monitored [...] colonoscopy in 1-2 years - Refer to electronic repair troubleshooter to evaluate perianal skin lesions. Procedure Code(s): --- Professional --- 01787, Colonoscopy, flexible; with removal of tumor(s), polyp(s), or other lesion(s) by snare technique 96694, 59, Colonoscopy, flexible; with biopsy,single or multiple Diagnosis Code(s): --- Professional --- Z86.010, Personal history of colonic polyps K64.8, Other hemorrhoids D12.3, Benign neoplasm of transverse colon (hepatic flexure or splenic flexure) D12.4, Benign neoplasm of descending colon D12.7, Benign neoplasm of rectosigmoid junction D12.5, Benign neoplasm of sigmoid colon CPT copyright 2020 [employer]. All rights reserved. The codes documented in this report are preliminary and upon accounting consultant reviewmay be revised to meet current compliance [...] Hepatitis C antibody Blood (04/23/2023 12:50 PM SADDLE TREE STITCHER) Hep C Ab Nonreactive Nonreactive [facility]MAN [...] on 2019. Blood 04/23/2023 12:5 0 PM SADDLE TREE STITCHER 04/23/2023 6:15 PM SADDLE TREE STITCHER us Zena Gonzalez MD LAB MICROBIOLOGY - GENERAL ORDERABLES Final Result NITA REDMAN [address] [address] Department [place] [address] * Pap with reflex to High Risk HPV (03/19/2020 9:32 AM SADDLE TREE STITCHER) 03/19/2020 9:32 AM SADDLE TREE STITCHER 03/19/2020 9:32 AM SADDLE TREE STITCHER [facility] PATHOLOGY LAB - 03/23/2020 2:40 PM SADDLE TREE STITCHER [facility] Department of Pathology [address] [place], [place] [id number] Final Report with Addendum Patient Name: IVONNE BACON Address: [address] [place] [address] Gender: F : 1960 (Age: 59) Service: Laboratory Location: Lab [facility] #: [id number] Patient Type: Ref Lab Taken: 03/19/2020 Received: 03/19/2020 Accessioned:: 03/22/2020 Reported: 03/23/2020 Physician(s): MD Yelitza Lee MD Diagnosis: Source of Specimen: Imaged Thinprep Pap Test plus HPV - Perfume Maker Cytologic Material Specimen Adequacy: - Specimen satisfactory [...] Imaged Thinprep Pap Test plus HPV - Perfume Maker Cytologic Material Clinical History: Menstrual History: Post-menopausal [...] determined by the Surgical Pathology Department at [facility] as part of an ongoing manufacturing quality manager program and in compliance with federally mandated [...] characteristics determined by the Surgical Pathology Department [facility]. It has not been cleared or approved by the U. S. Food and Drug Administration. Yelitza Gaitan MD LAB CYTOLOGY ORDERABL ES Final Result [facility] PATHOLOGY LAB [address] [address] * (ABNORMAL) Hemoglobin A1c (09/15/2018 3:35 AM CDT) Hgb A1C 8.4(H) 4.0 - 5.6 % NITA ARRIAGA Estimated Average Glucose 194 mg/dL N[facility] ARRIAG[facility] Comment: The ADA recommends reporting an estimated Average Glucose (eAG) with all Hemoglobin A1c results using the equation derived from a study of 507 normal and diabetic adults. Minority populations were underrepresented and children were not included. (Diabetes Care 31:3027-9981, 2008). The eAG is not equivalent to a fasting glucose. Blood specimen (specimen) 09/15/2018 3:35 AM CDT 09/15/2018 4:09 AM CDT us Jairo Red MD LAB BLOOD ORDERABLES Final Result NITA ARRIAGA [facility] [place] [address] * (ABNORMAL) Lipid panel (09/15/2018 3:35 AM [...] on 2017. HDL 33(L) >=40 mg/dL NITA ARRIAGA Comment: Interpretive Data Ages [...] on 2017. LDL, calculated 109 <=129 mg/dL [facility] Comment: Interpretive Data Ages < or [...] revised on 2017. Non-HDL Cholesterol 164 mg/dL [facility] Comment: Interpretive Data Ages < or [...] last revised on 2017. Chol/HDL ratio 6 [facility] Blood specimen (specimen) 09/15/2018 3:35 AM CDT 09/15/2018 4:07 AM CDT us Jairo Red MD LAB BLOOD ORDERABLES Final Result [facility] [place] [address] from Last 3 Months or Most Recently Relevant to Health Maintenance Insurance [facility] [id number] [place] [address] [facility] [id number] Advance Directives For more information, please contact: [phone] * Full Code (Latest Code Status on File) Date Activated Date Inactivated Comments 09/14/2018 10:08 PM 09/15/2018 9:15 PM Care Teams Screen Repairer Crusher Relationship Specialty Start Date End Date Soco Shrestha NP [address] [place] [address] PCP - General Nurse Practitioner 01/24/24 Aft, Suzie Dumont MD PhD [address] [place] [address] Surgeon Surgical Oncology 04/23/20 Yelitza Gaitan MD [address] [place] [address] Registrar Obstetrics and Gynecology 07/31/22 Troy Rico MD Consulting Physician Rheumatology 08/12/19
--- OUTSIDE RECORDS SUMMARY | 2024-04-29 10:26 | XMS_ITS | Clinical Summary ---
Author Organization [facility] Address [address] [place] [address] Care Team Providers Care Taper/Finisher Name Role Phone ToddtriceKin aguirre Primary Care Provider [phone] Source Comments [facility],non-owned Affiliates and Associated Physician Practices is amultiple site organization consisting of ambulatory clinics and hospital sitesin [place], [place], [place] and [place]. This disclosure is being madepursuant to the Care Everywhere program and may not contain all information available regarding this patient. Last updated 17.[facility] Allergies Active Allergy Reactions Criticality Noted Date [...] SMEAR PAP TIMOTHY 05/05/1998 10 :56 AM FOREIGN LANGUAGE INSTRUCTOR from Last 3 Months or Most Recently Relevant to Health Maintenance Results * CYTOLOGY SMEAR PAP (05/05/1998 10:56 AM FOREIGN LANGUAGE INSTRUCTOR) Result CASE NUMBER [id number] Comment: ORDERING PHYSICIAN MARK ANDRADE SPECIMEN TYPE PAP Smear Date 05/05/1998 Procedure Cervical/Endocervical, 1 smear received Specimen Adequacy Satisfactory for Evaluation Categorization Benign Cellular Changes Comment Predominance of Coccobacilli Consistent with Shift in Vaginal Ree. Snomed. 05/13/1998 1434 <1> Law Office Assistant Lindsey Ayala(ASCP) PAP Footnote The PAP smear is only a screening procedure to aid in the detection of cervical cancer and its precursors. It is not a diagnostic procedure and should not be used as the sole means to detect cervical cancer. Both false negative and false positive results have been experienced. MISCELLANEOUS SAMPLES / Unknown 05/05/1998 10:56 AM FOREIGN LANGUAGE INSTRUCTOR 05/11/1998 10:56 AM FOREIGN LANGUAGE INSTRUCTOR Historical Provider LAB - PATHOLOGY/C YTOLOGY ORDERABLES from Last 3 Months or Most Recently Relevant to Health Maintenance Care Teams Taper/Finisher Relationship Specialty Start Date End Date Kin Jason DO [address] [address] PCP - General 06/25/17
[2024-04-29 19:40] LABS: Add Urine Microscopic? YES; Appearance Urine Cloudy (Clear); Bacteria Urine None Seen /hpf; Bilirubin Urine 2+ (Negative); Blood Urine 3+ (Negative); Color Urine Orange (Yellow); Glucose Urine UA Negative (Negative); Ketones Urine Negative (Negative); Leukocyte Esterase Ur 2+ LEU/UL (Negative); Nitrate Urine Positive (Negative); Non Pathogenic Casts 0-2; Protein Urine 1+ mg/dL (Negative); Specific Grav Ur 1.016 (1.001-1.035); Squamous Epithelial Cell Urine Few /hpf (Few); WBC Urine 21-50 /hpf (0-3)
== END 2024-04-29 10:16 | disposition home or self-care (01) ==
LOC: ANHBWCLAB 10:16
PROVIDERS: PCP Nurse Practitioner Adult Health; Visit Provider Nurse Practitioner Adult Health
DX: R30.0 Dysuria (principal)
CPT/HCPCS: 81001; 87086

== ENCOUNTER 2024-05-19 10:38 | Outpatient (CLI) | payer OTHER, SELFPAY ==
--- NOTE | ~2024-05-19 | CT_ITS ---
CT Scan of the Chest without Contrast: Clinical Indication: Pulmonary nodule Technique: Contiguous sections were acquired throughout the chest without intravenous contrast. Dose reduction technique was used on this scan by utilizing automated exposure control and iterative recon struction technique. The dose-length product (DLP) was 111.37 mGy-cm. COMPARISON: 05/29/2022, 09/08/2019 Findings: There is no evidence of any significant mediastinal, hilar or axillary lymphadenopathy. The mediastin al soft tissues appear normal. There is no evidence of pleural or pericardial effusion. Stable pleural-based mass at the right lung base region. A few scattered subcentimeter pulmonary nodules are unchanged bilaterally. Questionable minimal tree- in-bud opacities. There is mild emphysema. Images through the upper abdomen reveal no abnormalities. Impression: Stable pleural-based mass at the right lung base. Stability since 2019 suggest benignity. Numerous scattered tiny subcentimeter pulmonary nodules and/or tree-in-bud opacities are similar to p rior exam. Correlate for small airways infectious process. Mild emphysema. Reviewed, dictated and finalized at location M. Impression: Stable pleural-based mass at the right lung base. Stability since 2019 suggest benignity. Numerous scattered tiny subcentimeter pulmonary nodules and/or tree-in-bud opac ities are similar to prior exam. Correlate for small airways infectious process . Mild emphysema.
== END 2024-05-19 10:39 | disposition home or self-care (01) ==
LOC: MICIMG 10:38
PROVIDERS: PCP Nurse Practitioner Adult Health; Visit Provider Physician Assistant
DX: R91.1 Solitary pulmonary nodule (principal); D14.31 Benign neoplasm of right bronchus and lung; J43.9 Emphysema, unspecified
CPT/HCPCS: 71250

== ENCOUNTER 2024-06-16 07:58 | Outpatient (CLI) | payer OTHER, SELFPAY ==
--- NOTE | ~2024-06-16 | XR_ITS ---
Left Shoulder Technique: AP and scapular Y views were obtained. Clinical History: Pain Findings: No fracture or dislocation is seen. Osseous alignment is anatomic. The glenohumeral and acr omioclavicular joint spaces are preserved. Soft tissues are unremarkable. Impression: Unremarkable left shoulder radiographs. Reviewed, dictated and finalized at [facility]. Impression: Unremarkable left shoulder radiographs.
--- NOTE | ~2024-06-16 | XR_ITS ---
3 VIEWS THORACIC SPINE Ordering provider: Soco Shrestha APRN History: . Lt sided neck pain radiating down back and lt arm, x2 months . Comparison: None. FINDINGS: VERTEBRAL BODIES: Slight loss of volume in the midthoracic area seen in T8 most likely chronic. Other moraes, Normal height and alignment. No visible fracture or subluxation. Degenerative changes of the sp ine. DISK SPACES: Multilevel degenerative disc disease seen in the midthoracic area. SOFT TISSUES: Aortic calcification. IMPRESSION: No definite acute osseous abnormality of the thoracic spine. Multilevel degenerative disc disease. Reviewed, dictated and finalized at location A.
--- NOTE | ~2024-06-16 | XR_ITS ---
[id number] Ordering provider: Soco Shrestha APRN History: . Lt sided neck pain radiating down back and lt arm, x2 months . Comparison: None. FINDINGS: VERTEBRAL BODIES: Normal height and alignment. No visible fracture or subluxation. The dens is intact . Degenerative changes of the spine. DISK SPACES: Narrowing of the disc C5-C6 and C6-C7. Multilevel uncovertebral joint osteoarthritic oren nges. PARASPINOUS SOFT TISSUES: No prevertebral soft tissue swelling. Bilateral carotid calcification. IMPRESSION: No acute osseous abnormality cervical spine. Multilevel degenerative disc disease. Reviewed, dictated and finalized at location A.
--- OUTSIDE RECORDS SUMMARY | 2024-06-16 08:07 | XMS_ITS | Clinical Summary ---
Author Organization [facility] Address [address] [address] Phone Care Team Providers Care Multi Sensor Operator Name Role Phone Soco Shrestha Kelsey ABBASI Primary Care Provider [phone] Allergies Active Allergy Reactions Criticality Noted Date [...] Sex Assigned at Female 02/19/2023 9:38 AM FINANCIAL ANALYST Legal Sex Female 11:27 PM CDT Gender Identity Female 02/19/2023 9:38 AM FINANCIAL ANALYST Sexual Orientation Straight 02/19/2023 9: 38 AM FINANCIAL ANALYST Last Filed Vital Signs Vital Sign Reading Time Taken Comments Blood Pressure 116/69 05/17/2023 4:30 PM FINANCIAL ANALYST Pulse 104 05/17/2023 4:30 PM FINANCIAL ANALYST Temperature 36.3 C (97.3 F) 05/17/2023 1:04 PM FINANCIAL ANALYST Respiratory Rate 17 05/17/2023 1:04 PM FINANCIAL ANALYST Oxygen Saturation 92% 05/17/2023 4:30 PM FINANCIAL ANALYST Inhaled Oxygen Concentration - - Weight 80.7 kg (178 lb) 05/17/2023 1:04 PM FINANCIAL ANALYST Height 172.7 cm (5' 8 ) 05/17/2023 1:04 PM FINANCIAL ANALYST Body Mass Index 27.06 05/17/2023 1:04 PM FINANCIAL ANALYST Plan of Treatment Health Maintenance Due Date Last Done Comments HPV/Cotest 1991 Cologuard 2011 Immunochemical Fecal Occult Blood 2011 Zoster Immunization (1 of 2) 2011 Pneumococcal Immunization (50+ years) (2 of 2 - PCV) 03/20/2017 03/20/2016 Cervical Cancer Screening (CCS) 12/13/2018 Pap Smear 12/13/2018 12/14/2015 Respiratory Syncytial Virus (RSV) Immunization (Adult) (1 - Risk 60-74 years 1-dose series) 2021 Mammogram 07/14/2023 07/13/2022, 01/10, 06/18/2017, Additional history exists SARS-COV-2 Immunization ( season) 2023 11/10/2022, 12/05/2021, 12/07/2020, Additional history exists Influenza Immunization (Season Ended) 2024 01/18/2023, 02/07/2022, 12/27/2019, Additional history exists Colonoscopy 06/06/2033 06/07/2023, 01/18/2016 [...] 03/09/2016 HM COLONOSCOPY Routine 01/18/2016 PATHOLOGY CYTOLOGY SLATE ROOFER HELPER Routine 12/14/2015 from Last 3 Months or Most Recently Relevant to Health Maintenance Results * FLAQUITA MRI BREAST W/WO CONTRAST,BILATERAL (03/09/2016) Anatomical Region Laterality Modality breast Bilateral Other Historical Provider MD VILLALTA MR ORDERABLES Final R esult * HM COLONOSCOPY (01/18/2016) Kin Yeboah MD PROCEDURE/MINOR SURGICAL ORDER DARY Final Result * PATHOLOGY CYTOLOGY SLATE ROOFER HELPER (12/14/2015) Specimen of unknown material (specimen) Unknown Provider PATHOLOGY/CYTOLOGY ORDERABLES F inal Result from Last 3 Months or Most Recently Relevant to Health Maintenance Insurance [facility] OA Care Teams Multi Sensor Operator Relationship Specialty Start Date End Date Soco Shrestha APRN PCP - General Advanced Practice Nurse 05/17/23
--- OUTSIDE RECORDS SUMMARY | 2024-06-16 08:07 | XMS_ITS | Encounter Summary ---
Author Organization 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 Gender Identity Female 11/16/2018 3:35 PM CDT Sexual Orientation Straight 11/16/2018 3: 35 PM CDT Occupation Industry Job Start Date Job End Date Not on file Not on file Not on file Not on file documented as of this encounter Plan of Treatment Upcoming Encounters Date Type Department Care Team (Late st Contact Info) Description 08/26/2024 9:45 AM CDT Hospital Encounter [facility] [id number] [place] [id number] [place] [id number] [id number] 08/26/2024 9:45 AM CDT - 08/26/2024 10:45 AM CDT Surgery [facility] [id number] [place] [id number] [place] [id number] [phone] COLONOSCOPY Scheduled Procedures Name Priority Associated Diagnoses Date/Ti me COLONOSCOPY Personal history of colon polyps, unspecified 08/26/2024 9:45 AM CDT documented as of this encounter Procedures Procedure Name Priority Date/Time Associated Diagnosis Comments SCAN - LABS 04/10/2024 documented in this encounter Results * SCAN - LABS (04/10/2024) Provider Scanning Final Result documented in this encounter Visit Diagnoses Not on filedocumented in this encounter Care Teams [employer] Principal Relationship Specialty Start Date End Date Soco Shrestha NP [address] [place] [id number] PCP - General Nurse Practitioner 01/24/24 MedardotSuzie MD PhD [address] [place] [address] Surgeon Surgical Oncology 04/23/20 Araceli Pagan MD [address] [place] [address] Telegraph Office Manager Obstetrics and Gynecology 07/31/22 Troy Rico MD Consulting Physician Rheumatology 08/12/19 documented as of this encounter
--- OUTSIDE RECORDS SUMMARY | 2024-06-16 08:07 | XMS_ITS | Referral Summary ---
Author Organization [facility] Address [address] [place] [address] Care Team Providers Care Factory Focus Technician Name Role Phone Aft, Suzie Dumont MD PhD Unavailable [phone] Yelitza Gaitan MD Unavailable Soco Shrestha NP Primary Care Provider Encounters Date Type Department Care Team Description 05/29/2024 9:20 AM CDT Office Visit [facility] ENT [address] [facility] 11th [place] [address] [place] [address] Craig Arroyo MD Laryngitis (Primary Dx) 05/29/2024 10:10 AM CDT Office Visit [facility] Ophthalmology [address] [facility] 6th [place] [address] Franc Ulloa MD Type 2 diabetes mellitus with right eye affected by mild nonproliferative retinopathy without macular edema, with long-term current use of insulin (HCC) (Primary Dx) 05/26/2024 Telephone [facility] Endocrinology Metabolism and Lipid [address] [facility] 5th [place] [address] [place] [address] Chloe Quiles RN New Dexcom G7 05/26/2024 10:00 AM CDT Office Visit [facility] Endocrinology Metabolism and Lipid [address] [facility] 13th [place] [address] [place] [address] Unique Brito MD PhD Type 2 diabetes mellitus with right eye affected by mild nonproliferative retinopathy without macular edema, with long-term current use of insulin (HCC) (Primary Dx); Acquired hypothyroidism; HTN (hypertension), benign; GCA (giant cell arteritis) (HCC); Tobacco abuse; Psoriatic arthritis (HCC); 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 2024 9:20 AM EXPRESS MANAGER Office Visit [facility] Internal Medicine [address] [place] [address] Noman Salgado MD PhD Iridocyclitis (Primary Dx); GCA (giant cell arteritis) (HCC) 04/28/2024 Telephone [facility] ENT [address] [place] [address] 11th [place] [address] [place] [address] Sheyla Edward MS 04/11/2024 Orders Only [facility] [address] [place] [phone] Yelitza Gaitan MD Encounter for screening mammogram for malignant neoplasm of breast (Primary Dx) 04/10/2024 Orders Only [facility] Scanning, Provider 04/03/2024 10:00 AM EXPRESS MANAGER Office Visit [facility] [address] [facility] 6th [place] [address] Franc Ulloa MD Type 2 diabetes mellitus with right eye affected by mild nonproliferative retinopathy without macular edema, with long-term current use of insulin (HCC) (Primary Dx) 03/24/2024 Telephone [facility] Gastroenterology at [address] [place] [address] Zena Gonzalez MD 03/19/2024 8:30 AM EXPRESS MANAGER Office Visit [facility] [address] [facility] 6th Floor, [address] [place] [address] Kaylee Clement, OD Mixed type age-related cataract, both eyes (Primary Dx); Type 2 diabetes mellitus with right eye affected by mild nonproliferative retinopathy without macular edema, with long-term current use of insulin (HCC) from Last 3 Months Allergies Active Allergy Reactions Criticality Noted Date Comments Amoxicillin-Pot Clavulanate Hives Medium 08/16/19 18 Medications clopidogrel (PLAVIX) 75 mg tablet take 1 tablet by oral route every day 0 0 015 Active ONETOUCH ULTRA BLUE TEST STRIP strip USE 1 STRIP ONCE DAILY TO TEST BLOOD SUGAR Active ONETOUCH DELICA LANCETS 33 gauge misc USE TO TEST ONCE D Active triamcinolone (KENALOG) 0.5 % ointment Apply topically 2 (two) times a day Apply to affected area BID x 2 wks then BID prn as needed for irritation. 30 g 2 023 Active calcium carbonate/vitamin D3 (CALTRATE 600 PLUS D ORAL) Active fluticasone propion-salmeteroL (ADVAIR DISKUS) 250-50 mcg/dose diskus inhaler INHALE 1 PUFF BY MOUTH TWICE DAILY. RINSE MOUTH AND SPIT AFTER EACH USE Active BD Ultra-Fine Mini Pen Needle 31 gauge x 3/16 needle USE DIRECTED PABLO ESPINOSA IN THE EVENING 023 Active traZODone (DESYREL) 50 mg tablet TAKE 1 TABLET BY MOUTH EVERY DAY AT BEDTIME NEEDED FOR INSOMNIA Active lisinopriL (PRINIVIL,ZESTRIL) 20 mg tablet 023 Active metFORMIN (GLUCOPHAGE) 1,000 mg tablet Take 1 tablet (1,000 mg total) by mouth 2 (two) times a day Active metoprolol XL (TOPROL-XL) 50 mg extended release tablet Take 1 tablet (50 mg total) by mouth daily Active alendronate (FOSAMAX) 70 mg tabletIndications: Osteoporosis, unspecified osteoporosis type, unspecified pathological fracture presence Take 1 tablet (70 mg total) by mouth every 7 days Take in the morning with a full glass of water, on an empty stomach, and do not take anything else by mouth or lie down for the next 30 min. 12 tablet 3 024 2024 Active vonoprazan (Voquezna) 10 mg tabletIndications: Gastroesophageal reflux disease with esophagitis without hemorrhage Take 10 mg by mouth daily 30 tablet 5 025 Active Cosentyx Pen pen injectorIndication s:Vasculitis,Psori atic arthritis ([facility]) INJECT 1 PEN UNDER THE SKIN EVERY 4 WEEKS 3 mL 025 Active predniSONE (DELTASONE) 1 mg tabletIndications: GCA (giant cell arteritis) ([facility]) Take 10mg daily for 1 month, decrease by 1mg every month. 120 tablet 3 025 Active insulin glargine (LANTUS) 100 unit/mL (3 mL) pen for injectionIndicatio ns:Type 2 diabetes mellitus with right eye affected by mild nonproliferative retinopathy without macular edema, with long-term current use of insulin ([facility]) Inject 20 Units under the skin railroad car cleaning supervisor before breakfast 18 mL 3 025 Active levothyroxine (SYNTHROID) 112 mcg tabletIndications: Acquired hypothyroidism Take 1 tablet (112 mcg total) by mouth railroad car cleaning supervisor before breakfast 90 tablet 3 025 Active tirzepatide (MOUNJARO) 5 mg/0.5 mL pen injector injectionIndicatio ns:type 2 diabetes mellitus Inject 0.5 mL (5 mg total) under the skin every 7 days 2 mL 2 025 2024 Active tirzepatide (Mounjaro) 2.5 mg/0.5 mL pen injector injectionIndicatio ns:Type 2 diabetes mellitus with right eye affected by mild nonproliferative retinopathy without macular edema, with long-term current use of insulin ([facility]) Inject 0.5 mL (2.5 mg total) under the skin every 7 days 2 mL 025 2024 Active blood-glucose sensor (Dexcom G7 Sensor) device Use to monitor blood glucose continuously and change every 10 days. ICD 10 [E11.3291 9 each 3 025 Active predniSONE (DELTASONE) 5 mg tablet TAKE ONE 5MG TABLET BY MOUTH DAILY ALONG WITH ONE 10MG TABLET BY MOUTH DAILY TO EQUAL 15MG DAILY. PT TO TAPER BY 1MG EVERY MONTH UNTIL OFF 30 tablet Active gabapentin (NEURONTIN) 300 mg capsuleIndications :Neuropathic Pain Take 1 capsule (300 mg total) by mouth nightly 90 capsule 3 025 2025 Active liothyronine (CYTOMEL) 5 mcg tablet Take 2 tablets (10 mcg total) by mouth 2 (two) times a day 2 018 2024 Discontinued(T herapy completed) insulin glargine (LANTUS) 100 unit/mL (3 mL) pen for injection Inject 20 Units under the skin railroad car cleaning supervisor before breakfast 024 2024 Discontinued(R eorder) levothyroxine (SYNTHROID) 112 mcg tablet Take 1 tablet (112 mcg total) by mouth railroad car cleaning supervisor before breakfast 024 2024 Discontinued(R eorder) Ozempic 0.25 mg or 0.5 mg (2 mg/3 mL) pen injector injection ADMINISTER 0.5 MG UNDER THE SKIN WEEKLY FOR 4 WEEKS 024 2024 Discontinued predniSONE (DELTASONE) 5 mg tabletIndications: Vasculitis Take 1 tab daily with two 10mg tabs to make a total daily dose of 25mg. 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 No signs of macular edema or NV. No vasculitis. Is coming off of p.o. prednisone for her giant cell arteritis. As I see no evidence for recurrent vasculitis, I think it is safe to continue weaning her from this medication. I have asked her to return to see us in roughly 12 weeks' time Assessment & Plan (04/03/2024 10:59 AM EXPRESS MANAGER): FA repeated today. No signs of macular edema or NV. No vasculitis. Is coming off of p.o. prednisone for her giant cell arteritis. As I see no evidence for recurrent vasculitis, I think it is safe to continue weaning her from this medication. I have asked her to return to see us in roughly 8 weeks' time Assessment & Plan (03/19/2024 9:02 AM EXPRESS MANAGER): Follows w/ Dr. Ulloa Keep appt 04/03 Assessment & Plan (02/21/2024 12:32 PM EXPRESS MANAGER): Vitreal field was performed today, it is [...] time. Assessment & Plan (02/20/2024 11:10 AM EXPRESS MANAGER): History of giant cell arteritis, is using [...] - she is seeing the doctors at [facility]. Personal history of colonic polyps 06/14/2023 Esophagitis 06/14/2023 Gastroesophageal reflux dise ase with esophagitis without hemorrhage 06/13/2023 Lesion of pancreas 06/13/2023 History of colon polyps 04/24/2023 Elevated liver enzymes 04/23/2023 GCA (giant cell arteritis) 04/23/2023 Gall bladder polyp 04/23/2023 Liver lesion, [...] - Monitor; repeat examination 4 months Vasculitis 07/31/2019 Overview (07/31/2019): See detailed ophthalmic history in Dr. Santy Verma's [facility] notes dated 03/14/19 and 05/14/19, viewable in [facility] under Encounters and scanned under Media Assessment & Plan (11/18/2019 1:28 PM CDT): Patient was seen at [facility] by neuro-animal ecologist Dr. Santy Verma on 03/14/19 and 05/14/19. Per review of these notes (viewable in Encounters in IForem and scanned into Media ), Dr. Verma [...] taper schedule and followed up with her fuel technician Dr. Rico, who started Actemra on 06/20/19. [...] PM CDT): - Patient was seen at [facility] by neuro-animal ecologist Dr. Santy Verma on 03/14/19 and 05/14/19. [...] (see HPI) and followed up with her fuel technician Dr. Rico, who started Actemra on 06/20/19. [...] recommend that the patient establish with Neuro- animal ecologist Dr. Nicolette Mcnally for long-term follow-up. She wishes to transition care back here to [place], since it is impractical for her to follow regularly with Dr. Verma at [place]. - Discussed strict return precautions, including worsening vision, TVOs, pain. Gave patient near card and Amsler grid so that she can check her vision at home. Mixed type age-related cataract, both eyes 07/30 Assessment & Plan (03/19/2024 9:07 AM EXPRESS MANAGER): -Notes blurred vision and monocular diplopia right [...] vasculitis; see separate problem and Dr. Verma's [place] notes from 03/14/19 and 05/14/19 - Follow [...] vasculitis; see separate problem and Dr. Verma's [place] notes from 03/14/19 and 05/14/19 - Monocular [...] up. 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 Gender Identity Female 11/16/2018 3:35 PM CDT Sexual Orientation Straight 11/16/2018 3: 35 PM CDT Occupation Industry Job Start Date Job End Date Not on file Not on file Not on file Not on file Last Filed Vital Signs Vital Sign Reading Time Taken Comments Blood Pressure 152/78 05/26/2024 9:38 AM CDT Pulse 83 05/26/2024 9:38 AM CDT Temperature 36.9 C (98.4 F) 05/26/2024 9:38 AM CDT Respiratory Rate 17 10/07/2023 4:48 PM CDT Oxygen Saturation 98% 10/07/2023 6:30 PM CDT Inhaled Oxygen Concentration - - Weight 83.9 kg (185 lb) 05/29/2024 8:55 AM CDT Height 172.7 cm (5' 8 ) 05/29/2024 8:55 AM CDT Body Mass Index 28.13 05/29/2024 8:55 AM CDT Plan of Treatment Upcoming Encounters Date Type Department Care Team (Late st Contact Info) Description 08/26/2024 9:45 AM CDT Hospital Encounter [facility] [address] [place] [address] [place] [address] [address] 08/26/2024 9:45 AM CDT - 08/26/2024 10:45 AM CDT Surgery [facility] [address] [place] [id number] [place] [address] [address] COLONOSCOPY Scheduled Procedures Name Priority Associated Diagnoses Date/Ti me COLONOSCOPY Personal history of colon polyps, unspecified 08/26/2024 9:45 AM CDT Procedures Procedure Name Priority Date/Time Associated Diagnosis Comments FLUORESCEIN ANGIOGRAPHY, OU TRANSIT OD - OU - BOTH EYES Routine 05/29/2024 11:26 AM CDT Type 2 diabetes mellitus with right eye affected by mild nonproliferative retinopathy without macular edema, with long-term current use of insulin (HCC) POCT HEMOGLOBIN A1C Routine 05/26/2024 9:41 AM CDT Type 2 diabetes mellitus with right eye affected by mild nonproliferative retinopathy without macular edema, with long-term current use of insulin (HCC) POCT GLUCOSE 82345 Routine 05/26/2024 9: 41 AM CDT Type 2 diabetes mellitus with right eye affected by mild nonproliferative retinopathy without macular edema, with long-term current use of insulin (HCC) SCAN - LABS 04/10/2024 FLUORESCEIN ANGIOGRAPHY, OU TRANSIT OD - OU - BOTH EYES Routine 04/03/2024 10:59 AM EXPRESS MANAGER Type 2 diabetes mellitus with right eye affected by mild nonproliferative retinopathy without macular edema, with long-term current use of insulin (HCC) EGFR Routine 10/22/2023 2:11 PM CDT Vasculitis Psoriatic arthritis (HCC) COLONOSCOPY 08/21/2023 10:10 AM CDT SCREENING MAMMOGRAM BILATERAL W FRED Schedule Routine, Read Routine (OP Routine) 07/24/2023 9:16 AM CDT History of breast cancer Encounter for screening mammogram for breast cancer HEPATITIS C ANTIBODY Routine 04/23/2023 12:50 PM EXPRESS MANAGER Elevated liver enzymes PAP WITH REFLEX TO HIGH RISK HPV Routine 03/19/2020 9:32 AM EXPRESS MANAGER LIPID PANEL Routine 09/15/2018 3:35 AM CDT from Last 3 Months or Most Recently Relevant to Health Maintenance Results * Fluorescein Angiography, OU Transit OD (05/29/2024 11:26 AM CDT) Anatomical Region Laterality Modality Head Fundus Photograp hy Narrative 05/29/2024 11:26 AM CDT Time Out Informed consent was obtained after all risks, benefits and alternatives were explained to the patient. The patient understood, agreed and wished to proceed. Timeout was completed verifying the patient, procedure, laterality and allergies. Right Eye Quality was good. Progression has been stable. Left Eye Quality was good. Progression has been stable. FA - Lot Number and Expiration Date [id number] 09/08/2026. Notes Consented patient for FA OU, transit OD - MW No vasculitis OU Result [facility] Franc Ulloa MD OPHTH PHOTOGRAPHY Final Re sult * POCT glucose (05/26/2024 9:41 AM CDT) Glucose Blood, POC 68 mg/dL Comment:snack given Blood 05/26/2024 9:41 AM CDT Result [facility] Unique Hanna MD PhD POINT OF CARE TEST ORDERABLES Final Result * POCT hemoglobin A1c (05/26/2024 9:41 AM CDT) Hemoglobin A1C, POC 7.5 4.0 - 5.6 % Blood 05/26/2024 9:41 AM CDT Result [facility] Unique Hanna MD PhD POINT OF CARE TEST ORDERABLES Final Result * SCAN - LABS (04/10/2024) Result [facility] Provider Scanning Final Result * Fluorescein Angiography, OU Transit OD (04/03/2024 10:59 AM EXPRESS MANAGER) Anatomical Region Laterality Modality Head Fundus Photograp hy Narrative 04/03/2024 10:59 AM EXPRESS MANAGER Time Out Informed consent was obtained after [...] MD OPHTH PHOTOGRAPHY Final Re sult * eGFR (10/22/2023 2:11 [...] LAB BLOOD ORDERABLES Fin al Result [facility] [address] Department [place] [address] * Colonoscopy (08/21/2023 10:10 AM CDT) Anatomical Region Laterality Modality Other Narrative Procedure Note Zena Gonzalez MD - 08/21/2023 10:10 AM CDT - [facility] Patient Name: Ivonne Bacon Procedure Date: 08/21/2023 10:10 AM Date of : 1960 Admit Type: Outpatient Age: 63 Gender: Female Note Status: Finalized Attending MD: Zena Gonzalez M.D. Procedure Date: 08/21/2023 Procedure: Colonoscopy Indications: High risk colon cancer surveillance: Personalhistory of colonic polyps Providers: Zena Gonzalez M.D., Ana Maria Rutherford, NELI (Anesthesia Staff), Izzy Pete RN, Justin Salamanca, Business Rules Analyst Referring MD: Tarik Escalera M.D. Medicines: Monitored [...] in 1-2 years - Refer to emergency vehicle operations instructor to evaluate perianal skin lesions. Procedure Code(s): --- Professional --- 89635, Colonoscopy, flexible; with removal of tumor(s), polyp(s), or other lesion(s) by snare technique 45330, 59, Colonoscopy, flexible; with biopsy,single or multiple Diagnosis Code(s): --- Professional --- Z86.010, Personal history of colonic polyps K64.8, Other hemorrhoids D12.3, Benign neoplasm of transverse colon (hepatic flexure or splenic flexure) D12.4, Benign neoplasm of descending colon D12.7, Benign neoplasm of rectosigmoid junction D12.5, Benign neoplasm of sigmoid colon CPT copyright 2020 [employer]. All rights reserved. The codes documented in this report are preliminary and upon phone banker reviewmay be revised to meet current compliance [...] Hepatitis C antibody Blood (04/23/2023 12:50 PM EXPRESS MANAGER) Hep C Ab Nonreactive Nonreactive [facility] [...] on 2019. Blood 04/23/2023 12:5 0 PM EXPRESS MANAGER 04/23/2023 6:15 PM EXPRESS MANAGER us Zena Gonzlaez MD LAB MICROBIOLOGY - GENERAL ORDERABLES Final Result [facility] [address] Department [place] [address] * Pap with reflex to High Risk HPV (03/19/2020 9:32 AM EXPRESS MANAGER) 03/19/2020 9:32 AM EXPRESS MANAGER 03/19/2020 9:32 AM EXPRESS MANAGER Narrative [facility] LAB - 03/23/2020 2:40 PM EXPRESS MANAGER [facility] Department of Pathology [address] [place] [address] Final Report with Addendum Patient Name: IVONNE BACON Address: [address] [place] [address] Gender: F : 1960 (Age: 59) Service: Laboratory Location: Lab Hospital #: [id number] Patient Type: Ref Lab Taken: 03/19/2020 Received: 03/19/2020 Accessioned:: 03/22/2020 Reported: 03/23/2020 Physician(s): MD Yelitza Lee MD Diagnosis: Source of Specimen: Imaged Thinprep Pap Test plus HPV - Elevator Examiner And Adjuster Cytologic Material Specimen Adequacy: - Specimen satisfactory [...] Imaged Thinprep Pap Test plus HPV - Elevator Examiner And Adjuster Cytologic Material Clinical History: Menstrual History: Post-menopausal [...] determined by the Surgical Pathology Department at [facility] as part of an ongoing manufacturing quality engineer program and in compliance with federally mandated [...] characteristics determined by the Surgical Pathology Department [facility]. It has not been cleared or approved by the U. S. Food and Drug Administration. Yelitza Gaitan MD LAB CYTOLOGY ORDERABL ES Final Result [facility] LAB [address] [address] * (ABNORMAL) Lipid panel (09/15/2018 3:35 AM CDT) Cholesterol 197 30 - 199 mg/dL [facility] Comment: Interpretive Data Ages < or [...] revised on 2017. Triglycerides 275(H) <=149 mg/dL [facility] Comment: Interpretive Data Ages < or [...] revised on 2017. HDL 33(L) >=40 mg/dL [facility] Comment: Interpretive Data Ages < or [...] on 2017. LDL, calculated 109 <=129 mg/dL [facility] Comment: Interpretive Data Ages < or [...] revised on 2017. Non-HDL Cholesterol 164 mg/dL [facility] Comment: Interpretive Data Ages < or [...] last revised on 2017. Chol/HDL ratio 6 [facility] Blood specimen (specimen) 09/15/2018 3:35 AM CDT 09/15/2018 4:07 AM CDT us Jairo Red MD LAB BLOOD ORDERABLES Final Result [facility] Department [place] [address] from Last 3 Months or Most Recently Relevant to Health Maintenance Insurance [employer] [facility] [id number] [facility] [address] [facility] [id number] Advance Directives For more information, please contact: [phone] * Full Code (Latest Code Status on File) Date Activated Date Inactivated Comments 09/14/2018 10:08 PM 09/15/2018 9:15 PM Care Teams Factory Focus Technician Relationship Specialty Start Date End Date Soco Shrestha NP [address] [place] [address] PCP - General Nurse Practitioner 01/24/24 Aft, Suzie Dumont MD PhD [address] [place] [address] Surgeon Surgical Oncology 04/23/20 Yelitza Gaitan MD [address] [place] [address] Logistician Obstetrics and Gynecology 07/31/22 Troy Rico MD Consulting Physician Rheumatology 08/12/19
--- OUTSIDE RECORDS SUMMARY | 2024-06-16 08:07 | XMS_ITS | Continuity of Care Document ---
Author Organization [facility] Address [address] [facility] [address] [place] [address] Phone Care Team Providers Care Denture Model Maker Name Role Phone Tiffany BOLES MD, Noman Unavailable Unavailab le Allergies, Adverse Reactions, Alerts [...] D (unknown strength) Not Available - Active prednisolone 1% OPHTHALMIC BOTTLE Instill 1 gtt TID OD for 1 week, 1 gtt BID for 1 week, 1 gtt QD for 1 week - No Longer Active GENERIC OK Procedures Procedure Date OFFICE/OUTPATIENT VISIT, EST OFFICE/OUTPATIENT VISIT, EST SUBSEQUENT HOSPITAL CARE DILATED EXAM RIGHT EYE DILATED EXAM LEFT EYE Advance Directives Directive Yes / No Effective Date File Name No Information Encounters Encounter Description Practice Location Reason(s) For Visit Diagnoses Date Provider Providers Copied on Encounter OFFICE/OUTPA TIENT VISIT, EST [facility], [address], [place], [id number], tel:[phone] OPH CONSULT [facility] 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 [address], [address], [place], [place], [id number] , . tel:[phone] Referring Provider: Noman Moise, [address], [place], [address] . tel:[phone] OFFICE/OUTPA TIENT VISIT, [facility], [address] [place] [address], [id number], tel:[phone] OPH CONSULT [facility] pain (chief complaint) Cortical age-related cataract, bilateralIrid ocyclitisOpti c atrophy 8 Tiffany Tineo. [address], [address], [place], [id number] , [place]. tel:[phone] Referring Provider: Noman Moise, [address], [place], [address] . tel:[phone] [facility], [address] [place] [address], [id number], tel:[phone] Oph Consult [facility] blurry vision (chief complaint) Cortical age-related cataract, bilateralOpti c atrophyMigrai ne w/ aura, not intractable, w/o status migrainosus 7 Tiffany Tineo. [address], [address], [place], [place], [id number] , [place]. tel:[phone] Referring Provider: Noman Allen MD P, [address], [place], [address] . tel:[phone] Family History Family Member Type Diagnosis Age At Onset No Information Payers Payer name Insurance type Covered green party ID Authoriza tibill(s) [employer] CI [id number] Social History Type Description Quantity Date Captured [...] ago. Pt stopped prednisolone 9 days ago. Reason For Referral Reason For Referral No Information History Of Present Illness Encounter [...] OS. Patient is followed by Doc in [place]. Patient saw an Fishing Tool Technician [employer] at [place] 2 weeks ago and states does not believe it was stroke related, states was migraine related. Functional Status Date Functional Assessmen t No Information Instructions Date Instruction Additional Infor carol[place] Impression/Plan [...] with patient. 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
--- OUTSIDE RECORDS SUMMARY | 2024-06-16 08:07 | XMS_ITS | Encounter Summary ---
Author Organization [facility] Address [address] [place] [address] Phone Care Team Providers Care Customer Service Technician Name Role Phone Aft, Suzie Dumont MD PhD Unavailable [phone] Tarik Escalera MD Primary Care Provider [phone] Araceli Pagan MD Unavailable Soco Shrestha NP Primary Care Provider [phone] Encounter Details Date Type Department Care Team (Late st Contact Info) Description 09/14/2018 Ophth Exam [facility] Op[facility]mology [address] [place] [address] 1[address] [place] [address] Aiyana Mendoza MD PhD [address] [place] [address] Social History Tobacco Use Types Packs/Day Years Used Date Smoking Tobacco: Every Day Cigarettes Smokeless Tobacco: Never Comments:Trying to quit Alcohol Use Standard Drinks/Week Comments Yes 0 (1 standard drink = 0.6 oz pur e alcohol) Comments No Sex and Gender Information Value Date Recorded Sex Assigned at Not on file Legal Sex Female 1:45 AM DIRECTOR PRODUCT SAFETY Gender Identity Female 11/16/2018 3:35 PM CDT Sexual Orientation Straight 11/16/2018 3: 35 PM CDT Occupation Industry Job Start Date Job End Date [employer] Not on file Not on file Not on file documented as of this encounter Plan of Treatment Upcoming Encounters Date Type Department Care Team (Late st Contact Info) Description 08/26/2024 9:45 AM CDT Hospital Encounter [facility] [address] [place] [address] [place] [id number] [address] 08/26/2024 9:45 AM CDT - 08/26/2024 10:45 AM CDT Surgery [facility] [address] [place], [place] [id number] [place] [address] [address] COLONOSCOPY Scheduled Procedures Name Priority [...] Clear Clear Vitreous Normal Normal Care Teams Customer Service Technician Relationship Specialty Start Date End Date Tarik Escalera MD [address] [place] [address] PCP - General Family Practice 07/28/21 01/23/24 Soco Shrestha NP [address] [place] [address] PCP - General Nurse Practitioner 01/24/24 Aft, Suzie Dumont MD PhD [address] [place] [address] Surgeon Surgical Oncology 04/23/20 Araceli Pagan MD [address] [place] [address] Corporate Receptionist Obstetrics and Gynecology 07/31/22 Troy Rico MD Consulting Physician Rheumatology 08/12/19 documented as of this encounter
--- OUTSIDE RECORDS SUMMARY | 2024-06-16 08:07 | XMS_ITS | Clinical Summary ---
Author Organization [facility] Address [address] [place] [address] Care Team Providers Care Grant Administrator Name Role Phone ToddtriceKin aguirre Primary Care Provider [phone] Source Comments [facility],non-owned Affiliates and Associated Physician Practices is amultiple site organization consisting of ambulatory clinics and hospital sitesin [place], [place], [place] and [place]. This disclosure is being madepursuant to the Care Everywhere program and may not contain all information available regarding this patient. Last updated 17.[facility] Allergies Active Allergy Reactions Criticality Noted Date [...] COVID-19 VACCINE (1 - 2023- season) 2023 DEPRESSION SCREENING 03/12/2024 INFLUENZA VACCINE (Season Ended) 2024 02/07/2022, 12/27/2019, 02/10/2018, Additional history exists MAMMOGRAM 07/23/2025 07/24/2023, 07/24/2023 DTAP/TDAP/TD VACCINES (3 [...] complete this topic MENINGOCOCCAL (Group B) VACCINE SHARED DECISION-MAKING Aged Out No longer eligible based on patient's age to complete this topic MENINGOCOCCAL GROUPS A/C/Y/W VACCINE Aged Out No longer eligible based on patient's age to complete this topic Procedures Procedure Name Priority Date/Time Associated Diagnosis Comments CYTOLOGY SMEAR PAP TIMOTHY 05/05/1998 10 :56 AM MUCK MINER BLASTING from Last 3 Months or Most Recently Relevant to Health Maintenance Results * CYTOLOGY SMEAR PAP (05/05/1998 10:56 AM MUCK MINER BLASTING) Result CASE NUMBER [id number] Comment: ORDERING PHYSICIAN MARK ANDRADE SPECIMEN TYPE PAP Smear Date 05/05/1998 Procedure Cervical/Endocervical, 1 smear received Specimen Adequacy Satisfactory for Evaluation Categorization Benign Cellular Changes Comment Predominance of Coccobacilli Consistent with Shift in Vaginal Ree. Snomed. 05/13/1998 1614 <1> Territory Sales Professional Lindsey Ayala(ASCP) PAP Footnote The PAP smear is only a screening procedure to aid in the detection of cervical cancer and its precursors. It is not a diagnostic procedure and should not be used as the sole means to detect cervical cancer. Both false negative and false positive results have been experienced. MISCELLANEOUS SAMPLES / Unknown 05/05/1998 10:56 AM MUCK MINER BLASTING 05/11/1998 10:56 AM MUCK MINER BLASTING Historical Provider LAB - PATHOLOGY/C YTOLOGY ORDERABLES from Last 3 Months or Most Recently Relevant to Health Maintenance Care Teams Grant Administrator Relationship Specialty Start Date End Date Kin Jason DO [address] [address] PCP - General 06/25/17
--- OUTSIDE RECORDS SUMMARY | 2024-06-16 08:07 | XMS_ITS | Clinical Summary ---
Author Organization [facility] Address [address] [place] [address] Care Team Providers Care Rivet Hole Puncher Name Role Phone Aft, Suzie Dumont MD PhD Unavailable [phone] Yelitza Gaitan MD Unavailable Soco Shrestha NP Primary Care Provider [phone] Allergies Active Allergy Reactions Criticality Noted Date Comments Amoxicillin-Pot Clavulanate Hives Medium 08/16/19 18 Medications clopidogrel (PLAVIX) 75 mg tablet take 1 tablet by oral route every day 0 0 015 Active ONETOUCH ULTRA BLUE TEST STRIP strip USE 1 STRIP ONCE DAILY TO TEST BLOOD SUGAR 019 Active ONETOUCH DELICA LANCETS 33 gauge misc USE TO TEST ONCE D 019 Active triamcinolone (KENALOG) 0.5 % ointment Apply topically 2 (two) times a day Apply to affected area BID x 2 wks then BID prn as needed for irritation. 30 g 2 023 Active calcium carbonate/vitamin D3 (CALTRATE 600 PLUS D ORAL) 020 Active fluticasone propion-salmeteroL (ADVAIR DISKUS) 250-50 mcg/dose diskus inhaler INHALE 1 PUFF BY MOUTH TWICE DAILY. RINSE MOUTH AND SPIT AFTER EACH USE 024 Active BD Ultra-Fine Mini Pen Needle 31 gauge x 3/16 needle USE DIRECTED PABLO ESPINOSA IN THE EVENING Active traZODone (DESYREL) 50 mg tablet TAKE [...] Cosentyx Pen pen injectorIndication s:Vasculitis,Psori atic arthritis (HCC) INJECT 1 PEN UNDER THE SKIN EVERY 4 WEEKS 3 mL 025 Active predniSONE (DELTASONE) 1 mg tabletIndications: GCA (giant cell arteritis) (HCC) Take 10mg daily for 1 month, decrease by 1mg every month. 120 tablet 3 025 Active insulin glargine (LANTUS) 100 unit/mL (3 mL) pen for injectionIndicatio ns:Type 2 diabetes mellitus with right eye affected by mild nonproliferative retinopathy without macular edema, with long-term current use of insulin (HCC) Inject 20 Units under the skin study assistant before breakfast 18 mL 3 025 Active levothyroxine (SYNTHROID) 112 mcg tabletIndications: Acquired hypothyroidism Take 1 tablet (112 mcg total) by mouth study assistant before breakfast 90 tablet 3 025 Active [...] with long-term current use of insulin (HCC) Inject 0.5 mL (2.5 mg total) under the skin every 7 days 2 mL 025 2024 Active blood-glucose sensor (Dexcom G7 Sensor) device Use to monitor blood glucose continuously and change every 10 days. ICD 10 [E11.3291 9 each 3 Active predniSONE (DELTASONE) 5 mg tablet TAKE ONE 5MG TABLET BY MOUTH DAILY ALONG WITH ONE 10MG TABLET BY MOUTH DAILY TO EQUAL 15MG DAILY. PT TO TAPER BY 1MG EVERY MONTH UNTIL OFF 30 tablet Active gabapentin (NEURONTIN) 300 mg capsuleIndications :Neuropathic Pain Take 1 capsule (300 mg total) by mouth nightly 90 capsule 3 2025 Active liothyronine (CYTOMEL) 5 mcg tablet Take 2 tablets (10 mcg total) by mouth 2 (two) times a day 2 018 2024 Discontinued(T herapy completed) insulin glargine (LANTUS) 100 unit/mL (3 mL) pen for injection Inject 20 Units under the skin study assistant before breakfast 2024 Discontinued(R eorder) levothyroxine (SYNTHROID) 112 mcg tablet Take 1 tablet (112 mcg total) by mouth study assistant before breakfast 024 2024 Discontinued(R eorder) Ozempic [...] time Assessment & Plan (04/03/2024 10:59 AM AUTOMATIC WASHER MECHANIC): FA repeated today. No signs of macular edema or NV. No vasculitis. Is coming off of p.o. prednisone for her giant cell arteritis. As I see no evidence for recurrent vasculitis, I think it is safe to continue weaning her from this medication. I have asked her to return to see us in roughly 8 weeks' time Assessment & Plan (03/19/2024 9:02 AM AUTOMATIC WASHER MECHANIC): Follows w/ Dr. Artemio Brooke appt 04/03 Assessment & Plan (02/21/2024 12:32 PM AUTOMATIC WASHER MECHANIC): Vitreal field was performed today, it is [...] time. Assessment & Plan (02/20/2024 11:10 AM AUTOMATIC WASHER MECHANIC): History of giant cell arteritis, is using [...] - she is seeing the doctors at [facility]. Personal history of colonic polyps 06/14/2023 [...] detailed ophthalmic history in Dr. Santy Verma's [facility] notes dated 03/14/19 and 05/14/19, viewable in Shot Stats under Encounters and scanned under Media Assessment & Plan (11/18/2019 1:28 PM CDT): Patient was seen at [facility] by neuro-snack bar cashier Dr. Santy Verma on 03/14/19 and 05/14/19. Per review of these notes (viewable in Encounters in Shot Stats and scanned into Media ), Dr. Verma [...] taper schedule and followed up with her land development manager Dr. Rico, who started Actemra on 06/20/19. [...] PM CDT): - Patient was seen at [facility] by neuro-snack bar cashier Dr. Santy Verma on 03/14/19 and 05/14/19. [...] (see HPI) and followed up with her land development manager Dr. Rico, who started Actemra on 06/20/19. [...] recommend that the patient establish with Neuro- snack bar cashier Dr. Nicolette Mcnally for long-term follow-up. She wishes to transition care back here to [place], since it is impractical for her to follow regularly with Dr. Verma at [place]. - Discussed strict return precautions, including worsening vision, TVOs, pain. Gave patient near card and Amsler grid so that she can check her vision at home. Mixed type age-related cataract, both eyes 07/30 Assessment & Plan (03/19/2024 9:07 AM AUTOMATIC WASHER MECHANIC): -Notes blurred vision and monocular diplopia right [...] up. Assessment & Plan (05/08/2018 10:20 AM AUTOMATIC WASHER MECHANIC): Degree of vision loss and optic nerve [...] Date Type Department Care Team Description 05/29/2024 10:10 AM CDT Office Visit [facility] Ophthalmology [address] [facility] [place] Out[facility] 6th [place] [address] Franc Ulloa MD Type 2 diabetes mellitus with right eye affected by mild nonproliferative retinopathy without macular edema, with long-term current use of insulin (HCC) (Primary Dx) 05/29/2024 9:20 AM CDT Office Visit [facility] ENT [address] [facility] 11th [place] [address] [place] [address] Craig Arroyo MD Laryngitis (Primary Dx) 05/26/2024 10:00 AM CDT Office Visit [facility] Endocrinology Metabolism and Lipid [address] [facility] Medicine 13th [place] [address] [place] [address] Unique Brito MD PhD Type 2 diabetes mellitus with right eye affected by mild nonproliferative retinopathy without macular edema, with long-term current use of insulin (HCC) (Primary Dx); Acquired hypothyroidism; HTN (hypertension), benign; GCA (giant cell arteritis) (HCC); Tobacco abuse; Psoriatic arthritis (HCC); 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 05/26/2024 Telephone [facility] Endocrinology Metabolism and Lipid [address] [facility] Medicine 5th [place] [address] [place] [address] Chloe Quiles RN New Dexcom G7 2024 9:20 AM AUTOMATIC WASHER MECHANIC Office Visit [facility] Internal Medicine [address] [place] [address] Noman Salgado MD PhD Iridocyclitis (Primary Dx); GCA (giant cell arteritis) (HCC) 04/28/2024 Telephone [facility] ENT [address] [facility] 11th [place] [address] [place] [address] Sheyla Edward, 04/11/[address] [facility] Medical [facility] [address] [place] [address] Yelitza Gaitan MD Encounter for screening mammogram for malignant neoplasm of breast (Primary Dx) 04/10/2024 Orders Only [facility] Scanning, Provider 04/03/2024 10:00 AM AUTOMATIC WASHER MECHANIC Office Visit [facility] Ophthalmology [facility] 6th [place] [address] Franc Ulloa MD Type 2 diabetes mellitus with right eye affected by mild nonproliferative retinopathy without macular edema, with long-term current use of insulin (HCC) (Primary Dx) 03/24/[address] [facility] Medical Group Gastroenterology at [address] [place] [address] Zena Gonzalez MD 03/19/2024 8:30 AM AUTOMATIC WASHER MECHANIC Office Visit [facility] Ophthalmology [address] [facility] 6th Floor, [address] [facility] [place] [address] Kaylee Clement, OD Mixed type age-related cataract, both eyes (Primary Dx); Type 2 diabetes mellitus with right eye affected by mild nonproliferative retinopathy without macular edema, with long-term current use of insulin (HCC) from Last 3 Months Immunizations Immunization Administration [...] UNLISTED PROCEDURE LYMPH SYSTEM 02/20/2014 N/A SECTION ADENOIDECTOMY ?1972 Tonsillectomy COLONOSCOPY 2023 TUBAL LIGATION 2001 ABDOMINAL SURGERY 1995 Aguila Fundoplication, 1986 BREAST SURGERY 2014 Left lumpectomy , Abscess to right nipple - surgical I & D-2013, 2020, 2023 COLON SURGERY 2023 Numerous flat polyps removed x2 in 2023 - Dx Serrated Polyposis Syndrome ESOPHAGUS SURGERY 1995 Laparoscopic Mehdi Fundoplication SECTION 1986 Medical History Medical History Date Comments Cerebrovascular accident (CV A) (HCC) 2004 Stroke Hypercholesterolemia High choles terol [...] Medical 2013 Breast cancer Central retinal artery occlu del, left 08/15/2017 Branch retinal artery occlus ion, right eye 08/15/2017 Amaurosis fugax of right eye 06/05/2018 Blindness of left eye 01/08/2017 Conjunctivitis of both eyes 01/19/2017 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 12/04/2016 Visual disturbance 01/08/2017 Hypertension Thyroid disease 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 Hypothyroidism 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 Cancer (HCC) breast cancer wi th lumpectomy L side GERD (gastroesophageal reflu x disease) 1995 Cataract Osteoporosis 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 prednisone use Chronic bronchitis (HCC) Tinnitus right ear HL (hearing loss) Right ear Type 2 diabetes mellitus (HCC) Emphysema of lung (HCC) Coronary artery disease Atherosclerosis Vitamin D deficiency 06/12/17 Arthritis Autoimmune disease GCA, Vasculitis, Hypothyroidism Hyperthyroidism Hypothyroidism but hyperthyroid off and on over pasts 6 mo with med changesnths Family History Medical History Relation Name Comments Arthritis Daughter Jennifer Newmancock Asthma Daughter Jennifer Cam Yifan Depression Daughter Jennifer Newmancock Rheum arthritis Daughter Jennifer Cam Yifan Alzheimer's disease Father Gladis Bacon Cataracts Father Gladis Bacon Diabetes type II Father Gladis Bacon Diabetes ; Hearing loss Father Gladis Bacon Hyperlipidemia Father Gladis Bacon Hyperlipid emia; Snoring Father Gladis Bacon Alzheimer's disease Father's Brother Isrrael Bacon Heart attack Maternal Grandmother Kaylee Gemolous Hypertension Maternal Grandmother Kaylee Gemolous Arthritis Mother Pillo Bacon Breast cancer Mother Pillo Bacon Cancer, breast ; COPD Mother Pillo Bacon COPD; Cancer Mother Pillo Bacon Cataracts Mother Pillo Bacon Coronary artery disease Mother Pillo Bacon Marylou nary artery disease; Diabetes type II Mother Pillo Bacon Hearing loss Mother Pillo Bacon Heart disease Mother Pillo Bacon Heart failure Mother Pillo Bacon Hyperlipidemia Mother Pillo Bacon Hypertension Mother Pillo Bacon Hypothyroidism Mother Pillo Bacon Migraines Mother Pillo Bacon Obesity Mother Pillo Bacon Osteoarthritis Mother Pillo Bacon Osteoporosis Mother Pillo Bacon no hx of hip fx Hypertension Mother's Brother Richard Lamar Hypertens ion; Cancer Mother's Sister 1 Kush Briones Hypertension Mother's Sister 1 Kush Briones Hyperten del; Heart attack Mother's Sister 2 Myocardial infarction; Breast cancer Mother's Sister 3 Lynette Salgado Cancer, b reast; Hypertension Mother's Sister 3 Lynette Hanler COPD Sister Alayna Cheikh Depression Sister Alayna Cheikh Diabetes type II Sister Alaynailya Salamanca Mental illness Sister Alayna Cheikh Obesity Sister Alayna Cheikh Thyroid disease Sister Alayna Cheikh Relation Name Status Comments Daughter Jennifer Saha Alive Father Gladis Bacon Father's Brother Isrrael Bacon Alive Maternal Grandmother Kaylee Mendozaolous Alive Mother Pillo Bacon Mother's Brother Richard Lamar Mother's Sister 1 Kush Briones Mother's Sister 2 Mother's Sister 3 Lynette Salgado Sister Alayna Salamanca Alive Social History Tobacco Use Types Packs/Day [...] on file Legal Sex Female 1:45 AM AUTOMATIC WASHER MECHANIC Gender Identity Female 11/16/2018 3:35 PM CDT [...] Description 08/26/2024 9:45 AM CDT Hospital Encounter [facility] GI Lab [address] [place] [address] [place] [address] [facility] [address] [place] [address] 08/26/2024 9:45 AM CDT - 08/26/2024 10:45 AM CDT Surgery [facility] GI Lab [address] [place] [address] [place] [address] [facility] [address] [place] [address] COLONOSCOPY Scheduled Procedures Name Priority Associated Diagnoses Date/Ti me COLONOSCOPY Personal history of colon polyps, unspecified 08/26/2024 9:45 AM CDT Health Maintenance Due Date Last Done Comments Albumin Creatinine Ratio, Urine 1960 Foot Exam 1960 Zoster Vaccine (1 of 2) 2011 Pneumococcal vaccine <65 (2 of 2 - PCV) 03/20/2017 03/20/2016 Depression Screening 09/15/2019 09/14/2018, 09/15/19 19 Lipid Panel 09/16/2019 09/15/2018, 05/10, 01/09/2017 Cervical Cancer Screening 03/19/20212020, 12/14/2015, 12/14/2015, Additional history exists Covid-19 Vaccine ( - 2023-2 5 season) 2023 11/10/2022, 12/05/2021, 12/07/2020, Additional history exists Regular Well Visit/Exam 18-64 07/18/2024, 07/13/2022, 03/18/2020, Additional history exists Breast Cancer Screening-Mammogram 07/23/2024 07/24/2023, 07/13/2022, 07/13/2022, Additional history exists eGFR 10/21/2024 10/22/2023, 0308/2023, 04/23/2023, Additional history exists Influenza Vaccine (Season Ended) 2024 02/07/2022, 12/27/2019, 02/10/2018, Additional history exists Hemoglobin A1C 11/26/2024 05/26/2024, 07/0 09/2018, 05/21/2017 Dilated Eye Exam 05/29/2025 05/29/2024, , 02/20/2024, Additional history exists DTaP/Tdap/Td Vaccine (3 - [...] edema, with long-term current use of insulin ([facility]) POCT HEMOGLOBIN A1C Routine 05/26/2024 9:41 AM CDT Type 2 diabetes mellitus with right eye affected by mild nonproliferative retinopathy without macular edema, with long-term current use of insulin (HCC) POCT GLUCOSE 75145 Routine 05/26/2024 9: 41 AM CDT Type 2 diabetes mellitus with right eye affected by mild nonproliferative retinopathy without macular edema, with long-term current use of insulin (HCC) SCAN - LABS 04/10/2024 FLUORESCEIN ANGIOGRAPHY, OU TRANSIT OD - OU - BOTH EYES Routine 04/03/2024 10:59 AM AUTOMATIC WASHER MECHANIC Type 2 diabetes mellitus with right eye [...] HEPATITIS C ANTIBODY Routine 04/23/2023 12:50 PM AUTOMATIC WASHER MECHANIC Elevated liver enzymes PAP WITH REFLEX TO HIGH RISK HPV Routine 03/19/2020 9:32 AM AUTOMATIC WASHER MECHANIC LIPID PANEL Routine 09/15/2018 3:35 AM CDT [...] transit OD - MW No vasculitis OU us Franc Ulloa MD OPHTH PHOTOGRAPHY Final Re sult * POCT glucose (05/26/2024 9:41 AM CDT) Glucose Blood, POC 68 mg/dL Comment:snack given Blood 05/26/2024 9:41 AM CDT us Unique Hanna MD PhD POINT OF CARE TEST ORDERABLES Final Result * POCT hemoglobin A1c (05/26/2024 9:41 AM CDT) Hemoglobin A1C, POC 7.5 4.0 - 5.6 % Blood 05/26/2024 9:41 AM CDT us Unique Hanna MD PhD POINT OF CARE TEST ORDERABLES Final Result * SCAN - LABS (04/10/2024) us Provider Scanning Final Result * Fluorescein Angiography, OU Transit OD (04/03/2024 10:59 AM AUTOMATIC WASHER MECHANIC) Anatomical Region Laterality Modality Head Fundus Photograp hy Narrative 04/03/2024 10:59 AM AUTOMATIC WASHER MECHANIC Time Out Informed consent was obtained after [...] disc hyperfluorescence. No NV.. Franc Ulloa MD OPHTH PHOTOGRAPHY Final Re [...] LAB BLOOD ORDERABLES Fin al Result NITA [address] [facility] Department of Laboratories [place], [place] [id number] * Colonoscopy (08/21/2023 10:10 AM CDT) Anatomical Region Laterality Modality Other Narrative Procedure Note Zena Gonzalez MD - 08/21/2023 10:10 AM CDT [facility] Endoscopy Lab Patient Name: Ivonne Bacon Procedure Date: 08/21/2023 10:10 AM Date of : 1960 Admit Type: Outpatient Age: 63 Gender: Female Note Status: Finalized Attending MD: Zena Gonzalez M.D. Procedure Date: 08/21/2023 Procedure: Colonoscopy Indications: High risk colon cancer surveillance: Personalhistory of colonic polyps Providers: Zena Gonzalez M.D., Ana Maria Rutherford, NELI (Anesthesia Staff), Izzy Pete RN, Justin Salamanca, Hyster Driver Referring MD: Tarik Escalera M.D. Medicines: Monitored [...] colonoscopy in 1-2 years - Refer to fuel storage technician to evaluate perianal skin lesions. Procedure Code(s): --- Professional --- 42629, Colonoscopy, flexible; with removal of tumor(s), polyp(s), or other lesion(s) by snare technique 57087, 59, Colonoscopy, flexible; with biopsy,single or multiple Diagnosis Code(s): --- Professional --- Z86.010, Personal history of colonic polyps K64.8, Other hemorrhoids D12.3, Benign neoplasm of transverse colon (hepatic flexure or splenic flexure) D12.4, Benign neoplasm of descending colon D12.7, Benign neoplasm of rectosigmoid junction D12.5, Benign neoplasm of sigmoid colon CPT copyright 2020 [employer]. All rights reserved. The codes documented in this report are preliminary and upon calcine furnace tender reviewmay be revised to meet current compliance [...] Hepatitis C antibody Blood (04/23/2023 12:50 PM AUTOMATIC WASHER MECHANIC) Hep C Ab Nonreactive Nonreactive [facility] [...] on 2019. Blood 04/23/2023 12:5 0 PM AUTOMATIC WASHER MECHANIC 04/23/2023 6:15 PM AUTOMATIC WASHER MECHANIC Zena Gonzalez MD LAB MICROBIOLOGY - GENERAL ORDERABLES Final Result Performing Organization Address City/State/[facility] Co de Phone Number NITA [address] Department [place] [address] * Pap with reflex to High Risk HPV (03/19/2020 9:32 AM AUTOMATIC WASHER MECHANIC) 03/19/2020 9:32 AM AUTOMATIC WASHER MECHANIC 03/19/2020 9:32 AM AUTOMATIC WASHER MECHANIC Narrative [facility] - 03/23/2020 2:40 PM AUTOMATIC WASHER MECHANIC [facility] Department of Pathology [address] [place] [address] Final Report with Addendum Patient Name: IVONNE BACON Address: [address] [place] [address] Gender: F : 1960 (Age: 59) Service: Laboratory Location: Lab [facility] #: [id number] Patient Type: ЮЛИЯ Ref Lab Taken: 03/19/2020 Received: 03/19/2020 Accessioned:: 03/22/2020 Reported: 03/23/2020 Physician(s): MD Yelitza Lee MD Diagnosis: Source of Specimen: Imaged Thinprep Pap Test plus HPV - Magician/Illusionist Cytologic Material Specimen Adequacy: - Specimen satisfactory [...] Imaged Thinprep Pap Test plus HPV - Magician/Illusionist Cytologic Material Clinical History: Menstrual History: Post-menopausal [...] determined by the Surgical Pathology Department at [facility] as part of an ongoing vice president quality program and in compliance with federally mandated [...] characteristics determined by the Surgical Pathology Department [facility]. It has not been cleared or approved by the U. S. Food and Drug Administration. Yelitza Gaitan MD LAB CYTOLOGY ORDERABL ES Final Result [facility] [address] [place] [address] * (ABNORMAL) Lipid panel (09/15/2018 3:35 AM CDT) Cholesterol 197 30 - 199 mg/dL N[facility] Comment: Interpretive Data Ages < or [...] revised on 2017. HDL 33(L) >=40 mg/dL [facility] Comment: Interpretive Data Ages < or [...] on 2017. LDL, calculated 109 <=129 mg/dL [facility] Comment: Interpretive Data Ages < or [...] revised on 2017. Non-HDL Cholesterol 164 mg/dL [facility] Comment: Interpretive Data Ages < or [...] last revised on 2017. Chol/HDL ratio 6 [facility] Blood specimen (specimen) 09/15/2018 3:35 AM CDT 09/15/2018 4:07 AM CDT us Jairo Red MD LAB BLOOD ORDERABLES Final Result Performing Organization Address City/State/[facility] Co de Phone Number NITA [facility] Department [place] [address] from Last 3 Months or Most Recently Relevant to Health Maintenance Insurance [facility] [employer] [id number] [employer] [id number] Member Subscriber Plan / Payer (Ef fective 2020-Present) Name:Ivonne Bacon Member ID:[id number] Relation to Subscriber:Self Name:Ivonne Bacon Subscriber ID:[id number] Payer ID:[id number] Type:[employer] HMO/PPO Address: [address] [place] [phone] Advance Directives For more information, please contact: [phone] * Full Code (Latest Code Status on File) Date Activated Date Inactivated Comments 09/14/2018 10:08 PM 09/15/2018 9:15 PM Care Teams Rivet Hole Puncher Relationship Specialty Start Date End Date Soco Shrestha NP [address] [place] [address] PCP - General Nurse Practitioner 01/24/24 Aft, Suzie Dumont MD PhD [address] [place] [address] Surgeon Surgical Oncology 04/23/20 Yelitza Gaitan MD [address] [place] [address] Rattling Machine Tender Obstetrics and Gynecology 07/31/22 Troy Rico MD Consulting Physician Rheumatology 08/12/19
--- OUTSIDE RECORDS SUMMARY | 2024-06-16 08:07 | XMS_ITS | Encounter Summary ---
Author Organization [facility] Address [address] [place] [address] Phone Care Team Providers Care Melter Operator Name Role Phone Aft, Suzie Dumont MD PhD Unavailable [phone] Tarik Escalera MD Primary Care Provider [phone] Araceli Pagan MD Unavailable Soco Shrestha NP Primary Care Provider [phone] Encounter Details Date Type Department Care Team [...] on file Legal Sex Female 1:45 AM ELECTRO MECHANICAL ASSEMBLER Gender Identity Female 11/16/2018 3:35 PM [...] Hospital Encounter [facility] GI Lab [address] [place] [address] [place] [address] [address] 08/26/2024 9:45 AM CDT - 08/26/2024 10:45 AM CDT Surgery [facility] GI Lab [address] [place] [address] [place] [address] [id number] COLONOSCOPY Scheduled Procedures Name Priority Associated Diagnoses [...] on filedocumented in this encounter Care Teams Melter Operator Relationship Specialty Start Date End Date Tarik Escalera MD [address] [place] [address] PCP - General Family Practice 07/28/21 01/23/24 Soco Shrestha NP [address] [place] [address] PCP - General Nurse Practitioner 01/24/24 Suzie Evans MD PhD [address] [place] [address] Surgeon Surgical Oncology 04/23/20 Araceli Pagan MD [address] [place] [address] Researcher Obstetrics and Gynecology 07/31/22 Troy Rico MD Consulting Physician Rheumatology 08/12/19 documented as of this encounter
--- OUTSIDE RECORDS SUMMARY | 2024-06-16 08:07 | XMS_ITS | Encounter Summary ---
Author Organization [facility] Address [address] [place] [address] Phone Care Team Providers Care Wireless Architect Name Role Phone Aft, Suzie Dumont MD PhD Unavailable [phone] Tarik Escalera MD Primary Care Provider [phone] Araceli Pagan MD Unavailable [phone] Soco Shrestha NP Primary Care Provider [phone] Encounter Details Date Type Department Care Team (Late Contact Info) Description 04/22/2018 Ophth Exam [facility] Ophthalmology [address] [place] [address] 1st [place] [address] Aby Vrea MD [address] [place] [address] Social History Tobacco Use Types Packs/Day Years Used Date Smoking Tobacco: Every Day Cigarettes Smokeless Tobacco: Never Comments:Trying to quit Alcohol Use Standard Drinks/Week Comments Yes 0 (1 standard drink = 0.6 oz pur e alcohol) Comments No Sex and Gender Information Value Date Recorded Sex Assigned at Not on file Legal Sex Female 1:45 AM INTERIOR PLANT CARETAKER Gender Identity Female 11/16/2018 3:35 PM CDT Sexual Orientation Straight 11/16/2018 3: 35 PM CDT documented as of this encounter Plan of Treatment Upcoming Encounters Date Type Department Care Team (Late st Contact Info) Description 08/26/2024 9:45 AM CDT Hospital Encounter [facility] [address] [place] [address] [place] [address] [address] 08/26/2024 9:45 AM CDT - 08/26/2024 10:45 AM CDT Surgery [facility] [address] [place] [address] [place] [address] [address] COLONOSCOPY Scheduled Procedures Name Priority [...] Normal Normal Periphery Normal Normal Care Teams Wireless Architect Relationship Specialty Start Date End Date Tarik Escalera MD [address] [place] [address] PCP - General Family Practice 07/28/21 01/23/24 Soco Shrestha NP [address] [place] [address] PCP - General Nurse Practitioner 01/24/24 Aft, Suzie Dumont MD PhD [address] [place] [address] Surgeon Surgical Oncology 04/23/20 Araceli Pagan MD [address] [place] [address] Medical Officer Psychiatry Obstetrics and Gynecology 07/31/22 Troy Rico MD Consulting Physician Rheumatology 08/12/19 documented as of this encounter
--- OUTSIDE RECORDS SUMMARY | 2024-06-16 08:07 | XMS_ITS | Clinical Summary ---
Author Organization [facility] Address [address] [place] [address] Phone Care Team Providers Care Cadd Instructor Name Role Phone Kin Jason DO Primary Care Provider Deneen vailable Allergies Active Allergy Reactions Criticality Noted Date Comments Amoxicillin-Pot Clavulanate Rash Low 05/22/19 18 Medications levothyroxine 200 mcg tablet Take 200 mcg by mouth daily heat curer. Active Cholecalciferol , Vitamin D3, (VITAMIN D3) [...] Maintenance Due Date Last Done Comments HPV/Cotest (21-29) 1982 CERVICAL CANCER SCREENING 1991 HPV/Cotest (30-65) 1991 PAP SMEAR 1991 COLORECTAL SCREENING 2006 Colorectal Cancer Screening [...] (1 - 1-dose 75+ series) 2036 Insurance RX [facility] [employer] Advance Directives For more information, please contact: [phone] * Full Code (Latest Code Status on File) Date Activated Date Inactivated Comments 05/21/2017 12:25 PM 05/22/2017 11:07 PM * Full Code Date Activated Date Inactivated Comments 01/08/2017 10:41 PM 01/10/2017 5:35 PM Care Teams Cadd Instructor Relationship Specialty Start Date End Date Kin Jason DO NO ADDRESS ON FILE PCP - General Family Practice 05/21/17
--- OUTSIDE RECORDS SUMMARY | 2024-06-16 08:07 | XMS_ITS | Clinical Summary ---
Author Organization [facility] Address [address] [place] [address] Care Team Providers Care System Designer Name Role Phone Aviva Rico MD Primary Care Provider [phone] Allergies Active Allergy Reactions Criticality Noted Date [...] CDT Gender Identity Female 05/01/2022 8:57 AM TECHNOLOGY DIRECTOR Sexual Orientation Straight 05/01/2022 8: 57 AM TECHNOLOGY DIRECTOR Last Filed Vital Signs Vital Sign Reading [...] 03/20/2016 COVID-19 Vaccine ( - season) 2023 DTaP, Tdap and Td Vaccines (4 - [...] HEPATITIS C ANTIBODY Routine 03/25/2019 3:36 PM TECHNOLOGY DIRECTOR Avitaminosis D Vitamin D deficiency Vitamin B 12 deficiency Screening examination for poliomyelitis from Last 3 Months or Most Recently Relevant to Health Maintenance Results * HEPATITIS C ANTIBODY (03/25/2019 3:36 PM TECHNOLOGY DIRECTOR) HEPATITIS C AB NON-REACTI VE NON-REACTI VE 03/25/2019 9:24 PM TECHNOLOGY DIRECTOR [facility] 03/25/2019 3:36 PM TECHNOLOGY DIRECTOR Aviva Rico MD LABORATORY Final Result [facility] [address] [place] [address], from Last 3 Months or Most Recently Relevant to Health Maintenance Insurance [employer] Care Teams System Designer Relationship Specialty Start Date End Date Aviva Rico MD [address] [place] [address] PCP - General RHEUMATOLOGY 10/11/22
--- OUTSIDE RECORDS SUMMARY | 2024-06-16 08:07 | XMS_ITS | Encounter Summary ---
Author Organization [facility] Address [address] [place] [address] Phone Care Team Providers Care Hotel Operation Manager Name Role Phone Aft, Suzie Dumont MD PhD Unavailable [phone] Tarik Escalera MD Primary Care Provider [phone] Araceli Pagan MD Unavailable Soco Shrestha NP Primary Care Provider [phone] Encounter Details Date Type Department Care Team (Late st Contact Info) Description 09/14/2018 Ophth Exam [facility] Ophthalmology [address] [place] [address] 1st [place] [address] Mame Venegas MD [address] [place] [address] Social History Tobacco Use Types Packs/Day Years Used Date Smoking Tobacco: Every Day Cigarettes Smokeless Tobacco: Never Comments:Trying to quit Alcohol Use Standard Drinks/Week Comments Yes 0 (1 standard drink = 0.6 oz pur e alcohol) Comments No Sex and Gender Information Value Date Recorded Sex Assigned at Not on file Legal Sex 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 Gender Identity Female 11/16/2018 3:35 PM CDT Sexual Orientation Straight 11/16/2018 3: 35 PM CDT 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 Not on file Not on file documented as of this encounter Plan of Treatment Upcoming Encounters Date Type Department Care Team (Late st Contact Info) Description 08/26/2024 9:45 AM CDT Hospital Encounter [facility] GI Lab [address] [place] [address] [place] [address] [id number] 08/26/2024 9:45 AM CDT - 08/26/2024 10:45 AM CDT Surgery [facility] GI Lab [address] [place] [address] [place] [address] [address] COLONOSCOPY Scheduled Procedures Name Priority [...] peripheral p igmentary changes inferotemporally Care Teams Hotel Operation Manager Relationship Specialty Start Date End Date Tarik Escalera MD [address] [place] [address] PCP - General Family Practice 07/28/21 01/23/24 Soco Shrestha NP [address] [place] [address] PCP - General Nurse Practitioner 01/24/24 Aft, Suzie Dumont MD PhD [address] [place] [address] Surgeon Surgical Oncology 04/23/20 Araceli Pagan MD [address] [place] [address] Circus Agent Obstetrics and Gynecology 07/31/22 Troy Rico MD Consulting Physician Rheumatology 08/12/19 documented as of this encounter
--- OUTSIDE RECORDS SUMMARY | 2024-06-16 08:07 | XMS_ITS | Encounter Summary ---
Author Organization [facility] Address [address] [place] [address] Phone Care Team Providers Care Political Geographer Name Role Phone Aft, Suzie Dumont MD PhD Unavailable [phone] Tarik Escalera MD Primary Care Provider [phone] Araceli Pagan MD Unavailable [phone] Soco Shrestha NP Primary Care Provider [phone] Reason for Referral * Diagnostic Imaging (Routine) - Closed Specialty Diagnoses / Procedures Referred By Mar mooney Referred To Contact Diagnoses Optic atrophy of both eyes Central retinal artery occlusion, left Lesion of right eyelid Ischemic optic neuropathy, right Pseudopapilledema of optic disc, 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 Branch retinal artery occlusion, right eye Vasculitis Procedures OCT, Retina - OU - Both Eyes Nicholas Orellana MD [address] [facility] [address] [place] [address] Phone: tel: fax: [facility] (All Locations) Referral ID Status Reason Start Date Expiration Date Visits Re quested Visits Authorized [id number] Closed 04/18/2023 05/17/2024 1 1 IC HEALTH TRAINING ASSISTANT * Diagnostic Imaging (Routine) - Closed Specialty Diagnoses / Procedures Referred By Contbrisa t Referred To Contact Diagnoses Optic atrophy of both eyes Central retinal artery occlusion, left Lesion of right eyelid Ischemic optic neuropathy, right Pseudopapilledema of optic disc, 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 Branch retinal artery occlusion, right eye Vasculitis Procedures OCT, Optic Nerve - OU - Both Eyes Nicholas Orellana MD [address] [place] [address] Phone: tel: fax: [facility] (All Locations) Referral ID Status Reason Start Date Expiration Date Visits Re quested Visits Authorized [id number] Closed 04/18/2023 05/17/2024 1 1 IC HEALTH TRAINING ASSISTANT * Diagnostic Imaging (Routine) - Closed Specialty Diagnoses / Procedures Referred By Mar mooney Referred To Contact Diagnoses Optic atrophy of both eyes Central retinal artery occlusion, left Lesion of right eyelid Ischemic optic neuropathy, right Pseudopapilledema of optic disc, 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 Branch retinal artery occlusion, right eye Vasculitis Procedures [place] Visual Field - OU - Both Eyes Nicholas Orellana MD [address] [place] [address] Phone: tel: fax: [facility] (All Locations) Referral ID Status Reason Start Date Expiration Date Visits Re quested Visits Authorized [id number] Closed 04/18/2023 05/17/2024 1 1 IC HEALTH TRAINING ASSISTANT Encounter Details Date Type Department Care Team (Late st Contact Info) Description 04/18/2023 Orders Only [facility] Ophthalmology [address] [place] [address] Health 6th [place] [id number] Nicholas Orellana MD [address] [place] [address] Optic atrophy of both eyes (Primary Dx); Central retinal artery occlusion, left; Lesion of right eyelid; Ischemic optic neuropathy, right; Pseudopapilledema of optic disc, unspecified laterality; Blindness of left eye with low vision in contralateral eye; Branch retinal artery occlusion, right eye; Vasculitis Social History Tobacco Use Types Packs/Day Years [...] on file Legal Sex Female 1:45 AM PUBLIC HEALTH TRAINING ASSISTANT Gender Identity Female 11/16/2018 3:35 PM CDT Sexual Orientation Straight 11/16/2018 3: 35 PM CDT Occupation Industry Job Start Date Job End Date Not on file Not on file Not on file Not on file documented as of this encounter Plan of Treatment Upcoming Encounters Date Type Department Care Team (Late st Contact Info) Description 08/26/2024 9:45 AM CDT Hospital Encounter [facility] GI Lab [address] [place] [address] [place] [address] [address] 08/26/2024 9:45 AM CDT - 08/26/2024 10:45 AM CDT Surgery [facility] GI Lab [address] [place] [address] [place] [address] [address] COLONOSCOPY Scheduled Procedures Name Priority Associated Diagnoses [...] Branch retinal artery occlusion, right eye Vasculitis documented in this encounter Results * OCT, [...] eye Arterial branch occlusion of retina Vasculitis Unspecified arteritis Optic atrophy of both eyes Unspecified optic atrophy Central retinal artery occlusion, left Ischemic optic neuropathy, 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 Branch retinal artery occlusion, right eye Arterial branch occlusion of retina Vasculitis Unspecified arteritis Personal history of colon polyps, unspecified documented in this encounter Care Teams Political Geographer Relationship Specialty Start Date End Date Tarik Escalera MD [address] [place] [address] PCP - General Family Practice 07/28/21 01/23/24 Soco Shrestha NP [address] [place] [address] PCP - General Nurse Practitioner 01/24/24 Aft, Suzie Dumont MD PhD [address] [place] [address] Surgeon Surgical Oncology 04/23/20 Araceli Pagan MD [address] [place] [address] [employer]obile Club Membership Sales Agent Obstetrics and Gynecology 07/31/22 Troy Rico MD Consulting Physician Rheumatology 08/12/19 documented as of this encounter
--- OUTSIDE RECORDS SUMMARY | 2024-06-16 08:07 | XMS_ITS | Encounter Summary ---
Author Organization [facility] Address [address] [place] [address] Care Team Providers Care Hair Or Beauty Salon Manager Name Role Phone Kin Jason DO Primary Care Provider [phone] Non-Staff, Provider Primary Care Provider Aviva Koenig MD Primary Care Provider [phone] Encounter Details Date Type Department Care Team ([facility] st Contact Info) Description 08/17/2018 Abstract SFL CONVERSION [address] [place] [address] , Generic ConversionMD Social History Tobacco Use Types Packs/Day Years [...] CDT Gender Identity Female 05/01/2022 8:57 AM 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
== END 2024-06-16 07:59 | disposition home or self-care (01) ==
PROVIDERS: PCP Nurse Practitioner Adult Health; Visit Provider Nurse Practitioner Adult Health
DX: M25.512 Pain in left shoulder (principal); M51.34 Other intervertebral disc degeneration, thoracic region; M50.30 Other cervical disc degeneration, unspecified cervical region
CPT/HCPCS: 72040; 72072; 73030

== ENCOUNTER 2024-09-02 08:06 | Outpatient (CLI) | payer OTHER, SELFPAY ==
--- NOTE | ~2024-09-02 | MR_ITS ---
MRI of the cervical spine Clinical History: Radiculopathy Technique: Axial T2-weighted and gradient images, and sagittal T1-weighted, T2-weighted, and STIR sonido ges were acquired. Findings: There is no fracture or subluxation of the cervical spine. There is extensive reactive juan pablo ow edema in the C6 and C7 vertebral bodies related to underlying degenerative disc disease. At C2-C3, there is no disc bulge or herniation. No spinal canal stenosis, cord compression, or neural foraminal narrowing. At C3-C4, there is no disc bulge or herniation. No spinal canal stenosis, cord compression, or neural foraminal narrowing. At C4-C5, there is no disc bulge or herniation. No spinal canal stenosis, cord compression, or neural foraminal narrowing. At C5-C6, there is moderate degenerative distended with minimal disc osteophyte complex. There is mil d canal stenosis without david cord compression. There is probable bilateral neural foraminal narrowi ng. At C6-C7, there is degenerative distended with mild disc osteophyte complex. There is minimal canal s tenosis without david cord compression. There is bilateral neural foraminal narrowing, left worse juliet n right. No abnormal signal seen in the spinal cord. Paravertebral soft tissues are unremarkable. Impression: [id number] degenerative spondylosis at C5-C6 and C6-C7, as detailed above. Reviewed, dictated and finalized at [facility]. Impression: [id number] degenerative spondylosis at C5-C6 and C6-C7, as detailed above .
== END 2024-09-02 08:07 | disposition home or self-care (01) ==
LOC: GOSHIMG 08:06
PROVIDERS: PCP Nurse Practitioner Adult Health; Visit Provider Nurse Practitioner Adult Health
DX: M47.22 Other spondylosis with radiculopathy, cervical region (principal)
CPT/HCPCS: 72141